=== PATIENT | male | born 1935 | race Caucasian/White ===

== ENCOUNTER 2016-12-21 10:31 | Inpatient (IN) | payer MEDICARE ==
--- NOTE | 2016-12-21 11:17 | RAD ---
FRONTAL RADIOGRAPH CHEST PORTABLE UPRIGHT: Date: 12/21/16 COMPARISON: 09/04/15 and 09/27/14. HISTORY: Premature ventricular contractions, premature atrial contractions, shortness of breath, dyspnea. FINDINGS: There is prominent elevation of the right hemidiaphragm limiting assessment of the right perihilar re gion and right lung base. Inspiration is shallow, also limiting detailed assessment. There is no pneu mothorax or focal consolidation. No large volume pleural effusion. There is prominent degenerative ch birgit involving the left shoulder. IMPRESSION: Elevation of right hemidiaphragm and shallow inspiration limits assessment of right perihilar region and right lung base. No lobar consolidation or alveolar edema. POS: [facility]
[2016-12-21 11:49] LABS: #Eosinphils 0.2 thou/uL (0.0-0.7); #Lymphocytes 2.1 thou/uL (1.20-3.40); #Monocytes 0.6 thou/uL (0.11-0.59); #Neutrophils 4.9 thou/uL (1.40-6.50); %Basophils 0.6 % (0.0-1.0); %Eosinophils 2.5 % (0.0-10.0); %Lymphocytes 26.8 % (21.0-51.0); Hematocrit 43.9 % (42.0-52.0); Mean Platelet Volume 9.9 fL (7.4-10.4); Red Blood Cell (RBC) Count 4.75 mill/uL (4.70-6.10); White Blood Cell (WBC) Count 7.8 thou/uL (4.8-10.8)
[2016-12-21 11:53] LABS: PTT 29.3 SEC (22.9-36.1); Prothrombin Time 15.6 SEC (12.0-14.7)
[2016-12-21 12:07] LABS: ALT (SGPT) 24 U/L (8-55); AST (SGOT) 21 U/L (5-34); Alkaline Phosphatase 46 U/L (40-150); Anion Gap 10 mmol/L (10-20); BUN (Urea Nitrogen) 19 mg/dL (8.4-25.7); CK (CPK) 79 U/L (30-200); Calc. Creatinine Clearance 0 mL/min (70-130); Carbon Dioxide 25 mmol/L (23-31); Estimated GFR-MDRD 77; Globulin 3.2 g/dL (2.4-3.5); Protein, Total 6.8 g/dL (5.8-8.1)
[2016-12-21 12:12] LABS: Troponin I 0.025 ng/mL (< 0.028)
[2016-12-21 12:28] LABS: Chloride 105 mmol/L (98-107)
[2016-12-21] MEDS ORDERED: Acetaminophen 325 MG TAB PO PRN (16:57)
[2016-12-21] MEDS ORDERED: Dextrose 50% Abboject 50 ML SYRINGE SLOW IVP PRN (16:57)
[2016-12-21] MEDS ORDERED: HumaLOG 300 UNITS/3 ML VIAL SC PRN (16:57)
[2016-12-21] MEDS ORDERED: Ondansetron HCl/PF 4 MG/2 ML Vial IVP PRN (16:57)
[2016-12-21] MEDS ORDERED: Bisacodyl 5 MG TAB PO PRN (16:57)
[2016-12-21] MEDS ORDERED: Dextrose 5% in Water 1,000 ML IV PRN (16:57)
[2016-12-21] MEDS ORDERED: Pepto Bismol Chew TAB PO PRN (16:57)
[2016-12-21] MEDS ORDERED: Ondansetron ODT 4 MG TAB PO PRN (16:57)
--- NOTE | 2016-12-21 17:25 | HP ---
PRIMARY CARE PHYSICIAN: NAREN Cantu PRIMARY MEDICAL LIAISON: Wellington Weber M.D. CHIEF COMPLAINT: Cough and congestion. HISTORY OF PRESENT ILLNESS: This is a 80-year-old white male with a known history of coronary artery disease and paroxysmal atrial fibrillation, status post electrical cardioversion, who has been in his normal state of health until the last 1-2 weeks he developed a cough, some upper respiratory congestion and some collection of dark sputum. This had cleared up a little bit over the last day. He went in to see his primary care physician, Lucie Beach today and during her workup, she did an EKG and noted multiple frequent PVCs along with underlying sinus bradycardia. At that point, these became so frequent and she decided to call an ambulance and had him brought over to [facility] either before he left the clinic or en route there was some concern for possible run of ventricular tachycardia. The patient had no symptoms at that time and he was given a couple of doses of lidocaine and put on a lidocaine drip for an undetermined amount of time and eventually it was actually turned off and was having got to the emergency room, he would not have any more PVCs, just irregular PACs. The patient's only complaint now is chronic shortness of breath which he states is no worse than normal and his cough and congestion. PAST MEDICAL HISTORY: 1. Coronary artery disease. 2. Paroxysmal atrial fibrillation. 3. Moderate aortic insufficiency. 4. Diabetes mellitus type 2. 5. Hypercholesterolemia. 6. Hypertension. 7. Obstructive sleep apnea requiring CPAP. 8. Osteoarthritis. 9. Multiple food allergies. PAST SURGICAL HISTORY: 1. Vasectomy. 2. Cardiac stents x3, last one was in 2006. 3. Tonsillectomy. 4. Cholecystectomy. 5. Left knee replacement. ALLERGIES: 1. PENICILLIN. 2. SULFA. 3. SERTRALINE. 4. MULTIPLE FOOD ALLERGIES. FAMILY HISTORY: 1. Congestive heart failure. 2. Hypertension. 3. Diabetes mellitus type 2. SOCIAL HISTORY: Patient denies any tobacco, alcohol, or illicit drug use. He was exposed to heavy secondhand smoke as a child. 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 CURRENT MEDICATIONS: 1. Multaq 400 mg twice a day. 2. Crestor 40 mg daily. 3. Zetia 10 mg daily. 4. Hydralazine 25 mg twice a day. 5. Amlodipine 2.5 mg daily. 6. Furosemide 20 mg daily. 7. Lisinopril 20 mg 1/2 tablet daily. 8. Metformin extended release 500 mg daily. 9. Pantoprazole 20 mg daily. 10. Ferrous sulfate 325 mg daily. 11. Vitamin D 3000 International Units daily. 12. Aspirin 325 mg daily. 13. Multivitamin daily. 14. Calcium vitamin daily. REVIEW OF SYSTEMS: CONSTITUTIONAL: No fevers, no chills. EYES: No double vision or blurred vision. NEUROLOGIC: He has had chronically poor eyesight and needs to get his glasses prescription updated. ENT: See HPI, nasal congestion and sinus congestion for the past week and a half. No sore throat. CARDIOVASCULAR: See HPI. No chest pain. HEENT: He does have regular runs of palpitations happen almost every day and nothing specifically today in the clinic or on his way into the hospital. PULMONARY: See HPI. GASTROINTESTINAL: No abdominal pain, no nausea, vomiting, no diarrhea or constipation. GENITOURINARY: No dysuria or hematuria. Currently, he has had some orange urine in the past that has been worked up by doctor. MUSCULOSKELETAL: He has chronic joint pains and muscle aches, but nothing new. SKIN: No rashes or other lesions he has noted. NEUROLOGIC: No numbness or focal weakness. He does have tingling in his bilateral thumbs from his arthritis that comes and goes. No headache. PHYSICAL EXAMINATION: VITAL SIGNS: Blood pressure 136/62, pulse 56, respirations 20, O2 sat 96% on room air, temperature 98.1. GENERAL: This is a well-developed, obese white male in no apparent distress, appears his stated age and development. HEENT: Pupils equal, round, and reactive to light. Extraocular movements intact. Oropharynx clear without lesions, erythema or exudate. NECK: Supple. No lymphadenopathy, no thyroid nodules or enlargement, no JVD. HEART: Regular rate and rhythm with occasional ectopic beats. No significant murmurs. LUNGS: Clear to auscultation bilaterally, no wheezes, crackles or rhonchi. ABDOMEN: Soft, nontender to palpation, normoactive bowel sounds, no hepatosplenomegaly or other masses. EXTREMITIES: No clubbing, cyanosis or edema. SKIN: No rashes or other lesions noted. NEUROLOGIC: Deep tendon reflexes 2+ in all extremities. Strength is equal in all extremities. PSYCHIATRIC: Alert and oriented x3, normal mood and affect. LABORATORY DATA: CBC normal. PT is 15.6, rest of his coags are normal. Complete metabolic panel was within normal limits. Cardiac markers set negative x1. Chest x-ray: I did review the chest x-ray along with the radiologist's report, the poor inspiration with elevation of the right hemidiaphragm, but no obvious abnormalities besides the right diaphragm elevation. EKG: I did review the EKG done in the emergency room as well as the rhythm strip of the patient while he was in the room, it does show sinus bradycardia with left axis deviation, no obvious ST elevation CO. He did have some premature narrow complex beats, but no PVCs while he was in the room or on the EKG. ASSESSMENT AND PLAN: 1. Frequent premature ventricular contractions and possible ventricular tachycardia run, though no rhythm strip was provided by EMS about these, the patient did report again he got lidocaine by EMS, though this had not to be continued as a drip. He has had no recurrence of the problem in the emergency room. For now, I will put the patient in the hospital on observation and watch him on the monitoring and evaluation advisor overnight. We will also have Cardiology evaluate the patient and see if further investigation needs to be done or his medications need to be adjusted. 2. Acute bronchitis. Likely viral, will treat symptomatically. 3. Diabetes mellitus type 2. We will resume patient's home metformin and check fingerstick blood sugars and give p.r.n. insulin if necessary. 4. Hypertension. We will resume patient's home medications. 5. Gastrointestinal prophylaxis. Put patient on Pepcid while in the hospital. 6. Deep venous thrombosis prophylaxis. Put the patient on sequential compression devices and TEDs while he is in bed. CODE STATUS: PATIENT IS FULL CODE. MTDD
[2016-12-21 18:08] VITALS: BMI 29.4
--- NOTE | 2016-12-21 18:51 | CON ---
DATE OF CONSULTATION: 12/21/2016 REASON FOR CONSULTATION: PVCs. PRIMARY SITE ENGINEER: Dr. Wellington Weber. HISTORY OF PRESENT ILLNESS: Mr. Carlos is a pleasant 80-year-old gentleman who is a patient of Dr. Wellington Weber. He was seen and evaluated in his primary care physician's office today. He said he went over for blood work and perforation per Dr. Weber's follow up visit on Wednesday. He sta [place] he had a cough and congestion and asked to see his primary provider. His primary provider felt decreased heart rate and obtained an EKG, and was found to have PVCs. He was concerned and summoned an ambulance. He then received IV lidocaine while in the ambulance. No chest pain, pressure, shor tness of breath or other associated symptoms present. PAST MEDICAL AND SURGICAL HISTORY: Paroxysmal atrial fibrillation, aortic insufficiency, diabetes m ellitus, hyperlipidemia, hypertension, obstructive sleep apnea, vasectomy, CAD status post stent meño cement, tonsillectomy and cholecystectomy. ALLERGIES: PENICILLIN and SERTRALINE. SOCIAL HISTORY: No current tobacco or alcohol use. MEDICATIONS: Include Lasix, amlodipine, hydralazine, Zetia, Crestor, Multaq, lisinopril, iron sulfa te, aspirin and calcium. REVIEW OF SYSTEMS: Ten-point review of systems is reviewed and is as above negative. PHYSICAL EXAMINATION: GENERAL: Patient is a pleasant male who is in no acute distress. The patient appears his stated ag e. VITAL SIGNS: Blood pressure 110/70, pulse 80 and respirations 20. NEUROLOGIC: The patient is alert and oriented x3 with no focal neurologic deficits. HEENT: Sclerae without icterus. Mouth has moist mucous membranes with normal pallor. NECK: No JVD. Carotid upstroke brisk. No bruits bilaterally. LUNGS: Clear to auscultation with unlabored respirations. BACK: No scoliosis or kyphosis. CARDIAC: Regular rate and rhythm with normal S1 and S2. No S3 or S4 noted. No significant rubs, murmurs, thrills, or gallops noted throughout the precordium. PMI is not displ aced. There is no parasternal heave. ABDOMEN: Soft, nontender, nondistended. No peritoneal signs present. No hepatosplenomegaly. No abnormal striae. EXTREMITIES: 2+ femoral and 2+ dorsalis pedis pulses. No cyanosis, clubbing, or edema. SKIN: No gross abnormalities. PERTINENT LABS: Hemoglobin 14.2. IMPRESSION: Premature ventricular contractions. RECOMMENDATIONS: I would recommend overnight observation. He may have had bigeminy or trigeminy. No current tracings are available. He certainly did not become unconscious. I would recommend over night observation then likely home in a.m. with outpatient workup.
[2016-12-21] MEDS: Dronedarone HCl 400 MG TAB PO SCH (19:29)
[2016-12-21] MEDS: hydrALAZINE 25 MG TAB PO SCH (19:29)
[2016-12-21] MEDS: Famotidine 20 MG TAB PO SCH (19:30)
[2016-12-21] MEDS: Ezetimibe 10 MG TAB PO SCH (19:30)
[2016-12-21] MEDS: Rosuvastatin 20 MG TAB PO SCH (19:31)
[2016-12-21] MEDS ORDERED: Guaifenesin DM 100-10/5 ML UDCUP PO SCH (20:00)
[2016-12-21] MEDS ORDERED: diphenhydrAMINE 25 MG CAP PO SCH (20:00)
[2016-12-22] MEDS ORDERED: Regadenoson 0.4 MG/5 ML SYRINGE ONE (01:36)
[2016-12-22 04:47] LABS: #Eosinphils 0.2 thou/uL (0.0-0.7); #Lymphocytes 2.2 thou/uL (1.20-3.40); #Monocytes 0.7 thou/uL (0.11-0.59); #Neutrophils 3.8 thou/uL (1.40-6.50); %Basophils 0.2 % (0.0-1.0); %Eosinophils 3.4 % (0.0-10.0); %Lymphocytes 31.6 % (21.0-51.0); %Monocytes 9.5 % (0.0-10.0); Hematocrit 42.9 % (42.0-52.0); Mean Platelet Volume 9.9 fL (7.4-10.4); Red Blood Cell (RBC) Count 4.61 mill/uL (4.70-6.10); White Blood Cell (WBC) Count 6.8 thou/uL (4.8-10.8)
[2016-12-22 05:04] LABS: Anion Gap 8 mmol/L (10-20); BUN (Urea Nitrogen) 20 mg/dL (8.4-25.7); Calc. Creatinine Clearance 85 mL/min (70-130); Calcium 8.8 mg/dL (7.8-10.44); Carbon Dioxide 29 mmol/L (23-31); Chloride 104 mmol/L (98-107); Estimated GFR-MDRD 83
--- NOTE | 2016-12-22 08:08 | PDOC.PN ---
- Subjective Encounter Start Date: 12/22/16 Encounter Start Time: 08:10 Subjective: No chest pain. Cough improved. Slept ok last night. No food this AM. - Objective Resuscitation Status: Resuscitation Status FULL:Full Resuscitation MAR Reviewed: Yes Vital Signs & Weight: Vital Signs (12 hours) Temp Pulse Resp BP BP Pulse Ox 12/22/16 07:32 98.5 F 63 18 160/78 H 95 12/22/16 03:45 97.6 F 57 L 18 126/57 L 97 12/21/16 23:10 98.2 F 65 16 108/55 L 95 Weight Weight 194 lb 11.2 oz I&O: 12/21/16 12/22/16 12/23/16 06:59 06:59 06:59 Intake Total 480 Output Total 200 Balance 280 Result Diagrams: 12/22/16 03:55 12/22/16 03:55 Additional Labs: Accuchecks 12/21/16 21:15 POC Glucose 207 H Phys Exam - Physical Examination Constitutional: NAD HEENT: moist MMs Respiratory: no wheezing, no rales, no rhonchi Cardiovascular: no significant murmur, no rub, gallop occ ectopic beat Gastrointestinal: soft, non-tender, positive bowel sounds Neurological: non-focal, moves all 4 limbs Psychiatric: normal affect, A&O x 3 Dx/Plan (1) Nonsustained ventricular tachycardia Code(s): I47.2 - VENTRICULAR TACHYCARDIA Status: Acute Comment: Recurrent overnight (2) Acute bronchitis Code(s): J20.9 - ACUTE BRONCHITIS, UNSPECIFIED Status: Acute (3) Coronary artery disease Code(s): I25.10 - ATHSCL HEART DISEASE OF [place] CORONARY ARTERY W/O ANG PCTRS Status: Chronic Plan: ECHO and Cardiolyte stress test (4) Diabetes mellitus type 2 in obese Code(s): E11.69 - TYPE 2 DIABETES MELLITUS WITH OTHER SPECIFIED COMPLICATION; E66.9 - OBESITY, UNSPECIFIED Status: Chronic (5) Hypertension Code(s): I10 - ESSENTIAL (PRIMARY) HYPERTENSION Status: Chronic - Plan cont current plan of care Appreciate Dr. Weber's assistance * . - Discharge Day Encounter end time: 08:40
[2016-12-22] MEDS ORDERED: Guaifenesin DM 100-10/5 ML UDCUP PO PRN (08:14)
[2016-12-22] MEDS ORDERED: Ezetimibe 10 MG TAB PO SCH (09:00)
[2016-12-22 09:38] LABS: Troponin I 0.034 ng/mL (< 0.028)
[2016-12-22] MEDS: metFORMIN XR 500 MG TAB PO SCH (13:26)
[2016-12-22] MEDS: Dronedarone HCl 400 MG TAB PO SCH ×2 (13:26→23:00)
[2016-12-22] MEDS: Aspirin 325 mg Enteric Coated Tablet PO SCH (13:26)
[2016-12-22] MEDS: Furosemide 20 MG TAB PO SCH (13:27)
[2016-12-22] MEDS: Ferrous Sulfate 325 MG TAB PO SCH ×2 (13:27→13:35)
[2016-12-22] MEDS: Amlodipine 5 MG TAB PO SCH (13:28)
[2016-12-22] MEDS: Lisinopril 10 MG TAB PO SCH (13:28)
[2016-12-22] MEDS: hydrALAZINE 25 MG TAB PO SCH ×2 (13:28→23:00)
[2016-12-22] MEDS: Famotidine 20 MG TAB PO SCH ×2 (13:28→23:01)
--- NOTE | 2016-12-22 13:41 | NM ---
NUCLEAR MEDICINE CARDIAC MYOCARDIAL PERFUSION SPECT EJECTION FRACTION STUDY WALL MOTION CINE: HISTORY: 80-year-old hypertensive diabetic (type II) male with dyslipidemia, coronary artery disease, and atri al fibrillation, presents with chest pain. TECHNIQUE: Number of days: 1 Rest study: Tc99m sestamibi (Cardiolite) dose: 9.4 mCi Pharmacologic stress: Lexiscan dose: 0.4 mg Stress study: Tc99m sestamibi (Cardiolite) dose: 32.1 mCi FINDINGS: CARDIAC (MYOCARDIAL PERFUSION) SPECT Left ventricular chamber is dilated. Radiopharmaceutical uptake throughout the left ventricular myoca rdium is mildly heterogenous. No definite reversible defect is identified. EJECTION FRACTION STUDY EF = 39% WALL MOTION CINE Global hypokinesis. No asymmetrical focal dyskinesis. IMPRESSION: 1. Left ventricular chamber dilation with decreased left ventricular ejection fraction of 39%, and gl obal hypokinesis. 2. No reversible ischemia identified. JOSELUIS Mendoza POS: [facility]
[2016-12-22] MEDS ORDERED: Communication Order-Pharmacy FS SCH (18:15)
[2016-12-22] MEDS: Sodium Chloride 0.9% 1,000 ML IV SCH (18:45)
[2016-12-22] MEDS: Rosuvastatin 20 MG TAB PO SCH (23:00)
[2016-12-22] MEDS: diphenhydrAMINE 25 MG CAP PO PRN (23:00)
[2016-12-22] MEDS: Ezetimibe 10 MG TAB PO SCH (23:01)
[2016-12-23] MEDS: Furosemide 20 MG TAB PO SCH (06:43)
[2016-12-23] MEDS: Aspirin 325 mg Enteric Coated Tablet PO SCH (06:43)
[2016-12-23] MEDS: Ferrous Sulfate 325 MG TAB PO SCH (06:44)
[2016-12-23] MEDS: Famotidine 20 MG TAB PO SCH ×2 (06:45→21:32)
[2016-12-23] MEDS: Lisinopril 10 MG TAB PO SCH (06:45)
[2016-12-23] MEDS: Dronedarone HCl 400 MG TAB PO SCH (06:46)
[2016-12-23] MEDS: Amlodipine 5 MG TAB PO SCH (06:46)
[2016-12-23] MEDS: Sodium Chloride 0.9% 1,000 ML IV SCH (06:47)
[2016-12-23] MEDS: hydrALAZINE 25 MG TAB PO SCH ×2 (08:08→21:32)
[2016-12-23] MEDS: metFORMIN XR 500 MG TAB PO SCH (08:09)
[2016-12-23] MEDS ORDERED: Heparin 10,000 UNITS/1 ML VIAL ONE (11:09)
[2016-12-23] MEDS ORDERED: Fentanyl 100 MCG/2 ML VIAL ONE (11:51)
[2016-12-23] MEDS ORDERED: Midazolam HCl 2 mg/2 ml Vial ONE (11:51)
[2016-12-23] MEDS ORDERED: Protamine Sulfate 50 MG/5 ML VIAL ONE (12:28)
[2016-12-23] MEDS ORDERED: traMADol HCl 50 MG TAB PO PRN (12:44)
[2016-12-23] MEDS ORDERED: Nitroglycerin 0.4 MG TAB (25 Tab Bottle) SL PRN (12:44)
[2016-12-23] MEDS ORDERED: Acetaminophen/Codeine 30-300mg Tablet PO PRN ×2 (12:44)
[2016-12-23] MEDS ORDERED: Sodium Chloride 0.9% 200 ML IV SCH (12:45)
[2016-12-23] MEDS ORDERED: Sodium Chloride 0.9% 1,000 ML IV SCH (12:47)
--- NOTE | 2016-12-23 13:52 | PRG ---
DATE OF SERVICE: 12/23/2016 SUBJECTIVE: The patient seen and examined at bedside. He just came back from the [employer] [facility] and we a re awaiting for the final official report on this test from Dr. Weber The patient is doing well. He does not have much complaints to offer. PHYSICAL EXAMINATION: VITAL SIGNS: Blood pressure is 118/77, pulse is 66, respiratory rate is 18. HEENT: Head is atraumatic and normocephalic. Eyes; PERRLA. Conjunctivae pinkish. Oral mucosa is moist. NECK: Supple. LUNGS: Clear. HEART: S1, S2, somewhat irregular, irregular. No S3, no S4. ABDOMEN: Soft, nontender, nondistended. EXTREMITIES: No clubbing, cyanosis. There is 1+ peripheral edema noted bilaterally. NEUROLOGIC: He is able to answer simple questions. He follows my commands. No motor or sensory de ficits. LABORATORY: Glycemia is ranging from 73-178. Activated clotting time is 132. IMPRESSION: 1. Nonsustained ventricular tachycardia, multiple runs of short nonsustained arrhythmia status post cardiac catheterization, awaiting for the results. 2. Acute bronchitis, improved. 3. Coronary artery disease of [place] coronaries, chronic, stable. 4. Diabetes mellitus type 2, controlled. 5. Hypertension, chronic, controlled. PLAN: The patient just came back from the [employer] [facility]. We are awaiting for final report from Dr. Jacey rankin whether he will set him up for an ICD or he will ask want ad clerk to come to do a consul t. For now we are going to continue current regimen.
[2016-12-23] MEDS ORDERED: Iopamidol 370 76% 100 ML VIAL ONE (16:47)
[2016-12-23] MEDS: diphenhydrAMINE 25 MG CAP PO PRN (21:31)
[2016-12-23] MEDS: Rosuvastatin 20 MG TAB PO SCH (21:31)
[2016-12-23] MEDS: Ezetimibe 10 MG TAB PO SCH (21:32)
[2016-12-23] MEDS: Guaifenesin DM 100-10/5 ML UDCUP PO PRN (21:33)
--- NOTE | 2016-12-23 21:54 | CON ---
DATE OF CONSULTATION: 12/23/2016 ELECTROPHYSIOLOGY CONSULTATION REPORT REFERRING PHYSICIAN: Dr. Weber. I am seeing Mr. Carlos at our [facility] telemetry floor as an electrophysiology senior research consultant. His problems are: 1. 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 A. Prior EF was normal in 07/2012, echo, but gradual worsening at LVEF was seen with left heart catheterization demonstrating severely decreased left ventricular systolic function at 30%, mild aortic stenosis and 2-vessel small dose to small vessel coronary artery disease in the 20% diagonal, 30% circumflex, 40% mid RCA, 30% ostial ramus. 2. Frequent ventricular ectopy with nonsustained ventricular tachyarrhythmia runs on monitor. 3. Tendency for bradycardia with heart rates down in the 40s on presentation. 4. History of paroxysmal atrial fibrillation, status post DOREEN guided cardioversion in 10/2013. 5. Coronary artery risk factors. A. Type 2 diabetes. B. Hypercholesterolemia. C. Hypertension. 6. History of obstructive sleep apnea requiring CPAP. 7. Valvular heart disease with moderate mitral regurgitation, mild aortic stenosis, moderate aortic regurgitation, mild tricuspid regurgitation. Echo with LVEF of 35% to 40% on 12/22/2016. SUBJECTIVE: Mr. Carlos was admitted hence frequent dense ventricular ectopy on his primary care physician's office. He was also noted to have bradycardia and was receiving an IV lidocaine for suppression of dysrhythmia. He was evaluated and treated for bronchitis and eventually underwent left heart catheterization by Dr. Weber today with the following findings. At this point denies loss of consciousness, but he did have significant dyspnea. He is unable to get around. He has been in a store without significant dyspnea. He denies chest pains on presentation, he did have some cough and congestion. No stroke-like symptoms. No bleeding issues are reported. Denies burning with urination, diarrhea, or other GI symptoms. REVIEW OF SYSTEMS: A 12-point review of systems was unremarkable. PAST MEDICAL HISTORY: As above. SOCIAL HISTORY: The patient denies smoking, ETOH, or drug use. The patient has history of kidney stones and Raynaud's disease. FAMILY HISTORY: Noncontributory. OBJECTIVE: VITAL SIGNS: Blood pressure is 118/77, heart rate 66, respirations 20, temperature 97.9 degrees Fahrenheit. GENERAL: Alert and oriented man in no apparent distress. NECK: Supple. Jugular veins not distended. CHEST: Coarse without crackles. CARDIOVASCULAR: Heart sounds are regular to rate and rhythm. No murmur or gallop. ABDOMEN: Benign. Bowel sounds positive. EXTREMITIES: Lower extremities without edema, clubbing or cyanosis. Pulses are adequate. NEUROLOGIC: Patient is nonfocal. MUSCULOSKELETAL: No joint swelling or deformities. SKIN: Without rash. DATABASE: EKG is reviewed reveals initially sinus bradycardia at rate of 45 with atypical left bundle pattern. There is also EKG with frequent multifocal ventricular ectopy noted. Telemetry strips also revealed episodic ventricular ectopy as well as non-sustained ventricular tachyarrhythmia runs. LABORATORY DATA: White blood cell count 6.8, hemoglobin 13.7, platelet count is 154. Sodium 137, potassium 4.3, BUN is 20, creatinine is 0.89. INR is 1.2, PTT 29.3. ASSESSMENT AND PLAN: Mr. Carlos is a 80-year-old man with prior history of chronic, likely nonischemic systolic congestive heart failure, paroxysmal atrial arrhythmias requiring cardioversion back in 2013 and remains on Multaq suppression since that time. Now he is admitted with frequent PVCs and marked sinus bradycardia. His LVEF is in severely the decreased range. I discussed the treatment options with him. I think since his LVEF is markedly reduced and has frequent ventricular ectopy, it would be reasonable to proceed with biventricular ICD implant prior to that, EP study will be performed to evaluate the atrial and ventricular arrhythmias. He likely has significant sinus node disease, possibly worsened by negative chronotropic agents, but would likely benefit from atrial pacing as well. Both EP study and biventricular ICD implant procedure was discussed with the family and the risks , benefits are detailed. They understand the chance of infection, bleeding, pneumothorax, tamponade, device malfunction, lead dislodgement and recalls they willing to proceed. We will schedule him in near date. Thank you again for letting me participate in the care of this patient. MAYURI
[2016-12-24] MEDS: metFORMIN XR 500 MG TAB PO SCH (08:36)
--- NOTE | 2016-12-24 08:36 | PRG ---
DATE OF SERVICE: 12/24/2016 SUBJECTIVE: The patient is seen and examined at bedside. He is doing well. He does not have much complaints to offer. He is getting ready for his AICD placement this morning. OBJECTIVE: VITAL SIGNS: Blood pressure is 133/63, pulse is 67, O2 saturation is 94% on room air, respiratory r ate is 18, temperature is 98.1. HEENT: Head is atraumatic, normocephalic. Eyes are PERRLA. Sclerae nonicteric. Conjunctivae pink johanna. Oral mucosa is moist. NECK: Supple, no lymphadenopathy. Thyroid is not palpable. LUNGS: Clear. HEART: S1, S2, somewhat irregular. No S3, no S4. ABDOMEN: Soft and nontender, nondistended. Bowel sounds are present. No organomegaly. EXTREMITIES: No clubbing, cyanosis or edema. NEUROLOGIC: He is alert and oriented x4. There is no motor or sensory deficits. Cranial nerves ar e intact. LABORATORY DATA: Showed none this morning. IMPRESSION: 1. Nonsustained ventricular tachycardia, multiple runs of short nonsustained arrhythmia, status pos t cardiac catheterization. LVEF was estimated at 25% per cardiac catheterization yesterday. The pa juan jose was seen by Dr. Laguerre for EP evaluation. He recommends biventricular AICD and pacer. 2. Acute bronchitis, improved. 3. Coronary artery disease of [place] coronaries, chronic, stable. 4. Diabetes mellitus type 2, controlled. 5. Hypertension, chronic, controlled. PLAN: To get an AICD today per Dr. Laguerre, diversity specialist. Also, there is a plan to put him on beta-b lockers and probably amiodarone per Dr. Weber. At this point, we are going to continue his curre nt regimen. He will continue on amlodipine, aspirin, Zetia, furosemide, lisinopril, metformin, pant oprazole, and Crestor.
[2016-12-24] MEDS: Lisinopril 10 MG TAB PO SCH (09:57)
[2016-12-24] MEDS: Famotidine 20 MG TAB PO SCH ×2 (09:58→20:04)
[2016-12-24] MEDS: Amlodipine 5 MG TAB PO SCH (09:58)
[2016-12-24] MEDS: Aspirin 325 mg Enteric Coated Tablet PO SCH (09:59)
[2016-12-24] MEDS: hydrALAZINE 25 MG TAB PO SCH (09:59)
[2016-12-24] MEDS: Furosemide 20 MG TAB PO SCH (10:03)
[2016-12-24] MEDS: Ferrous Sulfate 325 MG TAB PO SCH (10:06)
[2016-12-24 13:28] LABS: #Eosinphils 0.3 thou/uL (0.0-0.7); #Lymphocytes 2.1 thou/uL (1.20-3.40); #Monocytes 0.6 thou/uL (0.11-0.59); #Neutrophils 5.2 thou/uL (1.40-6.50); %Basophils 0.2 % (0.0-1.0); %Eosinophils 3.9 % (0.0-10.0); %Lymphocytes 25.1 % (21.0-51.0); %Monocytes 7.6 % (0.0-10.0); Hematocrit 43.7 % (42.0-52.0); Mean Platelet Volume 9.7 fL (7.4-10.4); Red Blood Cell (RBC) Count 4.67 mill/uL (4.70-6.10); White Blood Cell (WBC) Count 8.3 thou/uL (4.8-10.8)
[2016-12-24] MEDS ORDERED: Clindamycin/D5W 900 MG in Premix Bag 1 BAG IVPB SCH (13:30)
[2016-12-24 13:35] LABS: PTT 30.3 SEC (22.9-36.1); Prothrombin Time 16.3 SEC (12.0-14.7)
[2016-12-24] MEDS ORDERED: Propofol 500 MG/50 ML VIAL ONE (15:00)
[2016-12-24] MEDS ORDERED: Clindamycin/D5W 900 mg/50 ml Premix Bag ONE (15:02)
[2016-12-24] MEDS ORDERED: Levofloxacin 500 mg/D5W 100 ml Premix Bag ONE (15:02)
[2016-12-24] MEDS ORDERED: Ketamine 50 MG/ML VIAL ONE (15:24)
[2016-12-24] MEDS ORDERED: Glycopyrrolate 0.2 MG/ML 5 ML SYRINGE ONE (15:32)
[2016-12-24] MEDS ORDERED: Propofol 200 MG/20 ML VIAL ONE (15:32)
[2016-12-24] MEDS ORDERED: PHENYLEPHRINE-NS 100 MCG/ML 10 ML SYRINGE ONE (15:32)
[2016-12-24] MEDS ORDERED: Midazolam HCl 2 mg/2 ml Vial ONE (15:43)
[2016-12-24] MEDS ORDERED: Iopamidol 370 76% 50 ML VIAL FS ONE (16:28)
[2016-12-24] MEDS ORDERED: Promethazine HCl 25 MG/ML VIAL SLOW IVP PRN (16:31)
[2016-12-24] MEDS ORDERED: Morphine Sulfate 2 MG/ML SYRINGE SLOW IVP PRN (16:31)
[2016-12-24] MEDS ORDERED: Ondansetron HCl/PF 4 MG/2 ML Vial IVP PRN (16:31)
[2016-12-24] MEDS: Carvedilol 6.25 MG TAB PO SCH (17:00)
[2016-12-24] MEDS: Clindamycin 150 MG CAP PO SCH (20:01)
[2016-12-24] MEDS: Rosuvastatin 20 MG TAB PO SCH (20:03)
[2016-12-24] MEDS: Ezetimibe 10 MG TAB PO SCH (20:04)
[2016-12-24] MEDS: Amiodarone 200 MG TAB PO SCH (20:04)
[2016-12-25] MEDS: Guaifenesin DM 100-10/5 ML UDCUP PO PRN ×2 (00:35→20:37)
[2016-12-25] MEDS: diphenhydrAMINE 25 MG CAP PO PRN ×2 (00:35→20:38)
[2016-12-25 05:05] LABS: #Eosinphils 0.2 thou/uL (0.0-0.7); #Lymphocytes 1.6 thou/uL (1.20-3.40); #Neutrophils 7.4 thou/uL (1.40-6.50); %Basophils 0.3 % (0.0-1.0); %Eosinophils 2.3 % (0.0-10.0); %Lymphocytes 15.7 % (21.0-51.0); %Monocytes 9.6 % (0.0-10.0); Hematocrit 45.6 % (42.0-52.0); Mean Platelet Volume 10.1 fL (7.4-10.4); Red Blood Cell (RBC) Count 4.93 mill/uL (4.70-6.10); White Blood Cell (WBC) Count 10.3 thou/uL (4.8-10.8)
[2016-12-25 05:28] LABS: Anion Gap 12 mmol/L (10-20); BUN (Urea Nitrogen) 13 mg/dL (8.4-25.7); Calc. Creatinine Clearance 92 mL/min (70-130); Calcium 9.1 mg/dL (7.8-10.44); Carbon Dioxide 24 mmol/L (23-31); Chloride 105 mmol/L (98-107); Estimated GFR-MDRD 90
--- NOTE | 2016-12-25 06:50 | CCLSPC ---
DATE OF SERVICE: 12/24/2016 ELECTROPHYSIOLOGY STUDY REPORT REFERRING PHYSICIAN: Wellington Weber M.D. REASON FOR PROCEDURE: Mr. Carlos is a 80-year-old male with history of paroxysmal atrial fibrillation, coronary artery disease with multiple stents in the past, progressive worsening LV function and heart failure exacerbation as well as very frequent ventricular ectopy prompting his current admission. He is here for evaluation of conduction disease and arrhythmia. He also has atypical left bundle pattern EKG. DESCRIPTION OF PROCEDURE: The patient received deep sedation by Anesthesia specialist. After adequate level of sedation achieved, the right femoral vein was prepped, draped, and anesthetized with subcutaneous lidocaine and ultrasound guidance was used to access the right femoral vein through which an 8 -Jordanian short sheath was introduced. A Decapolar 7-Jordanian catheter was advanced to the right ventricle, His bundle, AV node, and right atrial position. Also, the left subclavian vein was cannulated to prove patency. Following that, pacing, mapping, and recording were performed in each cardiac location. The following results were recorded. The baseline rhythm is sinus rhythm with very frequent PVCs which are mostly monomorphic in nature, left bundle inferior axis in morphology. The baseline cycle length is 667, MS 164, QRS 140, QT 380, AH 121, HV 50 milliseconds. No definite VA conduction is documented. Sinus node recovery time is 765, corrected to 98 milliseconds noted. The antegrade Wenckebach cycle length is 480. AV jude ERP was 600/240 milliseconds. No definite dual AV jude physiology was seen. With burst atrial pacing -----, atrial flutter was induced. Following that, the catheter was used to perform the ventricular extrastimuli testing with up to 3 ventricular extrastimuli and [address] Up to 3 ventricular extrastimuli were used, which were decremented to the refractory. With this method long 7 to 8 seconds of somewhat polymorphic-appearing ventricular tachycardia was noted, but all self terminated. Due to borderline clinical status, as a testing was not performed. CONCLUSION: 1. Adequate atrioventricular jude and sinus jude function. 2. Widened QRS, atypical left bundle present. 3. Inducible atypical atrial flutter noted, which was self terminated. 4. Inducible ventricular tachycardia also self terminated noted, not sustained by definition. PLAN: Hence, the ischemic cardiomyopathy, now with severely reduced LVEF and severe ectopy easily inducible nonsustained VT, I think he he continue to have eleveted malignant ventricular and atrial arrhythmia risk. At this point, I think it would be reasonable to proceed with biventricular pacemaker which will allow for using further AV jude blocking agents as the patient sustained bradycardia in the past. His heart failure will likely improve with LV synchrony as well provided by the biventricular pacing. Discussed with Dr. Weber. POS: [facility] MESSINA
--- NOTE | 2016-12-25 07:55 | RAD ---
CHEST 1 VIEW: Date: 12/25/16 HISTORY: 80-year-old male with post cardiac device placement. FINDINGS: There is a left ICD. Monitor leads overlie the chest. Minimal cardiomegaly. Right hemidiaphragm elev ation with some linear parenchymal changes in the right base which appear stable. No pneumothorax or pleural effusion. IMPRESSION: Stable chronic changes. Left ICD placement without pneumothorax or other complication. Stable left s houlder degenerative changes. POS: [facility]
[2016-12-25] MEDS: Amiodarone 200 MG TAB PO SCH ×2 (10:39→20:38)
[2016-12-25] MEDS: Clindamycin 150 MG CAP PO SCH ×3 (10:40→20:37)
[2016-12-25] MEDS: Carvedilol 6.25 MG TAB PO SCH ×2 (10:40→16:11)
[2016-12-25] MEDS: Ferrous Sulfate 325 MG TAB PO SCH (10:40)
[2016-12-25] MEDS: Famotidine 20 MG TAB PO SCH ×2 (10:41→20:38)
[2016-12-25] MEDS: Lisinopril 10 MG TAB PO SCH (10:41)
[2016-12-25] MEDS: Furosemide 20 MG TAB PO SCH (10:41)
[2016-12-25] MEDS: metFORMIN XR 500 MG TAB PO SCH (10:41)
[2016-12-25] MEDS: Aspirin 325 mg Enteric Coated Tablet PO SCH (10:42)
[2016-12-25] MEDS ORDERED: Fentanyl 100 MCG/2 ML VIAL ONE (12:50)
--- NOTE | 2016-12-25 15:47 | RAD ---
PORTABLE CHEST 1 VIEW: Date: 12/25/16 Time: 1354 hours HISTORY: Post cardiac device placement. FINDINGS/IMPRESSION: Comparison made with the earlier exam at 0612 hours from the same date. No significant interval rodriguez ges are seen. No definite pneumothorax is noted. POS: OFF
--- NOTE | 2016-12-25 17:42 | PRG ---
DATE OF SERVICE: 12/25/2016 SUBJECTIVE: The patient was seen and examined at bedside. He just came back from the OR where he had atrial lead replaced and his pacemaker. He is not having any pain at the time of my visit; he d oes not have much complaints to offer. OBJECTIVE: VITAL SIGNS: Blood pressure is 107/67, pulse is 68, temperature is 98.8, respiratory rate is 18 and O2 saturation is 94%. HEENT: His head is atraumatic and normocephalic. Eyes are PERRLA. Conjunctivae pinkish. Oral muc lorraine is moist. NECK: Supple. LUNGS: The left upper chest shows an incision in the area where the pacemaker is placed. There is no bleeding. Looks good and dry. Lungs are clear. HEART: S1 and S2, somewhat distant. No S3, no S4. ABDOMEN: Soft, nontender, nondistended. EXTREMITIES: 1+ peripheral edema similar bilaterally. NEUROLOGIC: Intact. LABORATORY DATA: Showed normal CBC and normal BMP. Glycemia is ranging from 85-135 IMPRESSION: 1. Nonsustained ventricular tachycardia, multiple runs of short nonsustained arrhythmia and status post cardiac catheterization, which showed that the left ventricular ejection fraction is down to 25 % and the patient had biventricular pacer implantable cardioverter-defibrillator placed, but today, Dr. Laguerre had to go back and replace his atrial lead. 2. Acute bronchitis, resolved. 3. Coronary artery disease of [place] coronaries, chronic, stable. 4. Diabetes mellitus type 2, controlled. 5. Hypertension, chronic, controlled. PLAN: Observe him overnight and he will be discharged tomorrow morning if there is not any unexpect ed events. So far, he is doing well and continue the current regimen.
[2016-12-25] MEDS: Ezetimibe 10 MG TAB PO SCH (20:37)
[2016-12-25] MEDS: Rosuvastatin 20 MG TAB PO SCH (20:37)
[2016-12-26] MEDS: Clindamycin 150 MG CAP PO SCH (08:39)
[2016-12-26] MEDS: metFORMIN XR 500 MG TAB PO SCH (08:39)
[2016-12-26] MEDS: Ferrous Sulfate 325 MG TAB PO SCH (08:40)
[2016-12-26] MEDS: Famotidine 20 MG TAB PO SCH (08:40)
[2016-12-26] MEDS: Aspirin 325 mg Enteric Coated Tablet PO SCH (08:40)
[2016-12-26] MEDS: Carvedilol 6.25 MG TAB PO SCH (08:41)
[2016-12-26] MEDS: Amiodarone 200 MG TAB PO SCH (08:41)
[2016-12-26] MEDS: Lisinopril 10 MG TAB PO SCH (08:42)
[2016-12-26] MEDS: Furosemide 20 MG TAB PO SCH (08:42)
[2016-12-26 08:43] VITALS: BP 111/60
[2016-12-26 08:44] VITALS: TEMP 97.2
--- NOTE | 2016-12-26 12:09 | OP ---
DATE OF SERVICE: 12/26/2016 Mr. Carlos has underwent a biventricular ICD placement on 12/24/2016 with atrial leads dislodgement required atrial lead revision in the subsequent day. His device has adequate functioning this morn ing, interrogation revealed a [employer]onic Viva Quad XT TRUCK JUMPER-D device with battery longevity 7.9 years, impedance is 456 in atrium, 418 in RV, 65 in the LV. Capture threshold 0.25 volts at 0.4 in atrium, 0.65 volts at 0.4 in RV, 0.65 volts at 0.46 in the LV. Sensing 2.4 and 6.6 millivolts in the atriu m and RV respectively. CONCLUSION: Adequate functioning biventricular ICD 1 day post-lead revision. PLAN: Routine discharge with antibiotics and amiodarone taper. Wound check in 2 weeks.
--- NOTE | 2016-12-26 14:27 | DIS ---
DATE OF ADMISSION: 12/21/2016 DATE OF DISCHARGE: 12/26/2016 CONSULTANTS: Dr. Tan Sandoval and Dr. Weber for cardiology service, Dr. Andrea Laguerre, electr ophysiologist. FINAL DIAGNOSES: 1. Severe LV dysfunction. LVEF of 50-55% in 2014, during this hospitalization is down to 25-30%. 2. ICD biventricular. 3. Inducible V-tach at EPS. 4. CAD, status post cardiac catheterization in good stent results from before. 5. Mild aortic stenosis. 6. Sick sinus syndrome and history of cardioversion of atrial fibrillation in 2013. 7. Hypertension. 8. Hyperlipidemia. 9. Mitral regurgitation and aortic insufficiency. 10. Obstructive sleep apnea. PROCEDURE: Cardiac catheterization and biventricular AICD placement. HOSPITAL COURSE: The patient is a 80-year-old male with known history of coronary artery disease and paroxysmal atrial fibrillation, status post electrical cardioversion in the past, who lewis d been in his normal state of health until approximately 2 weeks prior to this hospitalization when he started developing cough and some upper respiratory congestion with some dark sputum which improv ed. He went to see his primary care physician and he had an electrocardiogram done in her office wh ich showed multiple frequent PVCs along with underlying sinus bradycardia, so the ambulance was call ed and he was taken to the emergency room at [facility] in [place]. He was given a couple of doses of lidocaine on his way to the hospital then he was placed on lidocaine drip which was eventu ally turned off in the emergency room since his multiple PVCs improved. In the emergency room, eval uation showed his CBC was normal, PT 15.6, the rest of his coags was normal. Complete metabolic son el was within normal limits. Cardiac marker set was negative x1. Chest x-ray revealed poor inspira tion with elevation of the right hemidiaphragm, but no obvious abnormalities besides the right diaph ragm elevation. EKG showed sinus bradycardia with left axis deviation, no obvious ST elevation WI. He had some premature narrow complex beats, but no PVCs on the EKG. So a decision was made about a dmission to the hospital. He was admitted to telemetry floor for possible nonsustained V-tach. Car diology was consulted, Dr. Sandoval. He saw the patient. He recommended overnight observation and he underwent a stress test nuclear which showed global hypokinesis, no asymmetrical focal dyskinesi s, left ventricular chamber was dilated with decreased left ventricular ejection fraction at 39%, wh ich was a significant change from the previous echo which was done in 2013 and it showed 50-55%. Of LVEF. The patient underwent cardiac catheterization after he had echocardiogram which showed moder ately depressed left ventricular function with ejection fraction of 35-40%, there was akinetic motio n of the inferior wall noted in the left ventricle. There was moderate mitral regurgitation, mild a ortic stenosis, moderate aortic regurgitation and mild tricuspid regurgitation. So, echo was done a nd based on this, he underwent cardiac catheterization which showed 2-vessel coronary artery disease , LAD and circumflex and severely impaired ventricular function with mild aortic stenosis. The EP c onsult was requested and The patient was seen by Dr. Andrea Laguerre who recommended biventricular AICD which was done, but because of some issue it required to reposition atrial lead, so the patient was taken again to the lab engineer for this procedure which was done properly and finally he is paced prope rly, no problems overnight, there were no any cardiac abnormalities. He is feeling good. He does n ot have much complains to offer. There were several changes during this hospitalization in his medi cations. We stopped his Multaq, amlodipine and hydralazine and he was placed on Coreg and amiodaron e. Also post-procedure, he was placed on clindamycin since he is allergic to PENICILLIN. His blood pressure today is 123/58, pulse is 75, respiratory rate is 18, and O2 saturation 95 on room air, hi s temperature is 97.4. He was seen and examined and evaluated before he is discharged home. He is s upposed to stay on heart healthy, low salt diet. We are going to have him on post-AICD placement pr otocol in terms of lifting and using his left arm and he will take his home medications as follows. Amiodarone 400 mg twice a day for 2 weeks, then 200 mg twice a day for 2 weeks, then he will stay o n 200 mg tablets 1 a day; carvedilol 6.25 mg twice a day, and clindamycin 300 mg 3 times a day for 7 days. His other medications at the time of discharge, aspirin 325 mg once a day, cholecalciferol v itamin D3 1000 units once a day, Zetia 10 mg q.p.m., furosemide 20 mg once a day, lisinopril 10 mg o nce a day, metformin 500 mg once day, Rosuvastatin, which is Crestor 40 mg at bedtime. He is going to call Dr. Weber's office and Dr. Laguerre's office for the followup appointments. The patient was seen and examined before he was discharged. Discharge time is more than 30 minutes.
--- NOTE | 2016-12-30 13:27 | STRESS ---
Acquisition Time: 2016-12-22 09:59:27 Total Exercise Time: 00:01:00 Test Indications: CHEST PAIN Medications: Protocol: LEXISCAN Max HR: 085 BPM 59% of Pred: 142 BPM Max BP: 142/060 mmHG Max Work Load: 1.0 METS RESTING ECG: NORMAL SINUS RHYTHM AT 55 BPM WITH POOR R-WAVE PROGRESSION AND FREQUENT PVC'S SYMPTOMS: SHORTNESS OF BREATH NORMAL BP RESPONSE ECTOPY: FREQUENT PVC'S ECG STRESS: NO SIGNIFICANT CHANGES INTERPRETATION: AWAIT NUCLEAR IMAGES FOR DEFINITIVE DIAGNOSIS Confirmed by WINSTON SHEPARD ([id number]), newspaper photo editor RADHA SHAH ([id number]) on 12/30/2016 1:26:52 PM Referred By: MD Nick SHEPARD Confirmed By:WINSTON SHEPARD
--- NOTE | 2017-01-03 14:47 | EKG ---
Test Reason : Blood Pressure : / mmHG Vent. Rate : 095 BPM Atrial Rate : 095 BPM P-R Int : 000 ms QRS Dur : 176 ms QT Int : 472 ms P-R-T Axes : 000 098 -78 degrees QTc Int : 593 ms Normal sinus rhythm with frequent premature ventricular complexes Left axis deviation Abnormal ECG Confirmed by WINSTON SHEPARD (2) on 01/03/2017 2:47:02 PM Referred By: SUSIE Confirmed By:WINSTON SHEPARD
--- NOTE | 2017-02-13 09:40 | EKG ---
Test Reason : Blood Pressure : / mmHG Vent. Rate : 048 BPM Atrial Rate : 048 BPM P-R Int : 158 ms QRS Dur : 136 ms QT Int : 492 ms P-R-T Axes : 048 -51 098 degrees QTc Int : 439 ms Sinus bradycardia Left axis deviation Non-specific intra-ventricular conduction block T wave abnormality, consider lateral ischemia No STEMI Abnormal ECG Confirmed by JAC CARL M.D. ([id number]), scientific editor KHUSHBU HENRY ([id number]) on 02/13/2017 9:40:26 AM Referred By: Confirmed By:JAC CARL M.D.
== END 2016-12-26 11:52 | disposition home or self-care (01) | DRG 225 ==
LOC: ERS 10:31 → 2SW 16:00 → OBSVTOIN 12-22 18:14 → 2NO 12-22 23:12
PROVIDERS: ADMIT Emergency Medicine; ATTEND Emergency Medicine
PROC: 4A023N8 Measurement of Cardiac Sampling and Pressure, Bilateral, Percutaneous Approach (ICD-10-PCS; 2016-12-23)
PROC: B2111ZZ Fluoroscopy of Multiple Coronary Arteries using Low Osmolar Contrast (ICD-10-PCS; 2016-12-23)
PROC: B2151ZZ Fluoroscopy of Left Heart using Low Osmolar Contrast (ICD-10-PCS; 2016-12-23)
PROC: 0JH609Z Insertion of Cardiac Resynchronization Defibrillator Pulse Generator into Chest Subcutaneous Tissue and Fascia, Open Approach (ICD-10-PCS; 2016-12-24)
PROC: 02HK3KZ Insertion of Defibrillator Lead into Right Ventricle, Percutaneous Approach (ICD-10-PCS; 2016-12-24)
PROC: 02H63KZ Insertion of Defibrillator Lead into Right Atrium, Percutaneous Approach (ICD-10-PCS; 2016-12-24)
PROC: 02HL3KZ Insertion of Defibrillator Lead into Left Ventricle, Percutaneous Approach (ICD-10-PCS; 2016-12-24)
PROC: 3E0102A Introduction of Anti-Infective Envelope into Subcutaneous Tissue, Open Approach (ICD-10-PCS; 2016-12-24)
PROC: 02WA3MZ Revision of Cardiac Lead in Heart, Percutaneous Approach (ICD-10-PCS; 2016-12-25)
PROC: 4B02XTZ Measurement of Cardiac Defibrillator, External Approach (ICD-10-PCS; principal; 2016-12-26)
DX: I47.2 Ventricular tachycardia (principal); I42.9 Cardiomyopathy, unspecified; I11.0 Hypertensive heart disease with heart failure; I50.22 Chronic systolic (congestive) heart failure; T82.120A Displacement of cardiac electrode, initial encounter; I49.5 Sick sinus syndrome; I48.0 Paroxysmal atrial fibrillation; R00.1 Bradycardia, unspecified; I08.3 Combined rheumatic disorders of mitral, aortic and tricuspid valves; E11.9 Type 2 diabetes mellitus without complications; J20.8 Acute bronchitis due to other specified organisms; I25.10 Atherosclerotic heart disease of native coronary artery without angina pectoris; E78.00 Pure hypercholesterolemia, unspecified; G47.33 Obstructive sleep apnea (adult) (pediatric); M19.90 Unspecified osteoarthritis, unspecified site; Z95.5 Presence of coronary angioplasty implant and graft; Z96.652 Presence of left artificial knee joint; Z88.0 Allergy status to penicillin; Z88.2 Allergy status to sulfonamides; Z88.8 Allergy status to other drugs, medicaments and biological substances; Z91.018 Allergy to other foods; Z79.84 Long term (current) use of oral hypoglycemic drugs; I73.00 Raynaud's syndrome without gangrene; E66.9 Obesity, unspecified; Z68.29 Body mass index [BMI] 29.0-29.9, adult
CPT/HCPCS: 33215; 33225; 33230; 36005; 36415; 36416; 71010; 75820; 76942; 78452; 80048; 80053; 80061; 82553; 84484; 85025; 85347; 85610; 85730; 93005; 93010; 93017; 93306; 93460; 93567; 93620; 93641; 93798; 99152; 99153; A4216; A9500; C1769; C1777; C1882; C1898; C1900; J1644; J1956; J2250; J2704; J2720; J2785; J3010; J3490

== ENCOUNTER 2017-01-20 10:32 | Outpatient (CLI) | payer MEDICARE ==
--- NOTE | 2017-01-20 11:23 | RAD ---
PA AND LATERAL CHEST: History: Cough. FINDINGS: Comparison is made with exam of 12-25-16. Left sided pacemaker device remains in place. There is continued elevation of the right hemidiaphragm . The heart size is normal. No confluent areas of consolidation, pneumothorax, or pleural effusions a re seen. There are degenerative changes in the left shoulder joint. IMPRESSION: No acute process. POS: H
== END 2017-01-20 10:33 | disposition home or self-care (01) ==
LOC: RAD-FRANK 10:32
PROVIDERS: ATTEND Nurse Practitioner Family
DX: J06.9 Acute upper respiratory infection, unspecified (principal)
CPT/HCPCS: 71020

== ENCOUNTER 2017-01-26 10:16 | Outpatient (CLI) | payer MEDICARE ==
[2017-01-26] MEDS ORDERED: Iopamidol 370 76% 100 ML VIAL ONE (13:12)
--- NOTE | 2017-01-26 14:36 | CT ---
CT OF THE CHEST, ABDOMEN, AND PELVIS WITH IV CONTRAST: INDICATION: Elevation of the right hemidiaphragm with history of aortic stenosis, left ventricular dysfunction, m itral regurgitation, and aortic stenosis. The patient has had a chronic cough with shortness of samantha th. COMPARISON: Prior CT of the chest dated 10/06/[address] of the abdomen and pelvis dated 04/14/07. FINDINGS: There is a dual-lead pacemaker in the left chest wall. There is a 1 cm pretracheal lymph node which is stable. There are calcified lymph nodes within the s ubcarinal region and right hilar region. There are vascular calcifications involving the thoracic aorta and coronary arteries. No confluent airspace opacity is evident. There are areas of subsegmental volume loss seen within th e right lung base stable to the prior exam likely related to elevation of the right hemidiaphragm. T here are calcified granuloma within the right lower lobe. No suspicious mass or pulmonary nodule is evident. There is a calcified granuloma within the left lower lobe. The gallbladder is surgically absent. The adrenal glands and left kidney are normal-appearing. There is a slightly hyperdense oval lesion involving the superior pole of the right kidney that cannot be fully characterized. This may reflect a proteinaceous cyst. There are surgical clips seen along the inferior aspect of the right kidney. No hydronephrosis is evident. The bladder is decompressed. The colon demonstrates a mild amount of retained stool. There is a nor mal appendix in the right lower quadrant. The small bowel is of normal caliber. There is thoracolumbar scoliosis. There is advanced left glenohumeral osteoarthrosis. No definite a cute osseous abnormality is evident. IMPRESSION: 1. No definite acute abnormality. 2. Elevation of the right hemidiaphragm and right basilar atelectasis is stable to 2014 exam. 3. Findings of prior granulomatous disease. 4. Slightly hyperdense oval lesion involving the superior pole of the right kidney is not fully cameron acterized on the current exam. Would recommend a followup renal ultrasound for further characterizat ion. This may reflect proteinaceous cyst or solid renal lesion. 5. Other chronic findings as above. POS: [facility]
== END 2017-01-26 10:17 | disposition home or self-care (01) ==
LOC: CT 10:16
PROVIDERS: ATTEND Nurse Practitioner Family
DX: J98.6 Disorders of diaphragm (principal); R07.81 Pleurodynia; I35.0 Nonrheumatic aortic (valve) stenosis; R60.0 Localized edema; R06.02 Shortness of breath; R05 Cough; N28.9 Disorder of kidney and ureter, unspecified; J98.11 Atelectasis; Z95.810 Presence of automatic (implantable) cardiac defibrillator
CPT/HCPCS: 71260; 74177

== ENCOUNTER 2017-04-01 15:31 | Outpatient (CLI) | payer MEDICARE ==
--- NOTE | 2017-04-01 15:47 | RAD ---
CHEST ONE VIEW: History: Chest pain. Comparison: 01-20-17 FINDINGS: Cardiac silhouette is magnified by projection. Pulmonary vasculature is slightly engorged. Mediastinu m is midline with aortic calcification and a multi-lead left subclavian cardiac electronic device. Th ere is no lobar consolidation or evidence of osseous structures are demineralized. IMPRESSION: 1. Borderline pulmonary vascular congestion. Stable. POS: [facility]
== END 2017-04-01 15:32 | disposition home or self-care (01) ==
LOC: RAD-FRANK 15:31
PROVIDERS: ATTEND Internal Medicine Cardiovascular Disease
DX: I25.5 Ischemic cardiomyopathy (principal); R09.89 Other specified symptoms and signs involving the circulatory and respiratory systems
CPT/HCPCS: 71046

== ENCOUNTER 2017-07-05 13:10 | Outpatient (CLI) | payer MEDICARE ==
--- NOTE | 2017-07-05 15:06 | RAD ---
CHEST PA AND LATERAL: History: 81-year-old male with history of cardiomyopathy. Comparison: 04-01-17 FINDINGS: Left ICD. Atherosclerosis of the aorta with ectasia. Stable increased markings bilaterally with some mild vascular congestion without confluent pneumonia or overt edema. IMPRESSION: Stable borderline sized heart and vascular congestion and increased markings. No significant new proc ess. Atherosclerosis of the aorta with ectasia. Left ICD. Marked arthrosis left shoulder. POS: OFF
== END 2017-07-05 13:11 | disposition home or self-care (01) ==
LOC: RAD-FRANK 13:10
PROVIDERS: ATTEND Internal Medicine Cardiovascular Disease
DX: I25.5 Ischemic cardiomyopathy (principal); I70.0 Atherosclerosis of aorta; I77.819 Aortic ectasia, unspecified site; Z95.810 Presence of automatic (implantable) cardiac defibrillator
CPT/HCPCS: 71046

== ENCOUNTER 2017-09-29 09:48 | Outpatient (CLI) | payer MEDICARE ==
--- NOTE | 2017-09-29 10:50 | RAD ---
TWO VIEWS CHEST: HISTORY: Atrial fibrillation. COMPARISON: 07/05/2017 FINDINGS: Stable left-sided defibrillator. Stable cardiac silhouette. Pulmonary vessels and hilum are normal. Costophrenic angles are clear. Chronic changes in the right lung base. No pneumothorax or osseous abnormalities. Stable thickening of the left and right apical pleura. Stable degenerative changes in the left shoulder. IMPRESSION: No acute cardiopulmonary process. POS: [facility]
== END 2017-09-29 09:49 | disposition home or self-care (01) ==
LOC: RAD-FRANK 09:48
PROVIDERS: ATTEND Internal Medicine Cardiovascular Disease
DX: I48.91 Unspecified atrial fibrillation (principal)
CPT/HCPCS: 71046

== ENCOUNTER 2017-11-18 12:50 | Outpatient (CLI) | payer MEDICARE ==
[~2017-11-18 12:50] MED LIST: ISOVUE-370 76%-LOCM 1 ML ONE
--- NOTE | 2017-11-18 17:22 | CT ---
CT CHEST WITH IV CONTRAST: Date: 11-18-17 Provided Clinical History: Elevated hemidiaphragm, aortic stenosis, hypertension and COPD. FINDINGS: Comparison is made with a chest, abdomen, and pelvis CT dated 01-26-17. Evaluation is limited by donnie ent respiratory motion. The heart, pericardium and great vessels demonstrate a stable CT appearance. Elevation of the right hemidiaphragm is unchanged with respect to the prior examination. There is no evidence for thoracic lymph node enlargement. The airway appears patent and of normal caliber. The lovely ngs appear grossly free of significant opacity. There is no pleural fluid or pneumothorax apparent. The visualized portions of the upper abdomen demonstrate no acute abnormality. Small non-obstructing mid portion left renal calculus. Benign appearing right renal cysts. Prior cholecystectomy change. IMPRESSION: No evidence for an acute process. Stable CT of the chest with respect to 01-26-17. POS: [facility]
== END 2017-11-18 12:51 | disposition home or self-care (01) ==
LOC: BICCT 12:50
PROVIDERS: ATTEND Nurse Practitioner Family
DX: I11.9 Hypertensive heart disease without heart failure (principal); I25.10 Atherosclerotic heart disease of native coronary artery without angina pectoris; J98.6 Disorders of diaphragm; J44.9 Chronic obstructive pulmonary disease, unspecified; I49.9 Cardiac arrhythmia, unspecified; E11.65 Type 2 diabetes mellitus with hyperglycemia; E66.9 Obesity, unspecified; E78.5 Hyperlipidemia, unspecified; I08.0 Rheumatic disorders of both mitral and aortic valves; I49.5 Sick sinus syndrome; G47.33 Obstructive sleep apnea (adult) (pediatric); M06.4 Inflammatory polyarthropathy; I47.2 Ventricular tachycardia; K21.9 Gastro-esophageal reflux disease without esophagitis; H91.93 Unspecified hearing loss, bilateral; G56.03 Carpal tunnel syndrome, bilateral upper limbs; N13.2 Hydronephrosis with renal and ureteral calculous obstruction; Z95.810 Presence of automatic (implantable) cardiac defibrillator; Z68.34 Body mass index [BMI] 34.0-34.9, adult
CPT/HCPCS: 71260

== ENCOUNTER 2018-03-31 15:29 | Inpatient (IN) | payer MEDICARE ==
[2018-03-31 16:59] LABS: #Eosinphils 0.2 thou/uL (0.0-0.7); #Lymphocytes 1.6 thou/uL (1.20-3.40); #Monocytes 0.6 thou/uL (0.11-0.59); #Neutrophils 4.3 thou/uL (1.40-6.50); %Basophils 0.3 % (0.0-1.0); %Eosinophils 3.4 % (0.0-10.0); %Lymphocytes 23.9 % (21.0-51.0); %Monocytes 8.4 % (0.0-10.0); Hemoglobin 13.8 g/dL (14.0-18.0); Mean Corpuscular HGB CONC 31.5 g/dL (32.0-36.0); Mean Corpuscular Hemoglobin 29.9 pg (27.0-31.0); Mean Platelet Volume 9.4 fL (7.4-10.4); Platelet Count 151 thou/uL (130-400); RBC Distribution Width 12.2 % (11.5-14.5); Red Blood Cell (RBC) Count 4.63 mill/uL (4.70-6.10); White Blood Cell (WBC) Count 6.7 thou/uL (4.8-10.8)
[2018-03-31 17:23] LABS: ALT (SGPT) 21 U/L (8-55); AST (SGOT) 26 U/L (5-34); Albumin 3.8 g/dL (3.4-4.8); Alkaline Phosphatase 48 U/L (40-150); Anion Gap 15 mmol/L (10-20); BUN (Urea Nitrogen) 17 mg/dL (8.4-25.7); Bilirubin, Total 1.3 mg/dL (0.2-1.2); Calc. Creatinine Clearance 0 mL/min (70-130); Calcium 9.4 mg/dL (7.8-10.44); Carbon Dioxide 24 mmol/L (23-31); Chloride 104 mmol/L (98-107); Estimated GFR-MDRD 78; Glucose 97 mg/dL (83-110); Potassium 4.1 mmol/L (3.5-5.1); Protein, Total 6.8 g/dL (5.8-8.1); Sodium 139 mmol/L (136-145)
[2018-03-31] MEDS ORDERED: Furosemide 40 MG/4 ML VIAL ONE (17:26)
--- NOTE | 2018-03-31 17:43 | RAD ---
2 VIEW CHEST SERIES: Date: 03/31/18 COMPARISON: 09/29/17. INDICATION: Emergency exam for shortness of breath. FINDINGS: There is patchy density at the perihilar regions bilaterally, most notable at the medial right lung b ase. There is elevation of the right hemidiaphragm. Left-sided AICD remains in place. There is enlarg ement of the cardiac silhouette and pulmonary vasculature. Slight blunting of the right costophrenic sulcus may be related to small volume pleural fluid. IMPRESSION: Findings favor decompensated CHF. Correlate clinically. POS: [facility]
[2018-03-31 20:33] LABS: CKMB 5.3 ng/mL (0-6.6)
[2018-03-31 21:22] VITALS: BMI 35.2
[2018-03-31] MEDS ORDERED: Acetaminophen 650 MG Suppository PR PRN (21:34)
[2018-03-31] MEDS ORDERED: Senokot S 8.6-50 MG TAB PO PRN (21:34)
[2018-03-31] MEDS ORDERED: Ondansetron PF 4 MG/2 ML Vial IVP PRN (21:34)
[2018-03-31] MEDS ORDERED: Guaifenesin DM 100-10/5 ML UDCUP PO PRN (21:34)
[2018-03-31] MEDS ORDERED: Ondansetron ODT 4 MG TAB PO PRN (21:34)
--- NOTE | 2018-03-31 21:55 | HP ---
PRIMARY CARE PHYSICIAN: NAREN Rosenberg. CHIEF COMPLAINT: Shortness of breath. HISTORY OF PRESENT ILLNESS: This is an 82-year-old white male with known congestive heart failure, last ejection fraction in the hospital was 30% to 40% in 2017 with some significant left ventricular akinetic motion. The patient reports that he had severe exacerbation of this sometime in 2018 and was admitted to the hospital in [place], required BiPAP and significant diuresis at that time. He had been doing okay since then, but then over the last month, he states he starting to feel fluid to gather in his abdomen and his lower extremities become a little more swollen and then he has been having increasingly frequent episodes of shortness of breath. He has shortness of breath usually at night and will often wake him up from sleeping and then last night he had a severe episode where he woke up very short of breath and did not know where he was or who he was or what was going on. The patient reports that he was recently seen by Dr. Weber and told to increase Lasix from 20 mg to 40 mg. He denies eating more of solid, drinking much fluids. PAST MEDICAL HISTORY: 1. Systolic congestive heart failure. 2. Coronary artery disease. 3. Paroxysmal atrial fibrillation. 4. Diabetes mellitus, type 2. 5. Hypercholesterolemia. 6. Hypertension. 7. Obstructive sleep apnea. 8. Osteoarthritis. 9. Moderate aortic insufficiency. 10. Raynaud syndrome. PAST SURGICAL HISTORY: 1. Discectomy. 2. Cardiac stents x3. 3. Tonsillectomy. 4. Cholecystectomy. 5. Left knee replacement. 6. Hernia repair. 7. AICD placement. SOCIAL HISTORY: The patient denies tobacco, alcohol, or illicit drug use though he has heavy secondhand smoke exposure as a child. He is a retired long-semi truck driver. FAMILY HISTORY: Congestive heart failure, hypertension, and diabetes mellitus type 2. ALLERGIES: 1. PENICILLIN. 2. SERTRALINE. 3. SULFA ANTIBIOTICS. 4. TETRACYCLINE. 5. TOMATO. 6. TREE NUTS. 7. PEPPERS. 8. BANANAS. CURRENT MEDICATIONS: The patient does not have his medication list with him at this time. He does know he is on Lasix 40 mg daily. Other medicines from his most recent hospital discharge include 1. Amiodarone 200 mg twice a day. 2. Aspirin 325 mg daily. 3. Carvedilol 6.25 mg twice a day. 4. Vitamin D3 1000 units daily. 5. Zetia 10 mg at night. 6. Ferrous sulfate 325 mg daily. 7. Lisinopril 10 mg daily. 8. Metformin 500 mg daily. 9. Multivitamin daily. 10. Protonix 20 mg daily. 11. Crestor 40 mg at night. REVIEW OF SYSTEMS: CONSTITUTIONAL: No fevers, no chills. EYES: No double vision or blurred vision. ENT: He has some intermittent congestion. No sore throat. CARDIOVASCULAR: No chest pain. No palpitations or racing heart. PULMONARY: He has shortness of breath as per the HPI. Minimal cough, nonproductive. GASTROINTESTINAL: No abdominal pain. No nausea or vomiting. No diarrhea or constipation. GENITOURINARY: No dysuria or hematuria. MUSCULOSKELETAL: No muscle aches or joint pains recently. SKIN: No rashes or other lesions noted. NEUROLOGIC: No numbness, tingling, or focal weakness. PHYSICAL EXAMINATION: VITAL SIGNS: Blood pressure 137/63, pulse 62, respirations 24, O2 saturation 96 % on room air, temperature 98.6. GENERAL: This is a well-developed, obese, white male, in no acute distress. He is lying propped up and at rest. HEENT: Pupils are equal, round, and reactive to light. Oropharynx is clear without lesions, erythema, or exudate. NECK: Supple. No lymphadenopathy. No thyroid nodules or enlargement. He does have some appreciable JVD. HEART: Regular rate and rhythm. No murmurs, rubs, or gallops. LUNGS: Mild bibasilar crackles. Good air movement throughout. ABDOMEN: Soft, obese, nontender to palpation. Normoactive bowel sounds. No hepatosplenomegaly or other masses. EXTREMITIES: No clubbing or cyanosis. He does have 1+ pitting edema in bilateral lower extremities to about the knee. SKIN: No rashes or other lesions noted. NEUROLOGIC: Intact strength and sensation in all extremities. No facial droop. LABORATORY DATA: CBC grossly within normal limits. Complete metabolic panel within normal except for a total bilirubin of 1.3. Brain natriuretic peptide elevated to 514, which is the highest level we have on record. Troponin initially 0.015, increased to 0.043 on recheck. IMAGING: EKG; the patient's EKG showed AV dual pace with occasional ventricular paced complexes at 66 beats per minute. No significant ST-segment changes. Chest x-ray, I did review the chest x-ray along with the radiologist's report. It shows patchy density of the perihilar regions bilaterally and along with enlargement of the cardiac silhouette and pulmonary vasculature consistent with decompensated CHF. ASSESSMENT: 1. Acute exacerbation of chronic systolic congestive heart failure. We will give the patient IV Lasix 40 mg twice a day for diuresis. We will put him on strict in's and out's and will get an echocardiogram. Also consult Cardiology. I believe Dr. Story is on-call for Dr. Weber tomorrow. Start a fluid and salt restricted diet. 2. Diabetes mellitus, type 2. We will check fingerstick blood sugars before meals and at bedtime. We will put him on a sliding scale. 3. History of hypertension. We will find out patient's home medications and restart. 4. Hyperlipidemia. We will resume patient's statin. 5. History of coronary artery disease. We will continue the patient on aspirin. 6. History of paroxysmal atrial fibrillation, now with pacemaker and AICD. We will continue patient's home amiodarone. We will need to get an updated medication list for him. 7. Gastrointestinal prophylaxis. We will put the patient on Pepcid twice a day. 8. Deep venous thrombosis prophylaxis. We will put the patient on Lovenox subcu. 9. Code status. I did discuss this with the patient, he is a full code. Should he be incapacitated, he stated that his would be his medical decision maker, her name is Valentina Carlos. Job ID: [id number] [facility]
[2018-03-31] MEDS: Famotidine 20 MG TAB PO SCH (21:57)
[2018-03-31] MEDS: Carvedilol 6.25 MG TAB PO SCH (21:57)
[2018-03-31] MEDS: Amiodarone 200 MG TAB PO SCH (22:07)
[2018-03-31] MEDS ORDERED: Amiodarone 200 MG TAB PO SCH (22:15)
[2018-04-01 05:41] LABS: #Eosinphils 0.2 thou/uL (0.0-0.7); #Lymphocytes 1.4 thou/uL (1.20-3.40); #Monocytes 0.7 thou/uL (0.11-0.59); #Neutrophils 3.3 thou/uL (1.40-6.50); %Basophils 0.4 % (0.0-1.0); %Eosinophils 3.6 % (0.0-10.0); %Lymphocytes 24.9 % (21.0-51.0); %Monocytes 12.3 % (0.0-10.0); %Neutrophils 58.8 % (42.0-75.0); Hemoglobin 13.5 g/dL (14.0-18.0); Mean Corpuscular HGB CONC 31.7 g/dL (32.0-36.0); Mean Corpuscular Hemoglobin 29.8 pg (27.0-31.0); Mean Corpuscular Volume 93.9 fL (78.0-98.0); Mean Platelet Volume 9.7 fL (7.4-10.4); Platelet Count 138 thou/uL (130-400); RBC Distribution Width 12.3 % (11.5-14.5); Red Blood Cell (RBC) Count 4.53 mill/uL (4.70-6.10); White Blood Cell (WBC) Count 5.6 thou/uL (4.8-10.8)
[2018-04-01 05:58] LABS: Anion Gap 13 mmol/L (10-20); BUN (Urea Nitrogen) 20 mg/dL (8.4-25.7); Calc. Creatinine Clearance 0 mL/min (70-130); Calcium 9.2 mg/dL (7.8-10.44); Carbon Dioxide 29 mmol/L (23-31); Chloride 103 mmol/L (98-107); Estimated GFR-MDRD 74; Glucose 85 mg/dL (83-110); Sodium 141 mmol/L (136-145)
[2018-04-01] MEDS: Furosemide 40 MG/4 ML VIAL SLOW IVP SCH ×2 (06:55→14:45)
[2018-04-01] MEDS: Aspirin 325 MG TAB PO SCH (09:46)
[2018-04-01] MEDS: Amiodarone 200 MG TAB PO SCH ×2 (09:46→21:48)
[2018-04-01] MEDS: Famotidine 20 MG TAB PO SCH ×2 (09:47→21:48)
[2018-04-01] MEDS: Acetaminophen 325 MG TAB PO PRN (09:47)
[2018-04-01] MEDS: Enoxaparin Sodium 40 MG/0.4 ML SYRINGE SC SCH (09:47)
[2018-04-01] MEDS: Carvedilol 6.25 MG TAB PO SCH ×2 (09:47→21:48)
--- NOTE | 2018-04-01 14:45 | PDOC.PN ---
- Subjective Encounter Start Date: 04/01/18 Encounter Start Time: 12:45 Mr. Carlos was seen today in follow-up of CHF exacerbation. He says he is breathing a little better today. He denies any chest pain. - Objective Resuscitation Status - Order Detail: 03/31/18 20:26 Resuscitation Status Routine Resuscitation Status: FULL: Full Resuscitation Discussed with: Patient BENJAMÍN Reviewed: Yes Vital Signs & Weight: Vital Signs (12 hours) Temp Pulse Resp BP BP Pulse Ox 04/01/18 12:00 97.5 F L 60 20 93/46 L 92 L 04/01/18 09:47 154/81 H 04/01/18 07:40 97.5 F L 63 20 154/81 H 94 L 04/01/18 04:00 98.1 F 61 19 149/69 H 97 Weight Weight 7.4 oz I&O: 03/31/18 04/01/18 04/02/18 06:59 06:59 06:59 Intake Total 300 Output Total 850 Balance -550 Result Diagrams: 04/01/18 04:31 04/01/18 04:31 Additional Labs: Accuchecks 03/31/18 03/31/18 22:02 19:02 POC Glucose 158 H 88 Phys Exam - Physical Examination HEENT: PERRLA Respiratory: no rhonchi, wheezing present + occasional wheeze and rales at the bases Cardiovascular: RRR, no significant murmur, no rub Gastrointestinal: soft, non-tender, no distention, positive bowel sounds Musculoskeletal: pulses present, edema present 1+ edema in both lower extremities, and varicose veins bilaterally Neurological: non-focal Dx/Plan (1) Acute on chronic systolic heart failure Code(s): I50.23 - ACUTE ON CHRONIC SYSTOLIC (CONGESTIVE) HEART FAILURE Status : Acute (2) COPD (chronic obstructive pulmonary disease) Status: Acute (3) Chronic respiratory failure Code(s): J96.10 - CHRONIC RESPIRATORY FAILURE, UNSP W HYPOXIA OR HYPERCAPNIA Status: Acute (4) Coronary artery disease Code(s): I25.10 - ATHSCL HEART DISEASE OF [place] CORONARY ARTERY W/O ANG PCTRS Status: Chronic (5) Diabetes mellitus type 2 in obese Code(s): E11.69 - TYPE 2 DIABETES MELLITUS WITH OTHER SPECIFIED COMPLICATION; E66.9 - OBESITY, UNSPECIFIED Status: Chronic (6) Hypertension Code(s): I10 - ESSENTIAL (PRIMARY) HYPERTENSION Status: Chronic - Plan * Acute on chronic systolic heart failure- improved with IV Lasix. Symptomatically he is improved, and BNP is down from yesterday * Await Cardiology input * COPD- stable * HTN - blood pressure has bee a bit labile- will monitor * DM- blood glucose is stable
--- NOTE | 2018-04-01 17:56 | CON ---
DATE OF CONSULTATION: HISTORY: Lauro Carlos is an 82-year-old white male known to me from previous admissions. He has a biventricular ICD and on last echocardiogram, his ejection fraction improved from 45% to 50%. He also has coronary artery disease and he was re-cathed in December of 2016. The LAD and circumflex stents continue to show good results. There was a 70% jailed first diagonal. He had ventricular tachycardia induced at electrophysiology study and has a biventricular ICD. He also has had atrial fibrillation and flutter with cardioversion. Xarelto was stopped in February of 2014. Multaq was stopped when he was found to have bad ventricular function. He was started on amiodarone. He is a low burden on his ICD. He was seen in the office on February 16 complaining of some shortness of breath. He was started on furosemide 40 mg daily. He states he has continued to have increasing fluid and weight gain and increasing shortness of breath. He denies any chest discomfort. PAST MEDICAL HISTORY: Systolic heart failure, paroxysmal atrial fibrillation, status post cardioversion, coronary artery disease, diabetes, hypercholesterolemia, hypertension, obstructive sleep apnea, Raynaud phenomenon, and osteoarthritis. PAST SURGICAL HISTORY: Biventricular ICD placement, hernia repair, left knee replacement, cholecystectomy, tonsillectomy, diskectomy, coronary artery stent placement. MEDICATIONS: 1. Amiodarone 200 mg. 2. Aspirin 325 daily. 3. Carvedilol 6.25 b.i.d. 4. Zetia 10 mg daily. 5. Ferrous sulfate 325 daily. 6. Entresto 24/26 b.i.d. 7. Crestor 40 daily. 8. Protonix 20 daily. ALLERGIES: PENICILLIN, SERTRALINE, SULFA, AND TETRACYCLINE. SOCIAL HISTORY: He does not smoke. REVIEW OF SYSTEMS: Unremarkable. PHYSICAL EXAMINATION: VITAL SIGNS: 144/67, pulse of 60. HEENT: PERRL. NECK: Supple. CHEST: Reveals faint crackles at the right base. CARDIOVASCULAR: S1 and S2 are normal without any S3, S4, or murmurs. ABDOMEN: Normal bowel sounds without tenderness or organomegaly. EXTREMITIES: Revealed 1+ pretibial edema. NEUROLOGIC: Grossly intact. SKIN: Warm and dry. LABORATORY DATA: ICD was interrogated and continues to show good left ventricular thresholds. OptiVol shows that he is starting to accumulate increased volume. EKG revealed A-V pacing with rare PVC. Hemoglobin 13.5, hematocrit 46.2, white count 5600, and platelets 138,000. Sodium 141, potassium 4.0, chloride 103, carbon dioxide 29, BUN 20, creatinine 0.98. Troponin I 0.043. BNP 321.3. IMPRESSION: 1. Acute on chronic systolic heart failure. Last ejection fraction was 45% to 50% in the office. 2. Status post biventricular ICD. 3. History of left anterior descending and circumflex stents with continued good results on last catheterization in December 2016. 4. Nonsustained ventricular tachycardia. 5. History of atrial fibrillation, status post cardioversion. 6. Hypercholesterolemia. 7. Hypertension. PLAN: Fasting lipid profile will be performed. The patient will be diuresed. We will follow the patient with you. Job ID: [id number]
[2018-04-01] MEDS: Rosuvastatin 20 MG TAB PO SCH (21:47)
[2018-04-02 05:31] LABS: #Eosinphils 0.2 thou/uL (0.0-0.7); #Lymphocytes 1.4 thou/uL (1.20-3.40); #Monocytes 0.6 thou/uL (0.11-0.59); #Neutrophils 3.3 thou/uL (1.40-6.50); %Basophils 0.4 % (0.0-1.0); %Eosinophils 3.5 % (0.0-10.0); %Lymphocytes 25.5 % (21.0-51.0); %Neutrophils 60.6 % (42.0-75.0); Hemoglobin 13.3 g/dL (14.0-18.0); Mean Corpuscular HGB CONC 31.6 g/dL (32.0-36.0); Mean Corpuscular Hemoglobin 29.7 pg (27.0-31.0); Mean Platelet Volume 9.9 fL (7.4-10.4); Platelet Count 140 thou/uL (130-400); RBC Distribution Width 12.2 % (11.5-14.5); Red Blood Cell (RBC) Count 4.47 mill/uL (4.70-6.10); White Blood Cell (WBC) Count 5.5 thou/uL (4.8-10.8)
[2018-04-02] MEDS: Furosemide 40 MG/4 ML VIAL SLOW IVP SCH ×2 (05:34→14:16)
[2018-04-02 05:53] LABS: Anion Gap 14 mmol/L (10-20); BUN (Urea Nitrogen) 26 mg/dL (8.4-25.7); Calc. Creatinine Clearance 64 mL/min (70-130); Calcium 9.1 mg/dL (7.8-10.44); Carbon Dioxide 28 mmol/L (23-31); Chloride 101 mmol/L (98-107); Estimated GFR-MDRD 57; Glucose 100 mg/dL (83-110); Potassium 3.6 mmol/L (3.5-5.1); Sodium 139 mmol/L (136-145)
[2018-04-02] MEDS: Famotidine 20 MG TAB PO SCH ×2 (09:44→21:13)
[2018-04-02] MEDS: Carvedilol 6.25 MG TAB PO SCH ×2 (09:44→16:52)
[2018-04-02] MEDS: Amiodarone 200 MG TAB PO SCH (09:44)
[2018-04-02] MEDS: Enoxaparin Sodium 40 MG/0.4 ML SYRINGE SC SCH (09:44)
[2018-04-02] MEDS: Aspirin 325 MG TAB PO SCH (09:44)
--- NOTE | 2018-04-02 11:44 | PDOC.CTH ---
Cardiology Progress Note - Subjective The pt seen and examined. NO overnight events. No cardiac complaints. Stable with RA. - Objective Vital Signs Temp Pulse Resp BP BP Pulse Ox 04/02/18 09:44 156/69 H 04/02/18 08:00 97.8 F 64 18 156/69 H 93 L 04/02/18 04:00 60 18 143/73 H 95 04/02/18 00:00 60 18 142/68 H 94 L Weight 206 lb 11.2 oz 04/01/18 04/02/18 04/03/18 06:59 06:59 06:59 Intake Total 840 Output Total 1700 Balance -860 - Physical Examination General/Neuro: alert & oriented x3 Neck: no JVD present Lungs: other: (diminished at bases) Heart: other: (irregular) Abdomen: soft Extremities: other: (No edema) - Telemetry Telemetry Rhythm: AV paced - Labs Result Diagrams: 04/02/18 04:39 04/03/18 04:46 Troponin/CKMB CK-MB (CK-2) 5.3 ng/mL (0-6.6) 03/31/18 19:43 Troponin I 0.020 ng/mL (< 0.028) 03/31/18 23:24 - Assessment/Plan 1. Acute on chronic systolic HF with AICD - stable with RA now; on Lasix 40mg IV BID, coreg; will resume Entresto from tonight 2. CAD with hx of patent stent in LAD and Lx Cx with LHC in 2017 - stable; on ASA, statin and Coreg 3. Prox. Afib - stable; on Amiodarone 200mg which changed to qd (he was on Amio 200mg qd accroding to Dr Weber's office in 02/2018) 4. HTN - increase coreg from 6.25mg to 12.5mg BID 5. Ischemic CMY with AICD - 6. Hyperlipidemia - on Crestor 40mg qd and Zetia; Fasting Lipid will be checked tomorrow as Dr Sarmiento mentioned in his Consult report. 7. COPD - stable with RA 8. DM type 2 - managed by PCP 9. PRAFUL - cpap at [facility] reviewed Pt.seen and eval.by me.I agree with the A/P by the JAVA USER INTERFACE DEVELOPER. RRR,chest clear. Review of Systems - Review of Systems Constitutional: reports: no symptoms reported EENTM: reports: no symptoms reported Respiratory: reports: no symptoms reported Cardiac (ROS): reports: no symptoms reported ABD/GI: reports: no symptoms reported : reports: no symptoms reported Musculoskeletal: reports: no symptoms reported
[2018-04-02] MEDS ORDERED: Carvedilol 6.25 MG TAB PO SCH ×2 (12:00)
--- NOTE | 2018-04-02 16:20 | PDOC.PN ---
- Subjective Encounter Start Date: 04/02/18 Encounter Start Time: 12:00 Mr. Carlos was seen today in follow-up of CHF exacerbation. He notes some improvement. He is a bit less short of breath, and he has less swelling in his abdomen and lower extremities - Objective Resuscitation Status - Order Detail: 03/31/18 20:26 Resuscitation Status Routine Resuscitation Status: FULL: Full Resuscitation Discussed with: Patient MAR Reviewed: Yes Vital Signs & Weight: Vital Signs (12 hours) Temp Pulse Resp BP BP Pulse Ox 04/02/18 12:40 165/68 H 04/02/18 12:00 97.9 F 68 18 165/68 H 95 04/02/18 09:44 156/69 H 04/02/18 08:15 93 L 04/02/18 08:00 97.8 F 64 18 156/69 H 93 L Weight Weight 206 lb 11.2 oz I&O: 04/01/18 04/02/18 04/03/18 06:59 06:59 06:59 Intake Total 840 Output Total 1700 Balance -860 Result Diagrams: 04/02/18 04:39 04/02/18 04:39 Phys Exam - Physical Examination HEENT: PERRLA Respiratory: no wheezing, no rales, no rhonchi, clear to auscultation bilateral Cardiovascular: RRR, no significant murmur, no rub Gastrointestinal: soft, non-tender, no distention, positive bowel sounds Musculoskeletal: pulses present, edema present 1+ edema in both lower exrtemities Dx/Plan (1) Acute on chronic systolic heart failure Code(s): I50.23 - ACUTE ON CHRONIC SYSTOLIC (CONGESTIVE) HEART FAILURE Status : Acute (2) COPD (chronic obstructive pulmonary disease) Status: Acute (3) Chronic respiratory failure Code(s): J96.10 - CHRONIC RESPIRATORY FAILURE, UNSP W HYPOXIA OR HYPERCAPNIA Status: Acute (4) Coronary artery disease Code(s): I25.10 - ATHSCL HEART DISEASE OF [place] CORONARY ARTERY W/O ANG PCTRS Status: Chronic (5) Diabetes mellitus type 2 in obese Code(s): E11.69 - TYPE 2 DIABETES MELLITUS WITH OTHER SPECIFIED COMPLICATION; E66.9 - OBESITY, UNSPECIFIED Status: Chronic (6) Hypertension Code(s): I10 - ESSENTIAL (PRIMARY) HYPERTENSION Status: Chronic - Plan * CHF exacerbation- improving- continue Lasix IV * COPD- stable * HTN- blood pressure is a bit elevated- but with monitor and see if this will improve with diureses * DM- blood glucose is stable.
[2018-04-02] MEDS: Sacubitril 24.5 MG/Valsartan 25.5 MG TABLET PO SCH (21:12)
[2018-04-02] MEDS: Rosuvastatin 20 MG TAB PO SCH (21:13)
[2018-04-03] MEDS: Furosemide 40 MG/4 ML VIAL SLOW IVP SCH ×2 (05:40→15:09)
[2018-04-03 06:38] LABS: Anion Gap 16 mmol/L (10-20); BUN (Urea Nitrogen) 28 mg/dL (8.4-25.7); Calc. Creatinine Clearance 64 mL/min (70-130); Calcium 9.3 mg/dL (7.8-10.44); Carbon Dioxide 29 mmol/L (23-31); Cardiac Risk 2.8 (Less than 4.5); Chloride 99 mmol/L (98-107); Cholesterol 127 mg/dl (< 200 Desired); Estimated GFR-MDRD 59; Glucose 97 mg/dL (83-110); HDL Cholesterol 46 mg/dL (>60 Neg Risk); LDL Cholesterol, Calculated 62 mg/dL; Potassium 3.5 mmol/L (3.5-5.1); Sodium 140 mmol/L (136-145); Triglycerides 97 mg/dL (Less than 150)
[2018-04-03] MEDS: Aspirin 325 MG TAB PO SCH (08:39)
[2018-04-03] MEDS: Famotidine 20 MG TAB PO SCH ×2 (08:39→20:33)
[2018-04-03] MEDS: Carvedilol 6.25 MG TAB PO SCH ×2 (08:39→17:57)
[2018-04-03] MEDS: Amiodarone 200 MG TAB PO SCH (08:39)
[2018-04-03] MEDS: Enoxaparin Sodium 40 MG/0.4 ML SYRINGE SC SCH (08:40)
[2018-04-03] MEDS: Sacubitril 24.5 MG/Valsartan 25.5 MG TABLET PO SCH ×2 (09:02→20:33)
--- NOTE | 2018-04-03 11:20 | PDOC.CTH ---
Cardiology Progress Note - Subjective The pt seen and examined. No overnight events. No cardiac complaints. - Objective Vital Signs Temp Pulse Resp BP BP Pulse Ox 04/03/18 08:39 145/65 H 04/03/18 07:59 98.6 F 61 18 145/65 H 92 L 04/03/18 04:00 97.4 F L 63 16 152/67 H 95 04/02/18 23:34 97.8 F 65 18 142/89 H 93 L Weight 203 lb 04/02/18 04/03/18 04/04/18 06:59 06:59 06:59 Intake Total 840 720 Output Total 1700 850 Balance -860 -130 - Physical Examination General/Neuro: alert & oriented x3 Neck: no JVD present Lungs: other: (diminished at bases) Heart: RRR Abdomen: soft Extremities: other: (No edema) - Telemetry Telemetry Rhythm: AV paced - Labs Result Diagrams: 04/02/18 04:39 04/03/18 04:46 Troponin/CKMB CK-MB (CK-2) 5.3 ng/mL (0-6.6) 03/31/18 19:43 Troponin I 0.020 ng/mL (< 0.028) 03/31/18 23:24 - Assessment/Plan 1. Acute on chronic systolic HF with AICD - stable with RA; on Lasix 40mg IV BID , coreg, and Entresto. 2. CAD with hx of patent stent in LAD and Lx Cx with LHC in 2017 - stable; on ASA, statin and Coreg 3. Prox. Afib - stable; on Amiodarone 200mg qd; 4. HTN - increase coreg from 6.25mg to 12.5mg BID 5. Ischemic CMY with AICD - 6. Hyperlipidemia - LDL 62 with Crestor 40mg qd and Zetia; 7. COPD - stable with RA 8. DM type 2 - managed by PCP 9. PRAFUL - cpap at [facility] reviewed pt. seen and eval. by me. i agree with the A/P by the BUSINESS UNIT LEADER.Chest clear. Regular rhythm. Occ. AV pacing. Review of Systems - Review of Systems Constitutional: reports: no symptoms reported EENTM: reports: no symptoms reported Respiratory: reports: no symptoms reported Cardiac (ROS): reports: no symptoms reported ABD/GI: reports: no symptoms reported : reports: no symptoms reported Musculoskeletal: reports: no symptoms reported
--- NOTE | 2018-04-03 13:19 | PDOC.PN ---
- Subjective Encounter Start Date: 04/03/18 Encounter Start Time: 12:00 Terrance Felder was seen today in follow-up of CHF exacerbation. He is feeling a little better. He does not have any new complaints. - Objective Resuscitation Status - Order Detail: 03/31/18 20:26 Resuscitation Status Routine Resuscitation Status: FULL: Full Resuscitation Discussed with: Patient BENJAMÍN Reviewed: Yes Vital Signs & Weight: Vital Signs (12 hours) Temp Pulse Resp BP BP Pulse Ox 04/03/18 11:30 97.8 F 60 20 112/59 L 92 L 04/03/18 08:39 145/65 H 04/03/18 08:00 92 L 04/03/18 07:59 98.6 F 61 18 145/65 H 92 L 04/03/18 04:00 97.4 F L 63 16 152/67 H 95 Weight Weight 203 lb I&O: 04/02/18 04/03/18 04/04/18 06:59 06:59 06:59 Intake Total 840 720 Output Total 1700 850 Balance -860 -130 Result Diagrams: 04/02/18 04:39 04/03/18 04:46 Phys Exam - Physical Examination HEENT: PERRLA Respiratory: no wheezing, no rales, no rhonchi, clear to auscultation bilateral Cardiovascular: RRR, no significant murmur, no rub Gastrointestinal: soft, non-tender, no distention, positive bowel sounds Musculoskeletal: pulses present, edema present trace pedal edema Dx/Plan (1) Acute on chronic systolic heart failure Code(s): I50.23 - ACUTE ON CHRONIC SYSTOLIC (CONGESTIVE) HEART FAILURE Status : Acute (2) COPD (chronic obstructive pulmonary disease) Status: Acute (3) Chronic respiratory failure Code(s): J96.10 - CHRONIC RESPIRATORY FAILURE, UNSP W HYPOXIA OR HYPERCAPNIA Status: Acute (4) Coronary artery disease Code(s): I25.10 - ATHSCL HEART DISEASE OF [place] CORONARY ARTERY W/O ANG PCTRS Status: Chronic (5) Diabetes mellitus type 2 in obese Code(s): E11.69 - TYPE 2 DIABETES MELLITUS WITH OTHER SPECIFIED COMPLICATION; E66.9 - OBESITY, UNSPECIFIED Status: Chronic (6) Hypertension Code(s): I10 - ESSENTIAL (PRIMARY) HYPERTENSION Status: Chronic - Plan * Acute on chronic systolic heart failure exacerbation- improving- continue IV Lasix * COPD- stable * HTN- blood pressure is stable * CAD- stable * AFIB- heart rate is stable- continue Amiodarone.
[2018-04-03] MEDS: Rosuvastatin 20 MG TAB PO SCH (20:33)
[2018-04-04] MEDS: Furosemide 40 MG/4 ML VIAL SLOW IVP SCH ×2 (05:23→13:19)
[2018-04-04] MEDS: Carvedilol 6.25 MG TAB PO SCH ×2 (09:09→16:48)
[2018-04-04] MEDS: Enoxaparin Sodium 40 MG/0.4 ML SYRINGE SC SCH (09:10)
[2018-04-04] MEDS: Famotidine 20 MG TAB PO SCH ×2 (09:10→20:26)
[2018-04-04] MEDS: Amiodarone 200 MG TAB PO SCH (09:10)
[2018-04-04] MEDS: Aspirin 325 MG TAB PO SCH (09:10)
[2018-04-04] MEDS: Sacubitril 24.5 MG/Valsartan 25.5 MG TABLET PO SCH ×2 (09:10→20:26)
[2018-04-04] MEDS: Acetaminophen 325 MG TAB PO PRN (09:10)
--- NOTE | 2018-04-04 16:06 | PDOC.PN ---
- Subjective Encounter Start Date: 04/04/18 Encounter Start Time: 11:15 Mr. Carlos was seen today in follow-up of CHF. He is feeling better. He says his breathing has improved. He denies any chest pain. - Objective Resuscitation Status - Order Detail: 03/31/18 20:26 Resuscitation Status Routine Resuscitation Status: FULL: Full Resuscitation Discussed with: Patient MAR Reviewed: Yes Vital Signs & Weight: Vital Signs (12 hours) Temp Pulse Pulse Pulse Resp BP BP 04/04/18 11:52 98.2 F 61 16 04/04/18 10:35 69 70 124/63 04/04/18 09:09 145/65 H 04/04/18 07:49 98.2 F 69 17 04/04/18 07:20 04/04/18 05:35 60 18 BP BP Pulse Ox Pulse Ox Pulse Ox 04/04/18 11:52 108/56 L 93 L 04/04/18 10:35 104/58 L 93 L 91 L 04/04/18 09:09 04/04/18 07:49 145/66 H 94 L 04/04/18 07:20 93 L 04/04/18 05:35 109/62 Weight Weight 201 lb 11.2 oz I&O: 04/03/18 04/04/18 04/05/18 06:59 06:59 06:59 Intake Total 720 300 Output Total 850 Balance -130 300 Result Diagrams: 04/02/18 04:39 04/03/18 04:46 Phys Exam - Physical Examination HEENT: PERRLA Respiratory: no wheezing, no rales, no rhonchi, clear to auscultation bilateral Cardiovascular: RRR, no significant murmur, no rub Gastrointestinal: soft, non-tender, no distention, positive bowel sounds Musculoskeletal: no edema, pulses present Dx/Plan (1) Acute on chronic systolic heart failure Code(s): I50.23 - ACUTE ON CHRONIC SYSTOLIC (CONGESTIVE) HEART FAILURE Status : Acute (2) COPD (chronic obstructive pulmonary disease) Status: Acute (3) Chronic respiratory failure Code(s): J96.10 - CHRONIC RESPIRATORY FAILURE, UNSP W HYPOXIA OR HYPERCAPNIA Status: Acute (4) Coronary artery disease Code(s): I25.10 - ATHSCL HEART DISEASE OF [place] CORONARY ARTERY W/O ANG PCTRS Status: Chronic (5) Diabetes mellitus type 2 in obese Code(s): E11.69 - TYPE 2 DIABETES MELLITUS WITH OTHER SPECIFIED COMPLICATION; E66.9 - OBESITY, UNSPECIFIED Status: Chronic (6) Hypertension Code(s): I10 - ESSENTIAL (PRIMARY) HYPERTENSION Status: Chronic (7) Atrial fibrillation Code(s): I48.91 - UNSPECIFIED ATRIAL FIBRILLATION Status: Chronic - Plan * Acute on chronic systolic heart failure- improving * COPD- stable * HTN- blood pressure is within the acceptable range * CAD- stable * Chronic AFIB- currently in sinus- stable * I susp[ect he is close to euvolemia- hopefully home soon.
[2018-04-04] MEDS: Rosuvastatin 20 MG TAB PO SCH (20:26)
[2018-04-05 06:15] LABS: Anion Gap 15 mmol/L (10-20); BUN (Urea Nitrogen) 41 mg/dL (8.4-25.7); Calc. Creatinine Clearance 47 mL/min (70-130); Calcium 9.2 mg/dL (7.8-10.44); Carbon Dioxide 31 mmol/L (23-31); Chloride 99 mmol/L (98-107); Estimated GFR-MDRD 41; Glucose 101 mg/dL (83-110); Potassium 3.5 mmol/L (3.5-5.1); Sodium 141 mmol/L (136-145)
[2018-04-05] MEDS: Famotidine 20 MG TAB PO SCH ×2 (09:31→20:32)
[2018-04-05] MEDS: Furosemide 40 MG TAB PO SCH ×2 (09:31→14:04)
[2018-04-05] MEDS: Aspirin 325 MG TAB PO SCH (09:31)
[2018-04-05] MEDS: Amiodarone 200 MG TAB PO SCH (09:31)
[2018-04-05] MEDS: Enoxaparin Sodium 40 MG/0.4 ML SYRINGE SC SCH (09:31)
[2018-04-05] MEDS: Carvedilol 6.25 MG TAB PO SCH ×2 (09:31→17:03)
[2018-04-05] MEDS: Sacubitril 24.5 MG/Valsartan 25.5 MG TABLET PO SCH ×2 (09:32→20:31)
--- NOTE | 2018-04-05 17:10 | PDOC.PN ---
- Subjective Encounter Start Date: 04/05/18 Encounter Start Time: 08:30 Patient seen and examined for CHF. SOB improving. No CP. No new complaints. No overnight events - Objective Resuscitation Status - Order Detail: 03/31/18 20:26 Resuscitation Status Routine Resuscitation Status: FULL: Full Resuscitation Discussed with: Patient MAR Reviewed: Yes Vital Signs & Weight: Vital Signs (12 hours) Temp Pulse Pulse Pulse Resp BP BP 04/05/18 14:55 98.4 F 60 21 H 04/05/18 11:50 98.4 F 61 16 04/05/18 09:43 72 63 131/101 H 121/58 L 04/05/18 08:20 98.6 F 62 20 BP Pulse Ox Pulse Ox Pulse Ox 04/05/18 14:55 110/74 93 L 04/05/18 11:50 130/58 L 94 L 04/05/18 09:43 94 L 92 L 04/05/18 08:20 136/63 91 L Weight Weight 204 lb I&O: 04/04/18 04/05/18 04/06/18 06:59 06:59 06:59 Intake Total 1620 Output Total 1100 250 Balance 520 -250 Result Diagrams: 04/02/18 04:39 04/05/18 05:08 EKG Reviewed by me: Yes (Tele paced) Phys Exam - Physical Examination Constitutional: NAD Respiratory: no wheezing, no rhonchi Cardiovascular: RRR, no rub Gastrointestinal: soft, non-tender, positive bowel sounds Musculoskeletal: edema present Neurological: moves all 4 limbs Dx/Plan - Plan DVT proph w/lovenox, DVT proph w/SCDs 1. Acute on chronic systolic/diastolic HF - ACC stage C 2. 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 DM2 4. Obesity BMI 33.9 5. HTN 6. PRAFUL on CPAP PLAN: Cont PO Lasix with Entresto Cardiology following AM labs Cont current meds as below Cont CPAP HS Review of Systems - Review of Systems Respiratory: negative: Cough, Dry, Shortness of Breath, Hemoptysis, SOB with Excertion, Pleuritic Pain, Sputum, Wheezing Cardiovascular: negative: chest pain, palpitations, orthopnea, paroxysmal nocturnal dyspnea, edema, light headedness, other - Medications/Allergies Allergies/Adverse Reactions: Allergies Allergy/AdvReac Type Severity Reaction Status Date / Time banana Allergy Severe BREATH Verified 03/31/18 21:33 PROBLEMS Penicillins Allergy Anaphylaxis Verified 03/31/18 21:33 sertraline Allergy Verified 03/31/18 21:33 Sulfa (Sulfonamide Allergy Anaphylaxis Verified 03/31/18 21:33 Antibiotics) Tetracyclines Allergy Verified 03/31/18 21:33 tomato AdvReac Severe BREATHING Verified 03/31/18 21:33 ISSUES tree nut AdvReac Severe BREATHING Verified 03/31/18 21:33 PROBLEMS PEPPER AdvReac Severe BREATHING Uncoded 03/31/18 21:33 REACTION Medications: Current Medications Acetaminophen (Tylenol) 650 mg PO Q4H PRN PRN Reason: Headache/Fever/Mild Pain (1-3) Last Admin: 04/04/18 09:10 Dose: 650 mg Acetaminophen (Tylenol) 650 mg [place] Q4H PRN PRN Reason: Headache/Fever/Mild Pain (1-3) Amiodarone HCl (Cordarone) 200 mg PO DAILY [facility] Last Admin: 04/05/18 09:31 Dose: 200 mg Aspirin (Aspirin) 325 mg PO DAILY [facility] Last Admin: 04/05/18 09:31 Dose: 325 mg Carvedilol (Coreg) 12.5 mg PO BID-[facility] Last Admin: 04/05/18 17:03 Dose: 12.5 mg Enoxaparin Sodium (Lovenox) 40 mg SC 0900 [facility] Last Admin: 04/05/18 09:31 Dose: 40 mg Famotidine (Pepcid) 20 mg PO BID [facility] Last Admin: 04/05/18 09:31 Dose: 20 mg Furosemide (Lasix) 40 mg PO 0900,1400 [facility] Last Admin: 04/05/18 14:04 Dose: 40 mg Guaifenesin/Dextromethorphan (Robitussin Dm) 15 ml PO Q4H PRN PRN Reason: Cough Ondansetron HCl (Zofran Odt) 4 mg PO Q6H PRN PRN Reason: Nausea/Vomiting Ondansetron HCl (Zofran) 4 mg IVP Q6H PRN PRN Reason: Nausea/Vomiting Rosuvastatin Calcium (Crestor) 40 mg PO HS [facility] Last Admin: 04/04/18 20:26 Dose: 40 mg Sacubitril/Valsartan (Entresto 24.5 Mg-25.5 Mg Tablet) 1 tab PO BID [facility] Last Admin: 04/05/18 09:32 Dose: 1 tab Senna/Docusate Sodium (Senokot S) 2 tab PO BID PRN PRN Reason: Constipation
[2018-04-05] MEDS: Rosuvastatin 20 MG TAB PO SCH (20:32)
[2018-04-06] MEDS ORDERED: Bacteriostatic Water 30 ML VIAL FS PRN (04:21)
[2018-04-06] MEDS ORDERED: Albuterol Sulfate 2.5 mg/3 ml Neb NEB PRN (04:22)
[2018-04-06] MEDS ORDERED: diphenhydrAMINE 50 MG/ML VIAL IVP PRN (04:26)
[2018-04-06] MEDS ORDERED: diphenhydrAMINE 50 MG/ML VIAL IVP SCH (04:30)
[2018-04-06] MEDS ORDERED: methylPREDNISolone Sod Succ 40 MG VIAL IVP SCH (04:30)
[2018-04-06] MEDS ORDERED: Famotidine 20 MG TAB PO SCH (04:30)
[2018-04-06 06:45] LABS: Anion Gap 12 mmol/L (10-20); BUN (Urea Nitrogen) 37 mg/dL (8.4-25.7); Calc. Creatinine Clearance 58 mL/min (70-130); Calcium 9.3 mg/dL (7.8-10.44); Carbon Dioxide 31 mmol/L (23-31); Chloride 100 mmol/L (98-107); Estimated GFR-MDRD 53; Glucose 93 mg/dL (83-110); Potassium 3.6 mmol/L (3.5-5.1); Sodium 139 mmol/L (136-145)
[2018-04-06] MEDS: Enoxaparin Sodium 40 MG/0.4 ML SYRINGE SC SCH (08:37)
[2018-04-06] MEDS: Aspirin 325 MG TAB PO SCH (08:37)
[2018-04-06] MEDS: Carvedilol 6.25 MG TAB PO SCH ×2 (08:37→17:34)
[2018-04-06] MEDS: Amiodarone 200 MG TAB PO SCH (08:37)
[2018-04-06] MEDS: Sacubitril 24.5 MG/Valsartan 25.5 MG TABLET PO SCH ×2 (08:38→21:46)
[2018-04-06] MEDS: methylPREDNISolone Sod Succ 40 MG VIAL IVP SCH ×2 (12:26→17:37)
--- NOTE | 2018-04-06 18:53 | PDOC.PN ---
- Subjective Encounter Start Date: 04/06/18 Encounter Start Time: 16:00 Patient seen and examined for CHF/BRANDON. Feels gen weak/fatigue. SOB improving. No CP. No new complaints. No overnight events - Objective Resuscitation Status - Order Detail: 03/31/18 20:26 Resuscitation Status Routine Resuscitation Status: FULL: Full Resuscitation Discussed with: Patient MAR Reviewed: Yes Vital Signs & Weight: Vital Signs (12 hours) Temp Pulse Resp BP BP Pulse Ox 04/06/18 17:36 97.3 F L 65 18 137/68 93 L 04/06/18 17:34 137/68 04/06/18 15:32 97.9 F 60 20 103/54 L 91 L 04/06/18 11:10 98.9 F 60 16 127/58 L 92 L 04/06/18 08:40 92 L 04/06/18 08:37 143/84 H 04/06/18 08:16 99.1 F 04/06/18 08:00 61 16 143/84 H 92 L Weight Weight 200 lb 12.8 oz I&O: 04/05/18 04/06/18 04/07/18 06:59 06:59 06:59 Intake Total 1620 300 750 Output Total 1100 850 250 Balance 520 -550 500 Result Diagrams: 04/02/18 04:39 04/06/18 05:53 EKG Reviewed by me: Yes (Tele paced) Phys Exam - Physical Examination Constitutional: NAD Respiratory: no wheezing, no rhonchi few rales at bases Cardiovascular: RRR, no rub Gastrointestinal: soft, non-tender, positive bowel sounds Musculoskeletal: edema present Neurological: moves all 4 limbs Dx/Plan - Plan DVT proph w/lovenox, DVT proph w/SCDs 1. 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 Lasix on hold due to BRANDON 2. 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 DM2 - on sliding scale 4. Obesity BMI 33.9 5. HTN 6. PRAFUL on CPAP PLAN: Cont Entresto BMP in AM Cont current meds as below Cont CPAP HS DC IV Steroids [facility] setup Counselled on CHF DC in AM if renal function improves Review of Systems - Review of Systems Respiratory: SOB with Excertion. negative: Cough, Dry, Shortness of Breath, Hemoptysis, Pleuritic Pain, Sputum, Wheezing Cardiovascular: negative: chest pain, palpitations, orthopnea, paroxysmal nocturnal dyspnea, edema, light headedness, other - Medications/Allergies Allergies/Adverse Reactions: Allergies Allergy/AdvReac Type Severity Reaction Status Date / Time banana Allergy Severe BREATH Verified 03/31/18 21:33 PROBLEMS Penicillins Allergy Anaphylaxis Verified 03/31/18 21:33 sertraline Allergy Verified 03/31/18 21:33 Sulfa (Sulfonamide Allergy Anaphylaxis Verified 03/31/18 21:33 Antibiotics) Tetracyclines Allergy Verified 03/31/18 21:33 tomato AdvReac Severe BREATHING Verified 03/31/18 21:33 ISSUES tree nut AdvReac Severe BREATHING Verified 03/31/18 21:33 PROBLEMS PEPPER AdvReac Severe BREATHING Uncoded 03/31/18 21:33 REACTION Medications: Current Medications Acetaminophen (Tylenol) 650 mg PO Q4H PRN PRN Reason: Headache/Fever/Mild Pain (1-3) Last Admin: 04/04/18 09:10 Dose: 650 mg Acetaminophen (Tylenol) 650 mg [place] Q4H PRN PRN Reason: Headache/Fever/Mild Pain (1-3) Albuterol Sulfate (Ventolin) 2.5 mg NEB Q6H PRN PRN Reason: .SHORTNESS OF BREATH Amiodarone HCl (Cordarone) 200 mg PO DAILY [facility] Last Admin: 04/06/18 08:37 Dose: 200 mg Aspirin (Aspirin) 325 mg PO DAILY [facility] Last Admin: 04/06/18 08:37 Dose: 325 mg Carvedilol (Coreg) 12.5 mg PO BID-[facility] Last Admin: 04/06/18 17:34 Dose: 12.5 mg Diphenhydramine HCl (Benadryl) 50 mg IVP Q6H PRN PRN Reason: Itching & Insomnia Enoxaparin Sodium (Lovenox) 40 mg SC 0900 [facility] Last Admin: 04/06/18 08:37 Dose: 40 mg Famotidine (Pepcid) 20 mg PO DAILY [facility] Guaifenesin/Dextromethorphan (Robitussin Dm) 15 ml PO Q4H PRN PRN Reason: Cough Ondansetron HCl (Zofran Odt) 4 mg PO Q6H PRN PRN Reason: Nausea/Vomiting Ondansetron HCl (Zofran) 4 mg IVP Q6H PRN PRN Reason: Nausea/Vomiting Rosuvastatin Calcium (Crestor) 40 mg PO HS [facility] Last Admin: 04/05/18 20:32 Dose: 40 mg Sacubitril/Valsartan (Entresto 24.5 Mg-25.5 Mg Tablet) 1 tab PO BID [facility] Last Admin: 04/06/18 08:38 Dose: 1 tab Senna/Docusate Sodium (Senokot S) 2 tab PO BID PRN PRN Reason: Constipation Sterile Water (Bacteriostatic Water) 1 ml FS PRN PRN PRN Reason: RECONSTITUTION
[2018-04-06] MEDS: Rosuvastatin 20 MG TAB PO SCH (21:47)
[2018-04-07 05:37] LABS: Anion Gap 13 mmol/L (10-20); BUN (Urea Nitrogen) 38 mg/dL (8.4-25.7); Calc. Creatinine Clearance 58 mL/min (70-130); Calcium 9.3 mg/dL (7.8-10.44); Carbon Dioxide 28 mmol/L (23-31); Chloride 100 mmol/L (98-107); Estimated GFR-MDRD 53; Glucose 161 mg/dL (83-110); Potassium 3.9 mmol/L (3.5-5.1); Sodium 137 mmol/L (136-145)
[2018-04-07] MEDS: Aspirin 325 MG TAB PO SCH (08:50)
[2018-04-07] MEDS: Carvedilol 6.25 MG TAB PO SCH ×2 (08:51→17:18)
[2018-04-07] MEDS: Famotidine 20 MG TAB PO SCH (08:51)
[2018-04-07] MEDS: Enoxaparin Sodium 40 MG/0.4 ML SYRINGE SC SCH (08:51)
[2018-04-07] MEDS: Amiodarone 200 MG TAB PO SCH (08:51)
[2018-04-07] MEDS: Rosuvastatin 20 MG TAB PO SCH (20:59)
--- NOTE | 2018-04-07 20:59 | PDOC.PN ---
- Subjective Encounter Start Date: 04/07/18 Encounter Start Time: 11:00 Patient seen and examined for CHF with BRANDON. No new CP. Feels somewhat better. No new complaints. No overnight events - Objective Resuscitation Status - Order Detail: 03/31/18 20:26 Resuscitation Status Routine Resuscitation Status: FULL: Full Resuscitation Discussed with: Patient MAR Reviewed: Yes Vital Signs & Weight: Vital Signs (12 hours) Temp Pulse Pulse Pulse Resp BP BP 04/07/18 15:56 97.5 F L 65 17 04/07/18 12:00 97.2 F L 65 17 04/07/18 10:54 68 61 135/72 108/67 BP Pulse Ox Pulse Ox Pulse Ox 04/07/18 15:56 116/64 94 L 04/07/18 12:00 108/67 95 04/07/18 10:54 94 L 93 L Weight Weight 201 lb 1.6 oz I&O: 04/06/18 04/07/18 04/08/18 06:59 06:59 06:59 Intake Total 300 1000 480 Output Total 850 725 300 Balance -550 275 180 Result Diagrams: 04/02/18 04:39 04/07/18 04:52 EKG Reviewed by me: Yes (Tele paced) Phys Exam - Physical Examination Constitutional: NAD Respiratory: no wheezing, no rhonchi Bibasilar rales Cardiovascular: RRR, no rub Gastrointestinal: soft, non-tender, positive bowel sounds Dx/Plan - Plan DVT proph w/lovenox, DVT proph w/SCDs 1. 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 Lasix on hold due to BRANDON 2. 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 DM2 - on sliding scale 4. Obesity BMI 33.9 5. HTN 6. PRAFUL on CPAP PLAN: Hold Entresto today AM labs Cont current meds as below Cont CPAP HS DC in AM if ok with Cardiology Review of Systems - Review of Systems Respiratory: SOB with Excertion. negative: Cough, Dry, Shortness of Breath, Hemoptysis, Pleuritic Pain, Sputum, Wheezing Cardiovascular: negative: chest pain, palpitations, orthopnea, paroxysmal nocturnal dyspnea, edema, light headedness, other - Medications/Allergies Allergies/Adverse Reactions: Allergies Allergy/AdvReac Type Severity Reaction Status Date / Time banana Allergy Severe BREATH Verified 03/31/18 21:33 PROBLEMS Penicillins Allergy Anaphylaxis Verified 03/31/18 21:33 sertraline Allergy Verified 03/31/18 21:33 Sulfa (Sulfonamide Allergy Anaphylaxis Verified 03/31/18 21:33 Antibiotics) Tetracyclines Allergy Verified 03/31/18 21:33 tomato AdvReac Severe BREATHING Verified 03/31/18 21:33 ISSUES tree nut AdvReac Severe BREATHING Verified 03/31/18 21:33 PROBLEMS PEPPER AdvReac Severe BREATHING Uncoded 03/31/18 21:33 REACTION Medications: Current Medications Acetaminophen (Tylenol) 650 mg PO Q4H PRN PRN Reason: Headache/Fever/Mild Pain (1-3) Last Admin: 04/04/18 09:10 Dose: 650 mg Acetaminophen (Tylenol) 650 mg [place] Q4H PRN PRN Reason: Headache/Fever/Mild Pain (1-3) Albuterol Sulfate (Ventolin) 2.5 mg NEB Q6H PRN PRN Reason: .SHORTNESS OF BREATH Amiodarone HCl (Cordarone) 200 mg PO DAILY [facility] Last Admin: 04/07/18 08:51 Dose: 200 mg Aspirin (Aspirin) 325 mg PO DAILY [facility] Last Admin: 04/07/18 08:50 Dose: 325 mg Carvedilol (Coreg) 12.5 mg PO BID[facility] Last Admin: 04/07/18 17:18 Dose: 12.5 mg Diphenhydramine HCl (Benadryl) 50 mg IVP Q6H PRN PRN Reason: Itching & Insomnia Enoxaparin Sodium (Lovenox) 40 mg SC 0900 [facility] Last Admin: 04/07/18 08:51 Dose: 40 mg Famotidine (Pepcid) 20 mg PO DAILY [facility] Last Admin: 04/07/18 08:51 Dose: 20 mg Guaifenesin/Dextromethorphan (Robitussin Dm) 15 ml PO Q4H PRN PRN Reason: Cough Ondansetron HCl (Zofran Odt) 4 mg PO Q6H PRN PRN Reason: Nausea/Vomiting Ondansetron HCl (Zofran) 4 mg IVP Q6H PRN PRN Reason: Nausea/Vomiting Rosuvastatin Calcium (Crestor) 40 mg PO [facility] Last Admin: 04/06/18 21:47 Dose: 40 mg Sacubitril/Valsartan (Entresto 24.5 Mg-25.5 Mg Tablet) 1 tab PO BID [facility] Last Admin: 04/06/18 21:46 Dose: 1 tab Senna/Docusate Sodium (Senokot S) 2 tab PO BID PRN PRN Reason: Constipation Sterile Water (Bacteriostatic Water) 1 ml FS PRN PRN PRN Reason: RECONSTITUTION
[2018-04-08 05:07] LABS: Hemoglobin 13.3 g/dL (14.0-18.0); Platelet Count 145 thou/uL (130-400)
[2018-04-08 05:35] LABS: Anion Gap 12 mmol/L (10-20); BUN (Urea Nitrogen) 36 mg/dL (8.4-25.7); Calc. Creatinine Clearance 61 mL/min (70-130); Calcium 9.2 mg/dL (7.8-10.44); Carbon Dioxide 31 mmol/L (23-31); Chloride 100 mmol/L (98-107); Estimated GFR-MDRD 56; Glucose 107 mg/dL (83-110); Potassium 3.6 mmol/L (3.5-5.1); Sodium 139 mmol/L (136-145)
[2018-04-08] MEDS ORDERED: Senokot S 8.6-50 MG TAB PO PRN (07:47)
[2018-04-08] MEDS: Sacubitril 24.5 MG/Valsartan 25.5 MG TABLET PO SCH (08:35)
[2018-04-08] MEDS: Famotidine 20 MG TAB PO SCH (08:36)
[2018-04-08] MEDS: Aspirin 325 MG TAB PO SCH (08:36)
[2018-04-08] MEDS: Carvedilol 6.25 MG TAB PO SCH ×2 (08:36→16:55)
[2018-04-08] MEDS: Enoxaparin Sodium 40 MG/0.4 ML SYRINGE SC SCH (08:36)
[2018-04-08] MEDS: Amiodarone 200 MG TAB PO SCH (08:36)
--- NOTE | 2018-04-08 16:34 | PDOC.EVN ---
Event Note - Event Note Event Note: DC SUMMARY #[id number]
--- NOTE | 2018-04-08 16:46 | PDOC.EVN ---
Event Note - Event Note Event Note: Patient not given anticoagulation as he was on Xarelto earlier, however, his senior branch manager had stopped it having given the patient a reason, however, the patient is currently unaable to recall. Will give the patient aspirin, request that he return to his senior branch manager ASHLEY to restart anticoagulation as needed.
[2018-04-08 17:29] VITALS: BP 140/68; TEMP 97.3
--- NOTE | 2018-04-09 01:56 | DIS ---
DATE OF ADMISSION: 03/31/2018 DATE OF DISCHARGE: 04/08/2018 ADMITTING DIAGNOSES: Acute kidney injury, diabetes mellitus type 2, obesity, hypertension, obstructive sleep apnea, and congestive heart failure. DISCHARGE DIAGNOSES: Acute kidney injury, diabetes mellitus type 2, obesity, hypertension, obstructive sleep apnea, and congestive heart failure. HISTORY OF PRESENT ILLNESS: This is an 82-year-old male admitted to the hospital because of shortness of breath. The patient was admitted to Internal Medicine Team, followed very closely by Cardiology as well as Cardiac Rehab. The patient was started on amiodarone, as well as IV medications for diuresis purposes. The patient was noted to have BRANDON. Diuretics were stopped. At the point in time of discharge, diuretics was to be resumed. The patient was advised to follow up with an outpatient PCP. The patient had an echocardiogram performed as well during his stay and was found to have an ejection fraction of 45% to 50%. [id number] tricuspid regurgitation was noted. The patient at the time of discharge was stable. Denied any nausea, vomiting, diarrhea, constipation, chest pain, fevers, or shortness of breath. The patient had lab functions, which are acceptable and within normal range. Case and plan were discussed with the patient at length. Cardiology as well was included in the management. Clearance obtained from Cardiology, as well as Internal Medicine prior to discharge. The patient is to follow up with PCP and Cardiology within 1 to 2 weeks post discharge. ACTIVITY: As tolerated. CONDITION: Stable. PROGNOSIS: Good. FOLLOWUP: Follow up with PCP and Cardiology within 1 to 2 weeks for further laboratory workup and medical care. DIET: Low-fat, low-calorie, and high-fiber diet. Case and plan discussed with the patient at length. He understood and agreed with this plan. Job ID: [id number]
--- NOTE | 2018-04-09 13:13 | EKG ---
Test Reason : SOB Blood Pressure : / mmHG Vent. Rate : 066 BPM Atrial Rate : 053 BPM P-R Int : 000 ms QRS Dur : 160 ms QT Int : 516 ms P-R-T Axes : 000 184 -28 degrees QTc Int : 540 ms AV dual-paced rhythm with occasional ventricular-paced complexes and with occasional Premature ventri cular complexes Abnormal ECG Confirmed by JOY MATTHEWS DO ([id number]), fashion editor KUHSHBU HENRY ([id number]) on 04/09/2018 1:12:46 PM Referred By: Confirmed By:JOY MATTHEWS DO
== END 2018-04-08 17:30 | disposition home health service (06) | DRG 291 ==
LOC: ERS 15:29 → 2SW 18:17 → OBSVTOIN 20:30 → 2NO 04-06 17:37
PROVIDERS: ADMIT Emergency Medicine; ATTEND Emergency Medicine
DX: I13.0 Hypertensive heart and chronic kidney disease with heart failure and stage 1 through stage 4 chronic kidney disease, or unspecified chronic kidney disease (principal); I50.23 Acute on chronic systolic (congestive) heart failure; N17.9 Acute kidney failure, unspecified; J96.10 Chronic respiratory failure, unspecified whether with hypoxia or hypercapnia; I25.10 Atherosclerotic heart disease of native coronary artery without angina pectoris; I48.0 Paroxysmal atrial fibrillation; E78.00 Pure hypercholesterolemia, unspecified; G47.33 Obstructive sleep apnea (adult) (pediatric); E78.5 Hyperlipidemia, unspecified; E66.9 Obesity, unspecified; Z68.33 Body mass index [BMI] 33.0-33.9, adult; I07.1 Rheumatic tricuspid insufficiency; J44.9 Chronic obstructive pulmonary disease, unspecified; E11.22 Type 2 diabetes mellitus with diabetic chronic kidney disease; N18.2 Chronic kidney disease, stage 2 (mild); Z79.82 Long term (current) use of aspirin; Z79.84 Long term (current) use of oral hypoglycemic drugs; Z88.0 Allergy status to penicillin; Z88.2 Allergy status to sulfonamides; Z88.8 Allergy status to other drugs, medicaments and biological substances; Z91.018 Allergy to other foods; Z95.5 Presence of coronary angioplasty implant and graft; Z90.49 Acquired absence of other specified parts of digestive tract; Z96.652 Presence of left artificial knee joint; Z95.810 Presence of automatic (implantable) cardiac defibrillator; Z82.49 Family history of ischemic heart disease and other diseases of the circulatory system; Z83.3 Family history of diabetes mellitus
CPT/HCPCS: 36415; 36416; 71046; 80048; 80053; 80061; 81001; 82553; 83036; 83735; 83880; 84484; 85014; 85018; 85025; 85049; 87086; 93005; 93306; 93798; 94660; 96374; J1200; J1650; J1940; J2920

== ENCOUNTER 2018-05-04 12:53 | Emergency (ER) | payer MEDICARE ==
[2018-05-04 16:19] LABS: #Eosinphils 0.4 thou/uL (0.0-0.7); #Lymphocytes 1.9 thou/uL (1.20-3.40); #Monocytes 0.5 thou/uL (0.11-0.59); #Neutrophils 3.6 thou/uL (1.40-6.50); %Basophils 0.3 % (0.0-1.0); %Lymphocytes 29.5 % (21.0-51.0); %Neutrophils 56.2 % (42.0-75.0); Hemoglobin 13.7 g/dL (14.0-18.0); Mean Corpuscular Volume 93.9 fL (78.0-98.0); Mean Platelet Volume 9.4 fL (7.4-10.4); Platelet Count 129 thou/uL (130-400); RBC Distribution Width 12.5 % (11.5-14.5); Red Blood Cell (RBC) Count 4.57 mill/uL (4.70-6.10); White Blood Cell (WBC) Count 6.3 thou/uL (4.8-10.8)
[2018-05-04 16:42] LABS: ALT (SGPT) 21 U/L (8-55); AST (SGOT) 23 U/L (5-34); Albumin 3.6 g/dL (3.4-4.8); Alkaline Phosphatase 52 U/L (40-150); Anion Gap 11 mmol/L (10-20); BUN (Urea Nitrogen) 17 mg/dL (8.4-25.7); Bilirubin, Total 0.8 mg/dL (0.2-1.2); Calc. Creatinine Clearance 0 mL/min (70-130); Carbon Dioxide 28 mmol/L (23-31); Chloride 106 mmol/L (98-107); Estimated GFR-MDRD 74; Globulin 2.8 g/dL (2.4-3.5); Glucose 133 mg/dL (83-110); Protein, Total 6.4 g/dL (5.8-8.1); Sodium 141 mmol/L (136-145)
--- NOTE | 2018-05-07 15:54 | EKG ---
Test Reason : NUMB HANDS Blood Pressure : / mmHG Vent. Rate : 076 BPM Atrial Rate : 037 BPM P-R Int : 000 ms QRS Dur : 128 ms QT Int : 454 ms P-R-T Axes : 021 -39 151 degrees QTc Int : 510 ms Ventricular-paced rhythm with frequent AV dual-paced complexes and with occasional Premature ventricu lar complexes Abnormal ECG Confirmed by JENNA VERAS, JONN ([id number]), material expeditor KHUSHBU HENRY ([id number]) on 05/07/2018 3:53:58 PM Referred By: Confirmed By:JONN WEST MD
== END 2018-05-04 17:31 | disposition home or self-care (01) ==
LOC: ERS 12:53
DX: R20.2 Paresthesia of skin (principal); G47.30 Sleep apnea, unspecified; I10 Essential (primary) hypertension; I48.91 Unspecified atrial fibrillation; J44.9 Chronic obstructive pulmonary disease, unspecified; E78.5 Hyperlipidemia, unspecified; Z79.899 Other long term (current) drug therapy; Z79.82 Long term (current) use of aspirin
CPT/HCPCS: 80053; 83880; 85025; 93005

== ENCOUNTER 2018-05-08 08:55 | Emergency (ER) | payer MEDICARE ==
[2018-05-08 09:28] LABS: #Eosinphils 0.4 thou/uL (0.0-0.7); #Lymphocytes 1.9 thou/uL (1.20-3.40); #Monocytes 0.6 thou/uL (0.11-0.59); #Neutrophils 4.2 thou/uL (1.40-6.50); %Basophils 0.6 % (0.0-1.0); %Eosinophils 5.8 % (0.0-10.0); %Lymphocytes 26.5 % (21.0-51.0); %Monocytes 8.4 % (0.0-10.0); %Neutrophils 58.6 % (42.0-75.0); Hemoglobin 15.4 g/dL (14.0-18.0); Mean Corpuscular HGB CONC 31.6 g/dL (32.0-36.0); Mean Corpuscular Hemoglobin 29.9 pg (27.0-31.0); Mean Corpuscular Volume 94.4 fL (78.0-98.0); Mean Platelet Volume 9.3 fL (7.4-10.4); Platelet Count 151 thou/uL (130-400); RBC Distribution Width 12.6 % (11.5-14.5); Red Blood Cell (RBC) Count 5.15 mill/uL (4.70-6.10); White Blood Cell (WBC) Count 7.1 thou/uL (4.8-10.8)
[2018-05-08 09:31] LABS: ALT (SGPT) 24 U/L (8-55); AST (SGOT) 26 U/L (5-34); Albumin 4.1 g/dL (3.4-4.8); Alkaline Phosphatase 60 U/L (40-150); Anion Gap 9 mmol/L (10-20); BUN (Urea Nitrogen) 15 mg/dL (8.4-25.7); Calc. Creatinine Clearance 0 mL/min (70-130); Calcium 9.6 mg/dL (7.8-10.44); Carbon Dioxide 32 mmol/L (23-31); Chloride 103 mmol/L (98-107); Estimated GFR-MDRD 68; Globulin 3.1 g/dL (2.4-3.5); Glucose 102 mg/dL (83-110); Potassium 4.1 mmol/L (3.5-5.1); Protein, Total 7.2 g/dL (5.8-8.1); Sodium 140 mmol/L (136-145)
[2018-05-08] MEDS ORDERED: Furosemide 40 MG/4 ML VIAL ONE (09:37)
[2018-05-08] MEDS ORDERED: Nitroglycerin 2% Ointment 1 INCH/1 GM Packet ONE (09:37)
--- NOTE | 2018-05-08 13:01 | RAD ---
PORTABLE CHEST: DATE: 05/08/2018. PROVIDED CLINICAL HISTORY: Shortness of breath. FINDINGS: Comparison 03/31/2018. Cardiac and mediastinal silhouette is unchanged in appearance. Let subclavian cardiac pacing device is redemonstrated in similar position. Prominence of the pulmonary vasculatur e and pulmonary interstitium is redemonstrated. No focal consolidation, pleural fluid, or pneumothor ax apparent. IMPRESSION: Findings suggesting congestive failure. POS: MARTA
== END 2018-05-08 12:01 | disposition home or self-care (01) ==
LOC: ERS 08:55
DX: I11.0 Hypertensive heart disease with heart failure (principal); I50.9 Heart failure, unspecified; E11.9 Type 2 diabetes mellitus without complications; I48.91 Unspecified atrial fibrillation; E78.5 Hyperlipidemia, unspecified; J44.9 Chronic obstructive pulmonary disease, unspecified; Z79.82 Long term (current) use of aspirin; Z79.899 Other long term (current) drug therapy
CPT/HCPCS: 71045; 80053; 83880; 84484; 85025; 93005; 96374; J1940

== ENCOUNTER 2018-07-25 19:53 | Emergency (ER) | payer MEDICARE ==
--- NOTE | 2018-07-25 20:46 | RAD ---
EXAM: Chest 2 views: HISTORY: Shortness of breath COMPARISON: 03/31/2018 FINDINGS: There is an enlarged but stable cardiomediastinal silhouette. The pacemaker is unchanged in position . There is no evidence of consolidation, mass, or pleural effusion. Degenerative changes are seen in the spine. IMPRESSION: No evidence of acute cardiopulmonary disease
[2018-07-25 21:13] LABS: #Eosinphils 0.3 thou/uL (0.0-0.7); #Lymphocytes 1.8 thou/uL (1.20-3.40); #Monocytes 0.5 thou/uL (0.11-0.59); #Neutrophils 4.2 thou/uL (1.40-6.50); %Basophils 0.4 % (0.0-1.0); %Eosinophils 4.2 % (0.0-10.0); %Lymphocytes 26.3 % (21.0-51.0); %Monocytes 7.3 % (0.0-10.0); %Neutrophils 61.7 % (42.0-75.0); Hemoglobin 13.5 g/dL (14.0-18.0); Mean Corpuscular HGB CONC 33.5 g/dL (32.0-36.0); Mean Corpuscular Volume 92.4 fL (78.0-98.0); Mean Platelet Volume 9.7 fL (7.4-10.4); Platelet Count 150 thou/uL (130-400); RBC Distribution Width 11.7 % (11.5-14.5); Red Blood Cell (RBC) Count 4.38 mill/uL (4.70-6.10); White Blood Cell (WBC) Count 6.9 thou/uL (4.8-10.8)
[2018-07-25 21:34] LABS: ALT (SGPT) 27 U/L (8-55); AST (SGOT) 34 U/L (5-34); Albumin 3.9 g/dL (3.4-4.8); Alkaline Phosphatase 50 U/L (40-150); Anion Gap 14 mmol/L (10-20); BUN (Urea Nitrogen) 20 mg/dL (8.4-25.7); Bilirubin, Total 0.6 mg/dL (0.2-1.2); Calc. Creatinine Clearance 0 mL/min (70-130); Calcium 9.1 mg/dL (7.8-10.44); Carbon Dioxide 26 mmol/L (23-31); Chloride 103 mmol/L (98-107); Estimated GFR-MDRD 60; Globulin 3.2 g/dL (2.4-3.5); Glucose 97 mg/dL (83-110); Potassium 4.3 mmol/L (3.5-5.1); Protein, Total 7.1 g/dL (5.8-8.1); Sodium 139 mmol/L (136-145)
[2018-07-25] MEDS ORDERED: Furosemide 40 MG/4 ML VIAL ONE (22:00)
[2018-07-25] MEDS ORDERED: Aspirin 81 mg Enteric Coated Tablet ONE (22:55)
--- NOTE | 2018-07-30 15:28 | EKG ---
Test Reason : Blood Pressure : / mmHG Vent. Rate : 062 BPM Atrial Rate : 093 BPM P-R Int : 000 ms QRS Dur : 158 ms QT Int : 498 ms P-R-T Axes : 000 -39 069 degrees QTc Int : 505 ms AV sequential or dual chamber electronic pacemaker Confirmed by RON MANCILLA MD ([id number]), subeditor DANA ELLIOTT ([id number]) on 07/30/2018 3:28:46 PM Referred By: Confirmed By:RON MANCILLA MD
== END 2018-07-25 23:30 | disposition home or self-care (01) ==
LOC: ERS 19:53
DX: I11.0 Hypertensive heart disease with heart failure (principal); I50.9 Heart failure, unspecified; E11.9 Type 2 diabetes mellitus without complications; I48.91 Unspecified atrial fibrillation; J44.9 Chronic obstructive pulmonary disease, unspecified; E78.5 Hyperlipidemia, unspecified; G47.30 Sleep apnea, unspecified; Z87.442 Personal history of urinary calculi; Z79.899 Other long term (current) drug therapy; Z79.82 Long term (current) use of aspirin
CPT/HCPCS: 71046; 80053; 83880; 84484; 85025; 93005; 94760; 96374; J1940

== ENCOUNTER 2018-08-16 21:50 | Inpatient (IN) | payer MEDICARE ==
[2018-08-16 22:20] LABS: #Eosinphils 0.3 thou/uL (0.0-0.7); #Lymphocytes 1.2 thou/uL (1.20-3.40); #Monocytes 0.6 thou/uL (0.11-0.59); #Neutrophils 5.3 thou/uL (1.40-6.50); %Basophils 0.4 % (0.0-1.0); %Eosinophils 4.6 % (0.0-10.0); %Lymphocytes 16.3 % (21.0-51.0); %Monocytes 7.9 % (0.0-10.0); %Neutrophils 70.8 % (42.0-75.0); Hemoglobin 13.4 g/dL (14.0-18.0); Mean Corpuscular HGB CONC 32.7 g/dL (32.0-36.0); Mean Corpuscular Hemoglobin 30.3 pg (27.0-31.0); Mean Corpuscular Volume 92.8 fL (78.0-98.0); Mean Platelet Volume 10.1 fL (7.4-10.4); Platelet Count 136 thou/uL (130-400); RBC Distribution Width 12.1 % (11.5-14.5); Red Blood Cell (RBC) Count 4.41 mill/uL (4.70-6.10); White Blood Cell (WBC) Count 7.4 thou/uL (4.8-10.8)
--- NOTE | 2018-08-16 22:22 | RAD ---
EXAM: Single view of the chest HISTORY: Shortness of breath COMPARISON: 05/08/2018 FINDINGS: Single view of the chest shows a normal sized cardiomediastinal silhouette. The pacemaker is unchanged in position. Scarring is seen in the right lung base. There is no evidence of consolidation, mass, or pleural effusion. Degenerative changes are seen in the spine and shoulders. IMPRESSION: No evidence of acute cardiopulmonary disease
[2018-08-16 22:42] LABS: ALT (SGPT) 21 U/L (8-55); AST (SGOT) 23 U/L (5-34); Albumin 3.9 g/dL (3.4-4.8); Alkaline Phosphatase 56 U/L (40-150); Anion Gap 12 mmol/L (10-20); BUN (Urea Nitrogen) 15 mg/dL (8.4-25.7); Bilirubin, Total 0.9 mg/dL (0.2-1.2); Calc. Creatinine Clearance 0 mL/min (70-130); Calcium 9.1 mg/dL (7.8-10.44); Carbon Dioxide 27 mmol/L (23-31); Chloride 105 mmol/L (98-107); Estimated GFR-MDRD 64; Globulin 2.9 g/dL (2.4-3.5); Glucose 122 mg/dL (83-110); Potassium 4.2 mmol/L (3.5-5.1); Protein, Total 6.8 g/dL (5.8-8.1); Sodium 140 mmol/L (136-145)
[2018-08-16] MEDS ORDERED: Furosemide 40 MG/4 ML VIAL ONE (22:47)
[2018-08-17 01:32] LABS: Troponin I 0.031 ng/mL (< 0.028)
[2018-08-17 04:57] VITALS: BMI 31.6
[2018-08-17 05:11] LABS: Anion Gap 11 mmol/L (10-20); BUN (Urea Nitrogen) 14 mg/dL (8.4-25.7); Calc. Creatinine Clearance 69 mL/min (70-130); Calcium 9.2 mg/dL (7.8-10.44); Carbon Dioxide 32 mmol/L (23-31); Chloride 100 mmol/L (98-107); Estimated GFR-MDRD 64; Glucose 107 mg/dL (83-110); Potassium 3.6 mmol/L (3.5-5.1); Sodium 139 mmol/L (136-145)
[2018-08-17 05:17] LABS: Troponin I 0.034 ng/mL (< 0.028)
--- NOTE | 2018-08-17 05:53 | HP ---
CHIEF COMPLAINT: Shortness of breath and edema. HISTORY: This patient is an 82-year-old male with a history of congestive heart failure with his most recent echocardiogram from March revealing an EF of 45% to 50% with moderate mitral regurgitation, mild aortic stenosis, moderate aortic regurgitation, and [id number] tricuspid regurgitation. The patient was previously wearing some self daily at home but says it was not changing much, he essentially stopped it. He also admits that he enjoys eating chicken and rice soup but has realized it has a fair amount of sodium in it. He reports that he and his neither are in good enough shape to cook so they eat a lot of junk. He reports that over the last several days he has had increasing shortness of breath and lower extremity edema, especially if he is up on his feet much at all. He subsequently presented to the Emergency Department with these complaints. He received a dose of Lasix in the Emergency Department, says he is feeling some better and that the edema in his legs is already better as well. REVIEW OF SYSTEMS: This patient again reports he is not eating generally well. He denies any specific chest pain, fevers, or chills. The patient also has some pain in his right shoulder, which is fairly chronic. Other than that all systems were reviewed, all pertinent positives and negatives noted in history of present illness. PAST MEDICAL HISTORY: Systolic congestive heart failure with severe tricuspid regurgitation. He has coronary artery disease, paroxysmal atrial fibrillation, diabetes mellitus, hyperlipidemia, hypertension, and obstructive sleep apnea. The patient has a CPAP ordered for him. He says he has not been using it for the past several months but says tonight that he cannot sleep without one. He has osteoarthritis and Raynaud syndrome. PAST SURGICAL HISTORY: Diskectomy, cardiac stents x3, tonsillectomy, cholecystectomy, left knee replacement, hernia repair, and AICD placement. FAMILY HISTORY: The patient has a history of congestive heart failure, hypertension, and diabetes in the family. SOCIAL HISTORY: Nonsmoker, nondrinker, nondrug user. He is a retired security coordinator. He is . ALLERGIES: PENICILLIN, SERTRALINE, SULFA, TETRACYCLINE, TOMATOES, TREE NUTS, PEPPERS, AND BANANAS. CURRENT MEDICATIONS: 1. Lasix 20 mg p.o. daily. 2. Amlodipine 2.5 daily. 3. Lisinopril 10 mg daily. 4. Crestor 40 mg daily. 5. Zetia 10 mg daily. 6. Hydralazine 25 mg b.i.d. 7. Multaq 400 mg b.i.d. 8. Aspirin 325 daily. 9. Pantoprazole 40 mg daily. 10. Albuterol 90 mcg inhaled q.4 hours p.r.n. PHYSICAL EXAMINATION: VITAL SIGNS: Blood pressure 160/82, pulse 68, respirations 21, temperature 98.3, and O2 sats 95% on room air. GENERAL APPEARANCE: Age-appropriate male. He is in no distress. Awake, alert, oriented, pleasant, and cooperative. HEENT: AMIE, no OP lesions. NECK: Supple and symmetric. No significant JVD is present. HEART: Regular rate and rhythm with no murmurs noted. LUNGS: Clear to auscultation bilaterally with no wheezes or rales. ABDOMEN: Soft, nontender, and nondistended. Positive bowel sounds. He is slightly hypertympanic and very slightly distended. EXTREMITIES: 1 to 2+ pitting pretibial edema bilaterally. NEUROLOGICAL: The patient is cognitively intact. Moves all extremities spontaneously with no evidence of deficits. PSYCH: Normal affect and behavior. LABORATORY DATA: White count 7.4, hemoglobin 13.4, and platelets 136. Chemistries normal. Glucose was 122. Troponin 0.024, subsequent is 0.031. BNP 451.6, albumin 3.9. DIAGNOSTIC STUDIES: Chest x-ray shows no evidence of acute cardiopulmonary disease. IMPRESSION AND PLAN: 1. Decompensated systolic congestive heart failure exacerbated by [id number] tricuspid regurgitation. The patient has received a dose of Lasix, appears to already have responded to that to some degree. We will continue with the IV Lasix for now until he is a bit more whole-body euvolemic and then can switch back to the p.o. In the meantime, we will continue with his usual home medication regimen including beta blockers and Entresto. 2. Hyperlipidemia, continue with statin. 3. Hypertension. The patient is on amlodipine, which certainly reasonable, we will continue that, and hydralazine concerning that the amlodipine could potentially be contributing to his lower extremity edema. 4. History of atrial fibrillation. Continue with the Multaq. 5. History of coronary artery disease. Continue beta kiki, statin, and aspirin. Job ID: [id number]
[2018-08-17] MEDS: Furosemide 40 MG/4 ML VIAL SLOW IVP SCH ×2 (06:03→14:57)
[2018-08-17] MEDS ORDERED: Calcium Carbonate 500 MG ChewTAB PO PRN (09:06)
[2018-08-17] MEDS ORDERED: Acetaminophen 325 MG TAB PO PRN (09:06)
[2018-08-17] MEDS ORDERED: PROVENTIL INHALER 6.7 G (200 INHALATIONS) INH PRN (09:09)
[2018-08-17] MEDS ORDERED: Aspirin Chewable 81 MG TAB PO SCH (09:15)
[2018-08-17] MEDS ORDERED: Aspirin 325 MG TAB PO SCH (10:00)
[2018-08-17] MEDS ORDERED: Amiodarone 200 MG TAB PO SCH (10:30)
[2018-08-17] MEDS ORDERED: Sacubitril 24.5 MG/Valsartan 25.5 MG TABLET PO SCH (10:45)
[2018-08-17] MEDS ORDERED: Carvedilol 6.25 MG TAB PO SCH (10:45)
[2018-08-17] MEDS: Ferrous Sulfate 325 MG TAB PO SCH (11:10)
--- NOTE | 2018-08-17 13:49 | ULT ---
RIGHT LOWER EXTREMITY VENOUS DUPLEX EXAM: 08/17/18 Deep veins of the right lower extremity evaluated with color Doppler, spectral analysis and compressi on. INDICATIONS: Right lower extremity pain and edema. FINDINGS: The veins of the right lower extremity show normal blood flow and compression. No evidence of DVT. There is a Costa's cyst in the right popliteal fossa measuring 3 x 2 x 5 cm. IMPRESSION: 1. No evidence of right lower extremity DVT. 2. Costa's cyst in the right popliteal fossa. POS: OFF
--- NOTE | 2018-08-17 13:54 | PDOC.EVN ---
Event Note - Event Note Event Note: Patient seen and examinedfor CHF exacerbation. SOB same. No new complaints. No overnight events. o/e Bibasilar rales, RLE swelling >> LLE IMPRESSION: Acute on chronic systolic HF exacerbation - ACC stage C DM2 CAD HTN HLD PRAFUL Obesity BMI 31.6 Mod-sev TR PLAN: Resume home meds - RN obtained list from pharmacy RLE doppler to r/o DVT AICD check
[2018-08-17] MEDS: Carvedilol 6.25 MG TAB PO SCH (16:52)
[2018-08-17] MEDS: Enoxaparin Sodium 40 MG/0.4 ML SYRINGE SC SCH (22:31)
[2018-08-17] MEDS: Ezetimibe 10 MG TAB PO SCH (22:32)
[2018-08-17] MEDS: Rosuvastatin 20 MG TAB PO SCH (22:32)
[2018-08-17] MEDS: Senokot S 8.6-50 MG TAB PO SCH (22:33)
[2018-08-17] MEDS: Sacubitril 24.5 MG/Valsartan 25.5 MG TABLET PO SCH (22:33)
[2018-08-18] MEDS: Furosemide 40 MG/4 ML VIAL SLOW IVP SCH ×2 (06:05→13:27)
[2018-08-18 07:39] LABS: ALT (SGPT) 19 U/L (8-55); AST (SGOT) 20 U/L (5-34); Albumin 3.7 g/dL (3.4-4.8); Alkaline Phosphatase 55 U/L (40-150); Anion Gap 16 mmol/L (10-20); BUN (Urea Nitrogen) 18 mg/dL (8.4-25.7); Bilirubin, Total 1.4 mg/dL (0.2-1.2); Calc. Creatinine Clearance 70 mL/min (70-130); Calcium 9.4 mg/dL (7.8-10.44); Carbon Dioxide 27 mmol/L (23-31); Chloride 98 mmol/L (98-107); Estimated GFR-MDRD 65; Globulin 3.2 g/dL (2.4-3.5); Glucose 96 mg/dL (83-110); Magnesium 1.9 mg/dL (1.6-2.6); Potassium 3.8 mmol/L (3.5-5.1); Protein, Total 6.9 g/dL (5.8-8.1); Sodium 137 mmol/L (136-145)
[2018-08-18] MEDS ORDERED: Aspirin 81 mg Enteric Coated Tablet PO SCH (09:00)
[2018-08-18] MEDS: Carvedilol 6.25 MG TAB PO SCH ×2 (10:02→18:23)
[2018-08-18] MEDS: Multivit, Therapeutic 1 TAB PO SCH (10:02)
[2018-08-18] MEDS: Amiodarone 200 MG TAB PO SCH (10:03)
[2018-08-18] MEDS: Aspirin 325 MG TAB PO SCH (10:04)
[2018-08-18] MEDS: Sacubitril 24.5 MG/Valsartan 25.5 MG TABLET PO SCH ×2 (10:04→21:59)
[2018-08-18] MEDS: Senokot S 8.6-50 MG TAB PO SCH ×2 (10:05→21:59)
--- NOTE | 2018-08-18 11:06 | PRG ---
DATE OF SERVICE: 08/18/2018 SUBJECTIVE: An 82-year-old male with congestive heart failure, presented yesterday with shortness of breath with bilateral lower extremity swelling, right more than left. His workup was consistent with congestive heart failure exacerbation. Shortness of breath is improving at this time. He denies any chest pain, palpitations, or syncope. No fever or chills reported. REVIEW OF SYSTEMS: All other review of systems was reviewed and was found negative. CURRENT MEDICATIONS: Reviewed. The patient is on, 1. Amiodarone. 2. Aspirin. 3. Carvedilol. 4. Lasix 40 mg twice a day. 5. Multivitamin. 6. Protonix. 7. Crestor. 8. Entresto. PHYSICAL EXAMINATION: VITAL SIGNS: Temperature 98.1, pulse rate of 60, respirations of 18, blood pressure of 136/81, O2 saturation 94% on room air. GENERAL: An 82-year-old male, in no apparent distress, sitting on the side of the bed. HEENT: Head, atraumatic and normocephalic. Sclerae anicteric. Moist mucous membranes. No oral lesion. NECK: Supple. No JVD appreciated. No carotid bruit. LUNGS: Showed bibasilar rales with scattered rhonchi. No wheezing. No significant accessory muscle use. HEART: S1 and S2 present. Regular rate and rhythm. 2/6 systolic murmur over the mitral area. No heaves or pulsation. ABDOMEN: Soft, nontender. Bowel sounds present. No rebound or guarding. EXTREMITIES: There is bilateral lower extremity edema, right more than left. No calf tenderness. SKIN: Warm and dry. LYMPH NODES: No palpable lymph nodes in the neck. PERIPHERAL VASCULAR: Radial pulses palpable bilaterally. PSYCHIATRY: Normal affect. Alert, awake, and oriented x3. LABORATORY FINDINGS: Creatinine 1.09 with BUN 18, total bilirubin 1.4. BNP was 451 with troponin of 0.034. DIAGNOSTIC FINDINGS: Telemetry monitoring by my review showed paced rhythm. Chest x-ray on admission by my review showed pulmonary vascular congestion. Right lower extremity Doppler was negative for DVT. It showed Costa cyst in the right popliteal fossa. IMPRESSION: 1. Acute on chronic systolic/diastolic heart failure exacerbation, ACC stage C, improving. 2. Chronic kidney disease, stage 2. 3. Diabetes mellitus, type 2. 4. Obesity with a BMI of 30.4. 5. Hypertension. 6. Obstructive sleep apnea, on CPAP. 7. Costa cyst in the right popliteal fossa. 8. Fnxsnxec-cn-[id number] tricuspid regurgitation. 9. Coronary artery disease. 10. Elevated troponin secondary to congestive heart failure/type 2 myocardial infarction. 11. Chronic anemia. PLAN: The patient will continue telemetry monitoring. We will continue IV Lasix 40 mg b.i.d. The patient had acute kidney injury earlier this year secondary to Lasix. We will continue Entresto. Continue beta-blockers with aspirin and amiodarone. Recheck labs in a.m. Continue CPAP q.h.s. We will continue fluid restriction. The patient was extensively counseled on congestive heart failure. Disposition probably in a.m. if stable. Job ID: [id number]
[2018-08-18] MEDS ORDERED: Dextrose 50% Abboject 50 ML SYRINGE SLOW IVP PRN (12:41)
[2018-08-18] MEDS ORDERED: Dextrose 5% in Water 1,000 ML IV PRN (12:41)
[2018-08-18] MEDS ORDERED: Insulin Regular 300 UNITS/3 ML VIAL SC PRN ×2 (12:41)
[2018-08-18] MEDS: Ferrous Sulfate 325 MG TAB PO SCH (13:28)
[2018-08-18] MEDS: Enoxaparin Sodium 40 MG/0.4 ML SYRINGE SC SCH (21:56)
[2018-08-18] MEDS: Rosuvastatin 20 MG TAB PO SCH (21:57)
[2018-08-18] MEDS: Ezetimibe 10 MG TAB PO SCH (21:57)
[2018-08-19 05:43] LABS: ALT (SGPT) 23 U/L (8-55); AST (SGOT) 24 U/L (5-34); Albumin 3.7 g/dL (3.4-4.8); Alkaline Phosphatase 53 U/L (40-150); Anion Gap 15 mmol/L (10-20); BUN (Urea Nitrogen) 30 mg/dL (8.4-25.7); Bilirubin, Total 1.2 mg/dL (0.2-1.2); Calc. Creatinine Clearance 54 mL/min (70-130); Calcium 9.1 mg/dL (7.8-10.44); Carbon Dioxide 29 mmol/L (23-31); Chloride 98 mmol/L (98-107); Estimated GFR-MDRD 51; Globulin 3.1 g/dL (2.4-3.5); Glucose 92 mg/dL (83-110); Magnesium 1.9 mg/dL (1.6-2.6); Potassium 3.6 mmol/L (3.5-5.1); Protein, Total 6.8 g/dL (5.8-8.1); Sodium 138 mmol/L (136-145)
[2018-08-19] MEDS: Furosemide 40 MG/4 ML VIAL SLOW IVP SCH (06:44)
--- NOTE | 2018-08-19 08:41 | CON ---
DATE OF CONSULTATION: 08/17/2018 This is Daiana Melgar PA-C dictating a report for Wellington Weber MD. ADMITTING PHYSICIAN: Hospitalist service. CONSULTING PHYSICIAN: Dr. Sandoval of Cardiology. REASON FOR CONSULTATION: Acute CHF. HISTORY OF PRESENT ILLNESS: Mr. Carlos is a pleasant 82-year-old male, who has been a long-standing patient of Dr. Weber's with a past medical history of chronic systolic CHF secondary to ischemic cardiomyopathy. He was last seen in the office on 08/02. At that time, he was volume overloaded, and his Lasix was increased. I do not think that the patient did this and also admits to being noncompliant with his diet at home. He is struggling to follow a CHF dietary plan due to limitations on support with and grocery shopping. He admits to eating a high sodium diet in the last couple weeks and then he started swelling and becoming more volume overloaded four to five days ago. Of note, he mentions he was in the emergency room 2 to 3 weeks ago for a similar complaint. He was given IV Lasix and he was sent home that day. At this time, he is stable. He said his breathing is improved, but he does have a lot of swelling to his feet and ankles. PAST MEDICAL HISTORY: 1. Ischemic cardiomyopathy. 2. Paroxysmal atrial fibrillation, status post previous cardioversion. 3. Coronary artery disease. 4. Diabetes mellitus, type 2. 5. Hyperlipidemia. 6. Hypertension. 7. Sleep apnea. 8. History of Raynaud's. 9. Osteoarthritis. PAST SURGICAL HISTORY: 1. Status post BiV-ICD placement. 2. Hernia repair. 3. Left knee replacement. 4. Cholecystectomy. 5. Tonsillectomy. 6. Cystectomy. 7. History of left heart catheterization with previous PCI to LAD and circumflex. Of note, he had a 70% jailed first diagonal on last catheterization in 2016. ADMIT MEDICATIONS: 1. Protonix 40 mg once daily. 2. Calcium with vitamin D daily. 3. Lasix 20 mg daily. 4. Vitamin D3 supplementation daily. 5. Aspirin 325 mg daily. 6. Viagra 20 mg as needed. 7. Amiodarone 200 mg once daily. 8. Entresto 24/26 mg one tablet twice daily. 9. Crestor 40 mg daily. 10. Zetia 10 mg daily. 11. Coreg 6.25 mg twice daily. SOCIAL HISTORY: The patient is a nonsmoker, rarely drinks alcohol. ALLERGIES: PENICILLIN, TETRACYCLINE, AND ERYTHROMYCIN. REVIEW OF SYSTEMS: In general, a 10-point review of systems was discussed with the patient, it is negative except per HPI and past medical history mentioned above. PHYSICAL EXAMINATION: GENERAL: This is a pleasant elderly male, who is in no acute distress. He is sitting up in bed, resting comfortably and conversing easily. VITAL SIGNS: Reviewed and stable. I's and O's are -450 in the last 24 hours. HEENT: Head is atraumatic and normocephalic. Mucous membranes are moist. NECK: Supple. No JVD or bruits noted. CHEST: Revealed bilateral rales with no wheezing or rhonchi. CARDIOVASCULAR: rate and rhythm with normal S1 and S2. ABDOMEN: Soft, nontender to palpation, nondistended. EXTREMITIES: Show no clubbing or cyanosis. He does have 2 to 3+ bilateral lower extremity edema. SKIN: Warm and dry. PSYCHIATRIC: Mood and affect are appropriate. MUSCULOSKELETAL: Not assessed. LABORATORY DATA: Telemetry shows the patient to be in sinus rhythm. CBC was reviewed and stable. BMP is within normal limits. BNP upon admission was 451. IMPRESSION: 1. Acute on chronic systolic congestive heart failure secondary to dietary noncompliance. 2. History of ischemic cardiomyopathy. 3. Status post ICD placement. 4. Coronary artery disease, status post percutaneous coronary intervention. 5. Hypertension. 6. Hyperlipidemia. At this time, the patient has been placed on IV Lasix for diuresis. I agree with this. We will try to see if we can work with [facility] to get him some assistance in dietary education. Otherwise, I have made no changes to his medications and hopefully, he can be discharged when more euvolemic. The patient understands and agrees to plan of care. Job ID: [id number]
[2018-08-19] MEDS: Multivit, Therapeutic 1 TAB PO SCH (09:33)
[2018-08-19] MEDS: Amiodarone 200 MG TAB PO SCH (09:33)
[2018-08-19] MEDS: Carvedilol 6.25 MG TAB PO SCH ×2 (09:33→18:22)
[2018-08-19] MEDS: Aspirin 325 MG TAB PO SCH (09:33)
[2018-08-19] MEDS: Sacubitril 24.5 MG/Valsartan 25.5 MG TABLET PO SCH ×2 (09:33→09:50)
--- NOTE | 2018-08-19 09:43 | PRG ---
DATE OF SERVICE: 08/19/2018 SUBJECTIVE: The patient is an 82-year-old male with congestive heart failure exacerbation. He initially showed good improvement with diuretics. His shortness of breath has significantly improved. He denies any orthopnea or paroxysmal nocturnal dyspnea. No chest pain reported. REVIEW OF SYSTEMS: No nausea, vomiting, fever, or chills reported. CURRENT MEDICATIONS: Reviewed. The patient is on IV Lasix, amiodarone, carvedilol, and Entresto. PHYSICAL EXAMINATION: VITAL SIGNS: Temperature 97.5, pulse rate of 60, respirations of 20, blood pressure 117/70, and O2 saturation of 94% on room air. GENERAL: An 82-year-old male in no apparent distress, sitting on the side of the bed. HEENT: Head atraumatic, normocephalic. Sclerae anicteric. LUNGS: Showed few rales at bases with scattered rhonchi. No wheezing. No accessory muscle use. Lungs were symmetrical. HEART: S1, S2 present. Regular rate and rhythm. No rubs or gallops. ABDOMEN: Soft, obese. Bowel sounds present. No rebound or guarding. No costovertebral angle tenderness. PSYCHIATRY: Alert, awake, and oriented x3. Normal affect. NEUROLOGIC: Grossly nonfocal. SKIN: Warm and dry. LYMPH NODES: No palpable lymph nodes in the neck. LABORATORY DATA: Lab findings; creatinine 1.35 with BUN of 30, total bilirubin 1.2, sodium 138, and potassium 3.6. Telemetry monitoring by my review showed paced rhythm. IMPRESSION: 1. Acute on chronic systolic/diastolic heart failure exacerbation, ACC stage C. 2. Acute kidney injury on chronic kidney disease stage 2 secondary to diuretics. 3. Diabetes mellitus type 2. 4. Obesity with a body mass index of 30.4. 5. Obstructive sleep apnea, on continuous positive airway pressure. 6. Hypertension. 7. Costa's cyst in the right popliteal fossa, probably causing right lower extremity swelling. 8. Coronary artery disease. 9. Type 2 myocardial infarction. 10. Chronic anemia. 11. Rfytavff-za-dnrqle tricuspid regurgitation. PLAN: Lasix and Entresto will be held due to acute kidney injury. We will recheck basic metabolic profile this afternoon. We will continue carvedilol, aspirin, amiodarone, Zetia, and Crestor. The patient was extensively counseled to be compliant with all of his medications. Disposition, later today or in a.m. based on his labs this afternoon. Plan was discussed with the patient in detail. He stated understanding. Job ID: [id number]
[2018-08-19] MEDS: Senokot S 8.6-50 MG TAB PO SCH (09:50)
[2018-08-19] MEDS: Ferrous Sulfate 325 MG TAB PO SCH (14:09)
[2018-08-19 14:49] LABS: Anion Gap 14 mmol/L (10-20); BUN (Urea Nitrogen) 31 mg/dL (8.4-25.7); Calc. Creatinine Clearance 46 mL/min (70-130); Calcium 9.4 mg/dL (7.8-10.44); Carbon Dioxide 29 mmol/L (23-31); Chloride 99 mmol/L (98-107); Estimated GFR-MDRD 42; Glucose 148 mg/dL (83-110); Sodium 138 mmol/L (136-145)
[2018-08-19] MEDS: Ezetimibe 10 MG TAB PO SCH (20:37)
[2018-08-19] MEDS: Rosuvastatin 20 MG TAB PO SCH (20:39)
[2018-08-19] MEDS ORDERED: Enoxaparin Sodium 30 MG/0.3 ML SYRINGE SC SCH (21:00)
[2018-08-19] MEDS ORDERED: Enoxaparin Sodium 40 MG/0.4 ML SYRINGE SC SCH (21:00)
[2018-08-20 05:24] LABS: #Eosinphils 0.4 thou/uL (0.0-0.7); #Lymphocytes 1.5 thou/uL (1.20-3.40); #Monocytes 0.6 thou/uL (0.11-0.59); %Basophils 0.2 % (0.0-1.0); %Eosinophils 6.7 % (0.0-10.0); %Lymphocytes 27.9 % (21.0-51.0); %Monocytes 10.3 % (0.0-10.0); Hemoglobin 13.2 g/dL (14.0-18.0); Mean Corpuscular HGB CONC 32.8 g/dL (32.0-36.0); Mean Corpuscular Hemoglobin 30.8 pg (27.0-31.0); Mean Corpuscular Volume 93.8 fL (78.0-98.0); Mean Platelet Volume 9.6 fL (7.4-10.4); Platelet Count 144 thou/uL (130-400); RBC Distribution Width 11.9 % (11.5-14.5); Red Blood Cell (RBC) Count 4.29 mill/uL (4.70-6.10); White Blood Cell (WBC) Count 5.4 thou/uL (4.8-10.8)
[2018-08-20 05:46] LABS: Anion Gap 13 mmol/L (10-20); BUN (Urea Nitrogen) 30 mg/dL (8.4-25.7); Calc. Creatinine Clearance 62 mL/min (70-130); Calcium 8.8 mg/dL (7.8-10.44); Carbon Dioxide 28 mmol/L (23-31); Chloride 99 mmol/L (98-107); Estimated GFR-MDRD 59; Glucose 86 mg/dL (83-110); Potassium 3.5 mmol/L (3.5-5.1); Sodium 136 mmol/L (136-145)
[2018-08-20] MEDS: Senokot S 8.6-50 MG TAB PO SCH ×2 (08:14→09:58)
[2018-08-20] MEDS: Aspirin 325 MG TAB PO SCH (09:57)
[2018-08-20] MEDS: Carvedilol 6.25 MG TAB PO SCH (09:57)
[2018-08-20] MEDS: Multivit, Therapeutic 1 TAB PO SCH (09:58)
[2018-08-20] MEDS: Amiodarone 200 MG TAB PO SCH (09:58)
[2018-08-20 11:33] VITALS: BP 138/72; TEMP 98.2
[2018-08-20] MEDS: Ferrous Sulfate 325 MG TAB PO SCH (13:53)
[2018-08-20] MEDS ORDERED: Sacubitril 24.5 MG/Valsartan 25.5 MG TABLET PO SCH (21:00)
--- NOTE | 2018-08-20 21:42 | DIS ---
DATE OF ADMISSION: 08/19/2018 DATE OF DISCHARGE: 08/20/2018 DISCHARGE DIAGNOSES: 1. Acute on chronic systolic heart failure. 2. Chronic systolic heart failure class C. 3. Hypertension. 4. History of atrial fibrillation. 5. History of coronary artery disease. 6. History of hyperlipidemia. 7. History of reflux. 8. Acute renal insufficiency, likely secondary to diuretics. 9. Costa cyst, right popliteal fossa with secondary right lower extremity edema. 10. Type 2 non-ST segment elevation myocardial infarction. 11. History of obstructive sleep apnea requiring CPAP. 12. Moderate to severe tricuspid regurgitation. 13. Chronic anemia. HISTORY OF PRESENT ILLNESS: The patient is an 82-year-old male who presented via the emergency department complaining of shortness of breath and lower extremity edema. He was previously known to have an echocardiogram in March with an EF of 45% to 50% with several minor valvular abnormalities including moderate to severe tricuspid regurgitation. The patient reported some potential dietary indiscretions with increased sodium intake. His troponin initially was 0.02 with subsequent 0.031. BNP was 451. HOSPITAL COURSE: The patient was diagnosed with decompensated systolic congestive heart failure. He was admitted to the hospital and started on IV diuresis. He has felt better very promptly. He had lower extremity Doppler to rule out DVT as a source of his edema and was noted to have a Costa cyst in the right popliteal fossa with slightly asymmetric edema on the right leg, likely resultant from such. The patient continued on diuresis until he had an elevation in his creatinine that increased from 1.1 up to 1.59. His Lasix and Entresto were held and his numbers normalized with a BUN of 30 and creatinine of 1.19. He was at that point, felt to be stable to discharge back on his usual home regimen. PHYSICAL EXAMINATION: VITAL SIGNS: On the day of discharge, temperature is 97.7, pulse 62, respirations 20, O2 saturation 93% on room air, BP 148/86. Prior reading was 114/69. GENERAL APPEARANCE: Age-appropriate male, in no distress. He is awake, alert, pleasant, and cooperative. HEART: Regular without significant murmurs. LUNGS: Clear. ABDOMEN: Soft, nontender. EXTREMITIES: Reveal some significant varicosities of the lower extremities with mild persistent right lower extremity edema. DISPOSITION: The patient will be discharged to home. He will be on a low- sodium, heart healthy diet. ACTIVITY: His activity level is as tolerated. DISCHARGE MEDICATIONS: He will continue with his usual home medications includin. Tylenol 650 q.4 p.r.n. 2. Proventil HFA 2 puffs q.4 hours p.r.n. 3. Amiodarone 200 mg daily. 4. Aspirin 325 daily. 5. Tums 1000 mg q.4 p.r.n. 6. Coreg 12.5 mg b.i.d. 7. Vitamin D3 1000 units daily. 8. Aspirin 325 daily. 9. Lasix 20 mg b.i.d. 10. Ferrous sulfate 325 daily. 11. Zetia 10 mg daily. 12. Coreg 12.5 mg b.i.d. 13. Entresto one p.o. b.i.d. 14. Crestor 40 mg at bedtime. 15. Protonix 40 mg q.p.m. FOLLOWUP: He is to follow up with Lucie Beach in [place] and he is to follow up with Dr. Weber, both next week. He can return to the hospital should he have any problems prior to that time. The patient reports that he was on home health previously and that should resume. Time spent in discharge activities, including face to face time with the patient , was 35 min. Job ID: [id number] [facility]
--- NOTE | 2018-08-21 01:28 | EKG ---
Test Reason : Blood Pressure : / mmHG Vent. Rate : 068 BPM Atrial Rate : 068 BPM P-R Int : 090 ms QRS Dur : 158 ms QT Int : 486 ms P-R-T Axes : 111 -78 072 degrees QTc Int : 516 ms Electronic ventricular pacemaker Confirmed by ROMANA LUZ DO ([id number]), editorial director KHUSHBU HENRY ([id number] on 08/21/2018 1:27:46 AM Referred By: Confirmed By:ROMANA LUZ DO
== END 2018-08-20 16:17 | disposition home health service (06) | DRG 280 ==
LOC: ERS 21:50 → 2SE 08-17 01:06 → INTOOBSV 08-17 01:06 → OBSVTOIN 08-19 15:18
PROVIDERS: ADMIT Internal Medicine; ATTEND Internal Medicine
DX: I13.0 Hypertensive heart and chronic kidney disease with heart failure and stage 1 through stage 4 chronic kidney disease, or unspecified chronic kidney disease (principal); I50.23 Acute on chronic systolic (congestive) heart failure; I21.A1 Myocardial infarction type 2; N17.9 Acute kidney failure, unspecified; I08.3 Combined rheumatic disorders of mitral, aortic and tricuspid valves; I25.10 Atherosclerotic heart disease of native coronary artery without angina pectoris; I48.0 Paroxysmal atrial fibrillation; E11.22 Type 2 diabetes mellitus with diabetic chronic kidney disease; E78.5 Hyperlipidemia, unspecified; G47.33 Obstructive sleep apnea (adult) (pediatric); M19.90 Unspecified osteoarthritis, unspecified site; E66.9 Obesity, unspecified; I25.5 Ischemic cardiomyopathy; N18.2 Chronic kidney disease, stage 2 (mild); M71.21 Synovial cyst of popliteal space [Baker], right knee; T50.1X5A Adverse effect of loop [high-ceiling] diuretics, initial encounter; Z96.652 Presence of left artificial knee joint; D63.1 Anemia in chronic kidney disease; Z95.818 Presence of other cardiac implants and grafts; Z99.89 Dependence on other enabling machines and devices; Z68.31 Body mass index [BMI] 31.0-31.9, adult; Z95.810 Presence of automatic (implantable) cardiac defibrillator; Z90.49 Acquired absence of other specified parts of digestive tract; Z88.0 Allergy status to penicillin; Z88.2 Allergy status to sulfonamides; Z88.8 Allergy status to other drugs, medicaments and biological substances; Z91.018 Allergy to other foods; Z79.82 Long term (current) use of aspirin; Z79.899 Other long term (current) drug therapy
CPT/HCPCS: 36415; 36416; 71045; 80048; 80053; 83735; 83880; 84484; 85025; 93005; 96374; J1650; J1815; J1940

== ENCOUNTER 2018-11-05 16:22 | Observation (INO) | payer MEDICARE ==
[2018-11-05 16:45] LABS: #Eosinphils 0.2 thou/uL (0.0-0.7); #Lymphocytes 1.9 thou/uL (1.20-3.40); #Monocytes 0.6 thou/uL (0.11-0.59); #Neutrophils 5.5 thou/uL (1.40-6.50); %Basophils 0.3 % (0.0-1.0); %Eosinophils 2.2 % (0.0-10.0); %Lymphocytes 22.9 % (21.0-51.0); %Monocytes 7.4 % (0.0-10.0); %Neutrophils 67.2 % (42.0-75.0); Hemoglobin 15.1 g/dL (14.0-18.0); Mean Corpuscular Hemoglobin 30.9 pg (27.0-31.0); Mean Corpuscular Volume 93.8 fL (78.0-98.0); Mean Platelet Volume 9.2 fL (7.4-10.4); Platelet Count 154 thou/uL (130-400); RBC Distribution Width 12.9 % (11.5-14.5); Red Blood Cell (RBC) Count 4.89 mill/uL (4.70-6.10); White Blood Cell (WBC) Count 8.2 thou/uL (4.8-10.8)
--- NOTE | 2018-11-05 16:52 | RAD ---
Portable chest: 11/05/2018 COMPARISON: 08/16/2018 HISTORY: Short of breath FINDINGS: Stable multilead AICD. Stable prominence of the cardiac silhouette. Stable prominent degene rative change of the left shoulder. No pneumothorax is noted. Left lung is clear. There is elevation of the right hemidiaphragm and there is a lobulated contour along the right hemidi aphragm, as seen on prior imaging. This likely represents stable volume loss. IMPRESSION: Stable portable chest radiograph as detailed above.
[2018-11-05 17:10] LABS: ALT (SGPT) 41 U/L (8-55); AST (SGOT) 33 U/L (5-34); Albumin 4.1 g/dL (3.4-4.8); Alkaline Phosphatase 64 U/L (40-150); Anion Gap 12 mmol/L (10-20); BUN (Urea Nitrogen) 31 mg/dL (8.4-25.7); Bilirubin, Total 0.7 mg/dL (0.2-1.2); Calc. Creatinine Clearance 0 mL/min (70-130); Calcium 9.3 mg/dL (7.8-10.44); Carbon Dioxide 27 mmol/L (23-31); Chloride 102 mmol/L (98-107); Estimated GFR-MDRD 41; Globulin 3.1 g/dL (2.4-3.5); Glucose 100 mg/dL (83-110); Potassium 4.6 mmol/L (3.5-5.1); Protein, Total 7.2 g/dL (5.8-8.1); Sodium 136 mmol/L (136-145)
[2018-11-05] MEDS ORDERED: Furosemide 20 MG/2 ML VIAL ONE (17:28)
[2018-11-05 17:36] LABS: CKMB 6.8 ng/mL (0-6.6)
[2018-11-05 19:53] VITALS: BMI 31.4
[2018-11-05 20:28] LABS: Troponin I 0.037 ng/mL (< 0.028)
[2018-11-05] MEDS ORDERED: PROVENTIL INHALER 6.7 G (200 INHALATIONS) INH PRN (22:20)
[2018-11-05] MEDS ORDERED: Dextrose 50% Abboject 50 ML SYRINGE IVP PRN (22:27)
[2018-11-05] MEDS ORDERED: Dextrose 5% in Water 1,000 ML IV PRN (22:27)
[2018-11-05] MEDS ORDERED: Insulin Regular 300 UNITS/3 ML VIAL SC PRN ×2 (22:27)
[2018-11-05] MEDS ORDERED: Carvedilol 6.25 MG TAB PO SCH (22:30)
[2018-11-05] MEDS ORDERED: Calcium Carbonate + Vit D 1 TAB PO SCH ×2 (22:30→23:00)
[2018-11-05] MEDS ORDERED: Amiodarone 200 MG TAB PO SCH (22:30)
[2018-11-05] MEDS ORDERED: Apixaban 5 MG TAB PO SCH (22:30)
[2018-11-05] MEDS ORDERED: Rosuvastatin 20 MG TAB PO SCH (22:30)
[2018-11-05] MEDS ORDERED: Ezetimibe 10 MG TAB PO SCH (22:30)
[2018-11-05] MEDS ORDERED: Ferrous Sulfate 325 MG TAB PO SCH (22:30)
[2018-11-05 23:27] LABS: Troponin I 0.027 ng/mL (< 0.028)
[2018-11-06] MEDS ORDERED: Ondansetron PF 4 MG/2 ML Vial IVP PRN (03:19)
[2018-11-06] MEDS ORDERED: Ondansetron ODT 4 MG TAB PO PRN (03:19)
[2018-11-06] MEDS ORDERED: Acetaminophen 325 MG TAB PO PRN (03:19)
--- NOTE | 2018-11-06 04:16 | HP ---
PRIMARY CARE PHYSICIAN: Out of town physician. CODE STATUS: Full code. TIME OF EVALUATION: 11:10 p.m. CHIEF COMPLAINT: Shortness of breath. HISTORY OF PRESENT ILLNESS: This is an 82-year-old male patient with past medical history of congestive heart failure, diabetes type 2, Raynaud syndrome, aortic valve insufficiency, atrial fibrillation, coronary artery disease, status post stents, cardioversion in 2014, hyperlipidemia, COPD, came to the hospital after having moderate gradually worsening shortness of breath. The symptoms have been present for the past few days, started insidiously and has been getting gradually worse. The symptoms had no clear triggers, no alleviating factors, associated with bilateral leg edema that is 4+. REVIEW OF SYSTEMS: All other systems were reviewed and negative except for the findings mentioned above. Positive for GI, the patient reported occasional abdominal pain. Skin rash. PAST MEDICAL HISTORY: As mentioned in the HPI. PAST SURGICAL HISTORY: The patient has a history of hernia repair, tonsillectomy, ICD, and cardiac stents x3. PSYCHIATRIC HISTORY: No previous psych history. SOCIAL HISTORY: No alcohol. No drugs. No smoking history. KNOWN ALLERGIES: Banana flavor, peanut oil, penicillin, sertraline, sulfa, tetracycline, and tomato. REPORTED MEDICATIONS: Furosemide, Crestor, carvedilol, pantoprazole, amiodarone, sildenafil, aspirin, ferrous sulfate, Zetia and Entresto. PHYSICAL EXAMINATION: VITAL SIGNS: On presentation, blood pressure 161/90 with heart rate 102, oxygen saturation 91% on room air, temperature 98.6, occasional blood pressure went up to 160s/90s. GENERAL APPEARANCE: The patient is alert, oriented, in no acute distress. HEENT: Eyes, normal conjunctivae. Moist oral mucosa. Anicteric. No JVD. RESPIRATORY: Bilateral air entry. No rales. No wheezes. Symmetric expansion. CARDIOVASCULAR: Normal rate and regular rhythm. No murmurs. No gallops. The patient has leg edema 4+. ABDOMEN: Soft. Normal bowel sounds. MUSCULOSKELETAL: Baseline range of motion and strength. SKIN: Warm and intact. No pallor. No rash. No redness. Capillary refill seems to be intact. NEURO: No evidence of any new focal weakness. Cranial nerves seems to be intact. PSYCH: The patient is in good mood. No anxiety. Optimal judgment. IMAGING STUDIES: Chest x-ray was reviewed, the patient has a stable portable chest radiograph as detailed above. LABORATORY DATA: Reviewed. The patient has a white count of 8.2, hemoglobin 15, MCV 93, platelet count 154. Chemistry; sodium 136, potassium 4.6, chloride 102, carbon dioxide 27, anion gap 12, BUN 31 with creatinine 1.61. When compared with previous records, the last creatinine was . CK-MB 6.8, troponin 0.037, the second one 0.027. Beta-natriuretic peptide 718. Last echo was done in March this year showed an ejection fraction of 45-50%. ASSESSMENT AND PLAN: The patient will be placed in the hospital with following medical problems: 1. Systolic dysfunction with acute congestive heart failure exacerbation. The patient is receiving Lasix. He is already reporting some improvement. We will continue for now. We will reconcile home medications. The patient does not have any oxygen requirement by the time of my examination, although he said that he used oxygen at home. 2. Acute kidney injury. The patient has a creatinine of 1.61. In previous admissions, the last creatinine was . This may be cardiorenal. We will diurese. We will monitor kidney function. If not improving, might need change in medications or Nephrology assistance with outpatient. 3. History of atrial fibrillation. The patient is on rate control. Reconcile home medications, currently on amiodarone. Continue anticoagulation too. 4. Hyperlipidemia. Continue with Zetia. Low-cholesterol diet is advised. 5. History of gastroesophageal reflux disease. Continue pantoprazole. 6. Uncontrolled hypertension with blood pressure 165/96. Reconcile home medications and adjust treatment as needed. 7. Uncontrolled diabetes with blood sugar 175. We will place the patient on sliding scale for optimal control. 8. Deep venous thrombosis prophylaxis. Job ID: [id number]
[2018-11-06 05:04] LABS: #Eosinphils 0.3 thou/uL (0.0-0.7); #Lymphocytes 1.4 thou/uL (1.20-3.40); #Monocytes 0.7 thou/uL (0.11-0.59); #Neutrophils 4.9 thou/uL (1.40-6.50); %Basophils 0.1 % (0.0-1.0); %Eosinophils 3.7 % (0.0-10.0); %Lymphocytes 19.4 % (21.0-51.0); %Monocytes 9.3 % (0.0-10.0); %Neutrophils 67.6 % (42.0-75.0); Mean Corpuscular Volume 93.9 fL (78.0-98.0); Mean Platelet Volume 9.6 fL (7.4-10.4); Platelet Count 136 thou/uL (130-400); RBC Distribution Width 12.9 % (11.5-14.5); Red Blood Cell (RBC) Count 4.52 mill/uL (4.70-6.10); White Blood Cell (WBC) Count 7.2 thou/uL (4.8-10.8)
[2018-11-06 05:30] LABS: Anion Gap 11 mmol/L (10-20); BUN (Urea Nitrogen) 28 mg/dL (8.4-25.7); Calc. Creatinine Clearance 71 mL/min (70-130); Calcium 8.8 mg/dL (7.8-10.44); Carbon Dioxide 28 mmol/L (23-31); Chloride 104 mmol/L (98-107); Estimated GFR-MDRD 64; Glucose 102 mg/dL (83-110); Potassium 4.2 mmol/L (3.5-5.1); Sodium 139 mmol/L (136-145)
[2018-11-06] MEDS: Carvedilol 6.25 MG TAB PO SCH ×2 (07:48→16:41)
[2018-11-06] MEDS: Multivit, Therapeutic 1 TAB PO SCH (07:48)
[2018-11-06] MEDS: Amiodarone 200 MG TAB PO SCH ×2 (07:49→20:23)
[2018-11-06] MEDS: Aspirin 325 MG TAB PO SCH (07:49)
[2018-11-06] MEDS: Apixaban 5 MG TAB PO SCH ×2 (07:49→20:22)
[2018-11-06] MEDS ORDERED: Furosemide 40 MG/4 ML VIAL SLOW IVP SCH (09:00)
--- NOTE | 2018-11-06 11:21 | PRG ---
DATE OF SERVICE: 11/06/2018 SUBJECTIVE: The patient is feeling some better, but reports he continues to feel somewhat short of breath. He says he is a little better at rest, but any activity causes him significant dyspnea on exertion. He has been responding fairly well to the diuretics thus far. Reviewing his records, the patient does have a history of an echo in March, which showed an EF of 45% to 50%, and he has mild , moderate AR, and lnhwffxk-an-gdrssk TR likely contributing to his heart failure. OBJECTIVE: VITAL SIGNS: All vital signs are good. O2 saturations 92% on room air. Appears to be diuresing fairly well. HEART: Regular with some ectopy. LUNGS: Diminished, but clear without significant rales. ABDOMEN: Has a very large ventral hernia, which is likely problematic when the patient is very dyspneic. EXTREMITIES: He has some persistent edema from the midcalf down on the right lower extremity, none on the left. He states this is his typical pattern. IMPRESSION AND PLAN: Congestive heart failure exacerbation in a patient with reduced ejection fraction and [id number] tricuspid regurgitation resulting in systolic heart failure, epeev-zy-tfpfkdr with some acute hypoxic respiratory failure with saturations at 92% on room air while at rest. We will make sure he has some p.r.n. oxygen and continue to diurese. In the interim, we will continue to manage his hyperlipidemia and diabetes. Continue on the Eliquis and the amiodarone for his history of atrial fibrillation. Job ID: [id number]
[2018-11-06] MEDS: Furosemide 40 MG/4 ML VIAL SLOW IVP SCH (13:04)
[2018-11-06] MEDS ORDERED: Ezetimibe 10 MG TAB PO SCH (21:00)
[2018-11-06] MEDS ORDERED: Rosuvastatin 20 MG TAB PO SCH (21:00)
[2018-11-06] MEDS ORDERED: Calcium Carbonate + Vit D 1 TAB PO SCH ×2 (21:00)
[2018-11-06] MEDS ORDERED: Ferrous Sulfate 325 MG TAB PO SCH (21:00)
[2018-11-07] MEDS: Furosemide 40 MG/4 ML VIAL SLOW IVP SCH (07:05)
[2018-11-07] MEDS: Multivit, Therapeutic 1 TAB PO SCH (08:53)
[2018-11-07] MEDS: Aspirin 325 MG TAB PO SCH (08:53)
[2018-11-07] MEDS: Apixaban 5 MG TAB PO SCH (08:53)
[2018-11-07] MEDS: Carvedilol 6.25 MG TAB PO SCH (08:53)
[2018-11-07] MEDS: Amiodarone 200 MG TAB PO SCH (08:53)
[2018-11-07 09:27] LABS: Anion Gap 12 mmol/L (10-20); BUN (Urea Nitrogen) 26 mg/dL (8.4-25.7); Calc. Creatinine Clearance 59 mL/min (70-130); Calcium 9.3 mg/dL (7.8-10.44); Carbon Dioxide 30 mmol/L (23-31); Chloride 99 mmol/L (98-107); Estimated GFR-MDRD 53; Glucose 212 mg/dL (83-110); Potassium 4.1 mmol/L (3.5-5.1); Sodium 137 mmol/L (136-145)
[2018-11-07 12:09] VITALS: BP 105/71; TEMP 97.2
--- NOTE | 2018-11-08 01:19 | DIS ---
DATE OF ADMISSION: 11/05/2018 DATE OF DISCHARGE: 11/07/2018 DISCHARGE DIAGNOSES: 1. Decompensated systolic congestive heart failure. 2. Ischemic cardiomyopathy with EF of 40% to 45%. 3. Moderate to severe tricuspid regurgitation. 4. History of chronic atrial fibrillation. 5. History of chronic obstructive pulmonary disease. 6. Diabetes mellitus. 7. Coronary artery disease. HISTORY: The patient is an 82-year-old male with history of chronic ischemic cardiomyopathy and tricuspid regurgitation, who presented to the hospital via the emergency department reporting some shortness of breath and lower extremity edema. The patient's BNP was elevated at 718. Troponin was 0.03, subsequent 0.027, felt to be chronic. His creatinine was 1.61. HOSPITAL COURSE: The patient was placed on observation. He was started on IV diuresis. He diuresed quite well. His edema improved. His breathing improved somewhat as well. He was able to get up a bit and move around, felt like he was stable enough to go back on p.o. medications. His creatinine had improved to 1.30. Blood sugars remained well controlled. Blood pressure was very well controlled as well. PHYSICAL EXAMINATION: VITAL SIGNS: On the day of discharge, temperature 97.2, pulse 64, respirations 20, O2 saturation 94%, BP 105/71. GENERAL APPEARANCE: Age-appropriate male, in no distress. He is awake and alert. HEART: Regular rate and rhythm. LUNGS: Clear to auscultation bilaterally. Good chest wall expansion and air exchange. ABDOMEN: Soft, nontender, and nondistended. Positive bowel sounds. No masses. No organomegaly. EXTREMITIES: He had trace edema above the ankles bilaterally, slightly more on the right than left. DISPOSITION: The patient is discharged to home. ACTIVITY: As tolerated. DIET: He will be on a heart healthy diet. DISCHARGE MEDICATIONS: He is to take Lasix 20 mg two p.o. q.a.m. one p.o. q.p.m. He will continue with his: 1. Multivitamins. 2. Pantoprazole. 3. Iron. 4. Cholecalciferol. 5. Aspirin. 6. Zetia. 7. Crestor. 8. Albuterol. 9. Sildenafil. 10. Calcium. 11. Entresto. 12. Eliquis. 13. Amiodarone. 14. Carvedilol. FOLLOWUP: He will follow up with [facility] and he will follow up with Dr. Wellington Weber. He can follow up with the hospital should he have any need to do so. Job ID: [id number]
== END 2018-11-07 15:37 | disposition home or self-care (01) ==
LOC: ERS 16:22 → 2SW 18:52
PROVIDERS: ADMIT Internal Medicine; ATTEND Internal Medicine
DX: I11.0 Hypertensive heart disease with heart failure (principal); I50.23 Acute on chronic systolic (congestive) heart failure; I07.1 Rheumatic tricuspid insufficiency; I48.2 Chronic atrial fibrillation; J44.9 Chronic obstructive pulmonary disease, unspecified; E11.9 Type 2 diabetes mellitus without complications; I25.10 Atherosclerotic heart disease of native coronary artery without angina pectoris; E78.5 Hyperlipidemia, unspecified; I73.00 Raynaud's syndrome without gangrene; I35.1 Nonrheumatic aortic (valve) insufficiency; N17.9 Acute kidney failure, unspecified; G47.30 Sleep apnea, unspecified; E78.00 Pure hypercholesterolemia, unspecified; J96.01 Acute respiratory failure with hypoxia; I25.5 Ischemic cardiomyopathy; Z79.01 Long term (current) use of anticoagulants; Z79.82 Long term (current) use of aspirin; Z79.899 Other long term (current) drug therapy; Z88.0 Allergy status to penicillin; Z88.1 Allergy status to other antibiotic agents; Z88.2 Allergy status to sulfonamides; Z88.8 Allergy status to other drugs, medicaments and biological substances; Z91.018 Allergy to other foods; Z95.5 Presence of coronary angioplasty implant and graft; Z95.810 Presence of automatic (implantable) cardiac defibrillator
CPT/HCPCS: 71045; 80048 ×2; 80053; 82553; 82962 ×3; 83735; 83880; 84484 ×2; 85025 ×2; 93005; 94660 ×2; 94760; 96374; 96376 ×2; 99285; G0378 ×4; 36415; 36416; J1940

== ENCOUNTER 2018-11-28 14:29 | Outpatient (CLI) | payer MEDICARE ==
[2018-11-28 16:56] LABS: Hemoglobin 14.8 g/dL (14.0-18.0); Mean Corpuscular HGB CONC 33.1 g/dL (32.0-36.0); Mean Corpuscular Hemoglobin 30.9 pg (27.0-31.0); Mean Corpuscular Volume 93.4 fL (78.0-98.0); Mean Platelet Volume 9.4 fL (7.4-10.4); Platelet Count 159 thou/uL (130-400); Red Blood Cell (RBC) Count 4.78 mill/uL (4.70-6.10); White Blood Cell (WBC) Count 7.4 thou/uL (4.8-10.8)
[2018-11-28 17:02] LABS: INR-International Normal Ratio 1.5; PTT 35.5 SEC (22.9-36.1); Prothrombin Time 18.4 SEC (12.0-14.7)
[2018-11-28 17:15] LABS: Anion Gap 12 mmol/L (10-20); BUN (Urea Nitrogen) 31 mg/dL (8.4-25.7); Calc. Creatinine Clearance 0 mL/min (70-130); Calcium 8.9 mg/dL (7.8-10.44); Carbon Dioxide 27 mmol/L (23-31); Chloride 104 mmol/L (98-107); Estimated GFR-MDRD 46; Glucose 115 mg/dL (83-110); Potassium 4.2 mmol/L (3.5-5.1); Sodium 139 mmol/L (136-145)
== END 2018-11-28 14:30 | disposition home or self-care (01) ==
LOC: LABBT 14:29
PROVIDERS: ATTEND Internal Medicine Cardiovascular Disease
DX: Z01.818 Encounter for other preprocedural examination (principal); I48.91 Unspecified atrial fibrillation
CPT/HCPCS: 80048; 85027; 85610; 85730; 93005; 93010

== ENCOUNTER 2018-12-02 09:17 | Day surgery (SDC) | payer MEDICARE ==
[2018-12-02] MEDS ORDERED: Lidocaine 1% PF 5 ML VIAL ONE (13:47)
[2018-12-02] MEDS ORDERED: PROPOFOL 200 MG/20 ML VIAL ONE (13:47)
--- NOTE | 2018-12-02 15:47 | OP ---
DATE OF PROCEDURE: 12/02/2018 PROCEDURE PERFORMED: Internal cardioversion. REASON FOR PROCEDURE: Mr. Carlos is an 82-year-old gentleman with history of CHF and cardiomyopathy, frequent PVC and paroxysmal atrial fibrillation, prior cardioversions in October 2013. He has been loaded with higher dose of amiodarone and still maintains atrial fibrillation and has been well anticoagulated with Eliquis over a month. Here for a cardioversion. DESCRIPTION OF PROCEDURE: The ICD was interrogated, found to be in adequate order with [employer] V[employer] device, battery longevity about 6 years. Lead parameters are seen. After adequate level of sedation achieved with propofol by Anesthesia specialist, a synchronized 35 joule internal shock was delivered, which converted the patient back to sinus rhythm returned rate of 60 beats per minute, paced. CONCLUSION: Successful cardioversion. PLAN: Return to 200 mg a day amiodarone and continue anticoagulation. Monitor for recurrent arrhythmias. Job ID: [id number]
== END 2018-12-02 13:40 | disposition home or self-care (01) ==
LOC: CCL 09:17
PROVIDERS: ATTEND Internal Medicine Cardiovascular Disease
PROC: 5A2204Z Restoration of Cardiac Rhythm, Single (ICD-10-PCS; principal; 2018-12-02)
DX: I48.0 Paroxysmal atrial fibrillation (principal); I48.4 Atypical atrial flutter; I42.9 Cardiomyopathy, unspecified; I11.0 Hypertensive heart disease with heart failure; I50.22 Chronic systolic (congestive) heart failure; G47.33 Obstructive sleep apnea (adult) (pediatric); E78.00 Pure hypercholesterolemia, unspecified; E11.9 Type 2 diabetes mellitus without complications; I08.3 Combined rheumatic disorders of mitral, aortic and tricuspid valves; M19.90 Unspecified osteoarthritis, unspecified site; K21.9 Gastro-esophageal reflux disease without esophagitis; E78.5 Hyperlipidemia, unspecified; I25.10 Atherosclerotic heart disease of native coronary artery without angina pectoris; Z79.01 Long term (current) use of anticoagulants; Z79.82 Long term (current) use of aspirin; Z79.899 Other long term (current) drug therapy; Z88.0 Allergy status to penicillin; Z88.1 Allergy status to other antibiotic agents; Z88.2 Allergy status to sulfonamides; Z88.8 Allergy status to other drugs, medicaments and biological substances; Z91.018 Allergy to other foods; Z95.810 Presence of automatic (implantable) cardiac defibrillator; Z95.5 Presence of coronary angioplasty implant and graft; Z99.89 Dependence on other enabling machines and devices
CPT/HCPCS: 92960; J2001; J2704

== ENCOUNTER 2018-12-02 20:32 | Inpatient (IN) | payer MEDICARE ==
[2018-12-02 21:01] LABS: #Basophils 0.1 thou/uL (0.0-0.2); #Eosinphils 0.2 thou/uL (0.0-0.7); #Lymphocytes 1.3 thou/uL (1.20-3.40); #Monocytes 0.6 thou/uL (0.11-0.59); #Neutrophils 5.9 thou/uL (1.40-6.50); %Basophils 1.4 % (0.0-1.0); %Eosinophils 2.1 % (0.0-10.0); %Lymphocytes 15.8 % (21.0-51.0); %Monocytes 7.9 % (0.0-10.0); %Neutrophils 72.8 % (42.0-75.0); Hemoglobin 14.2 g/dL (14.0-18.0); Mean Corpuscular HGB CONC 32.3 g/dL (32.0-36.0); Mean Corpuscular Hemoglobin 30.4 pg (27.0-31.0); Mean Platelet Volume 8.9 fL (7.4-10.4); Platelet Count 143 thou/uL (130-400); RBC Distribution Width 12.9 % (11.5-14.5); Red Blood Cell (RBC) Count 4.69 mill/uL (4.70-6.10)
[2018-12-02 21:23] LABS: ALT (SGPT) 43 U/L (8-55); AST (SGOT) 37 U/L (5-34); Albumin 3.8 g/dL (3.4-4.8); Alkaline Phosphatase 64 U/L (40-110); Anion Gap 12 mmol/L (10-20); BUN (Urea Nitrogen) 26 mg/dL (8.4-25.7); Calc. Creatinine Clearance 0 mL/min (70-130); Carbon Dioxide 26 mmol/L (23-31); Chloride 102 mmol/L (98-107); Estimated GFR-MDRD 49; Globulin 2.9 g/dL (2.4-3.5); Glucose 95 mg/dL (83-110); Potassium 4.7 mmol/L (3.5-5.1); Protein, Total 6.7 g/dL (5.8-8.1); Sodium 135 mmol/L (136-145)
--- NOTE | 2018-12-02 21:33 | RAD ---
EXAM: Single view of the chest HISTORY: Shortness of breath COMPARISON: 11/05/2018 FINDINGS: Single view of the chest shows a normal sized cardiomediastinal silhouette. The pacemaker is unchanged in position. There is no evidence of consolidation, mass, or pleural effusion. The bones are unremarkable. IMPRESSION: No evidence of acute cardiopulmonary disease
[2018-12-02 21:51] LABS: CKMB 4.8 ng/mL (0-6.6)
[2018-12-02] MEDS ORDERED: Furosemide 40 MG/4 ML VIAL ONE (23:02)
[2018-12-02 23:22] LABS: Bacteria/HPF None Seen HPF (None Seen); Bilirubin Negative (Negative); Blood, Urine Negative (Negative); Clarity Clear (Clear); Glucose, Urine (Dipstick) Normal (Negative); Leukocyte Negative Leu/uL (Negative); Nitrite Negative (Negative); Protein, Urine (Dipstick) 50 mg/dL (Neg-Trace); RBC/HPF 0-3 HPF (0-3); Squamous Epithelial 0-3 HPF (0-3); Urobilinogen Normal mg/dL (Less than 2); WBC/HPF 0-3 HPF (0-3)
[2018-12-03] MEDS ORDERED: Aspirin Chewable 81 MG TAB ONE (00:05)
[2018-12-03] MEDS ORDERED: Ondansetron PF 4 MG/2 ML Vial IVP PRN (01:11)
[2018-12-03] MEDS ORDERED: Acetaminophen 325 MG TAB PO PRN (01:11)
[2018-12-03] MEDS ORDERED: Ondansetron ODT 4 MG TAB SL PRN (01:11)
[2018-12-03 01:41] VITALS: BMI 33.5
[2018-12-03 03:39] LABS: Troponin I 0.034 ng/mL (< 0.028)
[2018-12-03] MEDS ORDERED: SILDENAFIL CITRATE 20 MG PO PRN (07:57)
[2018-12-03] MEDS ORDERED: Sildenafil Citrate 20 MG TAB PO PRN (08:10)
--- NOTE | 2018-12-03 08:50 | HP ---
PRIMARY CARE PHYSICIAN: SEVERINO Murphy from [place]. CHIEF COMPLAINT: Shortness of breath and peripheral edema. HISTORY OF PRESENT ILLNESS: The patient is an 82-year-old male, who had cardioversion done yesterday by Dr. Laguerre. This was an elective procedure. He was sent home and he began having shortness of breath and he was brought back to the emergency room for further evaluation. His cardiac enzymes were slightly elevated and BNP was slightly elevated. The patient was admitted for further management of his shortness of breath. He denied any chest pain, although the main diagnosis by emergency room doctor on the documents is chest pain. He denies any fever or chills. He has some cough on and off, but that is nothing new and he has some peripheral edema in lower extremities most of the time. He denied any other problems. He goes to Dr. Baker for Pulmonary issues with his COPD and Dr. Weber for heart. PAST MEDICAL HISTORY: Positive for, 1. Hypertension. 2. Sleep apnea. 3. Diabetes mellitus. 4. Raynaud's syndrome. 5. Nonrheumatic aortic valve insufficiency. 6. Atrial fibrillation. 7. Coronary artery disease, status post stenting. 8. History of cardioversion, most recent one yesterday. 9. Kidney stones. 10. Hyperlipidemia. 11. COPD. PAST SURGICAL HISTORY: 1. Cholecystectomy. 2. Hernia repair. 3. Tonsillectomy. 4. AICD. 5. Cardiac stenting x3. SOCIAL HISTORY: He denies any alcohol intake, cigarette smoking, or illicit drug use. FAMILY HISTORY: Father was 79 when he passed from CHF and mother was 83 when she had cancer of unknown etiology. ALLERGIES: MULTIPLE; IODINE, PENICILLIN, SERTRALINE, SULFA, TETRACYCLINE, TOMATOES, PEANUTS, AND BANANA. CURRENT MEDICATIONS: Please refer to the medications list. Surrogate decision maker is the patient's , Valentina Carlos. PHYSICAL EXAMINATION: VITAL SIGNS: Blood pressure is 148/70, pulse is 61, temperature is 98.6, respiratory rate is 20, and O2 saturation 95% on 2 L by nasal cannula. HEENT: His head is atraumatic and normocephalic. Eyes are PERRLA. Sclerae are nonicteric. Oral mucosa is moist. NECK: Supple. No JVDs. LUNGS: Few crackles at both bases. No wheezing. HEART: S1 and S2 normal. No S3. There is S4 present. ABDOMEN: Soft, nontender, and nondistended. EXTREMITIES: 1 to 2+ peripheral edema on both lower extremities. NEUROLOGICAL: He is alert and oriented x4. There is no any motor or sensory deficits. LABORATORY DATA: Labs showed white count of 8.0, hemoglobin 14.2, hematocrit 44.0, and platelet count is 143,000. Sodium 135, potassium 4.7, chloride 102, CO2 of 26, BUN 26, and creatinine 1.39. Troponin I 0.048, 0.034. BNP 348.6. AST 37 and the rest of chemistry within normal limits. Urinalysis, 50 of proteins and trace of ketones. The rest is within normal limits. EKG personally reviewed by me showed electronic pacemaker. Chest x-ray personally reviewed by me showed no acute cardiopulmonary disease. IMPRESSION: 1. Shortness of breath, most likely related to his chronic obstructive pulmonary disease and status post cardioversion. He received Lasix in the emergency room. He urinated quite a bit and he is doing much better now. He was on CPAP all night that is his usual routine every night. PLAN: Admission for observation. Condition is fair. Activity is bedrest and bathroom privileges. IV Hep-Lock. 2000 calories ADA diet. Sliding scale and Accu-Cheks a.c. and at bedtime. Continue his home medications, p.r.n. DuoNeb. CPAP at night and observation. DVT prophylaxis with 30 mg of Lovenox subcutaneously and no SCDs since he has peripheral edema. Job ID: [id number]
[2018-12-03] MEDS: Apixaban 5 MG TAB PO SCH ×2 (09:05→20:01)
[2018-12-03] MEDS: Aspirin 325 MG TAB PO SCH (09:05)
[2018-12-03] MEDS: Carvedilol 6.25 MG TAB PO SCH ×2 (09:05→16:38)
[2018-12-03] MEDS: Furosemide 20 MG TAB PO SCH (09:06)
[2018-12-03] MEDS: Multivit, Therapeutic 1 TAB PO SCH (09:06)
[2018-12-03 10:33] LABS: CKMB 3.1 ng/mL (0-6.6)
[2018-12-03] MEDS ORDERED: Furosemide 20 MG TAB PO SCH (15:00)
[2018-12-03] MEDS: Calcium Carbonate + Vit D 250 MG TAB PO SCH (20:01)
[2018-12-03] MEDS: Rosuvastatin 20 MG TAB PO SCH (20:01)
[2018-12-03] MEDS: Ezetimibe 10 MG TAB PO SCH (20:01)
[2018-12-03] MEDS: Ferrous Sulfate 325 MG TAB PO SCH (20:01)
[2018-12-03] MEDS ORDERED: Non-Formulary Item 1 EACH (Rosuvastatin Calcium [Crestor] 40 MG) PO SCH (21:00)
[2018-12-04 03:58] LABS: Anion Gap 11 mmol/L (10-20); BUN (Urea Nitrogen) 24 mg/dL (8.4-25.7); Calc. Creatinine Clearance 60 mL/min (70-130); Calcium 9.1 mg/dL (7.8-10.44); Carbon Dioxide 31 mmol/L (23-31); Chloride 101 mmol/L (98-107); Estimated GFR-MDRD 53; Glucose 109 mg/dL (83-110); Potassium 4.3 mmol/L (3.5-5.1); Sodium 139 mmol/L (136-145)
[2018-12-04] MEDS: Amiodarone 200 MG TAB PO SCH (08:03)
[2018-12-04] MEDS: Aspirin 325 MG TAB PO SCH (08:03)
[2018-12-04] MEDS: Carvedilol 6.25 MG TAB PO SCH ×2 (08:03→16:04)
[2018-12-04] MEDS: Furosemide 20 MG TAB PO SCH (08:04)
[2018-12-04] MEDS: Multivit, Therapeutic 1 TAB PO SCH (08:04)
[2018-12-04] MEDS: Apixaban 5 MG TAB PO SCH ×2 (08:04→21:33)
--- NOTE | 2018-12-04 12:26 | PDOC.HOSPP ---
- Subjective Encounter Date: 12/04/18 Encounter Time: 10:15 Subjective: c/o sob, no chest pain or palp says he gets exertional sob for even minimal distances per staff he walked to rest room and back wants the cpap machine on for him to use on a prn basis even if he is awake. - Objective Vital Signs & Weight: Vital Signs (12 hours) Temp Pulse Resp BP BP Pulse Ox 12/04/18 12:05 97.5 F L 62 18 139/69 98 12/04/18 07:19 97.4 F L 60 20 174/81 H 94 L 12/04/18 03:49 97.5 F L 60 20 164/74 H 95 Weight Weight 208 lb 1.6 oz I&O: 12/03/18 12/04/18 12/05/18 06:59 06:59 06:59 Intake Total 120 1040 Output Total 1000 1625 Balance -880 -503 Result Diagrams: 12/02/18 20:55 12/04/18 03:26 Hospitalist ROS - Medication Medications: Active Medications Generic Name Dose Route Start Last Admin Trade Name Freq PRN Reason Stop Dose Admin Amiodarone HCl 200 mg 12/04/18 09:00 12/04/18 08:03 Cordarone PO 200 mg DAILY GINA Administration Apixaban 5 mg 12/03/18 09:00 12/04/18 08:04 Eliquis PO 5 mg BID GINA Administration Aspirin 325 mg 12/03/18 09:00 12/04/18 08:03 Aspirin PO 325 mg DAILY GINA Administration Calcium/Vitamin D 250 mg 12/03/18 21:00 12/03/18 20:01 Oscal + Vit D PO 250 mg HS GINA Administration Carvedilol 6.25 mg 12/03/18 08:00 12/04/18 08:03 Coreg PO 6.25 mg BID-WM GINA Administration Cholecalciferol 1,000 units 12/03/18 09:00 12/04/18 08:04 Vitamin D3 PO 1,000 units DAILY GINA Administration Ezetimibe 10 mg 12/03/18 21:00 12/03/18 20:01 Zetia PO 10 mg QPM GINA Administration Ferrous Sulfate 325 mg 12/03/18 21:00 12/03/18 20:01 Feosol PO 325 mg HS GINA Administration Furosemide 20 mg 12/03/18 09:00 12/04/18 08:04 Lasix PO 20 mg DAILY GINA Administration Multivitamins 1 tab 12/03/18 09:00 12/04/18 08:04 Theragran PO 1 tab DAILY GINA Administration Pantoprazole Sodium 40 mg 12/03/18 21:00 12/03/18 20:01 Protonix PO 40 mg QPM GINA Administration Rosuvastatin Calcium 40 mg 12/03/18 21:00 12/03/18 20:01 Crestor PO 40 mg HS GINA Administration Sacubitril/Valsartan 1 tab 12/03/18 09:00 12/04/18 08:05 Entresto 24 Mg-26 Mg Tablet PO 1 tab BID GINA Administration Sodium Chloride 10 ml 12/03/18 09:00 12/04/18 08:04 Flush - Normal Saline IVF 10 ml Q12HR GINA Administration - Exam General Appearance: NAD, awake alert Eye: PERRL, anicteric sclera ENT: no oropharyngeal lesions, moist mucosa Neck: supple, no JVD Heart: no murmur, no gallops Respiratory: no wheezes, no rales, rhonchi Gastrointestinal: soft, non-tender, non-distended, normal bowel sounds Extremities: no cyanosis, 1+ LE edema Neurological: cranial nerve grossly intact, no focal deficits Psychiatric: A&O x 3 Hosp A/P (1) Acute on chronic systolic heart failure Code(s): I50.23 - ACUTE ON CHRONIC SYSTOLIC (CONGESTIVE) HEART FAILURE Status : Acute (2) COPD (chronic obstructive pulmonary disease) Status: Chronic (3) Atrial fibrillation Code(s): I48.91 - UNSPECIFIED ATRIAL FIBRILLATION Status: Chronic Qualifiers: Atrial fibrillation type: paroxysmal Qualified Code(s): I48.0 - Paroxysmal atrial fibrillation (4) Coronary artery disease Code(s): I25.10 - ATHSCL HEART DISEASE OF [place] CORONARY ARTERY W/O ANG PCTRS Status: Chronic Qualifiers: Coronary Disease-Associated Artery/Lesion type: [place] artery [place] vs. transplanted heart: [place] heart Associated angina: without angina Qualified Code(s): I25.10 - Atherosclerotic heart disease of [place] coronary artery without angina pectoris (5) Diabetes mellitus type 2 in obese Code(s): E11.69 - TYPE 2 DIABETES MELLITUS WITH OTHER SPECIFIED COMPLICATION; E66.9 - OBESITY, UNSPECIFIED Status: Chronic (6) Hypertension Code(s): I10 - ESSENTIAL (PRIMARY) HYPERTENSION Status: Chronic Qualifiers: Hypertension type: essential hypertension Qualified Code(s): I10 - Essential (primary) hypertension - Plan had ablation done for afib on 12/02/2018 continue lasix at higher dose at 6am and 2 pm switch to inpatient status, still sob despite diuresis nebs prn, will add short course steroids in view of copd/chr resp failure lives alone in [facility], says comes to check on him weekly, no family around per patient CM for swing bed cardio consultation recent echo in 04/05 showed ef of 45% continue amiodarone, eliquis, asp, coreg, entresto lower dose, zetia and crestor hemostable, watch for renal function
[2018-12-04] MEDS: Furosemide 40 MG/4 ML VIAL SLOW IVP SCH (13:27)
[2018-12-04] MEDS: Ezetimibe 10 MG TAB PO SCH (21:32)
[2018-12-04] MEDS: Ferrous Sulfate 325 MG TAB PO SCH (21:33)
[2018-12-04] MEDS: Rosuvastatin 20 MG TAB PO SCH (21:33)
[2018-12-04] MEDS: Calcium Carbonate + Vit D 250 MG TAB PO SCH (21:38)
[2018-12-05 05:26] LABS: #Eosinphils 0.2 thou/uL (0.0-0.7); #Lymphocytes 1.3 thou/uL (1.20-3.40); #Monocytes 0.7 thou/uL (0.11-0.59); #Neutrophils 5.2 thou/uL (1.40-6.50); %Basophils 0.1 % (0.0-1.0); %Eosinophils 2.3 % (0.0-10.0); %Lymphocytes 17.7 % (21.0-51.0); %Monocytes 9.8 % (0.0-10.0); %Neutrophils 70.1 % (42.0-75.0); Hemoglobin 13.4 g/dL (14.0-18.0); Mean Corpuscular HGB CONC 32.8 g/dL (32.0-36.0); Mean Corpuscular Hemoglobin 30.9 pg (27.0-31.0); Mean Corpuscular Volume 94.3 fL (78.0-98.0); Mean Platelet Volume 9.6 fL (7.4-10.4); Platelet Count 132 thou/uL (130-400); RBC Distribution Width 12.7 % (11.5-14.5); Red Blood Cell (RBC) Count 4.33 mill/uL (4.70-6.10); White Blood Cell (WBC) Count 7.4 thou/uL (4.8-10.8)
[2018-12-05 05:32] LABS: INR-International Normal Ratio 1.5; PTT 37.2 SEC (22.9-36.1); Prothrombin Time 18.5 SEC (12.0-14.7)
[2018-12-05 05:47] LABS: Anion Gap 13 mmol/L (10-20); BUN (Urea Nitrogen) 25 mg/dL (8.4-25.7); Calc. Creatinine Clearance 55 mL/min (70-130); Carbon Dioxide 31 mmol/L (23-31); Chloride 97 mmol/L (98-107); Estimated GFR-MDRD 48; Glucose 101 mg/dL (83-110); Potassium 3.9 mmol/L (3.5-5.1); Sodium 137 mmol/L (136-145)
[2018-12-05] MEDS: Furosemide 40 MG/4 ML VIAL SLOW IVP SCH ×2 (06:19→14:31)
[2018-12-05] MEDS: Aspirin 325 MG TAB PO SCH (09:23)
[2018-12-05] MEDS: Apixaban 5 MG TAB PO SCH ×2 (09:23→20:17)
[2018-12-05] MEDS: Multivit, Therapeutic 1 TAB PO SCH (09:23)
[2018-12-05] MEDS: Carvedilol 6.25 MG TAB PO SCH ×2 (09:24→17:16)
[2018-12-05] MEDS: Amiodarone 200 MG TAB PO SCH (09:24)
--- NOTE | 2018-12-05 16:02 | CON ---
DATE OF CONSULTATION: HISTORY OF PRESENT ILLNESS: Lauro Carlos is an 82-year-old white male, followed for many years. He has a biventricular ICD and coronary artery disease. He was re-catheterized in December 2016. The LAD and circumflex stents continue to show good results. There was a 70% jailed first diagonal. The circumflex continued to have good proximal to mid stent . There was a mid circumflex stent that extended into the second obtuse marginal that was patent. Right coronary artery had a 40% mid stenosis. He has had problems with atrial fibrillation for many years, first undergoing an electrical cardioversion in 2013. Echocardiogram during that admission revealed ejection fraction of 45-50%. He was diuresed and discharged. He was readmitted in August 2018 with increased shortness of breath and improved with intravenous diuretics. Again admitted in October 2018 for increased shortness of breath. He was noted to be in atrial fibrillation again. He was seen by electrophysiology on November 03, 2018. Amiodarone was increased to 200 b.i.d. He then underwent electrical cardioversion through the device with 35 joules delivered. He then returned to sinus rhythm. He then came back to the hospital the day after cardioversion, which was yesterday, complained of increased shortness of breath. He was given intravenous diuretics and has improvement in his symptoms. He denies any chest discomfort. PAST MEDICAL HISTORY: 1. Systolic heart failure. 2. Paroxysmal atrial fibrillation status post cardioversions in the past. 3. Coronary artery disease status post stents. 4. Diabetes. 5. Hypercholesterolemia. 6. Hypertension. 7. Obstructive sleep apnea. 8. Osteoarthritis. 9. Raynaud phenomenon. PAST SURGICAL HISTORY: Biventricular ICD placement, hernia repair, left knee replacement, cholecystectomy, tonsillectomy, diskectomy, and coronary artery stents. MEDICATIONS: Amiodarone 200 mg daily, Eliquis 5 mg b.i.d., aspirin 325 daily, carvedilol 6.25 b.i.d., Zetia 10 mg q.p.m., furosemide 20 mg in the afternoon and 40 mg in the morning, multivitamin daily, Protonix 40 q.p.m., rosuvastatin 40 at bedtime, Entresto 24/ b.i.d. ALLERGIES: PENICILLIN, SERTRALINE, SULFA AND TETRACYCLINE. SOCIAL HISTORY: He does not smoke. REVIEW OF SYSTEMS: Otherwise unremarkable. PHYSICAL EXAMINATION: VITAL SIGNS: Blood pressure 160/75 and pulse of 63. HEENT: PERRL. NECK: Supple. CHEST: Clear. CARDIAC: S1 and S2 normal without any S3, S4, or murmurs. ABDOMEN: Normal bowel sounds without tenderness or organomegaly. EXTREMITIES: Reveal 1+ pedal edema. NEUROLOGICAL: Grossly intact. SKIN: Warm and dry. LABORATORY DATA: EKG revealed atrial sensing, ventricular pacing. Hemoglobin 13.4, hematocrit 40.8, white count 7400, platelets 132,000. Sodium 137, potassium 3.9, chloride 97, carbon dioxide 31, BUN 25, and creatinine 1.43. IMPRESSION: 1. Acute on chronic systolic failure. 2. Status post biventricular implantable cardioverter defibrillator. 3. Paroxysmal atrial fibrillation, recently undergone electrical cardioversion the day prior to this admission. 4. Nonsustained ventricular tachycardia. 5. History of left anterior descending and circumflex stents with continued good results on catheterization in December 2016. 6. Hypercholesterolemia. 7. Hypertension. 8. Chronic kidney disease. PLAN: The patient will continue to be diuresed. His renal function needs to be watched closely. OptiVol result was apparently not sent and will to be re-requested. With his chronic kidney disease, his renal function will need to be watched closely. Job ID: [id number]
[2018-12-05] MEDS: Ferrous Sulfate 325 MG TAB PO SCH (20:17)
[2018-12-05] MEDS: Rosuvastatin 20 MG TAB PO SCH (20:17)
[2018-12-05] MEDS: Calcium Carbonate + Vit D 250 MG TAB PO SCH (20:17)
[2018-12-05] MEDS: Ezetimibe 10 MG TAB PO SCH (20:17)
[2018-12-06] MEDS: Furosemide 40 MG/4 ML VIAL SLOW IVP SCH ×2 (05:38→14:34)
[2018-12-06 06:09] LABS: Anion Gap 13 mmol/L (10-20); BUN (Urea Nitrogen) 28 mg/dL (8.4-25.7); Calc. Creatinine Clearance 52 mL/min (70-130); Calcium 9.1 mg/dL (7.8-10.44); Carbon Dioxide 31 mmol/L (23-31); Chloride 99 mmol/L (98-107); Estimated GFR-MDRD 45; Glucose 98 mg/dL (83-110); Potassium 3.6 mmol/L (3.5-5.1); Sodium 139 mmol/L (136-145)
--- NOTE | 2018-12-06 07:55 | PDOC.HOSPP ---
- Subjective Encounter Date: 12/05/18 Encounter Time: 16:00 Subjective: Patient seen and examined for CHF. SOB improving. No CP. No other complaints. No overnight events - Objective Vital Signs & Weight: Vital Signs (12 hours) Temp Pulse Resp BP BP Pulse Ox 12/06/18 07:00 24 H 12/06/18 04:36 97.2 F L 60 19 124/64 96 12/05/18 21:00 21 H 12/05/18 20:00 97.9 F 62 20 129/67 92 L Weight Weight 208 lb 1.6 oz I&O: 12/05/18 12/06/18 12/07/18 06:59 06:59 06:59 Intake Total 750 954 Output Total 3236 8574 Balance -3833 -116 Result Diagrams: 12/05/18 05:11 12/06/18 05:21 EKG Reviewed by me: Yes (Tele Paced) Hospitalist ROS - Review of Systems Constitutional: denies: fever, chills, sweats, weakness, malaise, other Gastrointestinal: denies: nausea, vomiting, abdominal pain, diarrhea, constipation, melena, hematochezia, other - Medication Medications: Active Medications Generic Name Dose Route Start Last Admin Trade Name Freq PRN Reason Stop Dose Admin Amiodarone HCl 200 mg 12/04/18 09:00 12/05/18 09:24 Cordarone PO 200 mg DAILY GINA Administration Apixaban 5 mg 12/03/18 09:00 12/05/18 20:17 Eliquis PO 5 mg BID GINA Administration Calcium/Vitamin D 250 mg 12/03/18 21:00 12/05/18 20:17 Oscal + Vit D PO 250 mg HS GINA Administration Carvedilol 6.25 mg 12/03/18 08:00 12/05/18 17:16 Coreg PO 6.25 mg BID-WM GINA Administration Cholecalciferol 1,000 units 12/03/18 09:00 12/05/18 09:24 Vitamin D3 PO 1,000 units DAILY GINA Administration Ezetimibe 10 mg 12/03/18 21:00 12/05/18 20:17 Zetia PO 10 mg QPM GINA Administration Ferrous Sulfate 325 mg 12/03/18 21:00 12/05/18 20:17 Feosol PO 325 mg HS GINA Administration Furosemide 40 mg 12/04/18 14:00 12/06/18 05:38 Lasix SLOW IVP 40 mg 0600,1400 GINA Administration Multivitamins 1 tab 12/03/18 09:00 12/05/18 09:23 Theragran PO 1 tab DAILY GINA Administration Pantoprazole Sodium 40 mg 12/03/18 21:00 12/05/18 20:17 Protonix PO 40 mg QPM GINA Administration Rosuvastatin Calcium 40 mg 12/03/18 21:00 12/05/18 20:17 Crestor PO 40 mg HS GINA Administration Sacubitril/Valsartan 1 tab 12/03/18 09:00 12/05/18 20:17 Entresto 24 Mg-26 Mg Tablet PO 1 tab BID GINA Administration Sodium Chloride 10 ml 12/03/18 09:00 12/05/18 20:26 Flush - Normal Saline IVF 10 ml Q12HR GINA Administration Sodium Chloride 10 ml 12/03/18 08:08 12/05/18 14:32 Flush - Normal Saline IVF 10 ml PRN PRN Administration Saline Flush - Exam General Appearance: NAD Heart: RRR, no gallops Respiratory: CTAB, no rales Gastrointestinal: soft, non-tender, normal bowel sounds Extremities: no cyanosis, 1+ LE edema Hosp A/P - Plan Acute on chronic systolic/diastolic HF Elevated troponin due to demand ischemia/Type 2 [place] Hyponatremia CKD 3 DM2 Par Afib - on anticoag HTN PRAFUL on CPAP PLAN: Cont IV Lasix Daily labs Cont Eliquis Cont Amiodarone/Coreg/Entresto Cont other meds
[2018-12-06] MEDS: Carvedilol 6.25 MG TAB PO SCH ×2 (09:21→17:25)
[2018-12-06] MEDS: Aspirin 81 mg Enteric Coated Tablet PO SCH (09:22)
[2018-12-06] MEDS: Apixaban 5 MG TAB PO SCH ×2 (09:22→20:20)
[2018-12-06] MEDS: Multivit, Therapeutic 1 TAB PO SCH (09:22)
[2018-12-06] MEDS: Amiodarone 200 MG TAB PO SCH (09:22)
--- NOTE | 2018-12-06 12:59 | PDOC.HOSPP ---
- Subjective Encounter Date: 12/06/18 Encounter Time: 12:58 Subjective: Patient seen and examined for CHF. Feels gen weak. No CP. No other complaints. No overnight events - Objective Vital Signs & Weight: Vital Signs (12 hours) Temp Pulse Resp BP BP Pulse Ox 12/06/18 09:21 164/74 H 12/06/18 08:06 97.7 F 61 20 133/66 92 L 12/06/18 07:00 24 H 12/06/18 04:36 97.2 F L 60 19 124/64 96 Weight Weight 208 lb 1.6 oz I&O: 12/05/18 12/06/18 12/07/18 06:59 06:59 06:59 Intake Total 750 954 Output Total 4275 3172 Balance -4799 -287 Result Diagrams: 12/05/18 05:11 12/06/18 05:21 EKG Reviewed by me: Yes (Tele paced) Hospitalist ROS - Review of Systems Constitutional: denies: fever, chills, sweats, weakness, malaise, other Cardiovascular: reports: orthopnea, edema. denies: chest pain, palpitations, paroxysmal noc. dyspnea, light headedness, other Gastrointestinal: denies: nausea, vomiting, abdominal pain, diarrhea, constipation, melena, hematochezia, other - Medication Medications: Active Medications Generic Name Dose Route Start Last Admin Trade Name Freq PRN Reason Stop Dose Admin Amiodarone HCl 200 mg 12/04/18 09:00 12/06/18 09:22 Cordarone PO 200 mg DAILY GINA Administration Apixaban 5 mg 12/03/18 09:00 12/06/18 09:22 Eliquis PO 5 mg BID GINA Administration Aspirin 81 mg 12/06/18 09:00 12/06/18 09:22 Ecotrin PO 81 mg DAILY GINA Administration Calcium/Vitamin D 250 mg 12/03/18 21:00 12/05/18 20:17 Oscal + Vit D PO 250 mg HS GINA Administration Carvedilol 6.25 mg 12/03/18 08:00 12/06/18 09:21 Coreg PO 6.25 mg BID-WM GINA Administration Cholecalciferol 1,000 units 12/03/18 09:00 12/06/18 09:22 Vitamin D3 PO 1,000 units DAILY GINA Administration Ezetimibe 10 mg 12/03/18 21:00 12/05/18 20:17 Zetia PO 10 mg QPM GINA Administration Ferrous Sulfate 325 mg 12/03/18 21:00 12/05/18 20:17 Feosol PO 325 mg HS GINA Administration Furosemide 40 mg 12/04/18 14:00 12/06/18 05:38 Lasix SLOW IVP 40 mg 0600,1400 GINA Administration Multivitamins 1 tab 12/03/18 09:00 12/06/18 09:22 Theragran PO 1 tab DAILY GINA Administration Pantoprazole Sodium 40 mg 12/03/18 21:00 12/05/18 20:17 Protonix PO 40 mg QPM GINA Administration Rosuvastatin Calcium 40 mg 12/03/18 21:00 12/05/18 20:17 Crestor PO 40 mg HS GINA Administration Sacubitril/Valsartan 1 tab 12/03/18 09:00 12/06/18 09:22 Entresto 24 Mg-26 Mg Tablet PO 1 tab BID GINA Administration Sodium Chloride 10 ml 12/03/18 09:00 12/06/18 09:22 Flush - Normal Saline IVF 10 ml Q12HR GINA Administration Sodium Chloride 10 ml 12/03/18 08:08 12/05/18 14:32 Flush - Normal Saline IVF 10 ml PRN PRN Administration Saline Flush - Exam General Appearance: NAD Neck: supple, no JVD Heart: RRR, no gallops Respiratory: CTAB, no rales, rales, rhonchi Gastrointestinal: soft, non-tender, normal bowel sounds Extremities: 1+ LE edema Hosp A/P - Plan Acute on chronic systolic/diastolic HF Elevated troponin due to demand ischemia/Type 2 IN CKD 3 DM2 Hyponatremia Par Afib - on anticoag HTN PRAFUL on CPAP PLAN: Cont IV Lasix 40 mg BID Cont Amiodarone/Eliquis/Coreg/Entresto BMP in AM Cont other meds Daily weights
[2018-12-06] MEDS: Rosuvastatin 20 MG TAB PO SCH (20:20)
[2018-12-06] MEDS: Ferrous Sulfate 325 MG TAB PO SCH (20:20)
[2018-12-06] MEDS: Ezetimibe 10 MG TAB PO SCH (20:20)
[2018-12-06] MEDS: Calcium Carbonate + Vit D 250 MG TAB PO SCH (20:20)
[2018-12-07] MEDS: Furosemide 40 MG/4 ML VIAL SLOW IVP SCH (06:15)
[2018-12-07 07:05] LABS: Anion Gap 15 mmol/L (10-20); BUN (Urea Nitrogen) 30 mg/dL (8.4-25.7); Calc. Creatinine Clearance 48 mL/min (70-130); Calcium 8.9 mg/dL (7.8-10.44); Carbon Dioxide 26 mmol/L (23-31); Chloride 99 mmol/L (98-107); Estimated GFR-MDRD 41; Glucose 84 mg/dL (83-110); Potassium 4.1 mmol/L (3.5-5.1); Sodium 136 mmol/L (136-145)
[2018-12-07] MEDS: Aspirin 81 mg Enteric Coated Tablet PO SCH (09:05)
[2018-12-07] MEDS: Apixaban 5 MG TAB PO SCH (09:05)
[2018-12-07] MEDS: Amiodarone 200 MG TAB PO SCH (09:05)
[2018-12-07] MEDS: Carvedilol 6.25 MG TAB PO SCH (09:05)
[2018-12-07] MEDS: Multivit, Therapeutic 1 TAB PO SCH (09:06)
[2018-12-07 13:18] VITALS: TEMP 98.4
[2018-12-07] MEDS ORDERED: Furosemide 40 MG TAB PO SCH (14:00)
[2018-12-07 14:04] VITALS: BP 130/62
--- NOTE | 2018-12-07 23:19 | DIS ---
DATE OF ADMISSION: 12/04/2018 DATE OF DISCHARGE: 12/07/2018 PRIMARY CARE PROVIDER: Ms. Lucie Beach. DISCHARGE DIAGNOSES: 1. Acute on chronic combined congestive heart failure, NYHA stage III. 2. Acute on chronic stage 3 renal failure. 3. Tan-[id number] type 2 myocardial infarction. 4. Hyponatremia. 5. Physical deconditioning. CONSULTATIONS DURING THIS HOSPITALIZATION: Cardiology, Dr. Weber. CONDITION OF PATIENT ON THE DAY OF DISCHARGE: Stable. I assessed Mr. Carlos on the day of discharge. He denies any chest pain or shortness of breath. Vital signs are stable. S1 and S2 are heard, regular. Lungs are clear to auscultation bilaterally. POSTDISCHARGE FOLLOWUP: With primary care provider in 7 days time, with Cardiology Dr. Weber in 2 to 3 weeks time. DISCHARGE MEDICATIONS: 1. Amiodarone 200 mg daily. 2. Apixaban 5 mg 2 times a day. 3. Calcium 600+ vitamin D half a tablet at bedtime. 4. Coreg 6.25 mg 2 times a day. 5. Vitamin D3 of 1000 units daily. 6. Ferrous sulfate 325 mg at bedtime. 7. Multivitamins one tablet daily. 8. Protonix 40 mg daily. 9. Sacubitril/valsartan 24/26 mg tablet 2 times a day. 10. Sildenafil 20 mg at bedtime as needed. 11. Aspirin 81 mg daily. 12. Zetia 10 mg every evening. 13. Lasix 40 mg 2 times a day. 14. Crestor 40 mg at bedtime. HOSPITAL COURSE: Mr. Carlos is a pleasant 82-year-old gentleman, who was admitted to [facility] on December 04, 2018 for congestive heart failure exacerbation. He was seen by Cardiology Service. He received intravenous diuretics with improvement in his symptoms. He had elevation of creatinine from 1.39 at the time of admission to 1.63 on the day of discharge. He has been stepped down to oral diuretics. He is advised to have his chem-7 checked in 3 to 5 days time. He was also physically deconditioned. He was evaluated by Therapy Services. He is being discharged to [facility] for further management. Many thanks for allowing me to participate in your patient's care. Please feel free to contact me with any questions or concerns. DISCHARGE DESTINATION: Home. TIME SPENT: Total amount of time spent coordinating this discharge: 32 minutes. Job ID: [id number]
== END 2018-12-07 14:20 | DRG 280 ==
LOC: ERS 20:32 → 2SW 12-03 00:44 → OBSVTOIN 12-04 12:15 → 2NO 12-05 18:23
PROVIDERS: ADMIT Internal Medicine; ATTEND Internal Medicine
DX: I13.0 Hypertensive heart and chronic kidney disease with heart failure and stage 1 through stage 4 chronic kidney disease, or unspecified chronic kidney disease (principal); I50.23 Acute on chronic systolic (congestive) heart failure; I21.A1 Myocardial infarction type 2; I47.2 Ventricular tachycardia; E87.1 Hypo-osmolality and hyponatremia; N17.9 Acute kidney failure, unspecified; E11.22 Type 2 diabetes mellitus with diabetic chronic kidney disease; I25.10 Atherosclerotic heart disease of native coronary artery without angina pectoris; E78.5 Hyperlipidemia, unspecified; J44.9 Chronic obstructive pulmonary disease, unspecified; G47.33 Obstructive sleep apnea (adult) (pediatric); I48.0 Paroxysmal atrial fibrillation; Z90.49 Acquired absence of other specified parts of digestive tract; Z95.810 Presence of automatic (implantable) cardiac defibrillator; Z95.5 Presence of coronary angioplasty implant and graft; Z91.041 Radiographic dye allergy status; Z88.0 Allergy status to penicillin; Z88.2 Allergy status to sulfonamides; Z88.8 Allergy status to other drugs, medicaments and biological substances; Z91.010 Allergy to peanuts; Z91.018 Allergy to other foods
CPT/HCPCS: 36415; 71045; 80048; 80053; 81003; 81015; 82553; 83735; 83880; 84484; 85025; 85610; 85730; 93005; 93798; 94660; 96374; J1940

== ENCOUNTER 2019-02-10 13:57 | Emergency (ER) | payer MEDICARE ==
[2019-02-10 15:20] LABS: #Basophils 0.1 thou/uL (0.0-0.2); #Eosinphils 0.2 thou/uL (0.0-0.7); #Lymphocytes 1.4 thou/uL (1.20-3.40); #Monocytes 0.5 thou/uL (0.11-0.59); #Neutrophils 3.7 thou/uL (1.40-6.50); %Basophils 1.7 % (0.0-1.0); %Eosinophils 4.1 % (0.0-10.0); %Lymphocytes 22.7 % (21.0-51.0); %Monocytes 9.1 % (0.0-10.0); %Neutrophils 62.3 % (42.0-75.0); Hemoglobin 14.1 g/dL (14.0-18.0); Mean Corpuscular HGB CONC 32.9 g/dL (32.0-36.0); Mean Corpuscular Hemoglobin 30.4 pg (27.0-31.0); Mean Corpuscular Volume 92.4 fL (78.0-98.0); Mean Platelet Volume 9.3 fL (7.4-10.4); Platelet Count 160 thou/uL (130-400); RBC Distribution Width 12.1 % (11.5-14.5); Red Blood Cell (RBC) Count 4.63 mill/uL (4.70-6.10)
--- NOTE | 2019-02-10 15:39 | RAD ---
EXAM: Chest 2 views: HISTORY: Productive cough for one month COMPARISON: 07/25/2018 FINDINGS: There is an enlarged but stable cardiomediastinal silhouette. The pacemaker is unchanged in position . There is no evidence of consolidation, mass, or pleural effusion. The bones are unremarkable. IMPRESSION: No evidence of acute cardiopulmonary disease
[2019-02-10 15:43] LABS: ALT (SGPT) 56 U/L (8-55); AST (SGOT) 47 U/L (5-34); Albumin 3.7 g/dL (3.4-4.8); Alkaline Phosphatase 66 U/L (40-110); Anion Gap 13 mmol/L (10-20); BUN (Urea Nitrogen) 24 mg/dL (8.4-25.7); Bilirubin, Total 0.7 mg/dL (0.2-1.2); Calc. Creatinine Clearance 0 mL/min (70-130); Calcium 8.5 mg/dL (7.8-10.44); Carbon Dioxide 26 mmol/L (23-31); Chloride 104 mmol/L (98-107); Estimated GFR-MDRD 67; Glucose 77 mg/dL (83-110); Potassium 3.7 mmol/L (3.5-5.1); Protein, Total 6.7 g/dL (5.8-8.1); Sodium 139 mmol/L (136-145)
== END 2019-02-10 18:10 | disposition home or self-care (01) ==
LOC: ERS 13:57
DX: J20.9 Acute bronchitis, unspecified (principal); E11.9 Type 2 diabetes mellitus without complications; I10 Essential (primary) hypertension; G47.30 Sleep apnea, unspecified; I48.91 Unspecified atrial fibrillation; E78.5 Hyperlipidemia, unspecified; E78.00 Pure hypercholesterolemia, unspecified; J44.9 Chronic obstructive pulmonary disease, unspecified
CPT/HCPCS: 36415; 71046; 80053; 83880; 85025; 94640; J7620

== ENCOUNTER 2019-02-16 16:50 | Emergency (ER) | payer MEDICARE, OTHER ==
--- NOTE | 2019-02-16 17:38 | RAD ---
EXAM: Portable chest PROVIDED CLINICAL HISTORY: Chest pain COMPARISON: 12/02/2018 FINDINGS: Cardiac and mediastinal silhouette is unchanged in appearance. Left subclavian cardiac pacing device is redemonstrated in similar position. The lungs are hypoinflated with accentuation of pulmonary bronchovascular markings and probable bibasilar subsegmental atelectatic change. No focal consolidati on, pleural fluid or pneumothorax evident. IMPRESSION: Stable radiographic appearance of the chest.
[2019-02-16 17:51] LABS: #Lymphocytes 1.7 thou/uL (1.20-3.40); #Monocytes 0.9 thou/uL (0.11-0.59); #Neutrophils 6.5 thou/uL (1.40-6.50); %Basophils 0.4 % (0.0-1.0); %Eosinophils 0.4 % (0.0-10.0); %Lymphocytes 18.6 % (21.0-51.0); %Monocytes 9.5 % (0.0-10.0); Hemoglobin 15.2 g/dL (14.0-18.0); Mean Corpuscular HGB CONC 32.2 g/dL (32.0-36.0); Mean Corpuscular Hemoglobin 29.6 pg (27.0-31.0); Mean Platelet Volume 9.4 fL (7.4-10.4); Platelet Count 177 thou/uL (130-400); RBC Distribution Width 12.4 % (11.5-14.5); Red Blood Cell (RBC) Count 5.11 mill/uL (4.70-6.10); White Blood Cell (WBC) Count 9.2 thou/uL (4.8-10.8)
[2019-02-16 18:16] LABS: ALT (SGPT) 62 U/L (8-55); AST (SGOT) 44 U/L (5-34); Albumin 3.5 g/dL (3.4-4.8); Alkaline Phosphatase 59 U/L (40-110); Anion Gap 11 mmol/L (10-20); BUN (Urea Nitrogen) 22 mg/dL (8.4-25.7); Bilirubin, Total 0.6 mg/dL (0.2-1.2); Calc. Creatinine Clearance 0 mL/min (70-130); Calcium 8.7 mg/dL (7.8-10.44); Carbon Dioxide 24 mmol/L (23-31); Chloride 107 mmol/L (98-107); Estimated GFR-MDRD 77; Globulin 2.9 g/dL (2.4-3.5); Glucose 93 mg/dL (83-110); Potassium 4.3 mmol/L (3.5-5.1); Protein, Total 6.4 g/dL (5.8-8.1); Sodium 138 mmol/L (136-145)
[2019-02-16] MEDS ORDERED: Furosemide 40 MG/4 ML VIAL ONE (19:02)
== END 2019-02-16 19:55 | disposition home or self-care (01) ==
LOC: ERS 16:50
DX: I11.0 Hypertensive heart disease with heart failure (principal); I50.9 Heart failure, unspecified; E11.9 Type 2 diabetes mellitus without complications; I48.91 Unspecified atrial fibrillation; E78.5 Hyperlipidemia, unspecified; E78.00 Pure hypercholesterolemia, unspecified; J44.9 Chronic obstructive pulmonary disease, unspecified; Z79.899 Other long term (current) drug therapy; Z79.82 Long term (current) use of aspirin; Z79.01 Long term (current) use of anticoagulants
CPT/HCPCS: 36415; 71045; 80053; 83880; 84443; 84484; 85025; 96374; J1940

== ENCOUNTER 2019-03-13 14:11 | Emergency (ER) | payer MEDICARE ==
--- NOTE | 2019-03-13 15:11 | RAD ---
EXAM: Single view of the chest HISTORY: Right chest and rib pain COMPARISON: 02/16/2019 FINDINGS: Single view of the chest shows a normal sized cardiomediastinal silhouette. The pacemaker is unchanged in position. Atelectasis is seen in the right lung base. There is no evidence of consolidation, mass, or pleural effusion. The bones are unremarkable. IMPRESSION: No evidence of acute cardiopulmonary disease
[2019-03-13 18:17] LABS: #Basophils 0.1 thou/uL (0.0-0.2); #Eosinphils 0.5 thou/uL (0.0-0.7); #Lymphocytes 1.8 thou/uL (1.20-3.40); #Monocytes 0.6 thou/uL (0.11-0.59); #Neutrophils 3.7 thou/uL (1.40-6.50); %Basophils 0.9 % (0.0-1.0); %Eosinophils 7.2 % (0.0-10.0); %Lymphocytes 27.1 % (21.0-51.0); %Monocytes 9.1 % (0.0-10.0); %Neutrophils 55.8 % (42.0-75.0); Hemoglobin 15.2 g/dL (14.0-18.0); Mean Corpuscular HGB CONC 32.5 g/dL (32.0-36.0); Mean Corpuscular Hemoglobin 30.2 pg (27.0-31.0); Mean Corpuscular Volume 93.2 fL (78.0-98.0); Mean Platelet Volume 9.6 fL (7.4-10.4); Platelet Count 155 thou/uL (130-400); RBC Distribution Width 12.6 % (11.5-14.5); Red Blood Cell (RBC) Count 5.03 mill/uL (4.70-6.10); White Blood Cell (WBC) Count 6.6 thou/uL (4.8-10.8)
[2019-03-13 18:42] LABS: ALT (SGPT) 44 U/L (8-55); AST (SGOT) 37 U/L (5-34); Albumin 4.4 g/dL (3.4-4.8); Alkaline Phosphatase 69 U/L (40-110); Anion Gap 7 mmol/L (10-20); BUN (Urea Nitrogen) 28 mg/dL (8.4-25.7); Calc. Creatinine Clearance 0 mL/min (70-130); Calcium 9.7 mg/dL (7.8-10.44); Carbon Dioxide 35 mmol/L (23-31); Chloride 99 mmol/L (98-107); Estimated GFR-MDRD 55; Globulin 3.1 g/dL (2.4-3.5); Glucose 116 mg/dL (83-110); Lipase 18 U/L (8-78); Potassium 3.9 mmol/L (3.5-5.1); Protein, Total 7.5 g/dL (5.8-8.1); Sodium 137 mmol/L (136-145)
[2019-03-13] MEDS ORDERED: Acetaminophen 500 MG TAB ONE (21:01)
== END 2019-03-13 22:41 | disposition home or self-care (01) ==
LOC: ERS 14:11
DX: R07.82 Intercostal pain (principal); I10 Essential (primary) hypertension; E11.9 Type 2 diabetes mellitus without complications; I48.91 Unspecified atrial fibrillation; G47.30 Sleep apnea, unspecified; J44.9 Chronic obstructive pulmonary disease, unspecified; E78.5 Hyperlipidemia, unspecified; E78.00 Pure hypercholesterolemia, unspecified; Z95.818 Presence of other cardiac implants and grafts; Z79.82 Long term (current) use of aspirin; Z79.899 Other long term (current) drug therapy; Z79.01 Long term (current) use of anticoagulants
CPT/HCPCS: 36415; 71045; 80053; 83690; 83880; 84484; 85025; 93005

== ENCOUNTER 2019-04-28 19:45 | Emergency (ER) | payer MEDICARE ==
[2019-04-28 20:57] LABS: #Eosinphils 0.1 thou/uL (0.0-0.7); #Lymphocytes 1.7 thou/uL (1.20-3.40); #Neutrophils 7.1 thou/uL (1.40-6.50); %Basophils 0.1 % (0.0-1.0); %Eosinophils 1.2 % (0.0-10.0); %Lymphocytes 16.8 % (21.0-51.0); %Neutrophils 71.9 % (42.0-75.0); Hemoglobin 13.9 g/dL (14.0-18.0); Mean Corpuscular Hemoglobin 31.3 pg (27.0-31.0); Mean Corpuscular Volume 94.9 fL (78.0-98.0); Mean Platelet Volume 9.1 fL (7.4-10.4); Platelet Count 153 thou/uL (130-400); RBC Distribution Width 12.1 % (11.5-14.5); Red Blood Cell (RBC) Count 4.44 mill/uL (4.70-6.10); White Blood Cell (WBC) Count 9.9 thou/uL (4.8-10.8)
[2019-04-28] MEDS ORDERED: Cefepime 2 GM VIAL ONE (20:57)
[2019-04-28] MEDS ORDERED: Sodium Chloride 0.9% 100 ML ONE (20:58)
[2019-04-28 21:18] LABS: ALT (SGPT) 35 U/L (8-55); AST (SGOT) 33 U/L (5-34); Albumin 3.7 g/dL (3.4-4.8); Alkaline Phosphatase 54 U/L (40-110); Anion Gap 13 mmol/L (10-20); BUN (Urea Nitrogen) 30 mg/dL (8.4-25.7); Bilirubin, Total 0.8 mg/dL (0.2-1.2); Calc. Creatinine Clearance 0 mL/min (70-130); Calcium 8.8 mg/dL (7.8-10.44); Carbon Dioxide 25 mmol/L (23-31); Chloride 104 mmol/L (98-107); Estimated GFR-MDRD 56; Globulin 2.8 g/dL (2.4-3.5); Glucose 171 mg/dL (83-110); Potassium 4.1 mmol/L (3.5-5.1); Protein, Total 6.5 g/dL (5.8-8.1); Sodium 138 mmol/L (136-145)
[2019-04-28] MEDS ORDERED: Clindamycin/D5W 600 mg/50 ml Premix Bag ONE (21:35)
--- NOTE | 2019-04-28 21:44 | RAD ---
3 views left foot: 04/28/2019 COMPARISON: None HISTORY: Swelling and pain FINDINGS: There is nonspecific diffuse soft tissue swelling involving the midfoot and forefoot, parti cularly along the dorsal aspect of the foot. No discrete radiopaque foreign body. No fracture or dislocation. IMPRESSION: Nonspecific soft tissue swelling. Findings may be related to cellulitis. If there is clin ical concern for osteomyelitis, follow-up MRI advised.
[2019-04-28] MEDS ORDERED: Vancomycin 1 GM/200 ML BAG ONE (22:10)
== END 2019-04-28 23:44 | disposition home or self-care (01) ==
LOC: ERS 19:45
DX: L03.116 Cellulitis of left lower limb (principal); E11.9 Type 2 diabetes mellitus without complications; I10 Essential (primary) hypertension; G47.30 Sleep apnea, unspecified; I48.91 Unspecified atrial fibrillation; E78.5 Hyperlipidemia, unspecified; E78.00 Pure hypercholesterolemia, unspecified; J44.9 Chronic obstructive pulmonary disease, unspecified
CPT/HCPCS: 36415; 80053; 83880; 85025; 85652; 86140; 87040; 96365; 96367; J0692; J3370; J3490

== ENCOUNTER 2019-07-19 15:29 | Inpatient (IN) | payer MEDICARE ==
[2019-07-19] MEDS ORDERED: Furosemide 40 MG/4 ML VIAL ONE (15:46)
[2019-07-19 16:07] LABS: #Eosinphils 0.2 thou/uL (0.0-0.7); #Lymphocytes 1.6 thou/uL (1.20-3.40); #Monocytes 0.7 thou/uL (0.11-0.59); #Neutrophils 4.3 thou/uL (1.40-6.50); %Basophils 0.5 % (0.0-1.0); %Eosinophils 2.3 % (0.0-10.0); %Lymphocytes 24.3 % (21.0-51.0); %Neutrophils 62.9 % (42.0-75.0); Hemoglobin 12.7 g/dL (14.0-18.0); Mean Corpuscular HGB CONC 31.6 g/dL (32.0-36.0); Mean Corpuscular Hemoglobin 29.8 pg (27.0-31.0); Mean Corpuscular Volume 94.4 fL (78.0-98.0); Mean Platelet Volume 9.3 fL (7.4-10.4); Platelet Count 157 thou/uL (130-400); RBC Distribution Width 11.1 % (11.5-14.5); Red Blood Cell (RBC) Count 4.28 mill/uL (4.70-6.10); White Blood Cell (WBC) Count 6.8 thou/uL (4.8-10.8)
[2019-07-19 16:13] LABS: INR-International Normal Ratio 1.7; PTT 36.4 sec (22.9-36.1); Prothrombin Time 19.5 sec (12.0-14.7)
--- NOTE | 2019-07-19 16:22 | RAD ---
CHEST ONE VIEW: 07/19/19 INDICATION: History of shortness of breath. COMPARISON: Prior exam dated 03/13/19. FINDINGS: There is cardiomegaly with pulmonary vascular congestion. There is persistent subsegmental volume los s within the right middle lobe. There is stable elevation of the right hemidiaphragm. There are small bilateral pleural effusions. There is a multilead AICD in the left chest wall. Chronic osseous cui es are similar appearing. IMPRESSION: 1. Cardiomegaly with pulmonary vascular congestion, small bilateral pleural effusions suggests C HF. 2. Persistent right middle lobe subsegmental volume loss. 3. Stable elevation of the right hemidiaphragm. POS: BH
[2019-07-19 16:30] LABS: ALT (SGPT) 20 U/L (8-55); AST (SGOT) 26 U/L (5-34); Albumin 3.6 g/dL (3.4-4.8); Alkaline Phosphatase 60 U/L (40-110); Anion Gap 14 mmol/L (10-20); BUN (Urea Nitrogen) 19 mg/dL (8.4-25.7); Bilirubin, Total 1.2 mg/dL (0.2-1.2); Calc. Creatinine Clearance 0 mL/min (70-130); Calcium 8.8 mg/dL (7.8-10.44); Carbon Dioxide 26 mmol/L (23-31); Chloride 104 mmol/L (98-107); Estimated GFR-MDRD 68; Glucose 89 mg/dL (83-110); Potassium 3.9 mmol/L (3.5-5.1); Protein, Total 6.6 g/dL (5.8-8.1); Sodium 140 mmol/L (136-145)
[2019-07-19 16:52] LABS: CKMB 4.3 ng/mL (0-6.6)
[2019-07-19] MEDS ORDERED: Ondansetron ODT 4 MG TAB SL PRN (18:33)
[2019-07-19] MEDS ORDERED: Ondansetron PF 4 MG/2 ML Vial IVP PRN (18:33)
[2019-07-19] MEDS ORDERED: Acetaminophen 325 MG TAB PO PRN (18:33)
[2019-07-19 19:13] VITALS: BMI 36.6
[2019-07-19 20:03] LABS: Troponin I 0.041 ng/mL (< 0.028)
[2019-07-19] MEDS ORDERED: Bisacodyl 5 MG TAB PO PRN (20:04)
--- NOTE | 2019-07-19 20:39 | HP ---
PRIMARY CARE PROVIDER: NAREN Cantu CHIEF COMPLAINT: Shortness of breath. HISTORY OF PRESENT ILLNESS: Mr. Carols is a pleasant 83-year-old gentleman, who was seen at [facility] on July 19, 2019. He was hospitalized at this facility from December 04 to December 07, 2018, for congestive heart failure exacerbation, acute on chronic stage 3 renal failure and [id number] type 2 myocardial infarction. He reports that he was doing well until two or three days ago. At that time, he developed shortness of breath while gardening and shopping for groceries. This is new compared to how he was doing over the last several months. He also reports worsening bilateral lower extremity edema. He denies any fever, cough, or chest pain. He denies any nausea, vomiting, or abdominal pain. He reports being compliant with his medications. He presented to the emergency room because of the above symptoms. REVIEW OF SYSTEMS: All systems were reviewed and found to be negative except for the pertinent positives mentioned above. PAST MEDICAL HISTORY: Hypertension, obstructive sleep apnea syndrome, Raynaud syndrome, nonrheumatic aortic valve insufficiency, atrial fibrillation, coronary stent cardioversion, nephrolithiasis, dyslipidemia, COPD, kidney stone, and chronic combined congestive heart failure. PAST SURGICAL HISTORY: Cholecystectomy, hernia repair, tonsillectomy, AICD, and PCI with coronary stents. SOCIAL HISTORY: The patient denies tobacco use, alcohol use, or recreational drug use. He ambulates with a cane. CODE STATUS: I discussed his code status. He is full code. FAMILY HISTORY: He denies family history of premature coronary artery disease. ALLERGIES: IODINE, PENICILLIN, SERTRALINE, SULFA, AND TETRACYCLINE. CURRENT MEDICATIONS: 1. Sildenafil p.r.n. 2. Lasix 40 mg two times a day. 3. Coreg 6.25 mg two times a day. 4. Aspirin 81 mg daily. 5. Ferrous sulfate 325 mg daily. 6. Entresto 24/26 mg two times a day. 7. Eliquis 5 mg two times a day. 8. Amiodarone 200 mg daily. 9. Protonix 40 mg daily. 10. Ezetimibe 10 mg daily. 11. Rosuvastatin 40 mg daily. PHYSICAL EXAMINATION: GENERAL: On examination, Mr. Carlos is awake and alert, not in acute distress. VITAL SIGNS: Blood pressure is 174/87, pulse 70, respiratory rate 19, and oxygen saturation 99% on 3 L of oxygen. EYES: No scleral icterus. No conjunctival pallor. ENT: Moist mucosal membranes. No oropharyngeal erythema or exudates. NECK: Supple and nontender. He has jugular venous distention. RESPIRATORY: Accessory muscles of breathing are mildly active. Chest wall movements are symmetric bilaterally. Lung examination reveals bibasilar crackles. CARDIOVASCULAR: S1 and S2 are heard, regular. Peripheral pulses palpable. ABDOMEN: Soft, nontender, bowel sounds are heard. NEUROLOGIC: Cranial nerves 2 through 12 are intact. MUSCULOSKELETAL: Power is 5/5 in all 4 extremities. SKIN: He has bilateral lower extremity edema. LYMPHATIC: No cervical lymphadenopathy. PSYCHIATRIC: Normal mood, normal affect, the patient is oriented to person, place, and time. LABORATORY DATA: Mr. Carlos's labs and investigations were reviewed. I reviewed his electrocardiogram, which shows electronic AV paced rhythm. I also reviewed his chest x-ray, which shows interstitial edema. He has normal white count, normocytic anemia with hemoglobin 12.7, normal platelet count, INR 1.7, normal comprehensive metabolic profile, indeterminate troponin I of 0.039 and elevated BNP of 590.8. ASSESSMENT AND PLAN: Mr. Carlos is a pleasant 83-year-old gentleman, who was seen at [facility] on July 19, 2019. His problem list includes: 1. Acute on chronic combined systolic and diastolic congestive heart failure, NYHA class 3: Mr. Carlos is presenting with congestive heart failure exacerbation. He has received 40 mg of Lasix in the emergency room. I will continue him on 40 mg of Lasix b.i.d. Cardiology Service will be consulted for opinion and help with management. I will also interrogate his AICD. He will be on low-sodium diet. 2. Hypertension: We will resume home medications once clarified, monitor vital signs and titrate antihypertensives as needed. 3. History of atrial fibrillation: We will resume Eliquis. 4. Dyslipidemia: Continue statin and ezetimibe. Many thanks for allowing me to participate in your patient's care. Please feel free to contact me with any questions or concerns. LEVEL OF RISK: High. LEVEL OF COMPLEXITY: High. Job ID: [id number]
[2019-07-19] MEDS: Apixaban 5 MG TAB PO SCH (22:40)
[2019-07-19] MEDS: Rosuvastatin 20 MG TAB PO SCH (22:40)
[2019-07-19] MEDS: Ezetimibe 10 MG TAB PO SCH (22:41)
[2019-07-19] MEDS: Ferrous Sulfate 325 MG TAB PO SCH (22:41)
[2019-07-20 04:17] LABS: #Eosinphils 0.2 thou/uL (0.0-0.7); #Lymphocytes 1.3 thou/uL (1.20-3.40); #Monocytes 0.9 thou/uL (0.11-0.59); #Neutrophils 5.6 thou/uL (1.40-6.50); %Basophils 0.3 % (0.0-1.0); %Eosinophils 2.9 % (0.0-10.0); %Monocytes 11.4 % (0.0-10.0); %Neutrophils 69.5 % (42.0-75.0); Hemoglobin 12.8 g/dL (14.0-18.0); Mean Corpuscular Volume 94.1 fL (78.0-98.0); Mean Platelet Volume 9.4 fL (7.4-10.4); Platelet Count 150 thou/uL (130-400); RBC Distribution Width 11.2 % (11.5-14.5); Red Blood Cell (RBC) Count 4.11 mill/uL (4.70-6.10); White Blood Cell (WBC) Count 8.1 thou/uL (4.8-10.8)
[2019-07-20 04:39] LABS: Anion Gap 10 mmol/L (10-20); BUN (Urea Nitrogen) 16 mg/dL (8.4-25.7); Calc. Creatinine Clearance 85 mL/min (70-130); Calcium 8.7 mg/dL (7.8-10.44); Carbon Dioxide 29 mmol/L (23-31); Chloride 104 mmol/L (98-107); Estimated GFR-MDRD 77; Glucose 97 mg/dL (83-110); Potassium 3.2 mmol/L (3.5-5.1); Sodium 140 mmol/L (136-145)
[2019-07-20] MEDS: Furosemide 40 MG/4 ML VIAL SLOW IVP SCH ×2 (05:46→15:01)
[2019-07-20] MEDS: Amiodarone 200 MG TAB PO SCH (08:47)
[2019-07-20] MEDS: Carvedilol 6.25 MG TAB PO SCH ×2 (08:47→18:12)
[2019-07-20] MEDS: Apixaban 5 MG TAB PO SCH ×2 (08:48→20:20)
[2019-07-20] MEDS: Aspirin 81 mg Enteric Coated Tablet PO SCH (08:48)
[2019-07-20] MEDS: Multivit, Therapeutic 1 TAB PO SCH (08:49)
[2019-07-20] MEDS ORDERED: Potassium Chloride 20 MEQ TAB PO SCH (09:15)
[2019-07-20] MEDS ORDERED: HumaLOG 300 UNITS/3 ML VIAL SC PRN (11:56)
[2019-07-20] MEDS ORDERED: Dextrose 5% in Water 1,000 ML IV PRN (11:56)
[2019-07-20] MEDS ORDERED: Dextrose 50% Abboject 50 ML SYRINGE SLOW IVP PRN (11:56)
--- NOTE | 2019-07-20 14:44 | PDOC.HOSPP ---
- Subjective Encounter Date: 07/20/19 Encounter Time: 08:00 Subjective: Pt seen for followup re: CHF exacerbation. Feels better today. Orthopnea+ - Objective Vital Signs & Weight: Vital Signs (12 hours) Temp Pulse Resp BP BP Pulse Ox 07/20/19 12:00 98.8 F 62 18 142/66 H 94 L 07/20/19 07:10 98.6 F 60 18 161/71 H 96 07/20/19 06:58 94 L 07/20/19 03:18 98.6 F 60 18 159/69 H 94 L Weight Weight 213 lb 11.2 oz I&O: 07/19/19 07/20/19 07/21/19 06:59 06:59 06:59 Intake Total 400 Output Total 1100 Balance -700 Result Diagrams: 07/20/19 04:08 07/20/19 04:08 Additional Labs: Accuchecks 07/20/19 07/20/19 07/20/19 11:04 05:51 03:28 POC Glucose 213 H 92 95 07/20/19 07/19/19 02:25 20:23 POC Glucose 100 100 Labs and MARs reviewed by me EKG Reviewed by me: Yes (Tele: V-paced) Hospitalist ROS - Review of Systems Constitutional: denies: fever, chills, sweats, weakness, malaise Respiratory: reports: SOB with excertion. denies: cough, shortness of breath, pleuritic pain, wheezing Cardiovascular: reports: orthopnea, edema. denies: chest pain, palpitations, paroxysmal noc. dyspnea, light headedness Gastrointestinal: denies: nausea, vomiting, abdominal pain, diarrhea, constipation, melena, hematochezia Genitourinary: denies: dysuria, frequency, incontinence, hematuria, retention Skin: denies: rash, lesions, deidra, bruising - Medication Medications: Active Medications Generic Name Dose Route Start Last Admin Trade Name Freq PRN Reason Stop Dose Admin Amiodarone HCl 200 mg 07/20/19 09:00 07/20/19 08:47 Cordarone PO 200 mg DAILY GINA Administration Apixaban 5 mg 07/19/19 21:00 07/20/19 08:48 Eliquis PO 5 mg BID GINA Administration Aspirin 81 mg 07/20/19 09:00 06/04/20 08:48 Ecotrin PO 81 mg DAILY GINA Administration Carvedilol 6.25 mg 07/20/19 08:00 07/20/19 08:47 Coreg PO 6.25 mg BID-WM GINA Administration Ezetimibe 10 mg 07/19/19 21:00 07/19/19 22:41 Zetia PO 10 mg QPM GINA Administration Ferrous Sulfate 325 mg 07/19/19 21:00 07/19/19 22:41 Feosol PO 325 mg HS GINA Administration Furosemide 40 mg 07/20/19 06:00 07/20/19 05:46 Lasix SLOW IVP 40 mg 0600,1400 GINA Administration Multivitamins 1 tab 07/20/19 09:00 07/20/19 08:49 Theragran PO 1 tab DAILY GINA Administration Pantoprazole Sodium 40 mg 07/19/19 21:00 07/19/19 22:41 Protonix PO 40 mg QPM GINA Administration Rosuvastatin Calcium 40 mg 07/19/19 21:00 07/19/19 22:40 Crestor PO 40 mg HS GINA Administration Sacubitril/Valsartan 1 tab 07/19/19 21:00 07/20/19 08:49 Entresto 24 Mg-26 Mg Tablet PO 1 tab BID GINA Administration - Exam General Appearance: awake alert Eye: anicteric sclera ENT: normocephalic atraumatic, moist mucosa Neck: supple, symmetric, no thyromegaly, no lymphadenopathy, JVD Heart: RRR, no gallops, no rubs, normal peripheral pulses Respiratory: no wheezes, no ronchi, normal chest expansion, rales Gastrointestinal: soft, non-tender, non-distended, normal bowel sounds Extremities: 1+ LE edema Psychiatric: normal affect, normal behavior, A&O x 3 Hosp A/P (1) Acute on chronic combined systolic and diastolic CHF, NYHA class 3 Code(s): I50.43 - ACUTE ON CHRONIC COMBINED SYSTOLIC AND DIASTOLIC HRT FAIL Status: Acute (2) Hypertension Code(s): I10 - ESSENTIAL (PRIMARY) HYPERTENSION Status: Chronic Qualifiers: Hypertension type: essential hypertension Qualified Code(s): I10 - Essential (primary) hypertension (3) Atrial fibrillation Code(s): I48.91 - UNSPECIFIED ATRIAL FIBRILLATION Status: Chronic Qualifiers: Atrial fibrillation type: paroxysmal Qualified Code(s): I48.0 - Paroxysmal atrial fibrillation (4) Dyslipidemia Code(s): E78.5 - HYPERLIPIDEMIA, UNSPECIFIED Status: Chronic (5) COPD (chronic obstructive pulmonary disease) Status: Chronic (6) Diabetes mellitus type 2 in obese Code(s): E11.69 - TYPE 2 DIABETES MELLITUS WITH OTHER SPECIFIED COMPLICATION; E66.9 - OBESITY, UNSPECIFIED Status: Chronic - Plan Pt clinically improving, continue furosemide IV. Replace potassium. Await 2D echo. Blood sugars controlled. Monitor vital signs and titrate antihyperensives as needed.
[2019-07-20] MEDS: Rosuvastatin 20 MG TAB PO SCH (20:20)
[2019-07-20] MEDS: Ferrous Sulfate 325 MG TAB PO SCH (20:20)
[2019-07-20] MEDS: Ezetimibe 10 MG TAB PO SCH (20:20)
[2019-07-20] MEDS ORDERED: Prevnar 13-Val Conj/PF 0.5 ML SYRINGE IM ONE (23:15)
--- NOTE | 2019-07-21 01:20 | CON ---
DATE OF CONSULTATION: HISTORY OF PRESENT ILLNESS: Lauro Carlos is an 83-year-old white male, who has been followed for many years. He has coronary artery disease and had placement of a Duet 3.0 x 13 mm stent in the proximal to mid LAD in December 1998. In December 2006, he had placement of a Cypher 3.0 x 12 in the mid circumflex extending into the second obtuse marginal, and a Cypher 3.5 x 13 stent placed in the proximal to mid circumflex. Both of these were placed in December 2006. He was last catheterized in December 2016. He had severe global left ventricular hypokinesis with ejection fraction of 25% to 30%. The mean aortic gradient was 13 mm with aortic valve area of 1.82 cm2. The LAD stent was patent with a jailed 70% first diagonal lesion. There was 30% ramus lesion and 30% proximal circumflex lesion. The two circumflex stents continue to have a good result. He had a 40% mid RCA lesion. He has undergone placement of a biventricular ICD and his ejection fraction has improved up to 55-60%. He had several months of atrial fibrillation, underwent cardioversion in November 2018, on amiodarone. He continues to remain in sinus rhythm. He now presents complaining of increased peripheral edema as well as increased shortness of breath. He denies any chest discomfort. He has had some mild orthopnea. He is now admitted for diuresis. PAST MEDICAL HISTORY: Systolic heart failure, paroxysmal atrial fibrillation, status post cardioversion in November 2018, coronary artery disease, diabetes, hypercholesterolemia, hypertension, obstructive sleep apnea, Raynaud phenomenon, nephrolithiasis. PAST SURGICAL HISTORY: ICD placement, stent placement, cholecystectomy, hernia repair, left total knee replacement, tonsillectomy, diskectomy. MEDICATIONS: 1. Amiodarone 200 mg daily. 2. Eliquis 5 mg b.i.d. 3. Aspirin 81 mg daily. 4. Carvedilol 6.25 b.i.d. 5. Zetia 10 mg daily. 6. Ferrous sulfate 325 at bedtime. 7. Furosemide 40 mg b.i.d. 8. Multivitamin daily. 9. Protonix 40 q.p.m. 10. Crestor 40 at bedtime. 11. Entresto 24/26 b.i.d. 12. Sildenafil 20 at bedtime p.r.n. ALLERGIES: BANANAS, TOMATOES, NUTS, PENICILLIN, SERTRALINE, SULFA, TETRACYCLINE , AND PEPPER. SOCIAL HISTORY: He does not smoke or drink. REVIEW OF SYSTEMS: A 10-point review of systems is otherwise unremarkable. PHYSICAL EXAMINATION: VITAL SIGNS: Blood pressure 160/68, pulse of 62. HEENT: PERRL. NECK: Supple. CHEST: Clear. CARDIAC: S1 and S2 normal without any S3 or S4. There is a 1-2/6 systolic murmur. ABDOMEN: Normal bowel sounds without tenderness, or organomegaly. EXTREMITIES: Revealed 2+ lower extremity edema. NEUROLOGICAL: Grossly intact. SKIN: Warm and dry. LABORATORY DATA: EKG reveals A-V pacing. Hemoglobin 12.8, hematocrit 38.7, white count 8100, platelets 150,000. Sodium 140, potassium 3.2, chloride 104, carbon dioxide 29, BUN 16, and creatinine 0.94. Troponin I 0.060. Echocardiogram revealed the study to be technically difficult. There was ejection fraction of 55% to 60% with moderate left atrial enlargement, moderate mitral regurgitation, moderate aortic stenosis, moderate aortic regurgitation and mild tricuspid regurgitation. ICD was interrogated and he has not had any significant atrial fibrillation. Also, OptiVol is essentially at baseline. IMPRESSION: 1. Acute on chronic diastolic heart failure. 2. Status post biventricular ICD. 3. Paroxysmal atrial fibrillation, status post electrocardioversion in November 2018. 4. History of nonsustained ventricular tachycardia. 5. History of left anterior descending and circumflex stents with continued good results in December 2016. 6. Hypercholesterolemia. 7. Hypertension. 8. Chronic kidney disease, although at the present time his creatinine is normal. PLAN: Mr. Carlos has been treated with intravenous Lasix 40 mg b.i.d. and his breathing has improved. He does have somewhat elevated systolic pressures and I will increase his Entresto to t.i.d. We will follow the patient with you. Job ID: [id number] MTDD
[2019-07-21 04:43] LABS: #Eosinphils 0.2 thou/uL (0.0-0.7); #Lymphocytes 1.5 thou/uL (1.20-3.40); #Monocytes 0.7 thou/uL (0.11-0.59); #Neutrophils 3.8 thou/uL (1.40-6.50); %Eosinophils 3.2 % (0.0-10.0); %Lymphocytes 24.4 % (21.0-51.0); %Monocytes 11.5 % (0.0-10.0); %Neutrophils 60.8 % (42.0-75.0); Hemoglobin 12.5 g/dL (14.0-18.0); Mean Corpuscular HGB CONC 33.4 g/dL (32.0-36.0); Mean Corpuscular Hemoglobin 31.4 pg (27.0-31.0); Mean Corpuscular Volume 93.8 fL (78.0-98.0); Mean Platelet Volume 9.3 fL (7.4-10.4); Platelet Count 155 thou/uL (130-400); RBC Distribution Width 11.2 % (11.5-14.5); White Blood Cell (WBC) Count 6.3 thou/uL (4.8-10.8)
[2019-07-21 05:03] LABS: Anion Gap 11 mmol/L (10-20); BUN (Urea Nitrogen) 19 mg/dL (8.4-25.7); Calc. Creatinine Clearance 74 mL/min (70-130); Calcium 8.9 mg/dL (7.8-10.44); Carbon Dioxide 31 mmol/L (23-31); Chloride 102 mmol/L (98-107); Estimated GFR-MDRD 66; Glucose 100 mg/dL (83-110); Potassium 3.8 mmol/L (3.5-5.1); Sodium 140 mmol/L (136-145)
[2019-07-21] MEDS: Furosemide 40 MG/4 ML VIAL SLOW IVP SCH ×2 (06:05→14:16)
[2019-07-21] MEDS: Multivit, Therapeutic 1 TAB PO SCH (09:37)
[2019-07-21] MEDS: Apixaban 5 MG TAB PO SCH ×2 (09:37→20:37)
[2019-07-21] MEDS: Aspirin 81 mg Enteric Coated Tablet PO SCH (09:37)
[2019-07-21] MEDS: Amiodarone 200 MG TAB PO SCH (09:38)
[2019-07-21] MEDS: Carvedilol 6.25 MG TAB PO SCH ×2 (09:38→17:42)
--- NOTE | 2019-07-21 13:44 | PDOC.HOSPP ---
- Subjective Encounter Date: 07/21/19 Encounter Time: 07:20 Subjective: Pt seen for followup re: CHF exacerbation. Sleepy but arousable, feels well. - Objective Vital Signs & Weight: Vital Signs (12 hours) Temp Pulse Resp BP BP BP Pulse Ox 07/21/19 12:00 97.6 F 60 18 133/63 07/21/19 09:38 153/62 H 07/21/19 07:55 97.9 F 63 18 153/62 H 92 L 07/21/19 04:00 98.4 F 59 L 18 138/65 98 Weight Weight 204 lb 9.6 oz I&O: 07/20/19 07/21/19 07/22/19 06:59 06:59 06:59 Intake Total 400 1280 Output Total 1100 2330 Balance -700 -1050 Result Diagrams: 07/21/19 04:19 07/21/19 04:19 Additional Labs: Accuchecks 07/21/19 07/21/19 07/20/19 10:37 06:01 20:21 POC Glucose 156 H 106 165 H 07/20/19 17:24 POC Glucose 115 H Labs and MARs reviewed by me EKG Reviewed by me: Yes (Tele: V-paced) Hospitalist ROS - Review of Systems Cardiovascular: reports: paroxysmal noc. dyspnea. denies: chest pain, palpitations, orthopnea, edema, light headedness Gastrointestinal: denies: nausea, vomiting, abdominal pain, diarrhea, constipation, melena, hematochezia - Medication Medications: Active Medications Generic Name Dose Route Start Last Admin Trade Name Freq PRN Reason Stop Dose Admin Amiodarone HCl 200 mg 07/20/19 09:00 07/21/19 09:38 Cordarone PO 200 mg DAILY GINA Administration Apixaban 5 mg 07/19/19 21:00 07/21/19 09:37 Eliquis PO 5 mg BID GINA Administration Aspirin 81 mg 07/20/19 09:00 07/21/19 09:37 Ecotrin PO 81 mg DAILY GINA Administration Carvedilol 6.25 mg 07/20/19 08:00 07/21/19 09:38 Coreg PO 6.25 mg BID-WM GIAN Administration Ezetimibe 10 mg 07/19/19 21:00 07/20/19 20:20 Zetia PO 10 mg QPM GINA Administration Ferrous Sulfate 325 mg 07/19/19 21:00 07/20/19 20:20 Feosol PO 325 mg HS GINA Administration Furosemide 40 mg 07/20/19 06:00 07/21/19 06:05 Lasix SLOW IVP 40 mg 0600,1400 GINA Administration Multivitamins 1 tab 07/20/19 09:00 07/21/19 09:37 Theragran PO 1 tab DAILY GINA Administration Pantoprazole Sodium 40 mg 07/19/19 21:00 07/20/19 20:20 Protonix PO 40 mg QPM GINA Administration Rosuvastatin Calcium 40 mg 07/19/19 21:00 07/20/19 20:20 Crestor PO 40 mg HS GINA Administration Sacubitril/Valsartan 1 tab 07/20/19 21:00 07/21/19 09:37 Entresto 24 Mg-26 Mg Tablet PO 1 tab TID GINA Administration - Exam General - other findings: Obese ENT: normocephalic atraumatic Neck: symmetric, no thyromegaly Heart: RRR, no rubs Respiratory: CTAB, normal chest expansion Gastrointestinal: soft, non-tender Extremities: 1+ LE edema Skin: no rashes Psychiatric: normal affect, normal behavior Hosp A/P (1) Acute on chronic diastolic CHF (congestive heart failure), NYHA class 3 Code(s): I50.33 - ACUTE ON CHRONIC DIASTOLIC (CONGESTIVE) HEART FAILURE Status : Acute (2) Hypertension Code(s): I10 - ESSENTIAL (PRIMARY) HYPERTENSION Status: Chronic Qualifiers: Hypertension type: essential hypertension Qualified Code(s): I10 - Essential (primary) hypertension (3) Atrial fibrillation Code(s): I48.91 - UNSPECIFIED ATRIAL FIBRILLATION Status: Chronic Qualifiers: Atrial fibrillation type: paroxysmal Qualified Code(s): I48.0 - Paroxysmal atrial fibrillation (4) Dyslipidemia Code(s): E78.5 - HYPERLIPIDEMIA, UNSPECIFIED Status: Chronic (5) COPD (chronic obstructive pulmonary disease) Status: Chronic (6) Diabetes mellitus type 2 in obese Code(s): E11.69 - TYPE 2 DIABETES MELLITUS WITH OTHER SPECIFIED COMPLICATION; E66.9 - OBESITY, UNSPECIFIED Status: Chronic - Plan Pt admitted on 07/19/2019 for CHF exacerbation. Pt clinically improving. Continue furosemide IV. Hypokalemia replaced. Await 2D echo. Blood sugars controlled. Monitor vital signs and titrate antihyperensives as needed.
[2019-07-21] MEDS ORDERED: Sodium Chloride 0.9% 10 ML ONE (13:55)
[2019-07-21] MEDS: Ezetimibe 10 MG TAB PO SCH (20:36)
[2019-07-21] MEDS: Ferrous Sulfate 325 MG TAB PO SCH (20:36)
[2019-07-21] MEDS: Rosuvastatin 20 MG TAB PO SCH (20:36)
--- NOTE | 2019-07-21 22:33 | PQF ---
JEFFREY POSADA DAVID MD [id number] CLINICAL DOCUMENTATION IMPROVEMENT CLARIFICATION FORM: ICD-10 Updated PLEASE DO AN ADDENDUM TO THE PROGRESS NOTE WITH ANY DOCUMENTATION UPDATES OR ADDITIONS AND CARRY THROUGH TO DC SUMMARY. THANK YOU. DATE: 07/21/2019 07/24/2019 ATTN:DR. Francisco Javier VIDAL , DR. QUINONEZ Please exercise your independent, professional judgment in responding to the clarification form. Clinical indicators are provided on the bottom of this form for your review. Please check appropriate box(s): [X ] Acute Respiratory Failure: [ X ] with Hypoxia[ ] with Hypercapnia [ ] Acute On Chronic Respiratory Failure: [ ] with Hypoxia [ ] with Hypercapnia [ ] Acute Respiratory Failure due to: (etiology) [ ] Chronic Respiratory Failure only [ ] with Hypoxia [ ] with Hypercapnia [ ] Hypoxia [ ] Other diagnosis [ ] Unable to determine In addition, please specify: Present on Admission (POA): [ ] Yes [ ] No [ ] Unable to determine For continuity of documentation, please document condition throughout progress notes and discharge summary. Thank You. CLINICAL INDICATORS - SIGNS / SYMPTOMS / LABS / RESULTS AND LOCATION IN MR 07/18 CHEST XRAY- CARDIOMEGALY WITH PULMONARY VASCULAR CONGESTION, SMALL BILATERAL EFFUSIONS SUGGEST CHF. 07/18 ED REPORT: PRESENTS FOR SOB ON EXERTION, HOME OXYGEN AT 3L/NC/ ED PHYSICIAN FINAL DX: CONGESTIVE HEART FAILURE, SOB 07/19 RESP 24 07/20 RESP 22 RISK: ADVANCED AGE ( 83) , HOME O2 USE, CHF EXACERBATION (FRANSISCO/ MARCY, ED REPORT) 07/20 TREATMENTS: SUPPLEMENTAL OXYGEN (07/18 - PRESENT) CONTINUOUS TELE MONITORING Acute Respiratory Failure: ABG pH < 7.35 or > 7.45; Decreased oxygen saturation (<90% room air or < 95% on oxygen); PCO2 > 50 mm Hg; PO2 < 60 mm Hg; Labored or rapid respirations ARDS: Dx Criteria [Hyndman ARDS]: Respiratory symptoms within one week of a known clinical insult (e.g. shock, infection, surgery, trauma) Bilateral opacities in CXR/Chest CT not due to CHF or fluid THANK YOU! LU (This form is maintained as a part of the permanent medical record) 2014 [employer] All Rights Reserved [email or web address]
[2019-07-22] MEDS: Furosemide 40 MG/4 ML VIAL SLOW IVP SCH ×2 (06:02→14:28)
[2019-07-22] MEDS: Apixaban 5 MG TAB PO SCH ×2 (08:28→20:39)
[2019-07-22] MEDS: Multivit, Therapeutic 1 TAB PO SCH (08:29)
[2019-07-22] MEDS: Aspirin 81 mg Enteric Coated Tablet PO SCH (08:29)
[2019-07-22] MEDS: Amiodarone 200 MG TAB PO SCH (08:29)
[2019-07-22] MEDS: Carvedilol 6.25 MG TAB PO SCH ×2 (08:29→17:21)
[2019-07-22 12:22] LABS: Hemoglobin 12.9 g/dL (14.0-18.0); Mean Corpuscular HGB CONC 33.1 g/dL (32.0-36.0); Mean Corpuscular Hemoglobin 30.9 pg (27.0-31.0); Mean Corpuscular Volume 93.3 fL (78.0-98.0); Mean Platelet Volume 9.1 fL (7.4-10.4); Platelet Count 161 thou/uL (130-400); RBC Distribution Width 11.1 % (11.5-14.5); Red Blood Cell (RBC) Count 4.16 mill/uL (4.70-6.10)
[2019-07-22 12:40] LABS: Anion Gap 10 mmol/L (10-20); BUN (Urea Nitrogen) 22 mg/dL (8.4-25.7); Calc. Creatinine Clearance 67 mL/min (70-130); Calcium 8.9 mg/dL (7.8-10.44); Carbon Dioxide 36 mmol/L (23-31); Chloride 97 mmol/L (98-107); Estimated GFR-MDRD 62; Glucose 90 mg/dL (83-110); Sodium 139 mmol/L (136-145)
--- NOTE | 2019-07-22 12:56 | EKG ---
Test Reason : Blood Pressure : / mmHG Vent. Rate : 064 BPM Atrial Rate : 064 BPM P-R Int : 000 ms QRS Dur : 164 ms QT Int : 522 ms P-R-T Axes : 000 -58 052 degrees QTc Int : 538 ms AV dual-paced rhythm with occasional ventricular-paced complexes Abnormal ECG Confirmed by JOSEFINA DAVE ([id number]), index editor DANA ELLIOTT ([id number]) on 07/22/2019 12:55:46 PM Referred By: Confirmed By:JOSEFINA Pugh
--- NOTE | 2019-07-22 17:33 | RAD ---
PORTABLE CHEST: 07/22/19 HISTORY: Follow-up pleural effusion. COMPARISON: 07/19/19 exam. Heart size is enlarged. Pacemaker is present. Some elevation of the right hemidiaphragm. Pulmonary va scular engorgement appears less pronounced on the prior exam. No definite effusions. The subsegmental parenchymal changes in the right middle appear improved. IMPRESSION: Cardiomegaly with mild vascular engorgement. Overall improvement as compared to the prior study. POS: TED
--- NOTE | 2019-07-22 17:46 | PDOC.HOSPP ---
- Subjective Encounter Date: 07/22/19 Encounter Time: 11:00 Subjective: CC: hypoxia Th epatient reports he feels less SOB compared to yesterday. He does not ambulate much at baseline. He reports having a sleep study done as an outpatient and was told he stopped breathing three times a minute. He wears 2L oxygen at home. Uses CPAP at night 11 cm. - Objective Vital Signs & Weight: Vital Signs (12 hours) Temp Pulse Resp BP BP Pulse Ox 07/22/19 15:32 97.4 F L 61 22 H 121/58 L 97 07/22/19 11:43 97.5 F L 60 22 H 123/56 L 97 07/22/19 08:30 92 L 07/22/19 08:26 98.6 F 71 18 130/59 L 92 L Weight Weight 202 lb 3.2 oz I&O: 07/21/19 07/22/19 07/23/19 06:59 06:59 06:59 Intake Total 1280 720 Output Total 2330 3780 Balance -1050 -3060 Result Diagrams: 07/22/19 12:12 07/22/19 12:12 Additional Labs: Accuchecks 07/22/19 07/22/19 07/21/19 10:49 05:56 20:12 POC Glucose 132 H 96 141 H Hospitalist ROS - Medication Medications: Active Medications Generic Name Dose Route Start Last Admin Trade Name Freq PRN Reason Stop Dose Admin Amiodarone HCl 200 mg 07/20/19 09:00 07/22/19 08:29 Cordarone PO 200 mg DAILY GINA Administration Apixaban 5 mg 07/19/19 21:00 07/22/19 08:28 Eliquis PO 5 mg BID GINA Administration Aspirin 81 mg 07/20/19 09:00 07/22/19 08:29 Ecotrin PO 81 mg DAILY GINA Administration Carvedilol 6.25 mg 07/20/19 08:00 07/22/19 17:21 Coreg PO 6.25 mg BID-WM GINA Administration Ezetimibe 10 mg 07/19/19 21:00 07/21/19 20:36 Zetia PO 10 mg QPM GINA Administration Ferrous Sulfate 325 mg 07/19/19 21:00 07/21/19 20:36 Feosol PO 325 mg HS GINA Administration Multivitamins 1 tab 07/20/19 09:00 07/22/19 08:29 Theragran PO 1 tab DAILY GINA Administration Pantoprazole Sodium 40 mg 07/19/19 21:00 07/21/19 20:37 Protonix PO 40 mg QPM GINA Administration Rosuvastatin Calcium 40 mg 07/19/19 21:00 07/21/19 20:36 Crestor PO 40 mg HS GINA Administration Sacubitril/Valsartan 1 tab 07/20/19 21:00 07/22/19 14:28 Entresto 24 Mg-26 Mg Tablet PO 1 tab TID GINA Administration - Exam General Appearance: NAD, awake alert General - other findings: on CPAP, obese Eye: PERRL, anicteric sclera ENT: normocephalic atraumatic, no oropharyngeal lesions Neck: no JVD Heart: RRR, no murmur, no gallops, no rubs Respiratory - other findings: diminished breath sounds Gastrointestinal: soft Gastrointestinal - other findings: abdomen distended with mild hernia Extremities: no cyanosis, no clubbing, 1+ LE edema Skin: normal turgor, no lesions, no rashes Hosp A/P - Plan Chest Xray: mild pulmonary edema This is 83 year old male who presented with CHf exacerbation #Acute hypoxic respiratory failure secondary to systolic CHF exacerbation S/p Biventricular ICD placement #CAD #Moderate aortic stenosis #Moderate Aortic regurgitation - EF 55-60% on this admission - has been getting IV lasix 40 mg daily. Chest Xray today showing mild pulmonary edema. Bicarb up to 36, will switch to IV diamox - continue aspirin - he was on 3L NC this am, at baseline on 2L. D/c when weaned back to baseline PRAFUL - continue CPAP at 11 cm Paroxysmal atrial fibrillation - continue eliquis and amiodarone Iron deficiency anemia - continue iron supplementation. Hb stable GERD - continue protonix
[2019-07-22] MEDS: Rosuvastatin 20 MG TAB PO SCH (20:38)
[2019-07-22] MEDS: Ezetimibe 10 MG TAB PO SCH (20:38)
[2019-07-22] MEDS: Ferrous Sulfate 325 MG TAB PO SCH (20:39)
[2019-07-23] MEDS ORDERED: diphenhydrAMINE 25 MG CAP PO PRN (00:34)
[2019-07-23] MEDS ORDERED: Sodium Chloride 0.9% 10 ML ONE (08:08)
[2019-07-23 08:13] LABS: Anion Gap 10 mmol/L (10-20); BUN (Urea Nitrogen) 24 mg/dL (8.4-25.7); Calc. Creatinine Clearance 68 mL/min (70-130); Calcium 9.1 mg/dL (7.8-10.44); Carbon Dioxide 34 mmol/L (23-31); Chloride 97 mmol/L (98-107); Estimated GFR-MDRD 64; Glucose 98 mg/dL (83-110); Potassium 3.7 mmol/L (3.5-5.1); Sodium 137 mmol/L (136-145)
[2019-07-23] MEDS: Apixaban 5 MG TAB PO SCH ×2 (08:33→20:56)
[2019-07-23] MEDS: Aspirin 81 mg Enteric Coated Tablet PO SCH (08:33)
[2019-07-23] MEDS: Multivit, Therapeutic 1 TAB PO SCH (08:34)
[2019-07-23] MEDS: Amiodarone 200 MG TAB PO SCH (08:34)
[2019-07-23] MEDS: Carvedilol 6.25 MG TAB PO SCH ×2 (08:34→18:14)
[2019-07-23] MEDS: acetaZOLAMIDE Sodium 500 mg Vial IVP SCH (08:34)
[2019-07-23] MEDS ORDERED: Potassium Chloride 20 MEQ TAB PO SCH (11:45)
[2019-07-23] MEDS ORDERED: Metolazone 2.5 MG TAB PO SCH ×2 (12:00→13:30)
--- NOTE | 2019-07-23 16:27 | PDOC.HOSPP ---
- Subjective Encounter Date: 07/23/19 Encounter Time: 10:00 Subjective: The patient reports improvement in his breathing. This am he was on room air per nursing staff. Patient denies chest pain. He still has some mild fluid in his legs - Objective Vital Signs & Weight: Vital Signs (12 hours) Temp Pulse Resp BP BP Pulse Ox 07/23/19 15:54 97.5 F L 61 18 113/53 L 98 07/23/19 11:18 97.8 F 65 18 121/57 L 96 07/23/19 08:30 98.3 F 63 18 129/60 95 Weight Weight 203 lb I&O: 07/22/19 07/23/19 07/24/19 06:59 06:59 06:59 Intake Total 720 1750 Output Total 3780 1950 Balance -3060 -200 Result Diagrams: 07/22/19 12:12 07/23/19 07:42 Additional Labs: Accuchecks 07/23/19 07/23/19 07/22/19 10:42 06:02 20:40 POC Glucose 115 H 96 151 H 07/22/19 17:25 POC Glucose 106 Hospitalist ROS - Review of Systems Constitutional: denies: fever, chills - Medication Medications: Active Medications Generic Name Dose Route Start Last Admin Trade Name Freq PRN Reason Stop Dose Admin Acetazolamide Sodium 500 mg 07/23/19 09:00 07/23/19 08:34 Diamox IVP 500 mg DAILY GINA Administration Amiodarone HCl 200 mg 07/20/19 09:00 07/23/19 08:34 Cordarone PO 200 mg DAILY GINA Administration Apixaban 5 mg 07/19/19 21:00 07/23/19 08:33 Eliquis PO 5 mg BID GINA Administration Aspirin 81 mg 07/20/19 09:00 07/23/19 08:33 Ecotrin PO 81 mg DAILY GINA Administration Carvedilol 6.25 mg 07/20/19 08:00 07/23/19 08:34 Coreg PO 6.25 mg BID-WM GINA Administration Ezetimibe 10 mg 07/19/19 21:00 07/22/19 20:38 Zetia PO 10 mg QPM GINA Administration Ferrous Sulfate 325 mg 07/19/19 21:00 07/22/19 20:39 Feosol PO 325 mg HS GINA Administration Multivitamins 1 tab 07/20/19 09:00 07/23/19 08:34 Theragran PO 1 tab DAILY GINA Administration Pantoprazole Sodium 40 mg 07/19/19 21:00 07/22/19 20:39 Protonix PO 40 mg QPM GINA Administration Rosuvastatin Calcium 40 mg 07/19/19 21:00 07/22/19 20:38 Crestor PO 40 mg HS GINA Administration Sacubitril/Valsartan 1 tab 07/20/19 21:00 07/23/19 15:57 Entresto 24 Mg-26 Mg Tablet PO 1 tab TID GINA Administration - Exam General Appearance: NAD, awake alert Eye: PERRL, anicteric sclera ENT: normocephalic atraumatic, no oropharyngeal lesions Neck: no JVD Heart: RRR, no murmur, no gallops, no rubs Respiratory: CTAB, no wheezes, no rales, no ronchi Gastrointestinal: soft, non-tender, non-distended, normal bowel sounds Extremities: 1+ LE edema Skin: normal turgor, no lesions, no rashes Neurological: cranial nerve grossly intact, normal sensation to touch, no focal deficits, no new deficit Hosp A/P - Plan Chest Xray: mild pulmonary edema This is 83 year old male who presented with CHf exacerbation #Acute hypoxic respiratory failure secondary to systolic CHF exacerbation S/p Biventricular ICD placement #CAD #Moderate aortic stenosis #Moderate Aortic regurgitation - EF 55-60% on this admission - has been getting IV lasix 40 mg daily, switched to IV diamox. He received dose of metolazone today by cardiology. - continue aspirin - patient back to baseline o2 requirement. Monitor for one more day Metabolic alkalosis - on diamox. Bicarb has improved to 34 PRAFUL - continue CPAP at 11 cm Paroxysmal atrial fibrillation - continue eliquis and amiodarone Iron deficiency anemia - continue iron supplementation. Hb stable GERD - continue protonix Disposition: possibly d/c in am
[2019-07-23] MEDS: Rosuvastatin 20 MG TAB PO SCH (20:55)
[2019-07-23] MEDS: Ferrous Sulfate 325 MG TAB PO SCH (20:55)
[2019-07-23] MEDS: Ezetimibe 10 MG TAB PO SCH (20:55)
[2019-07-24 04:26] LABS: Mean Corpuscular HGB CONC 31.8 g/dL (32.0-36.0); Mean Corpuscular Hemoglobin 30.4 pg (27.0-31.0); Mean Corpuscular Volume 95.5 fL (78.0-98.0); Mean Platelet Volume 10.1 fL (7.4-10.4); Platelet Count 145 thou/uL (130-400); RBC Distribution Width 11.2 % (11.5-14.5); White Blood Cell (WBC) Count 5.9 thou/uL (4.8-10.8)
[2019-07-24 06:16] LABS: Chloride 102 mmol/L (98-107); Sodium 139 mmol/L (136-145)
[2019-07-24 06:17] LABS: Glucose 104 mg/dL (83-110)
[2019-07-24 06:19] LABS: Anion Gap 10 mmol/L (10-20); Carbon Dioxide 31 mmol/L (23-31)
[2019-07-24 06:21] LABS: BUN (Urea Nitrogen) 29 mg/dL (8.4-25.7); Calc. Creatinine Clearance 56 mL/min (70-130); Estimated GFR-MDRD 52
[2019-07-24] MEDS ORDERED: Heparin 10,000 UNITS/1 ML VIAL ONE (06:41)
[2019-07-24] MEDS: Aspirin 81 mg Enteric Coated Tablet PO SCH (09:03)
[2019-07-24] MEDS: Carvedilol 6.25 MG TAB PO SCH (09:04)
[2019-07-24] MEDS: Apixaban 5 MG TAB PO SCH (09:04)
[2019-07-24] MEDS: Multivit, Therapeutic 1 TAB PO SCH (09:04)
[2019-07-24] MEDS: Amiodarone 200 MG TAB PO SCH (09:04)
[2019-07-24] MEDS: acetaZOLAMIDE Sodium 500 mg Vial IVP SCH (09:04)
[2019-07-24] MEDS ORDERED: Sterile Water 10 ML VIAL FS PRN (09:12)
[2019-07-24 12:31] VITALS: BP 117/59; TEMP 97.3
[2019-07-24] MEDS ORDERED: Furosemide 40 MG TAB PO SCH (14:00)
--- NOTE | 2019-07-24 19:19 | DIS ---
DATE OF ADMISSION: 07/19/2019 DATE OF DISCHARGE: 07/24/2019 DISCHARGE DIAGNOSES: 1. Acute diastolic heart failure. 2. Moderate aortic stenosis. 3. Moderate aortic regurgitation. 4. Metabolic alkalosis. CONSULTATIONS: Cardiology with Dr. Wellington Weber. PROCEDURES: None. BRIEF HISTORY OF PRESENT ILLNESS: This is an 83-year-old male with a past medical history of heart failure, who had presented to the emergency room with shortness of breath on exertion, increasing lower extremity edema. The patient had a chest x -ray on admission, which showed cardiomegaly with pulmonary vascular congestions and small bilateral pleural effusions. He was admitted for further workup. HOSPITAL COURSE: Acute diastolic heart failure exacerbation: The patient was initially treated with IV Lasix 40 mg. He then developed a contraction alkalosis and was switched to IV Diamox. His bicarb improved and came down to 31. He was also given metolazone on 07/22 with resolution of his pulmonary edema. His O2 requirement decreased back from 2 L down to room air. He was discharged with metolazone 2.5 mg weekly p.r.n. He will resume his Lasix on discharge and was advised continuous 2 L fluid restriction. PRAFUL: The patient will continue with CPAP at 11 cm. He was advised to follow up with the sleep doctor and get his machine checked every 3 months and inspected for mold, cleanliness and filter changes. DISCHARGE PHYSICAL EXAMINATION: VITAL SIGNS: Temperature 97.3, heart rate 64, respiratory rate 17, O2 saturation 96% on room air, blood pressure 117/59. GENERAL: The patient is overweight. He is alert, awake, oriented x3. CVS: Systolic murmur at the right second intercostal space. There are no rubs or gallops. LUNGS: Clear to auscultation bilaterally. ABDOMEN: Positive bowel sounds, soft, nontender, nondistended. EXTREMITIES: There is no edema. PERTINENT LABORATORY DATA: CBC on 07/23: Hemoglobin 13.0, hematocrit 41.0. BMP on 07/23: creatinine of 1.33, which is slightly increased from 07/22 with a creatinine of 1.11 at that time. LFTs on 07/18: AST 26, ALT 20, alkaline phosphatase 60. Troponin I: 0.039, 0.041, 0.060. BNP: 590.8. IMAGING DATA: Chest x-ray on 07/18: Shows cardiomegaly, pulmonary vascular congestions, and small bilateral pleural effusions. Chest x-ray on 07/21: Cardiomegaly with mild vascular engorgement. Echo on 07/19: EF 55% to 60%, moderate MR, moderate aortic stenosis, moderate aortic regurgitation. DISCHARGE CONDITION: Stable. ACTIVITY: As tolerated. DIET: 2 L fluid restriction with heart-healthy diet. DISCHARGE MEDICATIONS: New prescriptions: 1. Metolazone 2.5 mg p.o. weekly p.r.n. 2. Entresto 1 tablet p.o. t.i.d. This is an increase from his home med of Entresto 1 tablet b.i.d. All other home medications were resumed. Please refer to discharge worksheet. DISCHARGE INSTRUCTIONS: The patient to follow up with his PCP in a week and Dr. Weber in 2 weeks. He is to get his potassium and his creatinine level repeated in a week. Job ID: [id number] [facility]
== END 2019-07-24 14:55 | disposition home or self-care (01) | DRG 291 ==
LOC: ERS 15:29 → 2NO 18:31
PROVIDERS: ADMIT Internal Medicine; ATTEND Internal Medicine
PROC: 5A09357 Assistance with Respiratory Ventilation, Less than 24 Consecutive Hours, Continuous Positive Airway Pressure (ICD-10-PCS; principal; 2019-07-20)
DX: I13.0 Hypertensive heart and chronic kidney disease with heart failure and stage 1 through stage 4 chronic kidney disease, or unspecified chronic kidney disease (principal); J96.01 Acute respiratory failure with hypoxia; I50.43 Acute on chronic combined systolic (congestive) and diastolic (congestive) heart failure; E87.3 Alkalosis; I35.2 Nonrheumatic aortic (valve) stenosis with insufficiency; G47.33 Obstructive sleep apnea (adult) (pediatric); N18.3 Chronic kidney disease, stage 3 (moderate); J44.9 Chronic obstructive pulmonary disease, unspecified; E11.22 Type 2 diabetes mellitus with diabetic chronic kidney disease; I73.00 Raynaud's syndrome without gangrene; E78.5 Hyperlipidemia, unspecified; E78.00 Pure hypercholesterolemia, unspecified; I48.0 Paroxysmal atrial fibrillation; E66.9 Obesity, unspecified; Z96.652 Presence of left artificial knee joint; D50.9 Iron deficiency anemia, unspecified; K21.9 Gastro-esophageal reflux disease without esophagitis; Z99.81 Dependence on supplemental oxygen; Z95.5 Presence of coronary angioplasty implant and graft; Z90.49 Acquired absence of other specified parts of digestive tract; Z95.810 Presence of automatic (implantable) cardiac defibrillator; Z87.442 Personal history of urinary calculi; I25.2 Old myocardial infarction; Z79.899 Other long term (current) drug therapy; Z79.82 Long term (current) use of aspirin; Z79.01 Long term (current) use of anticoagulants; Z88.0 Allergy status to penicillin; Z88.8 Allergy status to other drugs, medicaments and biological substances; Z91.041 Radiographic dye allergy status; Z68.34 Body mass index [BMI] 34.0-34.9, adult; Z91.018 Allergy to other foods; E87.6 Hypokalemia
CPT/HCPCS: 36415; 36416; 71045; 80048; 80053; 82553; 83735; 83880; 84484; 85025; 85027; 85610; 85730; 93005; 93306; 94150; 94660; 96374; J1120; J1644; J1940; Q0163

== ENCOUNTER 2020-10-30 15:24 | Emergency (ER) | payer MEDICARE, OTHER ==
[2020-10-30 16:06] LABS: #Eosinphils 0.3 thou/uL (0.0-0.7); #Lymphocytes 1.5 thou/uL (1.20-3.40); #Monocytes 0.4 thou/uL (0.11-0.59); #Neutrophils 3.6 thou/uL (1.40-6.50); %Basophils 0.3 % (0.0-1.0); %Eosinophils 5.4 % (0.0-10.0); %Lymphocytes 25.5 % (21.0-51.0); %Monocytes 7.4 % (0.0-10.0); %Neutrophils 61.3 % (42.0-75.0); Hemoglobin 12.3 g/dL (14.0-18.0); Mean Corpuscular HGB CONC 32.6 g/dL (32.0-36.0); Mean Corpuscular Hemoglobin 30.1 pg (27.0-31.0); Mean Corpuscular Volume 92.3 fL (78.0-98.0); Mean Platelet Volume 9.8 fL (7.4-10.4); Platelet Count 134 thou/uL (130-400); RBC Distribution Width 11.9 % (11.5-14.5); Red Blood Cell (RBC) Count 4.08 mill/uL (4.70-6.10); White Blood Cell (WBC) Count 5.9 thou/uL (4.8-10.8)
[2020-10-30 16:15] LABS: INR-International Normal Ratio 1.8; Prothrombin Time 20.9 sec (12.0-14.7)
[2020-10-30 16:16] LABS: PTT 36.8 sec (22.9-36.1)
[2020-10-30 16:26] LABS: ALT (SGPT) 57 U/L (8-55); AST (SGOT) 58 U/L (5-34); Albumin 3.6 g/dL (3.4-4.8); Alkaline Phosphatase 60 U/L (40-110); Anion Gap 12 mmol/L (10-20); BUN (Urea Nitrogen) 31 mg/dL (8.4-25.7); Bilirubin, Total 0.8 mg/dL (0.2-1.2); Calc. Creatinine Clearance 0 mL/min (70-130); Calcium 8.8 mg/dL (7.8-10.44); Carbon Dioxide 30 mmol/L (23-31); Chloride 104 mmol/L (98-107); Globulin 2.8 g/dL (2.4-3.5); Glucose 93 mg/dL (83-110); Potassium 3.2 mmol/L (3.5-5.1); Protein, Total 6.4 g/dL (5.8-8.1); Sodium 143 mmol/L (136-145)
[2020-10-30 17:37] LABS: Bilirubin Negative (Negative); Blood, Urine Negative (Negative); Clarity Clear (Clear); Glucose, Urine (Dipstick) Normal (Negative); Ketone, Urine Negative (Negative); Leukocyte Negative Leu/uL (Negative); Nitrite Negative (Negative); Protein, Urine (Dipstick) Negative (Neg-Trace); Specific Gravity, Urine 1.009 (1.002-1.036); Urobilinogen Normal mg/dL (Less than 2); pH, Urine 5.5 (5.0-9.0)
== END 2020-10-30 18:02 | disposition home or self-care (01) ==
LOC: ERS 15:24
DX: R19.5 Other fecal abnormalities (principal); D64.9 Anemia, unspecified; E11.9 Type 2 diabetes mellitus without complications; I10 Essential (primary) hypertension; E78.5 Hyperlipidemia, unspecified
CPT/HCPCS: 36415; 80053; 81003; 83690; 85025; 85610; 85730; 86850; 86900; 86901; 99284

== ENCOUNTER 2020-11-07 11:33 | Outpatient (CLI) | payer MEDICARE, OTHER ==
[2020-11-07 13:03] LABS: Hemoglobin 11.7 g/dL (13.5-17.5); Mean Corpuscular HGB CONC 32.7 g/dL (32.0-36.0); Mean Corpuscular Hemoglobin 29.9 pg (27.0-33.0); Mean Corpuscular Volume 91.6 fl (81.2-95.1); Mean Platelet Volume 12.3 fl (7.4-10.4); Platelet Count 152 10x3/uL (150-450); Red Blood Cell (RBC) Count 3.91 10x6/uL (4.32-5.72); White Blood Cell (WBC) Count 5.4 10x3/uL (3.5-10.5)
[2020-11-07 13:24] LABS: INR-International Normal Ratio 1.3; PTT 31.6 sec (22.0-33.0); Prothrombin Time 14.6 sec (9.5-12.1)
[2020-11-07 13:29] LABS: Anion Gap 14 mmol/L (10-20); BUN (Urea Nitrogen) 31 mg/dL (8.4-25.7); Calc. Creatinine Clearance 0 mL/min (70-130); Calcium 9.3 mg/dL (7.8-10.44); Carbon Dioxide 30 mmol/L (23-31); Chloride 103 mmol/L (98-107); Glucose 108 mg/dL (83-110); Sodium 144 mmol/L (136-145)
[2020-11-07 13:38] LABS: Potassium 2.8 mmol/L (3.5-5.1)
[2020-11-07 13:58] LABS: SARS-CoV-2 NAA Rapid Test Not Detected (NotDetected)
== END 2020-11-07 11:34 | disposition home or self-care (01) ==
LOC: LABBT 11:33
PROVIDERS: ATTEND Internal Medicine Cardiovascular Disease
DX: Z01.812 Encounter for preprocedural laboratory examination (principal); Z20.822 Contact with and (suspected) exposure to COVID-19
CPT/HCPCS: 80048; 85027; 85610; 85730; U0002

== ENCOUNTER 2020-11-08 09:37 | Day surgery (SDC) | payer MEDICARE, OTHER ==
[2020-11-07 12:41] VITALS: BMI 31.9
[2020-11-08] MEDS ORDERED: PROPOFOL 200 MG/20 ML VIAL ONE (12:39)
[2020-11-08] MEDS ORDERED: Potassium Chloride 20 MEQ TAB PO SCH (14:15)
== END 2020-11-08 14:40 | disposition home or self-care (01) ==
LOC: CCL 09:37
PROVIDERS: ATTEND Internal Medicine Cardiovascular Disease
PROC: B24BZZ4 Ultrasonography of Heart with Aorta, Transesophageal (ICD-10-PCS; principal; 2020-11-08)
PROC: 5A2204Z Restoration of Cardiac Rhythm, Single (ICD-10-PCS; 2020-11-08)
DX: I48.19 Other persistent atrial fibrillation (principal); I49.3 Ventricular premature depolarization; I11.0 Hypertensive heart disease with heart failure; I50.22 Chronic systolic (congestive) heart failure; I42.8 Other cardiomyopathies; I47.2 Ventricular tachycardia; I08.3 Combined rheumatic disorders of mitral, aortic and tricuspid valves; E78.5 Hyperlipidemia, unspecified; G47.33 Obstructive sleep apnea (adult) (pediatric); Z95.810 Presence of automatic (implantable) cardiac defibrillator; Z88.1 Allergy status to other antibiotic agents; Z88.0 Allergy status to penicillin; Z88.2 Allergy status to sulfonamides; Z91.018 Allergy to other foods
CPT/HCPCS: 92960; 93312; J2704

== ENCOUNTER 2020-11-18 16:07 | Emergency (ER) | payer MEDICARE, OTHER ==
[2020-11-18 16:45] LABS: #Basophils 0.1 thou/uL (0.0-0.2); #Eosinphils 0.1 thou/uL (0.0-0.7); #Lymphocytes 1.4 thou/uL (1.20-3.40); #Monocytes 0.6 thou/uL (0.11-0.59); %Basophils 2.2 % (0.0-1.0); %Eosinophils 2.4 % (0.0-10.0); %Lymphocytes 22.1 % (21.0-51.0); %Monocytes 9.1 % (0.0-10.0); %Neutrophils 64.3 % (42.0-75.0); Hemoglobin 12.2 g/dL (14.0-18.0); Mean Corpuscular HGB CONC 33.2 g/dL (32.0-36.0); Mean Corpuscular Hemoglobin 31.2 pg (27.0-31.0); Mean Corpuscular Volume 93.8 fL (78.0-98.0); Mean Platelet Volume 9.4 fL (7.4-10.4); Platelet Count 161 thou/uL (130-400); White Blood Cell (WBC) Count 6.2 thou/uL (4.8-10.8)
[2020-11-18 17:08] LABS: ALT (SGPT) 41 U/L (8-55); AST (SGOT) 41 U/L (5-34); Albumin 3.5 g/dL (3.4-4.8); Alkaline Phosphatase 61 U/L (40-110); Anion Gap 13 mmol/L (10-20); BUN (Urea Nitrogen) 26 mg/dL (8.4-25.7); Bilirubin, Total 0.7 mg/dL (0.2-1.2); Calc. Creatinine Clearance 0 mL/min (70-130); Calcium 8.4 mg/dL (7.8-10.44); Carbon Dioxide 30 mmol/L (23-31); Chloride 106 mmol/L (98-107); Globulin 2.8 g/dL (2.4-3.5); Glucose 139 mg/dL (83-110); Potassium 3.1 mmol/L (3.5-5.1); Protein, Total 6.3 g/dL (5.8-8.1); Sodium 146 mmol/L (136-145)
[2020-11-18] MEDS ORDERED: Potassium Chloride 20 MEQ TAB ONE (21:47)
== END 2020-11-18 22:08 | disposition home or self-care (01) ==
LOC: ERS 16:07
DX: R60.0 Localized edema (principal); E11.9 Type 2 diabetes mellitus without complications; I10 Essential (primary) hypertension; G47.30 Sleep apnea, unspecified; I48.91 Unspecified atrial fibrillation; E78.5 Hyperlipidemia, unspecified; E78.00 Pure hypercholesterolemia, unspecified; J44.9 Chronic obstructive pulmonary disease, unspecified; Z79.01 Long term (current) use of anticoagulants; Z79.899 Other long term (current) drug therapy
CPT/HCPCS: 36415; 71045; 80053; 83880; 84484; 85025; 93005

== ENCOUNTER 2020-12-13 12:29 | Outpatient (CLI) | payer MEDICARE, OTHER ==
[2020-12-14 00:36] LABS: SARS-CoV-2 PCR by NAA Not Detected (NotDetected)
== END 2020-12-13 12:30 | disposition home or self-care (01) ==
LOC: LABBT 12:29
PROVIDERS: ATTEND Internal Medicine Gastroenterology
DX: Z01.812 Encounter for preprocedural laboratory examination (principal); Z20.822 Contact with and (suspected) exposure to COVID-19
CPT/HCPCS: U0003; U0005

== ENCOUNTER 2020-12-18 05:55 | Day surgery (SDC) | payer MEDICARE, OTHER ==
[2020-12-18] MEDS ORDERED: Ketamine 50 MG/ML (10ML VIAL) ONE (08:17)
[2020-12-18] MEDS ORDERED: Lidocaine-Prilocaine 2.5% Cream 5 GM TUBE ONE (08:29)
[2020-12-18] MEDS ORDERED: PROPOFOL 200 MG/20 ML VIAL ONE (08:33)
== END 2020-12-18 10:10 | disposition home or self-care (01) ==
LOC: SDC 05:55
PROVIDERS: ATTEND Internal Medicine Gastroenterology
PROC: 0DJ08ZZ Inspection of Upper Intestinal Tract, Via Natural or Artificial Opening Endoscopic (ICD-10-PCS; principal; 2020-12-18)
PROC: 0DBL8ZX Excision of Transverse Colon, Via Natural or Artificial Opening Endoscopic, Diagnostic (ICD-10-PCS; 2020-12-18)
DX: K63.5 Polyp of colon (principal); K64.0 First degree hemorrhoids; K92.2 Gastrointestinal hemorrhage, unspecified; K21.9 Gastro-esophageal reflux disease without esophagitis; E78.5 Hyperlipidemia, unspecified; I25.10 Atherosclerotic heart disease of native coronary artery without angina pectoris; I48.91 Unspecified atrial fibrillation; I11.0 Hypertensive heart disease with heart failure; I50.9 Heart failure, unspecified; Z79.899 Other long term (current) drug therapy; Z88.0 Allergy status to penicillin; Z88.1 Allergy status to other antibiotic agents; Z88.2 Allergy status to sulfonamides; Z88.8 Allergy status to other drugs, medicaments and biological substances; Z91.018 Allergy to other foods; Z95.5 Presence of coronary angioplasty implant and graft
CPT/HCPCS: 88305; J2704

== ENCOUNTER 2021-01-14 08:56 | Outpatient (CLI) | payer MEDICARE, OTHER ==
[2021-01-14] MEDS ORDERED: Iopamidol-370 76% 500 ML 1 ML ONE (10:11)
== END 2021-01-14 08:57 | disposition home or self-care (01) ==
LOC: BICCT 08:56
PROVIDERS: ATTEND Nurse Practitioner Family
DX: Z45.9 Encounter for adjustment and management of unspecified implanted device (principal); Z23 Encounter for immunization; I11.0 Hypertensive heart disease with heart failure; I50.43 Acute on chronic combined systolic (congestive) and diastolic (congestive) heart failure; I25.10 Atherosclerotic heart disease of native coronary artery without angina pectoris; E78.5 Hyperlipidemia, unspecified; R10.30 Lower abdominal pain, unspecified; I25.5 Ischemic cardiomyopathy; E11.65 Type 2 diabetes mellitus with hyperglycemia; J44.9 Chronic obstructive pulmonary disease, unspecified; K21.9 Gastro-esophageal reflux disease without esophagitis; H91.93 Unspecified hearing loss, bilateral; K02.9 Dental caries, unspecified; I48.0 Paroxysmal atrial fibrillation; I49.9 Cardiac arrhythmia, unspecified
CPT/HCPCS: 74177; Q9967

== ENCOUNTER 2021-03-02 08:27 | Emergency (ER) | payer MEDICARE, OTHER ==
[2021-03-02 09:00] LABS: #Eosinphils 0.2 thou/uL (0.0-0.7); #Lymphocytes 1.2 thou/uL (1.20-3.40); #Monocytes 0.4 thou/uL (0.11-0.59); #Neutrophils 3.1 thou/uL (1.40-6.50); %Eosinophils 4.2 % (0.0-10.0); %Lymphocytes 24.2 % (21.0-51.0); %Monocytes 7.3 % (0.0-10.0); %Neutrophils 63.5 % (42.0-75.0); Hemoglobin 13.9 g/dL (14.0-18.0); Mean Corpuscular HGB CONC 33.1 g/dL (32.0-36.0); Mean Corpuscular Hemoglobin 30.6 pg (27.0-31.0); Mean Corpuscular Volume 92.3 fL (78.0-98.0); Mean Platelet Volume 9.4 fL (7.4-10.4); Platelet Count 125 thou/uL (130-400); RBC Distribution Width 12.1 % (11.5-14.5); Red Blood Cell (RBC) Count 4.53 mill/uL (4.70-6.10); White Blood Cell (WBC) Count 4.9 thou/uL (4.8-10.8)
[2021-03-02 09:21] LABS: ALT (SGPT) 29 U/L (8-55); AST (SGOT) 33 U/L (5-34); Albumin 3.8 g/dL (3.4-4.8); Alkaline Phosphatase 51 U/L (40-110); Anion Gap 11 mmol/L (10-20); BUN (Urea Nitrogen) 37 mg/dL (8.4-25.7); Bilirubin, Total 0.8 mg/dL (0.2-1.2); Calc. Creatinine Clearance 0 mL/min (70-130); Carbon Dioxide 33 mmol/L (23-31); Chloride 97 mmol/L (98-107); Globulin 3.5 g/dL (2.4-3.5); Glucose 121 mg/dL (83-110); Lipase 21 U/L (8-78); Potassium 3.8 mmol/L (3.5-5.1); Protein, Total 7.3 g/dL (5.8-8.1); Sodium 137 mmol/L (136-145)
[2021-03-02 11:16] LABS: Bilirubin Negative (Negative); Blood, Urine Negative (Negative); Clarity Clear (Clear); Glucose, Urine (Dipstick) Normal (Negative); Ketone, Urine Negative (Negative); Leukocyte Negative Leu/uL (Negative); Nitrite Negative (Negative); Protein, Urine (Dipstick) Negative (Neg-Trace); Specific Gravity, Urine 1.009 (1.002-1.036); Urobilinogen Normal mg/dL (Less than 2)
== END 2021-03-02 13:41 | disposition home or self-care (01) ==
LOC: ERS 08:27
DX: R10.9 Unspecified abdominal pain (principal); E11.9 Type 2 diabetes mellitus without complications; I10 Essential (primary) hypertension; I48.91 Unspecified atrial fibrillation; E78.5 Hyperlipidemia, unspecified; E78.00 Pure hypercholesterolemia, unspecified; J44.9 Chronic obstructive pulmonary disease, unspecified; Z79.01 Long term (current) use of anticoagulants; Z79.899 Other long term (current) drug therapy
CPT/HCPCS: 36415; 74177; 80053; 81003; 83690; 84484; 85025; 93005

== ENCOUNTER 2021-04-18 13:07 | Outpatient (CLI) | payer MEDICARE, OTHER ==
[2021-04-18 15:02] LABS: Hemoglobin 11.6 g/dL (13.5-17.5); Mean Corpuscular HGB CONC 31.9 g/dL (32.0-36.0); Mean Corpuscular Hemoglobin 30.1 pg (27.0-33.0); Mean Corpuscular Volume 94.3 fl (81.2-95.1); Mean Platelet Volume 12.4 fl (7.4-10.4); Platelet Count 142 10x3/uL (150-450); RBC Distribution Width 13.1 % (11.5-14.5); Red Blood Cell (RBC) Count 3.86 10x6/uL (4.32-5.72); White Blood Cell (WBC) Count 4.7 10x3/uL (3.5-10.5)
[2021-04-18 15:22] LABS: INR-International Normal Ratio 1.3; PTT 32.2 sec (22.0-33.0)
[2021-04-18 15:27] LABS: Anion Gap 14 mmol/L (10-20); BUN (Urea Nitrogen) 27 mg/dL (8.4-25.7); Calc. Creatinine Clearance 0 mL/min (70-130); Calcium 8.8 mg/dL (7.8-10.44); Carbon Dioxide 29 mmol/L (23-31); Chloride 103 mmol/L (98-107); Glucose 104 mg/dL (83-110); Potassium 3.8 mmol/L (3.5-5.1); Sodium 142 mmol/L (136-145)
[2021-04-19 18:15] LABS: SARS-CoV-2 PCR by NAA DETECTED (NotDetected)
== END 2021-04-18 13:08 | disposition home or self-care (01) ==
LOC: LABBT 13:07
PROVIDERS: ATTEND Internal Medicine Cardiovascular Disease
DX: U07.1 COVID-19 (principal); Z01.812 Encounter for preprocedural laboratory examination; I48.0 Paroxysmal atrial fibrillation
CPT/HCPCS: 80048; 85027; 85610; 85730; U0003; U0005

== ENCOUNTER 2021-06-08 14:45 | Emergency (ER) | payer MEDICARE, OTHER ==
[2021-06-08 15:33] LABS: #Eosinphils 0.2 thou/uL (0.0-0.7); #Lymphocytes 1.5 thou/uL (1.20-3.40); #Monocytes 0.4 thou/uL (0.11-0.59); %Basophils 0.5 % (0.0-1.0); %Lymphocytes 29.2 % (21.0-51.0); %Monocytes 7.9 % (0.0-10.0); %Neutrophils 58.5 % (42.0-75.0); Hemoglobin 12.3 g/dL (14.0-18.0); Mean Corpuscular HGB CONC 33.5 g/dL (32.0-36.0); Mean Corpuscular Hemoglobin 31.7 pg (27.0-31.0); Mean Corpuscular Volume 94.6 fL (78.0-98.0); Mean Platelet Volume 8.6 fL (7.4-10.4); Platelet Count 135 thou/uL (130-400); RBC Distribution Width 11.7 % (11.5-14.5); Red Blood Cell (RBC) Count 3.89 mill/uL (4.70-6.10); White Blood Cell (WBC) Count 5.1 thou/uL (4.8-10.8)
[2021-06-08 15:57] LABS: ALT (SGPT) 22 U/L (8-55); AST (SGOT) 24 U/L (5-34); Albumin 3.5 g/dL (3.4-4.8); Alkaline Phosphatase 44 U/L (40-110); Anion Gap 11 mmol/L (10-20); BUN (Urea Nitrogen) 26 mg/dL (8.4-25.7); Bilirubin, Total 0.6 mg/dL (0.2-1.2); Calc. Creatinine Clearance 0 mL/min (70-130); Carbon Dioxide 29 mmol/L (23-31); Chloride 103 mmol/L (98-107); Globulin 2.9 g/dL (2.4-3.5); Glucose 116 mg/dL (83-110); Potassium 3.9 mmol/L (3.5-5.1); Protein, Total 6.4 g/dL (5.8-8.1); Sodium 139 mmol/L (136-145)
[2021-06-08] MEDS ORDERED: Furosemide 40 MG/4 ML VIAL ONE (16:26)
== END 2021-06-08 17:00 | disposition home or self-care (01) ==
LOC: ERS 14:45
DX: I50.9 Heart failure, unspecified (principal); I11.0 Hypertensive heart disease with heart failure; E11.9 Type 2 diabetes mellitus without complications; G47.30 Sleep apnea, unspecified; I48.91 Unspecified atrial fibrillation; E78.2 Mixed hyperlipidemia; J44.9 Chronic obstructive pulmonary disease, unspecified; Z79.899 Other long term (current) drug therapy; Z79.01 Long term (current) use of anticoagulants
CPT/HCPCS: 36415; 71045; 80053; 83880; 84484; 85025; 96372; J1940

== ENCOUNTER 2021-09-10 12:19 | Outpatient (CLI) | payer MEDICARE ==
[2021-09-10 15:03] LABS: Hemoglobin 12.6 g/dL (13.5-17.5); Mean Corpuscular HGB CONC 33.4 g/dL (32.0-36.0); Mean Corpuscular Hemoglobin 30.6 pg (27.0-33.0); Mean Corpuscular Volume 91.5 fl (81.2-95.1); Mean Platelet Volume 11.7 fl (7.4-10.4); Platelet Count 167 10x3/uL (150-450); RBC Distribution Width 12.3 % (11.5-14.5); Red Blood Cell (RBC) Count 4.12 10x6/uL (4.32-5.72); White Blood Cell (WBC) Count 5.7 10x3/uL (3.5-10.5)
[2021-09-10 15:28] LABS: Anion Gap 12 mmol/L (10-20); BUN (Urea Nitrogen) 46 mg/dL (8.4-25.7); Calc. Creatinine Clearance 0 mL/min (70-130); Calcium 9.2 mg/dL (7.8-10.44); Carbon Dioxide 29 mmol/L (23-31); Chloride 100 mmol/L (98-107); Estimated GFR 48; Glucose 109 mg/dL (83-110); Potassium 3.8 mmol/L (3.5-5.1); Sodium 137 mmol/L (136-145)
[2021-09-10 15:44] LABS: INR-International Normal Ratio 1.2; Prothrombin Time 13.4 sec (9.5-12.1)
== END 2021-09-10 12:20 | disposition home or self-care (01) ==
LOC: LABBT 12:19
PROVIDERS: ATTEND Internal Medicine Cardiovascular Disease
DX: Z01.818 Encounter for other preprocedural examination (principal); I47.2 Ventricular tachycardia; Z20.822 Contact with and (suspected) exposure to COVID-19
CPT/HCPCS: 80048; 85027; 85610; 85730; 87811; 93005; 93010

== ENCOUNTER 2021-09-15 07:30 | Day surgery (SDC) | payer MEDICARE ==
[2021-09-11 11:47] VITALS: BMI 26.6
[2021-09-15] MEDS ORDERED: Lidocaine 1% (PF) 30 ML VIAL ONE (10:06)
[2021-09-15] MEDS ORDERED: DOPamine 400 MG/D5W 250 ML 250 ML ONE (10:13)
[2021-09-15] MEDS ORDERED: Propofol 500 MG/50 ML VIAL ONE ×2 (10:53→12:50)
[2021-09-15] MEDS ORDERED: Fentanyl 100 MCG/2 ML VIAL ONE (10:53)
[2021-09-15] MEDS ORDERED: Lidocaine 1% PF 5 ML VIAL ONE (11:39)
[2021-09-15] MEDS ORDERED: Phenylephrine 10 MG/ML VIAL ONE (11:39)
[2021-09-15] MEDS ORDERED: PROPOFOL 200 MG/20 ML VIAL ONE (11:39)
== END 2021-09-15 16:34 | disposition home or self-care (01) ==
LOC: SDC 07:30
PROVIDERS: ATTEND Internal Medicine Cardiovascular Disease
PROC: 02583ZZ Destruction of Conduction Mechanism, Percutaneous Approach (ICD-10-PCS; principal; 2021-09-15)
PROC: 02K83ZZ Map Conduction Mechanism, Percutaneous Approach (ICD-10-PCS; 2021-09-15)
DX: I47.2 Ventricular tachycardia (principal); I48.19 Other persistent atrial fibrillation; I25.10 Atherosclerotic heart disease of native coronary artery without angina pectoris; E11.9 Type 2 diabetes mellitus without complications; I11.0 Hypertensive heart disease with heart failure; I50.22 Chronic systolic (congestive) heart failure; I25.5 Ischemic cardiomyopathy; I49.5 Sick sinus syndrome; E78.00 Pure hypercholesterolemia, unspecified; G47.33 Obstructive sleep apnea (adult) (pediatric); I08.3 Combined rheumatic disorders of mitral, aortic and tricuspid valves; Z79.01 Long term (current) use of anticoagulants; Z79.899 Other long term (current) drug therapy; Z88.0 Allergy status to penicillin; Z88.1 Allergy status to other antibiotic agents; Z88.2 Allergy status to sulfonamides; Z88.8 Allergy status to other drugs, medicaments and biological substances; Z91.018 Allergy to other foods; Z95.5 Presence of coronary angioplasty implant and graft; Z95.810 Presence of automatic (implantable) cardiac defibrillator
CPT/HCPCS: 93005; 93623; 93650; C1769; J1265; J2001; J2370; J2704; J3010

== ENCOUNTER 2022-07-18 20:23 | Inpatient (IN) | payer MEDICARE ==
[2022-07-18 21:37] LABS: #Eosinphils 0.1 thou/uL (0.0-0.7); #Monocytes 0.5 thou/uL (0.11-0.59); #Neutrophils 3.7 thou/uL (1.40-6.50); %Basophils 0.4 % (0.0-1.0); %Eosinophils 1.6 % (0.0-10.0); %Lymphocytes 21.8 % (21.0-51.0); %Neutrophils 66.8 % (42.0-75.0); Hemoglobin 12.8 g/dL (14.0-18.0); Mean Corpuscular HGB CONC 32.5 g/dL (32.0-36.0); Mean Corpuscular Hemoglobin 29.6 pg (27.0-31.0); Mean Corpuscular Volume 91.2 fl (78.0-98.0); Platelet Count 194 10x3/uL (130-400); RBC Distribution Width 12.3 % (11.5-14.5); Red Blood Cell (RBC) Count 4.32 mill/uL (4.70-6.10); White Blood Cell (WBC) Count 5.6 10x3/uL (4.8-10.8)
[2022-07-18 22:00] LABS: ALT (SGPT) 60 U/L (8-55); AST (SGOT) 65 U/L (5-34); Albumin 3.3 g/dL (3.4-4.8); Alkaline Phosphatase 59 U/L (40-110); Anion Gap 14 mmol/L (10-20); BUN (Urea Nitrogen) 41 mg/dL (8.4-25.7); Bilirubin, Total 0.6 mg/dL (0.2-1.2); Calc. Creatinine Clearance 0 mL/min (70-130); Calcium 9.2 mg/dL (7.8-10.44); Carbon Dioxide 27 mmol/L (23-31); Chloride 100 mmol/L (98-107); Estimated GFR 52; Globulin 3.3 g/dL (2.4-3.5); Glucose 96 mg/dL (83-110); Potassium 3.7 mmol/L (3.5-5.1); Protein, Total 6.6 g/dL (5.8-8.1); Sodium 137 mmol/L (136-145)
[2022-07-19] MEDS ORDERED: Acetaminophen 650 MG Suppository PR PRN (00:06)
[2022-07-19] MEDS ORDERED: Acetaminophen 325 MG TAB PO PRN (00:06)
[2022-07-19] MEDS ORDERED: Ondansetron ODT 4 MG TAB PO PRN (00:06)
[2022-07-19] MEDS ORDERED: Ondansetron PF 4 MG/2 ML Vial IVP PRN (00:06)
[2022-07-19 00:27] LABS: Troponin I 0.027 ng/mL (< 0.028)
[2022-07-19] MEDS ORDERED: Mag-Al 1200 mg/1200 mg/30 ML UDCUP PO PRN (02:25)
[2022-07-19] MEDS ORDERED: Electrolyte Replacement Protocol 1 EACH FS SCH (02:30)
[2022-07-19] MEDS: traMADol HCl 50 MG TAB PO PRN (02:52)
[2022-07-19] MEDS ORDERED: Ipratropium/Albuterol 3 ML NEB NEB PRN (04:01)
[2022-07-19 04:10] LABS: #Eosinphils 0.1 thou/uL (0.0-0.7); #Monocytes 0.5 thou/uL (0.11-0.59); #Neutrophils 4.6 thou/uL (1.40-6.50); %Basophils 0.1 % (0.0-1.0); %Eosinophils 1.8 % (0.0-10.0); %Lymphocytes 23.8 % (21.0-51.0); %Monocytes 7.4 % (0.0-10.0); %Neutrophils 66.6 % (42.0-75.0); Hemoglobin 12.7 g/dL (14.0-18.0); Mean Corpuscular HGB CONC 32.2 g/dL (32.0-36.0); Mean Corpuscular Hemoglobin 29.5 pg (27.0-31.0); Mean Corpuscular Volume 91.4 fl (78.0-98.0); Mean Platelet Volume 11.1 fL (7.4-10.4); Platelet Count 206 10x3/uL (130-400); RBC Distribution Width 12.3 % (11.5-14.5); Red Blood Cell (RBC) Count 4.31 mill/uL (4.70-6.10); White Blood Cell (WBC) Count 6.9 10x3/uL (4.8-10.8)
[2022-07-19 04:23] LABS: Phosphorus 3.2 mg/dL (2.3-4.7)
[2022-07-19 04:27] LABS: Anion Gap 12 mmol/L (10-20); BUN (Urea Nitrogen) 39 mg/dL (8.4-25.7); Calc. Creatinine Clearance 39 mL/min (70-130); Carbon Dioxide 28 mmol/L (23-31); Chloride 99 mmol/L (98-107); Estimated GFR 56; Glucose 212 mg/dL (83-110); Potassium 3.1 mmol/L (3.5-5.1); Sodium 136 mmol/L (136-145)
[2022-07-19] MEDS ORDERED: Sodium Chloride 0.9% 250 ML 250 ML IVPB SCH (05:30)
[2022-07-19] MEDS ORDERED: Midodrine HCl 5 MG TAB PO SCH ×2 (05:30→09:45)
[2022-07-19] MEDS ORDERED: NOREPINEPHRINE 8 MG/250 ML-D5W 250 ML IVPB SCH (06:15)
[2022-07-19] MEDS ORDERED: Potassium Chloride 20 MEQ TAB PO SCH (08:00)
[2022-07-19] MEDS ORDERED: Magnesium 2 GM/50 ML(in water) 2 GM in Premix Bag 1 BAG IVPB SCH (08:00)
[2022-07-19] MEDS: Apixaban 5 MG TAB PO SCH ×2 (08:19→20:25)
[2022-07-19] MEDS: Famotidine/PF 20 mg/2ml Vial SLOW IVP SCH (08:53)
[2022-07-19] MEDS ORDERED: Non-Formulary Item 1 EACH (Docusate Sodium [Stool Softener] 100 MG Tablet) PO SCH (09:00)
[2022-07-19] MEDS ORDERED: Iopamidol-370 76% 500 ML MDV (1 ML CHARGE) ONE (09:44)
[2022-07-19] MEDS: Docusate 100 MG CAP PO SCH (11:03)
[2022-07-19] MEDS: Donepezil HCl 5 MG TAB PO SCH (11:04)
[2022-07-19] MEDS: Ezetimibe 10 MG TAB PO SCH (11:04)
[2022-07-19 11:42] LABS: ALT (SGPT) 59 U/L (8-55); AST (SGOT) 61 U/L (5-34); Albumin 3.2 g/dL (3.4-4.8); Alkaline Phosphatase 59 U/L (40-110); Bilirubin, Direct 0.3 mg/dL (0.1-0.3); Bilirubin, Total 0.7 mg/dL (0.2-1.2); Protein, Total 6.7 g/dL (5.8-8.1)
[2022-07-19] MEDS: Midodrine HCl 5 MG TAB PO SCH ×2 (16:20→20:25)
[2022-07-19] MEDS: Rosuvastatin 20 MG TAB PO SCH (20:25)
[2022-07-19] MEDS: Calcitriol 0.25 MCG CAP PO SCH (20:25)
[2022-07-19] MEDS ORDERED: Non-Formulary Item 1 EACH (Rosuvastatin Calcium [Crestor] 40 MG Tablet) PO SCH (21:00)
[2022-07-20 06:24] LABS: #Eosinphils 0.2 thou/uL (0.0-0.7); #Monocytes 0.6 thou/uL (0.11-0.59); #Neutrophils 4.8 thou/uL (1.40-6.50); %Basophils 0.3 % (0.0-1.0); %Eosinophils 2.4 % (0.0-10.0); %Lymphocytes 23.6 % (21.0-51.0); %Monocytes 8.7 % (0.0-10.0); %Neutrophils 64.6 % (42.0-75.0); Hemoglobin 13.1 g/dL (14.0-18.0); Mean Corpuscular HGB CONC 32.8 g/dL (32.0-36.0); Mean Corpuscular Hemoglobin 30.3 pg (27.0-31.0); Mean Corpuscular Volume 92.6 fl (78.0-98.0); Mean Platelet Volume 11.1 fL (7.4-10.4); Platelet Count 206 10x3/uL (130-400); RBC Distribution Width 12.2 % (11.5-14.5); Red Blood Cell (RBC) Count 4.32 mill/uL (4.70-6.10); White Blood Cell (WBC) Count 7.4 10x3/uL (4.8-10.8)
[2022-07-20 06:46] LABS: Anion Gap 12 mmol/L (10-20); BUN (Urea Nitrogen) 31 mg/dL (8.4-25.7); Calc. Creatinine Clearance 51 mL/min (70-130); Calcium 9.1 mg/dL (7.8-10.44); Carbon Dioxide 30 mmol/L (23-31); Chloride 98 mmol/L (98-107); Estimated GFR 70; Glucose 100 mg/dL (83-110); Potassium 3.6 mmol/L (3.5-5.1); Sodium 136 mmol/L (136-145)
[2022-07-20] MEDS: Midodrine HCl 5 MG TAB PO SCH ×3 (09:09→21:18)
[2022-07-20] MEDS: Docusate 100 MG CAP PO SCH (09:09)
[2022-07-20] MEDS: Donepezil HCl 5 MG TAB PO SCH (09:10)
[2022-07-20] MEDS: Ezetimibe 10 MG TAB PO SCH (09:10)
[2022-07-20] MEDS: Apixaban 5 MG TAB PO SCH ×2 (09:10→21:18)
[2022-07-20] MEDS: Famotidine/PF 20 mg/2ml Vial SLOW IVP SCH (09:13)
[2022-07-20] MEDS: Famotidine 20 MG TAB PO SCH (10:18)
[2022-07-20] MEDS: Calcitriol 0.25 MCG CAP PO SCH (21:18)
[2022-07-20] MEDS: Rosuvastatin 20 MG TAB PO SCH (21:18)
[2022-07-21] MEDS: Docusate 100 MG CAP PO SCH (09:31)
[2022-07-21] MEDS: Apixaban 5 MG TAB PO SCH ×2 (09:31→21:12)
[2022-07-21] MEDS: Ezetimibe 10 MG TAB PO SCH (09:32)
[2022-07-21] MEDS: Donepezil HCl 5 MG TAB PO SCH (09:32)
[2022-07-21] MEDS: Famotidine 20 MG TAB PO SCH (09:33)
[2022-07-21] MEDS: Midodrine HCl 5 MG TAB PO SCH ×3 (09:33→21:12)
[2022-07-21] MEDS ORDERED: Digoxin 0.125 MG TAB PO SCH (16:00)
[2022-07-21] MEDS: Rosuvastatin 20 MG TAB PO SCH (21:12)
[2022-07-21] MEDS: Calcitriol 0.25 MCG CAP PO SCH (21:12)
[2022-07-22 05:09] LABS: Hemoglobin 13.1 g/dL (14.0-18.0); Mean Corpuscular HGB CONC 34.2 g/dL (32.0-36.0); Mean Corpuscular Hemoglobin 30.8 pg (27.0-31.0); Mean Corpuscular Volume 89.9 fl (78.0-98.0); Mean Platelet Volume 11.4 fL (7.4-10.4); Platelet Count 192 10x3/uL (130-400); RBC Distribution Width 12.2 % (11.5-14.5); Red Blood Cell (RBC) Count 4.26 mill/uL (4.70-6.10); White Blood Cell (WBC) Count 7.6 10x3/uL (4.8-10.8)
[2022-07-22 05:29] LABS: Digoxin Less than 0.15 ng/mL (0.8-2.0)
[2022-07-22 05:30] LABS: Anion Gap 13 mmol/L (10-20); BUN (Urea Nitrogen) 32 mg/dL (8.4-25.7); Calc. Creatinine Clearance 56 mL/min (70-130); Calcium 9.2 mg/dL (7.8-10.44); Carbon Dioxide 26 mmol/L (23-31); Chloride 99 mmol/L (98-107); Estimated GFR 80; Glucose 101 mg/dL (83-110); Potassium 3.8 mmol/L (3.5-5.1); Sodium 134 mmol/L (136-145)
[2022-07-22] MEDS: Famotidine 20 MG TAB PO SCH (09:19)
[2022-07-22] MEDS: Docusate 100 MG CAP PO SCH (09:19)
[2022-07-22] MEDS: Midodrine HCl 5 MG TAB PO SCH ×3 (09:19→20:51)
[2022-07-22] MEDS: Donepezil HCl 5 MG TAB PO SCH (09:19)
[2022-07-22] MEDS: Ezetimibe 10 MG TAB PO SCH (09:19)
[2022-07-22] MEDS: Apixaban 5 MG TAB PO SCH ×2 (09:19→20:51)
[2022-07-22] MEDS: Digoxin 0.125 MG TAB PO SCH (09:19)
[2022-07-22] MEDS ORDERED: Digoxin 0.5 MG/2 ML AMP SLOW IVP SCH (10:15)
[2022-07-22] MEDS: Calcitriol 0.25 MCG CAP PO SCH (20:51)
[2022-07-22] MEDS: Rosuvastatin 20 MG TAB PO SCH (20:51)
[2022-07-23 05:00] LABS: Digoxin 1.08 ng/mL (0.8-2.0)
[2022-07-23] MEDS: Ezetimibe 10 MG TAB PO SCH (09:41)
[2022-07-23] MEDS: Midodrine HCl 5 MG TAB PO SCH ×3 (09:41→19:54)
[2022-07-23] MEDS: Digoxin 0.125 MG TAB PO SCH (09:42)
[2022-07-23] MEDS: Famotidine 20 MG TAB PO SCH (09:42)
[2022-07-23] MEDS: Docusate 100 MG CAP PO SCH (09:42)
[2022-07-23] MEDS: Apixaban 5 MG TAB PO SCH ×2 (09:42→19:55)
[2022-07-23] MEDS: Donepezil HCl 5 MG TAB PO SCH (09:42)
[2022-07-23] MEDS: Rosuvastatin 20 MG TAB PO SCH (19:53)
[2022-07-23] MEDS: Calcitriol 0.25 MCG CAP PO SCH (19:53)
[2022-07-23] MEDS: traMADol HCl 50 MG TAB PO PRN (19:53)
[2022-07-24] MEDS: Ezetimibe 10 MG TAB PO SCH (08:54)
[2022-07-24] MEDS: Famotidine 20 MG TAB PO SCH (08:54)
[2022-07-24] MEDS: Apixaban 5 MG TAB PO SCH ×2 (08:54→21:44)
[2022-07-24] MEDS: Midodrine HCl 5 MG TAB PO SCH ×3 (08:54→21:44)
[2022-07-24] MEDS: Docusate 100 MG CAP PO SCH (08:54)
[2022-07-24] MEDS: Donepezil HCl 5 MG TAB PO SCH (08:54)
[2022-07-24] MEDS: Digoxin 0.25 MG TAB PO SCH (08:54)
[2022-07-24] MEDS: Rosuvastatin 20 MG TAB PO SCH (21:44)
[2022-07-24] MEDS: Calcitriol 0.25 MCG CAP PO SCH (21:45)
[2022-07-25] MEDS: Midodrine HCl 5 MG TAB PO SCH ×3 (08:25→20:34)
[2022-07-25] MEDS: Ezetimibe 10 MG TAB PO SCH (08:26)
[2022-07-25] MEDS: Digoxin 0.25 MG TAB PO SCH (08:26)
[2022-07-25] MEDS: Donepezil HCl 5 MG TAB PO SCH (08:26)
[2022-07-25] MEDS: Apixaban 5 MG TAB PO SCH ×2 (08:26→20:34)
[2022-07-25] MEDS: Docusate 100 MG CAP PO SCH (08:26)
[2022-07-25] MEDS: Famotidine 20 MG TAB PO SCH (09:31)
[2022-07-25] MEDS ORDERED: Bisacodyl 5 MG TAB PO PRN (10:09)
[2022-07-25] MEDS: Calcitriol 0.25 MCG CAP PO SCH (20:33)
[2022-07-25] MEDS: Rosuvastatin 20 MG TAB PO SCH (20:34)
[2022-07-26] MEDS: Digoxin 0.25 MG TAB PO SCH (11:11)
[2022-07-26] MEDS: Apixaban 5 MG TAB PO SCH ×2 (11:16→20:38)
[2022-07-26] MEDS: Midodrine HCl 5 MG TAB PO SCH ×3 (11:16→20:39)
[2022-07-26] MEDS: Docusate 100 MG CAP PO SCH (11:16)
[2022-07-26] MEDS: Donepezil HCl 5 MG TAB PO SCH (11:17)
[2022-07-26] MEDS: Ezetimibe 10 MG TAB PO SCH (11:17)
[2022-07-26] MEDS: Famotidine 20 MG TAB PO SCH (11:21)
[2022-07-26 11:56] VITALS: BMI 23.7
[2022-07-26] MEDS: Rosuvastatin 20 MG TAB PO SCH (20:38)
[2022-07-26] MEDS: Calcitriol 0.25 MCG CAP PO SCH (20:39)
[2022-07-27] MEDS: Midodrine HCl 5 MG TAB PO SCH ×3 (08:41→19:51)
[2022-07-27] MEDS: Ezetimibe 10 MG TAB PO SCH (08:41)
[2022-07-27] MEDS: Digoxin 0.25 MG TAB PO SCH (08:41)
[2022-07-27] MEDS: Donepezil HCl 5 MG TAB PO SCH (08:42)
[2022-07-27] MEDS: Famotidine 20 MG TAB PO SCH (08:42)
[2022-07-27] MEDS: Docusate 100 MG CAP PO SCH (08:42)
[2022-07-27] MEDS: Apixaban 5 MG TAB PO SCH ×2 (08:42→19:51)
[2022-07-27] MEDS: Calcitriol 0.25 MCG CAP PO SCH (19:51)
[2022-07-27] MEDS: Rosuvastatin 20 MG TAB PO SCH (19:51)
[2022-07-28] MEDS: Midodrine HCl 5 MG TAB PO SCH ×2 (09:05→09:06)
[2022-07-28] MEDS: Apixaban 5 MG TAB PO SCH (09:05)
[2022-07-28] MEDS: Docusate 100 MG CAP PO SCH (09:05)
[2022-07-28] MEDS: Famotidine 20 MG TAB PO SCH (09:05)
[2022-07-28] MEDS: Digoxin 0.25 MG TAB PO SCH (09:05)
[2022-07-28] MEDS: Ezetimibe 10 MG TAB PO SCH (09:05)
[2022-07-28] MEDS: Donepezil HCl 5 MG TAB PO SCH (09:06)
[2022-07-28 12:16] VITALS: BP 122/66; TEMP 97.3
== END 2022-07-28 16:44 | DRG 291 ==
LOC: ERS 20:23 → 2NO 23:36 → OBSVTOIN 07-19 06:02 → CCU 07-19 06:21 → 2NO 07-19 13:24
PROVIDERS: ADMIT Internal Medicine; ATTEND Internal Medicine
PROC: 3E033XZ Introduction of Vasopressor into Peripheral Vein, Percutaneous Approach (ICD-10-PCS; principal; 2022-07-19)
DX: I13.0 Hypertensive heart and chronic kidney disease with heart failure and stage 1 through stage 4 chronic kidney disease, or unspecified chronic kidney disease (principal); I26.99 Other pulmonary embolism without acute cor pulmonale; I50.33 Acute on chronic diastolic (congestive) heart failure; I42.9 Cardiomyopathy, unspecified; J40 Bronchitis, not specified as acute or chronic; M71.21 Synovial cyst of popliteal space [Baker], right knee; F03.90 Unspecified dementia, unspecified severity, without behavioral disturbance, psychotic disturbance, mood disturbance, and anxiety; I25.10 Atherosclerotic heart disease of native coronary artery without angina pectoris; R74.01 Elevation of levels of liver transaminase levels; I95.89 Other hypotension; E87.6 Hypokalemia; N18.30 Chronic kidney disease, stage 3 unspecified; R77.8 Other specified abnormalities of plasma proteins; I48.0 Paroxysmal atrial fibrillation; I08.3 Combined rheumatic disorders of mitral, aortic and tricuspid valves; J44.9 Chronic obstructive pulmonary disease, unspecified; E11.22 Type 2 diabetes mellitus with diabetic chronic kidney disease; E78.00 Pure hypercholesterolemia, unspecified; G47.30 Sleep apnea, unspecified; Z88.2 Allergy status to sulfonamides; Z88.8 Allergy status to other drugs, medicaments and biological substances; Z79.01 Long term (current) use of anticoagulants; Z91.011 Allergy to milk products; Z88.1 Allergy status to other antibiotic agents; Z91.018 Allergy to other foods; Z88.0 Allergy status to penicillin; Z87.442 Personal history of urinary calculi; Z79.899 Other long term (current) drug therapy; Z95.5 Presence of coronary angioplasty implant and graft; Z95.810 Presence of automatic (implantable) cardiac defibrillator; Z90.49 Acquired absence of other specified parts of digestive tract
CPT/HCPCS: 36415; 36416; 71045; 71275; 80048; 80053; 80076; 80162; 83605; 83735; 83880; 84100; 84443; 84484; 85025; 85027; 85379; 93005; 93306; 93970; 94660; 97139; J1160; J3475; J7050; Q9967; S0028

== ENCOUNTER 2022-07-30 20:09 | Inpatient (IN) | payer MEDICARE ==
[2022-07-30 21:47] LABS: #Eosinphils 0.1 thou/uL (0.0-0.7); #Monocytes 0.5 thou/uL (0.11-0.59); #Neutrophils 4.4 thou/uL (1.40-6.50); %Basophils 0.3 % (0.0-1.0); %Eosinophils 1.6 % (0.0-10.0); %Lymphocytes 21.3 % (21.0-51.0); %Monocytes 8.5 % (0.0-10.0); Hemoglobin 14.2 g/dL (14.0-18.0); Mean Corpuscular HGB CONC 32.9 g/dL (32.0-36.0); Mean Corpuscular Hemoglobin 30.7 pg (27.0-31.0); Mean Corpuscular Volume 93.3 fl (78.0-98.0); Mean Platelet Volume 10.7 fL (7.4-10.4); Platelet Count 234 10x3/uL (130-400); RBC Distribution Width 12.6 % (11.5-14.5); Red Blood Cell (RBC) Count 4.62 mill/uL (4.70-6.10); White Blood Cell (WBC) Count 6.4 10x3/uL (4.8-10.8)
[2022-07-30 22:10] LABS: ALT (SGPT) 134 U/L (8-55); AST (SGOT) 142 U/L (5-34); Albumin 3.2 g/dL (3.4-4.8); Alkaline Phosphatase 94 U/L (40-110); Anion Gap 9 mmol/L (10-20); BUN (Urea Nitrogen) 57 mg/dL (8.4-25.7); Bilirubin, Total 0.5 mg/dL (0.2-1.2); Calc. Creatinine Clearance 0 mL/min (70-130); Calcium 8.9 mg/dL (7.8-10.44); Carbon Dioxide 29 mmol/L (23-31); Chloride 103 mmol/L (98-107); Estimated GFR 65; Globulin 3.1 g/dL (2.4-3.5); Glucose 98 mg/dL (83-110); Potassium 4.4 mmol/L (3.5-5.1); Protein, Total 6.3 g/dL (5.8-8.1); Sodium 137 mmol/L (136-145)
[2022-07-31 01:31] LABS: Troponin I 0.017 ng/mL (< 0.028)
[2022-07-31 03:16] LABS: #Eosinphils 0.2 thou/uL (0.0-0.7); #Monocytes 0.6 thou/uL (0.11-0.59); #Neutrophils 4.4 thou/uL (1.40-6.50); %Basophils 0.3 % (0.0-1.0); %Eosinophils 2.3 % (0.0-10.0); %Lymphocytes 25.5 % (21.0-51.0); %Monocytes 8.9 % (0.0-10.0); %Neutrophils 62.7 % (42.0-75.0); Hemoglobin 13.8 g/dL (14.0-18.0); Mean Corpuscular HGB CONC 33.3 g/dL (32.0-36.0); Mean Corpuscular Hemoglobin 30.2 pg (27.0-31.0); Mean Corpuscular Volume 90.8 fl (78.0-98.0); Mean Platelet Volume 10.6 fL (7.4-10.4); Platelet Count 222 10x3/uL (130-400); RBC Distribution Width 12.6 % (11.5-14.5); Red Blood Cell (RBC) Count 4.57 mill/uL (4.70-6.10)
[2022-07-31 04:27] LABS: Anion Gap 10 mmol/L (10-20); BUN (Urea Nitrogen) 55 mg/dL (8.4-25.7); Calc. Creatinine Clearance 0 mL/min (70-130); Calcium 9.1 mg/dL (7.8-10.44); Carbon Dioxide 25 mmol/L (23-31); Chloride 106 mmol/L (98-107); Estimated GFR 76; Glucose 91 mg/dL (83-110); Potassium 4.3 mmol/L (3.5-5.1); Sodium 137 mmol/L (136-145)
[2022-07-31 04:32] LABS: Troponin I 0.016 ng/mL (< 0.028)
[2022-07-31] MEDS ORDERED: Digoxin 0.25 MG TAB ONE (08:46)
[2022-07-31] MEDS: Digoxin 0.25 MG TAB PO SCH (08:52)
[2022-07-31] MEDS: Apixaban 5 MG TAB PO SCH ×2 (08:52→20:59)
[2022-07-31] MEDS: Donepezil HCl 5 MG TAB PO SCH (08:53)
[2022-07-31] MEDS: Midodrine HCl 5 MG TAB PO SCH ×3 (08:53→20:59)
[2022-07-31] MEDS ORDERED: Ezetimibe 10 MG TAB PO SCH (09:00)
[2022-07-31] MEDS ORDERED: Ipratropium/Albuterol 3 ML NEB NEB PRN (09:31)
[2022-07-31] MEDS: Calcitriol 0.25 MCG CAP PO SCH (20:59)
[2022-07-31] MEDS ORDERED: Rosuvastatin 20 MG TAB PO SCH (21:00)
[2022-08-01 05:08] LABS: ALT (SGPT) 91 U/L (8-55); AST (SGOT) 77 U/L (5-34); Albumin 2.9 g/dL (3.4-4.8); Alkaline Phosphatase 84 U/L (40-110); Anion Gap 8 mmol/L (10-20); BUN (Urea Nitrogen) 44 mg/dL (8.4-25.7); Bilirubin, Total 0.6 mg/dL (0.2-1.2); Calc. Creatinine Clearance 55 mL/min (70-130); Calcium 9.1 mg/dL (7.8-10.44); Carbon Dioxide 29 mmol/L (23-31); Chloride 105 mmol/L (98-107); Estimated GFR 84; Globulin 3.2 g/dL (2.4-3.5); Glucose 92 mg/dL (83-110); Potassium 4.2 mmol/L (3.5-5.1); Protein, Total 6.1 g/dL (5.8-8.1); Sodium 138 mmol/L (136-145)
[2022-08-01] MEDS: Apixaban 5 MG TAB PO SCH ×2 (08:12→20:41)
[2022-08-01] MEDS: Donepezil HCl 5 MG TAB PO SCH (08:12)
[2022-08-01] MEDS: Midodrine HCl 5 MG TAB PO SCH ×3 (08:14→20:41)
[2022-08-01] MEDS: Digoxin 0.25 MG TAB PO SCH (08:14)
[2022-08-01] MEDS ORDERED: Dextrose 5 %-0.45 % NaCl 1,000 ML IV SCH (08:15)
[2022-08-01 08:49] VITALS: BMI 22.2
[2022-08-01] MEDS: Calcitriol 0.25 MCG CAP PO SCH (20:41)
[2022-08-02 04:43] LABS: #Eosinphils 0.3 thou/uL (0.0-0.7); #Monocytes 0.6 thou/uL (0.11-0.59); %Basophils 0.3 % (0.0-1.0); %Eosinophils 3.4 % (0.0-10.0); %Lymphocytes 23.7 % (21.0-51.0); %Monocytes 7.1 % (0.0-10.0); %Neutrophils 65.2 % (42.0-75.0); Hemoglobin 13.6 g/dL (14.0-18.0); Mean Corpuscular HGB CONC 32.5 g/dL (32.0-36.0); Mean Corpuscular Hemoglobin 29.8 pg (27.0-31.0); Mean Corpuscular Volume 91.5 fl (78.0-98.0); Mean Platelet Volume 10.5 fL (7.4-10.4); Platelet Count 217 10x3/uL (130-400); RBC Distribution Width 12.6 % (11.5-14.5); Red Blood Cell (RBC) Count 4.57 mill/uL (4.70-6.10); White Blood Cell (WBC) Count 7.7 10x3/uL (4.8-10.8)
[2022-08-02 05:09] LABS: ALT (SGPT) 76 U/L (8-55); AST (SGOT) 57 U/L (5-34); Alkaline Phosphatase 83 U/L (40-110); Anion Gap 10 mmol/L (10-20); BUN (Urea Nitrogen) 40 mg/dL (8.4-25.7); Bilirubin, Total 0.6 mg/dL (0.2-1.2); Calc. Creatinine Clearance 59 mL/min (70-130); Calcium 8.9 mg/dL (7.8-10.44); Carbon Dioxide 25 mmol/L (23-31); Chloride 104 mmol/L (98-107); Estimated GFR 87; Globulin 3.1 g/dL (2.4-3.5); Glucose 95 mg/dL (83-110); Potassium 4.1 mmol/L (3.5-5.1); Protein, Total 6.1 g/dL (5.8-8.1); Sodium 135 mmol/L (136-145)
[2022-08-02] MEDS: Digoxin 0.25 MG TAB PO SCH (09:02)
[2022-08-02] MEDS: Apixaban 5 MG TAB PO SCH (09:02)
[2022-08-02] MEDS: Midodrine HCl 5 MG TAB PO SCH (09:02)
[2022-08-02] MEDS: Donepezil HCl 5 MG TAB PO SCH (09:03)
[2022-08-02 12:44] VITALS: TEMP 97.6
[2022-08-02 13:42] VITALS: BP 94/82
== END 2022-08-02 13:30 | DRG 312 ==
LOC: SUATTDRO 20:09 → ERS 20:09 → ERHOLD 23:45 → OBSVTOIN 07-31 09:28 → 2NO 07-31 18:31
PROVIDERS: ADMIT Family Medicine; ATTEND Family Medicine
DX: I95.2 Hypotension due to drugs (principal); I50.32 Chronic diastolic (congestive) heart failure; I42.9 Cardiomyopathy, unspecified; I11.0 Hypertensive heart disease with heart failure; I48.91 Unspecified atrial fibrillation; J44.9 Chronic obstructive pulmonary disease, unspecified; I25.10 Atherosclerotic heart disease of native coronary artery without angina pectoris; E11.9 Type 2 diabetes mellitus without complications; I73.00 Raynaud's syndrome without gangrene; E78.00 Pure hypercholesterolemia, unspecified; E78.5 Hyperlipidemia, unspecified; I35.0 Nonrheumatic aortic (valve) stenosis; F03.90 Unspecified dementia, unspecified severity, without behavioral disturbance, psychotic disturbance, mood disturbance, and anxiety; L89.152 Pressure ulcer of sacral region, stage 2; R79.89 Other specified abnormal findings of blood chemistry; T50.1X5A Adverse effect of loop [high-ceiling] diuretics, initial encounter; T46.7X5A Adverse effect of peripheral vasodilators, initial encounter; Z88.1 Allergy status to other antibiotic agents; Z91.011 Allergy to milk products; Z91.018 Allergy to other foods; Z86.711 Personal history of pulmonary embolism; Z88.0 Allergy status to penicillin; Z95.5 Presence of coronary angioplasty implant and graft; Z95.810 Presence of automatic (implantable) cardiac defibrillator; Z90.49 Acquired absence of other specified parts of digestive tract; Z88.2 Allergy status to sulfonamides; Z91.09 Other allergy status, other than to drugs and biological substances; Z79.01 Long term (current) use of anticoagulants; Z79.899 Other long term (current) drug therapy
CPT/HCPCS: 36415; 71045; 80048; 80053; 83880; 84134; 84443; 84484; 85025; 93005; 97139; G0378; J7042

== ENCOUNTER 2022-12-09 11:11 | Day surgery (SDC) | payer MEDICARE ==
[2022-12-08 09:51] VITALS: BMI 20.9
[2022-12-09] MEDS ORDERED: Gentamicin 80 MG/2 ML VIAL ONE (15:10)
[2022-12-09] MEDS ORDERED: Lidocaine 1% (PF) 30 ML VIAL ONE (15:10)
[2022-12-09] MEDS ORDERED: fentaNYL 50 mcg/mL 1 mL Vial ONE (15:19)
[2022-12-09] MEDS ORDERED: KETAMINE 100 MG/ML (5ML VIAL) ONE (15:24)
[2022-12-09] MEDS ORDERED: Ciprofloxacin Lactate/D5W 400 mg/200 ml Premix ONE (15:36)
[2022-12-09] MEDS ORDERED: Clindamycin/D5W 600 mg/50 ml Premix Bag ONE (15:40)
== END 2022-12-09 18:15 | disposition home or self-care (01) ==
LOC: SDC 11:11
PROVIDERS: ATTEND Internal Medicine Cardiovascular Disease
PROC: 0JWT0PZ Revision of Cardiac Rhythm Related Device in Trunk Subcutaneous Tissue and Fascia, Open Approach (ICD-10-PCS; principal; 2022-12-09)
DX: T82.191A Other mechanical complication of cardiac pulse generator (battery), initial encounter (principal); I11.0 Hypertensive heart disease with heart failure; I50.22 Chronic systolic (congestive) heart failure; I48.0 Paroxysmal atrial fibrillation; I47.29 Other ventricular tachycardia; I48.19 Other persistent atrial fibrillation; I42.8 Other cardiomyopathies; I49.5 Sick sinus syndrome; I25.10 Atherosclerotic heart disease of native coronary artery without angina pectoris; G47.33 Obstructive sleep apnea (adult) (pediatric); E11.9 Type 2 diabetes mellitus without complications; E78.00 Pure hypercholesterolemia, unspecified; Z79.01 Long term (current) use of anticoagulants; Z79.899 Other long term (current) drug therapy; Z91.041 Radiographic dye allergy status; Z88.1 Allergy status to other antibiotic agents; Z88.0 Allergy status to penicillin; Z91.018 Allergy to other foods; Z90.89 Acquired absence of other organs; Z96.659 Presence of unspecified artificial knee joint; Z98.890 Other specified postprocedural states; Z85.810 Personal history of malignant neoplasm of tongue; Y71.2 Prosthetic and other implants, materials and accessory cardiovascular devices associated with adverse incidents
CPT/HCPCS: 33264; 71045; C1882; J0744; J1580; J2001; J3010; J3490

== ENCOUNTER 2023-01-26 08:05 | Inpatient (IN) | payer MEDICARE ==
[2023-01-26] MEDS ORDERED: Famotidine/PF 20 mg/2ml Vial ONE (08:46)
[2023-01-26] MEDS ORDERED: Cefepime 2 GM VIAL ONE (08:46)
[2023-01-26] MEDS ORDERED: diphenhydrAMINE 50 MG/ML VIAL ONE (08:46)
[2023-01-26] MEDS ORDERED: methylPREDNISolone Sod Succ 40 MG VIAL ONE (08:46)
[2023-01-26] MEDS ORDERED: Sodium Chloride 0.9% 100 ML ONE (08:47)
[2023-01-26] MEDS ORDERED: Vancomycin (BATCH) 1.25 GM in Premix 1 BAG IVPB SCH (09:00)
[2023-01-26 09:10] LABS: #Eosinphils 0.1 thou/uL (0.0-0.7); #Monocytes 0.8 thou/uL (0.11-0.59); #Neutrophils 16.8 thou/uL (1.40-6.50); %Basophils 0.2 % (0.0-1.0); %Eosinophils 0.3 % (0.0-10.0); %Lymphocytes 7.2 % (21.0-51.0); %Monocytes 4.3 % (0.0-10.0); %Neutrophils 87.1 % (42.0-75.0); Hemoglobin 15.4 g/dL (14.0-18.0); Mean Corpuscular HGB CONC 32.1 g/dL (32.0-36.0); Mean Corpuscular Hemoglobin 30.9 pg (27.0-31.0); Mean Corpuscular Volume 96.2 fl (78.0-98.0); Mean Platelet Volume 10.5 fL (7.4-10.4); Platelet Count 372 10x3/uL (130-400); RBC Distribution Width 12.8 % (11.5-14.5); Red Blood Cell (RBC) Count 4.99 mill/uL (4.70-6.10); White Blood Cell (WBC) Count 19.3 10x3/uL (4.8-10.8)
[2023-01-26 09:32] LABS: ALT (SGPT) 39 U/L (8-55); AST (SGOT) 46 U/L (5-34); Albumin 2.8 g/dL (3.4-4.8); Alkaline Phosphatase 110 U/L (40-110); Anion Gap 13 mmol/L (10-20); BUN (Urea Nitrogen) 22 mg/dL (8.4-25.7); Bilirubin, Total 1.1 mg/dL (0.2-1.2); Calc. Creatinine Clearance 0 mL/min (70-130); Calcium 9.2 mg/dL (7.8-10.44); Carbon Dioxide 31 mmol/L (23-31); Chloride 103 mmol/L (98-107); Estimated GFR 90; Glucose 98 mg/dL (83-110); Potassium 4.6 mmol/L (3.5-5.1); Protein, Total 6.8 g/dL (5.8-8.1); Sodium 142 mmol/L (136-145)
[2023-01-26] MEDS ORDERED: Acetaminophen 325 MG TAB PO PRN (11:31)
[2023-01-26] MEDS ORDERED: Ondansetron PF 4 MG/2 ML Vial IVP PRN (11:31)
[2023-01-26 12:15] LABS: Digoxin 1.64 ng/mL (0.8-2.0)
[2023-01-26 13:02] VITALS: BMI 22.2
[2023-01-26] MEDS: Ascorbic Acid 500 mg Chewable Tablet PO SCH (22:22)
[2023-01-26] MEDS: Senokot S 8.6-50 MG TAB PO SCH (22:22)
[2023-01-26] MEDS: busPIRone HCl 5 MG TAB PO SCH (22:22)
[2023-01-26] MEDS: Calcitriol 0.25 MCG CAP PO SCH (22:23)
[2023-01-26] MEDS: Famotidine 20 MG TAB PO SCH (22:23)
[2023-01-26] MEDS: Donepezil HCl 5 MG TAB PO SCH (22:23)
[2023-01-27 07:08] LABS: #Neutrophils 17.4 thou/uL (1.40-6.50); %Basophils 0.1 % (0.0-1.0); %Lymphocytes 7.2 % (21.0-51.0); %Monocytes 5.1 % (0.0-10.0); %Neutrophils 86.7 % (42.0-75.0); Hematocrit 41.2 % (42.0-52.0); Hemoglobin 13.3 g/dL (14.0-18.0); Mean Corpuscular HGB CONC 32.3 g/dL (32.0-36.0); Mean Corpuscular Hemoglobin 30.7 pg (27.0-31.0); Mean Corpuscular Volume 95.2 fl (78.0-98.0); Mean Platelet Volume 10.7 fL (7.4-10.4); Platelet Count 344 10x3/uL (130-400); RBC Distribution Width 12.6 % (11.5-14.5); Red Blood Cell (RBC) Count 4.33 mill/uL (4.70-6.10); White Blood Cell (WBC) Count 20.1 10x3/uL (4.8-10.8)
[2023-01-27 07:33] LABS: Anion Gap 9 mmol/L (10-20); BUN (Urea Nitrogen) 24 mg/dL (8.4-25.7); Calc. Creatinine Clearance 69 mL/min (70-130); Calcium 8.7 mg/dL (7.8-10.44); Carbon Dioxide 30 mmol/L (23-31); Chloride 106 mmol/L (98-107); Estimated GFR 90; Glucose 105 mg/dL (83-110); Potassium 4.1 mmol/L (3.5-5.1); Sodium 141 mmol/L (136-145)
[2023-01-27] MEDS: Magnesium Oxide 400 MG TAB PO SCH (07:36)
[2023-01-27] MEDS: busPIRone HCl 5 MG TAB PO SCH ×2 (07:36→20:34)
[2023-01-27] MEDS: Famotidine 20 MG TAB PO SCH ×2 (07:36→20:34)
[2023-01-27] MEDS: FLUoxetine HCl 10 MG CAP PO SCH (07:36)
[2023-01-27] MEDS: Ascorbic Acid 500 mg Chewable Tablet PO SCH ×2 (07:36→20:35)
[2023-01-27] MEDS: Cholecalciferol 1,000 UNITS (25 MCG) TAB PO SCH (07:36)
[2023-01-27] MEDS: Senokot S 8.6-50 MG TAB PO SCH ×2 (07:36→20:34)
[2023-01-27] MEDS ORDERED: FLU VACC QS2023(65UP)/MF59C/PF 60 MCG/0.5 ML SYRINGE IM ONE (09:00)
[2023-01-27] MEDS ORDERED: PROPOFOL 20 ML ONE (10:36)
[2023-01-27] MEDS ORDERED: Lidocaine 1% PF 5 ML VIAL ONE ×2 (10:37→11:04)
[2023-01-27] MEDS ORDERED: fentaNYL PF 100 MCG/2 ML SYRINGE ONE (10:37)
[2023-01-27] MEDS ORDERED: Rocuronium Bromide 10 MG/ML (10ML VIAL) ONE ×2 (10:37→11:04)
[2023-01-27] MEDS ORDERED: ePHEDrine Sulfate 50 MG/10 ML VIAL ONE (10:43)
[2023-01-27] MEDS ORDERED: Clindamycin/D5W 900 mg/50 ml Premix Bag ONE (10:47)
[2023-01-27] MEDS ORDERED: PROPOFOL 200 MG/20 ML VIAL ONE (11:04)
[2023-01-27] MEDS ORDERED: SUGAMMADEX SODIUM 200 MG/2 ML VIAL ONE (11:19)
[2023-01-27] MEDS ORDERED: metroNIDAZOLE 500 MG TAB PO SCH (16:00)
[2023-01-27] MEDS: Cefepime 1 GM in Sodium Chloride 0.9% 100 ML IVPB SCH (17:51)
[2023-01-27] MEDS ORDERED: Vancomycin (BATCH) 1.5 GM in Premix 1 BAG IVPB SCH (18:00)
[2023-01-27] MEDS: Metoprolol Tartrate 25 MG TAB PO SCH (20:34)
[2023-01-27] MEDS: Calcitriol 0.25 MCG CAP PO SCH (20:34)
[2023-01-27] MEDS: Donepezil HCl 5 MG TAB PO SCH (20:34)
[2023-01-27] MEDS: metroNIDAZOLE 500 MG TAB PO SCH (20:35)
[2023-01-28] MEDS: Cefepime 1 GM in Sodium Chloride 0.9% 100 ML IVPB SCH ×2 (04:35→16:43)
[2023-01-28] MEDS: Vancomycin HCl 750 MG in Sodium Chloride 0.9% 250 ML 250 ML IVPB SCH ×2 (05:48→17:51)
[2023-01-28] MEDS: Ascorbic Acid 500 mg Chewable Tablet PO SCH ×2 (08:45→20:27)
[2023-01-28] MEDS: busPIRone HCl 5 MG TAB PO SCH ×2 (08:45→20:28)
[2023-01-28] MEDS: Famotidine 20 MG TAB PO SCH ×2 (08:46→20:28)
[2023-01-28] MEDS: Metoprolol Tartrate 25 MG TAB PO SCH ×2 (08:46→20:27)
[2023-01-28] MEDS: Cholecalciferol 1,000 UNITS (25 MCG) TAB PO SCH (08:46)
[2023-01-28] MEDS: metroNIDAZOLE 500 MG TAB PO SCH ×3 (08:46→20:27)
[2023-01-28] MEDS: Magnesium Oxide 400 MG TAB PO SCH (08:46)
[2023-01-28] MEDS: Senokot S 8.6-50 MG TAB PO SCH ×2 (08:46→20:27)
[2023-01-28] MEDS: FLUoxetine HCl 10 MG CAP PO SCH (08:46)
[2023-01-28] MEDS ORDERED: Morphine 2 MG/ML VIAL SLOW IVP SCH (10:00)
[2023-01-28] MEDS: Dextrose 5 % And 0.9 % NaCl 1,000 ML IV SCH (13:22)
[2023-01-28] MEDS: Donepezil HCl 5 MG TAB PO SCH (20:27)
[2023-01-28] MEDS: Calcitriol 0.25 MCG CAP PO SCH (20:28)
[2023-01-29] MEDS: Dextrose 5 % And 0.9 % NaCl 1,000 ML IV SCH ×2 (05:02→15:48)
[2023-01-29] MEDS: Cefepime 1 GM in Sodium Chloride 0.9% 100 ML IVPB SCH (05:29)
[2023-01-29 06:14] LABS: Vancomycin, Trough 17.3 ug/mL
[2023-01-29] MEDS: Vancomycin HCl 750 MG in Sodium Chloride 0.9% 250 ML 250 ML IVPB SCH (06:20)
[2023-01-29 06:39] LABS: #Eosinphils 0.1 thou/uL (0.0-0.7); #Monocytes 0.9 thou/uL (0.11-0.59); #Neutrophils 12.5 thou/uL (1.40-6.50); %Basophils 0.1 % (0.0-1.0); %Eosinophils 0.3 % (0.0-10.0); %Lymphocytes 10.3 % (21.0-51.0); %Monocytes 6.2 % (0.0-10.0); %Neutrophils 82.5 % (42.0-75.0); Hematocrit 40.7 % (42.0-52.0); Hemoglobin 13.1 g/dL (14.0-18.0); Mean Corpuscular HGB CONC 32.2 g/dL (32.0-36.0); Mean Corpuscular Volume 96.2 fl (78.0-98.0); Mean Platelet Volume 10.9 fL (7.4-10.4); Platelet Count 317 10x3/uL (130-400); RBC Distribution Width 12.9 % (11.5-14.5); Red Blood Cell (RBC) Count 4.23 mill/uL (4.70-6.10); White Blood Cell (WBC) Count 15.1 10x3/uL (4.8-10.8)
[2023-01-29 06:51] LABS: ALT (SGPT) 21 U/L (8-55); AST (SGOT) 25 U/L (5-34); Albumin 2.3 g/dL (3.4-4.8); Alkaline Phosphatase 76 U/L (40-110); Anion Gap 12 mmol/L (10-20); BUN (Urea Nitrogen) 16 mg/dL (8.4-25.7); Bilirubin, Total 0.6 mg/dL (0.2-1.2); Calc. Creatinine Clearance 76 mL/min (70-130); Calcium 8.4 mg/dL (7.8-10.44); Carbon Dioxide 24 mmol/L (23-31); Chloride 110 mmol/L (98-107); Estimated GFR 92; Globulin 3.4 g/dL (2.4-3.5); Glucose 106 mg/dL (83-110); Potassium 3.9 mmol/L (3.5-5.1); Protein, Total 5.7 g/dL (5.8-8.1); Sodium 142 mmol/L (136-145)
[2023-01-29] MEDS ORDERED: Morphine 4 MG/ML VIAL ONE (09:14)
[2023-01-29] MEDS ORDERED: Morphine 4 MG/ML VIAL SLOW IVP SCH (09:30)
[2023-01-29] MEDS: FLUoxetine HCl 10 MG CAP PO SCH (10:28)
[2023-01-29] MEDS: Senokot S 8.6-50 MG TAB PO SCH ×2 (10:29→22:55)
[2023-01-29] MEDS: Magnesium Oxide 400 MG TAB PO SCH (10:29)
[2023-01-29] MEDS: Metoprolol Tartrate 25 MG TAB PO SCH ×2 (10:29→22:55)
[2023-01-29] MEDS: Famotidine 20 MG TAB PO SCH ×2 (10:29→22:55)
[2023-01-29] MEDS: busPIRone HCl 5 MG TAB PO SCH ×2 (10:29→22:54)
[2023-01-29] MEDS: Cholecalciferol 1,000 UNITS (25 MCG) TAB PO SCH (10:29)
[2023-01-29] MEDS: metroNIDAZOLE 500 MG TAB PO SCH ×3 (10:29→22:55)
[2023-01-29] MEDS: Ascorbic Acid 500 mg Chewable Tablet PO SCH ×2 (10:29→22:55)
[2023-01-29] MEDS: Cefepime 2 GM in Sodium Chloride 0.9% 100 ML IVPB SCH (17:30)
[2023-01-29] MEDS: Donepezil HCl 5 MG TAB PO SCH (22:55)
[2023-01-29] MEDS: Calcitriol 0.25 MCG CAP PO SCH (22:55)
[2023-01-30] MEDS: Cefepime 2 GM in Sodium Chloride 0.9% 100 ML IVPB SCH ×2 (06:22→17:59)
[2023-01-30] MEDS: Dextrose 5 % And 0.9 % NaCl 1,000 ML IV SCH ×2 (06:22→22:47)
[2023-01-30 06:51] LABS: #Monocytes 0.7 thou/uL (0.11-0.59); #Neutrophils 11.7 thou/uL (1.40-6.50); %Basophils 0.1 % (0.0-1.0); %Eosinophils 0.3 % (0.0-10.0); %Lymphocytes 14.5 % (21.0-51.0); %Monocytes 4.8 % (0.0-10.0); %Neutrophils 79.8 % (42.0-75.0); Hemoglobin 14.8 g/dL (14.0-18.0); Mean Corpuscular HGB CONC 32.2 g/dL (32.0-36.0); Mean Corpuscular Hemoglobin 30.8 pg (27.0-31.0); Mean Corpuscular Volume 95.8 fl (78.0-98.0); Mean Platelet Volume 10.9 fL (7.4-10.4); Platelet Count 345 10x3/uL (130-400); RBC Distribution Width 12.9 % (11.5-14.5); White Blood Cell (WBC) Count 14.6 10x3/uL (4.8-10.8)
[2023-01-30 07:19] LABS: ALT (SGPT) 22 U/L (8-55); AST (SGOT) 22 U/L (5-34); Albumin 2.5 g/dL (3.4-4.8); Alkaline Phosphatase 84 U/L (40-110); Anion Gap 11 mmol/L (10-20); BUN (Urea Nitrogen) 16 mg/dL (8.4-25.7); Bilirubin, Total 0.8 mg/dL (0.2-1.2); Calc. Creatinine Clearance 71 mL/min (70-130); Calcium 8.5 mg/dL (7.8-10.44); Carbon Dioxide 29 mmol/L (23-31); Chloride 110 mmol/L (98-107); Estimated GFR 91; Globulin 3.9 g/dL (2.4-3.5); Glucose 113 mg/dL (83-110); Potassium 3.9 mmol/L (3.5-5.1); Protein, Total 6.4 g/dL (5.8-8.1); Sodium 146 mmol/L (136-145)
[2023-01-30] MEDS ORDERED: Morphine 4 MG/ML VIAL ONE (08:38)
[2023-01-30] MEDS: HYDROcodone/Acetaminophen 5/325 mg Tablet PO PRN (10:02)
[2023-01-30] MEDS: busPIRone HCl 5 MG TAB PO SCH ×2 (10:04→22:46)
[2023-01-30] MEDS: Famotidine 20 MG TAB PO SCH ×2 (10:04→22:46)
[2023-01-30] MEDS: Ascorbic Acid 500 mg Chewable Tablet PO SCH ×2 (10:05→22:46)
[2023-01-30] MEDS: metroNIDAZOLE 500 MG TAB PO SCH ×3 (10:05→22:47)
[2023-01-30] MEDS: FLUoxetine HCl 10 MG CAP PO SCH (10:05)
[2023-01-30] MEDS: Senokot S 8.6-50 MG TAB PO SCH ×2 (10:05→22:47)
[2023-01-30] MEDS: Metoprolol Tartrate 25 MG TAB PO SCH ×2 (10:05→22:46)
[2023-01-30] MEDS: Magnesium Oxide 400 MG TAB PO SCH (10:05)
[2023-01-30] MEDS: Cholecalciferol 1,000 UNITS (25 MCG) TAB PO SCH (10:05)
[2023-01-30] MEDS ORDERED: Ipratropium/Albuterol 3 ML NEB NEB PRN (15:56)
[2023-01-30] MEDS: Mirtazapine 15 MG TAB PO SCH (22:46)
[2023-01-30] MEDS: Donepezil HCl 5 MG TAB PO SCH (22:46)
[2023-01-30] MEDS: Calcitriol 0.25 MCG CAP PO SCH (22:47)
[2023-01-31] MEDS: Cefepime 2 GM in Sodium Chloride 0.9% 100 ML IVPB SCH ×2 (06:15→17:19)
[2023-01-31 06:51] LABS: #Eosinphils 0.1 thou/uL (0.0-0.7); #Monocytes 0.8 thou/uL (0.11-0.59); #Neutrophils 10.8 thou/uL (1.40-6.50); %Basophils 0.2 % (0.0-1.0); %Eosinophils 0.7 % (0.0-10.0); %Lymphocytes 11.5 % (21.0-51.0); %Monocytes 5.8 % (0.0-10.0); %Neutrophils 81.3 % (42.0-75.0); Hematocrit 43.1 % (42.0-52.0); Hemoglobin 13.8 g/dL (14.0-18.0); Mean Corpuscular Hemoglobin 30.9 pg (27.0-31.0); Mean Corpuscular Volume 96.6 fl (78.0-98.0); Mean Platelet Volume 10.9 fL (7.4-10.4); Platelet Count 305 10x3/uL (130-400); RBC Distribution Width 13.2 % (11.5-14.5); Red Blood Cell (RBC) Count 4.46 mill/uL (4.70-6.10); White Blood Cell (WBC) Count 13.3 10x3/uL (4.8-10.8)
[2023-01-31 07:13] LABS: Anion Gap 9 mmol/L (10-20); BUN (Urea Nitrogen) 15 mg/dL (8.4-25.7); Calc. Creatinine Clearance 77 mL/min (70-130); Calcium 8.4 mg/dL (7.8-10.44); Carbon Dioxide 26 mmol/L (23-31); Chloride 115 mmol/L (98-107); Estimated GFR 93; Glucose 108 mg/dL (83-110); Potassium 3.9 mmol/L (3.5-5.1); Sodium 146 mmol/L (136-145)
[2023-01-31] MEDS: Senokot S 8.6-50 MG TAB PO SCH ×2 (10:19→20:38)
[2023-01-31] MEDS: metroNIDAZOLE 500 MG TAB PO SCH (10:20)
[2023-01-31] MEDS: Cholecalciferol 1,000 UNITS (25 MCG) TAB PO SCH (10:20)
[2023-01-31] MEDS: Famotidine 20 MG TAB PO SCH ×2 (10:20→20:39)
[2023-01-31] MEDS: Magnesium Oxide 400 MG TAB PO SCH (10:20)
[2023-01-31] MEDS: busPIRone HCl 5 MG TAB PO SCH ×2 (10:20→20:38)
[2023-01-31] MEDS: Ascorbic Acid 500 mg Chewable Tablet PO SCH ×2 (10:21→20:38)
[2023-01-31] MEDS: Metoprolol Tartrate 25 MG TAB PO SCH ×2 (10:21→20:38)
[2023-01-31] MEDS: FLUoxetine HCl 10 MG CAP PO SCH (10:21)
[2023-01-31] MEDS: Digoxin 0.25 MG TAB PO SCH (10:21)
[2023-01-31] MEDS: Vancomycin HCl 750 MG in Sodium Chloride 0.9% 250 ML 250 ML IVPB SCH (13:13)
[2023-01-31] MEDS: Dextrose 5 % And 0.9 % NaCl 1,000 ML IV SCH ×2 (13:13→20:39)
[2023-01-31] MEDS: Mirtazapine 15 MG TAB PO SCH (20:38)
[2023-01-31] MEDS: Calcitriol 0.25 MCG CAP PO SCH (20:39)
[2023-01-31] MEDS: Donepezil HCl 5 MG TAB PO SCH (20:39)
[2023-02-01] MEDS: Vancomycin HCl 750 MG in Sodium Chloride 0.9% 250 ML 250 ML IVPB SCH ×2 (01:29→14:00)
[2023-02-01] MEDS: Cefepime 2 GM in Sodium Chloride 0.9% 100 ML IVPB SCH ×2 (05:42→21:32)
[2023-02-01] MEDS: Dextrose 5 % And 0.9 % NaCl 1,000 ML IV SCH ×2 (05:45→23:04)
[2023-02-01 06:00] LABS: #Basophils 0.2 thou/uL (0.0-0.2); #Eosinphils 0.1 thou/uL (0.0-0.7); #Monocytes 1.1 thou/uL (0.11-0.59); #Neutrophils 13.7 thou/uL (1.40-6.50); %Basophils 0.9 % (0.0-1.0); %Eosinophils 0.6 % (0.0-10.0); %Lymphocytes 13.1 % (21.0-51.0); %Monocytes 6.1 % (0.0-10.0); %Neutrophils 78.7 % (42.0-75.0); Hematocrit 49.5 % (42.0-52.0); Hemoglobin 15.1 g/dL (14.0-18.0); Mean Corpuscular HGB CONC 30.5 g/dL (32.0-36.0); Mean Corpuscular Hemoglobin 30.9 pg (27.0-31.0); Mean Platelet Volume 11.3 fL (7.4-10.4); Platelet Count 271 10x3/uL (130-400); RBC Distribution Width 13.3 % (11.5-14.5); Red Blood Cell (RBC) Count 4.89 mill/uL (4.70-6.10); White Blood Cell (WBC) Count 17.4 10x3/uL (4.8-10.8)
[2023-02-01 06:10] LABS: Mean Corpuscular Volume 101.2 fl (78.0-98.0)
[2023-02-01 06:24] LABS: Anion Gap 14 mmol/L (10-20); BUN (Urea Nitrogen) 15 mg/dL (8.4-25.7); CRP (Inflammatory) 3.65 mg/dL (= or < 0.5); Calc. Creatinine Clearance 73 mL/min (70-130); Calcium 8.7 mg/dL (7.8-10.44); Carbon Dioxide 20 mmol/L (23-31); Chloride 116 mmol/L (98-107); Estimated GFR 92; Glucose 102 mg/dL (83-110); Potassium 4.6 mmol/L (3.5-5.1); Sodium 145 mmol/L (136-145)
[2023-02-01] MEDS: Magnesium Oxide 400 MG TAB PO SCH (09:27)
[2023-02-01] MEDS: Cholecalciferol 1,000 UNITS (25 MCG) TAB PO SCH (09:27)
[2023-02-01] MEDS: Senokot S 8.6-50 MG TAB PO SCH ×2 (09:27→20:49)
[2023-02-01] MEDS: busPIRone HCl 5 MG TAB PO SCH ×2 (09:27→20:50)
[2023-02-01] MEDS: Metoprolol Tartrate 25 MG TAB PO SCH ×2 (09:27→20:50)
[2023-02-01] MEDS: Ascorbic Acid 500 mg Chewable Tablet PO SCH ×2 (09:27→20:50)
[2023-02-01] MEDS: FLUoxetine HCl 10 MG CAP PO SCH (09:28)
[2023-02-01] MEDS: Digoxin 0.25 MG TAB PO SCH (09:28)
[2023-02-01] MEDS: Famotidine 20 MG TAB PO SCH ×2 (09:28→20:50)
[2023-02-01] MEDS ORDERED: Cefepime 2 GM in Sodium Chloride 0.9% 100 ML IVPB SCH (16:45)
[2023-02-01] MEDS: Calcitriol 0.25 MCG CAP PO SCH (20:49)
[2023-02-01] MEDS: Donepezil HCl 5 MG TAB PO SCH (20:49)
[2023-02-01] MEDS: Mirtazapine 15 MG TAB PO SCH (20:50)
[2023-02-02] MEDS: Cefepime 2 GM in Sodium Chloride 0.9% 100 ML IVPB SCH ×3 (05:42→22:00)
[2023-02-02] MEDS: Ascorbic Acid 500 mg Chewable Tablet PO SCH ×2 (09:58→21:46)
[2023-02-02] MEDS: Cholecalciferol 1,000 UNITS (25 MCG) TAB PO SCH (09:58)
[2023-02-02] MEDS: busPIRone HCl 5 MG TAB PO SCH ×2 (09:58→21:46)
[2023-02-02] MEDS: FLUoxetine HCl 10 MG CAP PO SCH (09:59)
[2023-02-02] MEDS: Metoprolol Tartrate 25 MG TAB PO SCH ×2 (09:59→21:45)
[2023-02-02] MEDS: Digoxin 0.25 MG TAB PO SCH (09:59)
[2023-02-02] MEDS: Senokot S 8.6-50 MG TAB PO SCH ×2 (09:59→21:45)
[2023-02-02] MEDS: Magnesium Oxide 400 MG TAB PO SCH (09:59)
[2023-02-02] MEDS: Famotidine 20 MG TAB PO SCH ×2 (09:59→21:46)
[2023-02-02] MEDS: HYDROcodone/Acetaminophen 5/325 mg Tablet PO PRN (10:08)
[2023-02-02] MEDS ORDERED: Morphine 4 MG/ML VIAL ONE (10:28)
[2023-02-02] MEDS ORDERED: Morphine 2 MG/ML VIAL SLOW IVP SCH (10:30)
[2023-02-02] MEDS: Dextrose 5 % And 0.9 % NaCl 1,000 ML IV SCH ×2 (12:31→21:52)
[2023-02-02] MEDS ORDERED: Sodium Bicarbonate 2.5 MEQ/5 ML VIAL ONE (13:11)
[2023-02-02] MEDS ORDERED: Heparin 1,000 UNITS/ML VIAL ONE (13:12)
[2023-02-02] MEDS ORDERED: Lidocaine 1% PF 5 ML VIAL ONE (13:13)
[2023-02-02] MEDS: Calcitriol 0.25 MCG CAP PO SCH (21:46)
[2023-02-02] MEDS: Mirtazapine 15 MG TAB PO SCH (21:46)
[2023-02-02] MEDS: Donepezil HCl 5 MG TAB PO SCH (21:47)
[2023-02-03] MEDS: Cefepime 2 GM in Sodium Chloride 0.9% 100 ML IVPB SCH ×2 (05:35→12:37)
[2023-02-03] MEDS: Senokot S 8.6-50 MG TAB PO SCH (07:57)
[2023-02-03] MEDS: Digoxin 0.25 MG TAB PO SCH (07:57)
[2023-02-03] MEDS: busPIRone HCl 5 MG TAB PO SCH (07:58)
[2023-02-03] MEDS: Famotidine 20 MG TAB PO SCH (07:58)
[2023-02-03] MEDS: Magnesium Oxide 400 MG TAB PO SCH (07:58)
[2023-02-03] MEDS: Ascorbic Acid 500 mg Chewable Tablet PO SCH (07:58)
[2023-02-03] MEDS: Metoprolol Tartrate 25 MG TAB PO SCH (07:58)
[2023-02-03] MEDS: FLUoxetine HCl 10 MG CAP PO SCH (07:58)
[2023-02-03] MEDS: Cholecalciferol 1,000 UNITS (25 MCG) TAB PO SCH (07:59)
[2023-02-03] MEDS: HYDROcodone/Acetaminophen 5/325 mg Tablet PO PRN (10:11)
[2023-02-03 14:59] VITALS: BP 156/91; TEMP 97.7
== END 2023-02-03 15:58 | DRG 853 ==
LOC: ERS 08:05 → SUATTDRO 08:05 → T4-A 11:15
PROVIDERS: ADMIT Internal Medicine; ATTEND Hospitalist
PROC: 3E03329 Introduction of Other Anti-infective into Peripheral Vein, Percutaneous Approach (ICD-10-PCS; 2023-01-26)
PROC: 0JB70ZZ Excision of Back Subcutaneous Tissue and Fascia, Open Approach (ICD-10-PCS; principal; 2023-01-27)
PROC: 0JB70ZZ Excision of Back Subcutaneous Tissue and Fascia, Open Approach (ICD-10-PCS; 2023-01-30)
PROC: 05HY33Z Insertion of Infusion Device into Upper Vein, Percutaneous Approach (ICD-10-PCS; 2023-02-02)
DX: A40.9 Streptococcal sepsis, unspecified (principal); E43 Unspecified severe protein-calorie malnutrition; L89.154 Pressure ulcer of sacral region, stage 4; L89.324 Pressure ulcer of left buttock, stage 4; L89.314 Pressure ulcer of right buttock, stage 4; I13.0 Hypertensive heart and chronic kidney disease with heart failure and stage 1 through stage 4 chronic kidney disease, or unspecified chronic kidney disease; M86.8X8 Other osteomyelitis, other site; I50.32 Chronic diastolic (congestive) heart failure; M48.54XA Collapsed vertebra, not elsewhere classified, thoracic region, initial encounter for fracture; J98.11 Atelectasis; J90 Pleural effusion, not elsewhere classified; Z16.24 Resistance to multiple antibiotics; A41.81 Sepsis due to Enterococcus; J44.9 Chronic obstructive pulmonary disease, unspecified; N18.2 Chronic kidney disease, stage 2 (mild); E11.22 Type 2 diabetes mellitus with diabetic chronic kidney disease; E78.00 Pure hypercholesterolemia, unspecified; I25.10 Atherosclerotic heart disease of native coronary artery without angina pectoris; F03.90 Unspecified dementia, unspecified severity, without behavioral disturbance, psychotic disturbance, mood disturbance, and anxiety; I48.0 Paroxysmal atrial fibrillation; F32.A Depression, unspecified; F41.9 Anxiety disorder, unspecified; Z90.49 Acquired absence of other specified parts of digestive tract; Z98.890 Other specified postprocedural states; Z95.810 Presence of automatic (implantable) cardiac defibrillator; Z95.5 Presence of coronary angioplasty implant and graft; Z86.711 Personal history of pulmonary embolism; Z88.1 Allergy status to other antibiotic agents; Z91.011 Allergy to milk products; Z91.018 Allergy to other foods; Z88.0 Allergy status to penicillin; Z88.2 Allergy status to sulfonamides; Z91.09 Other allergy status, other than to drugs and biological substances; Z79.01 Long term (current) use of anticoagulants; Z79.899 Other long term (current) drug therapy; Z68.22 Body mass index [BMI] 22.0-22.9, adult
CPT/HCPCS: 36415; 36416; 36569; 74177; 80048; 80053; 80162; 80202; 82565; 83605; 85025; 86140; 87040; 87070; 87077; 87186; 87205; 93005; 96365; 96366; 96368; 96375; 97139; C1751; J0692; J1200; J1644; J2270; J2272; J2704; J2920; J3370; J3490; J7042; J7050; S0028

== ENCOUNTER 2023-02-14 08:44 | Inpatient (IN) | payer MEDICARE ==
[2023-02-14] MEDS ORDERED: NOREPINEPHRINE 8 MG/250 ML-D5W 250 ML ONE (09:08)
[2023-02-14] MEDS ORDERED: Propofol 1,000 MG/100 ML VIAL IV ONE (09:08)
[2023-02-14] MEDS ORDERED: Fentanyl CADD 100 ML IV SCH (09:15)
[2023-02-14 09:29] LABS: Analyzer IN Cardio ER; Base Excess (BEa) 7.2 mEq/L (-2.0 to +3.0); CO2 Tension 36.2 mmHg (35.0-45.0); Calcium, Ionized (arterial) 1.17 mmol/L (1.12-1.30); Carboxyhemoglobin (COHb) 0.7 gm% (0.0-3.0); Hematocrit-ABG 41 % (42.0-52.0); O2 Tension (PaO2), arterial 66.1 mmHg (> 60.0); Potassium - ABG Lab 3.33 mmol/L (3.70-5.30); pH, Arterial 7.536 (7.35-7.45)
[2023-02-14 09:40] LABS: Puncture Site RRA
[2023-02-14 09:46] LABS: #Eosinphils 0.1 thou/uL (0.0-0.7); #Monocytes 0.5 thou/uL (0.11-0.59); #Neutrophils 7.4 thou/uL (1.40-6.50); %Basophils 0.2 % (0.0-1.0); %Eosinophils 1.4 % (0.0-10.0); %Lymphocytes 19.9 % (21.0-51.0); %Monocytes 5.1 % (0.0-10.0); %Neutrophils 72.6 % (42.0-75.0); Hematocrit 45.1 % (42.0-52.0); Hemoglobin 14.4 g/dL (14.0-18.0); Mean Corpuscular HGB CONC 31.9 g/dL (32.0-36.0); Mean Corpuscular Hemoglobin 30.1 pg (27.0-31.0); Mean Corpuscular Volume 94.4 fl (78.0-98.0); Mean Platelet Volume 11.1 fL (7.4-10.4); Platelet Count 238 10x3/uL (130-400); Red Blood Cell (RBC) Count 4.78 mill/uL (4.70-6.10); White Blood Cell (WBC) Count 10.2 10x3/uL (4.8-10.8)
[2023-02-14] MEDS ORDERED: metroNIDAZOLE 500 MG (100 mL) BAG ONE (09:46)
[2023-02-14] MEDS ORDERED: Sodium Chloride 0.9% 100 ML ONE (09:47)
[2023-02-14] MEDS ORDERED: Cefepime 2 GM VIAL ONE (09:47)
[2023-02-14] MEDS ORDERED: Vancomycin (BATCH) 1.5 GM in Premix 1 BAG IVPB SCH (10:00)
[2023-02-14 10:02] LABS: ALT (SGPT) 15 U/L (8-55); AST (SGOT) 22 U/L (5-34); Albumin 2.4 g/dL (3.4-4.8); Alkaline Phosphatase 77 U/L (40-110); Anion Gap 13 mmol/L (10-20); BUN (Urea Nitrogen) 17 mg/dL (8.4-25.7); Bilirubin, Total 0.8 mg/dL (0.2-1.2); Calc. Creatinine Clearance 0 mL/min (70-130); Calcium 8.7 mg/dL (7.8-10.44); Carbon Dioxide 31 mmol/L (23-31); Chloride 105 mmol/L (98-107); Estimated GFR 92; Globulin 4.1 g/dL (2.4-3.5); Glucose 100 mg/dL (83-110); Lipase 22 U/L (8-78); Magnesium 1.9 mg/dL (1.6-2.6); Protein, Total 6.5 g/dL (5.8-8.1); Sodium 145 mmol/L (136-145)
[2023-02-14 10:17] LABS: Bacteria/HPF 1+ HPF (None Seen); Bilirubin Negative (Negative); Blood, Urine 3+ (Negative); CAUTI Indications for Culture Urological Procedure; Clarity Clear (Clear); Glucose, Urine (Dipstick) Normal (Negative); Ketone, Urine Negative (Negative); Leukocyte Negative Leu/uL (Negative); Nitrite Negative (Negative); Protein, Urine (Dipstick) 70 mg/dL (Neg-Trace); RBC/HPF 21-50 HPF (0-3); Specific Gravity, Urine 1.019 (1.002-1.036); Squamous Epithelial None Seen HPF (0-3); Urobilinogen Normal mg/dL (Less than 2)
[2023-02-14 10:19] LABS: Urine Culture Reflex Yes Yes
[2023-02-14 10:21] LABS: INR-International Normal Ratio 1.8
[2023-02-14 10:22] LABS: PTT 38.5 sec (22.9-36.1)
[2023-02-14] MEDS ORDERED: Acetaminophen 325 MG TAB PER TUBE PRN (11:43)
[2023-02-14] MEDS ORDERED: Ventilator Sedation Protocol 1 EACH FS SCH (11:43)
[2023-02-14] MEDS ORDERED: Senokot S 8.6-50 MG TAB PER TUBE PRN (11:43)
[2023-02-14] MEDS ORDERED: Ondansetron PF 4 MG/2 ML Vial IVP PRN (11:43)
[2023-02-14] MEDS ORDERED: Bisacodyl 10 MG SUPP PR PRN (11:43)
[2023-02-14] MEDS ORDERED: Bisacodyl 5 MG TAB PO PRN (11:43)
[2023-02-14] MEDS ORDERED: Acetaminophen 650 MG Suppository PR PRN (11:43)
[2023-02-14] MEDS ORDERED: Vasopressin 20 UNITS in Sodium Chloride 0.9% 50 ML IV SCH (11:45)
[2023-02-14] MEDS ORDERED: NOREPINEPHRINE 8 MG/250 ML-D5W 250 ML IVPB SCH (11:45)
[2023-02-14] MEDS ORDERED: Aspirin 325 mg Enteric Coated Tablet PO SCH (11:45)
[2023-02-14] MEDS ORDERED: Ipratropium/Albuterol 3 ML NEB NEB PRN (12:05)
[2023-02-14] MEDS ORDERED: HumaLOG 300 UNITS/3 ML VIAL SC PRN ×2 (12:08)
[2023-02-14] MEDS ORDERED: Glucagon 1 MG/ML KIT IM PRN (12:08)
[2023-02-14] MEDS ORDERED: Dextrose 50% Abboject 50 ML SYRINGE SLOW IVP PRN (12:08)
[2023-02-14] MEDS ORDERED: Dextrose 5% in Water 1,000 ML IV PRN (12:08)
[2023-02-14 12:37] LABS: SARS-CoV-2 NAA Rapid Test Not Detected (NotDetected)
[2023-02-14] MEDS ORDERED: Propofol BOLUS 1,000 MG/100 ML VIAL IV PRN (12:45)
[2023-02-14] MEDS ORDERED: Propofol 1,000 MG/100 ML VIAL IV PRN (12:45)
[2023-02-14] MEDS ORDERED: Morphine 2 MG/ML VIAL SLOW IVP PRN (12:45)
[2023-02-14] MEDS ORDERED: Acetaminophen 325 MG TAB PO PRN (12:45)
[2023-02-14] MEDS ORDERED: Fentanyl BOLUS 250 ML IVPB PRN (12:45)
[2023-02-14] MEDS ORDERED: Lorazepam 2 MG/ML VIAL SLOW IVP PRN (12:45)
[2023-02-14] MEDS ORDERED: Hydrocortisone Sod Succ/PF 100 mg/2 ml Vial IVP SCH (12:45)
[2023-02-14] MEDS ORDERED: DISCONTINUE PREVIOUS NARCOTIC PAIN MEDICATIONS AND BENZODIAZEPINES FS SCH (12:45)
[2023-02-14] MEDS ORDERED: Albumin 25% 25 GM (100 mL) BOT IVPB SCH (13:00)
[2023-02-14] MEDS: Ipratropium/Albuterol 3 ML NEB NEB SCH ×3 (13:04→22:46)
[2023-02-14 13:23] LABS: Lactic Acid 1.7 mmol/L (0.5-2.2)
[2023-02-14 13:25] LABS: Hemoglobin A1c 6.8 % (4.0-6.0)
[2023-02-14 13:32] LABS: Troponin I 0.049 ng/mL (< 0.028)
[2023-02-14] MEDS: Albumin 25% 25 GM (100 mL) BOT IVPB SCH ×3 (14:15→23:10)
[2023-02-14 14:42] VITALS: BMI 23.8
[2023-02-14 16:04] LABS: Troponin I 0.046 ng/mL (< 0.028)
[2023-02-14 16:57] LABS: Legionella Urinary Ag Negative (Negative); Strep pneumo Urine Ag NEGATIVE (NEGATIVE)
[2023-02-14] MEDS: metroNIDAZOLE 500 MG in Premix 1 BAG IVPB SCH (19:54)
[2023-02-14] MEDS: Famotidine/PF 20 mg/2ml Vial SLOW IVP SCH (20:00)
[2023-02-14] MEDS: Enoxaparin 60 MG (0.6 mL) SYRINGE SC SCH (20:00)
[2023-02-14] MEDS ORDERED: Vancomycin 1 GM in Sodium Chloride 0.9% 250 ML 300 ML IVPB SCH (21:00)
[2023-02-14] MEDS: Cefepime 2 GM in Sodium Chloride 0.9% 100 ML IVPB SCH (21:13)
[2023-02-14] MEDS: Hydrocortisone Sod Succ/PF 100 mg/2 ml Vial IVP SCH (23:10)
[2023-02-14] MEDS: Vancomycin HCl 750 MG in Sodium Chloride 0.9% 250 ML 250 ML IVPB SCH (23:15)
[2023-02-15] MEDS: metroNIDAZOLE 500 MG in Premix 1 BAG IVPB SCH ×3 (02:12→21:23)
[2023-02-15] MEDS: Hydrocortisone Sod Succ/PF 100 mg/2 ml Vial IVP SCH ×4 (05:11→23:24)
[2023-02-15] MEDS: Albumin 25% 25 GM (100 mL) BOT IVPB SCH (05:11)
[2023-02-15 05:31] LABS: Hematocrit 36.8 % (42.0-52.0); Hemoglobin 11.9 g/dL (14.0-18.0); Manual Diff?? YES; Mean Corpuscular HGB CONC 32.3 g/dL (32.0-36.0); Mean Corpuscular Hemoglobin 30.5 pg (27.0-31.0); Mean Corpuscular Volume 94.4 fl (78.0-98.0); Mean Platelet Volume 11.3 fL (7.4-10.4); Platelet Count 236 10x3/uL (130-400); RBC Distribution Width 14.1 % (11.5-14.5); White Blood Cell (WBC) Count 14.2 10x3/uL (4.8-10.8)
[2023-02-15 05:51] LABS: INR-International Normal Ratio 1.8; Prothrombin Time 21.8 sec (12.0-14.7)
[2023-02-15 05:52] LABS: PTT 51.2 sec (22.9-36.1)
[2023-02-15 06:10] LABS: Delete Auto Diff?? YES
[2023-02-15 06:37] LABS: ALT (SGPT) 10 U/L (8-55); AST (SGOT) 16 U/L (5-34); Albumin 3.1 g/dL (3.4-4.8); Alkaline Phosphatase 56 U/L (40-110); Anion Gap 15 mmol/L (10-20); BUN (Urea Nitrogen) 21 mg/dL (8.4-25.7); Bilirubin, Direct 0.5 mg/dL (0.1-0.3); Calc. Creatinine Clearance 65 mL/min (70-130); Calcium 8.8 mg/dL (7.8-10.44); Carbon Dioxide 26 mmol/L (23-31); Chloride 107 mmol/L (98-107); Estimated GFR 88; Glucose 163 mg/dL (83-110); Potassium 3.7 mmol/L (3.5-5.1); Protein, Total 6.1 g/dL (5.8-8.1); Sodium 144 mmol/L (136-145)
[2023-02-15] MEDS: Ipratropium/Albuterol 3 ML NEB NEB SCH ×3 (06:42→18:30)
[2023-02-15 07:10] LABS: Actual Bicarbonate (HCO3a) 27.4 mEq/L (22-28); Base Excess (BEa) 4.3 mEq/L (-2.0 to +3.0); CO2 Tension 35.6 mmHg (35.0-45.0); Calcium, Ionized (arterial) 1.17 mmol/L (1.12-1.30); Carboxyhemoglobin (COHb) 0.2 gm% (0.0-3.0); Hematocrit-ABG 36 % (42.0-52.0); Hemoglobin (Hb) 12.1 g/dL (14.0-18.0); O2 Tension (PaO2), arterial 112.1 mmHg (> 60.0); Potassium - ABG Lab 3.37 mmol/L (3.70-5.30); pH, Arterial 7.504 (7.35-7.45)
[2023-02-15 07:15] LABS: Puncture Site RRA
[2023-02-15 08:40] LABS: Band 1 % (5-11); Lymphocytes 6 % (21-51); Monocytes 3 % (0-10); Neutrophil 90 % (42-75)
[2023-02-15 08:41] LABS: Hypochromia SLIGHT = 6-15 cells (100X) (0-5/hpf); Platelet Adequacy Comment Appears Adequate
[2023-02-15] MEDS ORDERED: NOREPINEPHRINE 8 MG/250 ML-D5W 250 ML ONE (08:50)
[2023-02-15] MEDS: Famotidine/PF 20 mg/2ml Vial SLOW IVP SCH ×2 (09:08→21:23)
[2023-02-15] MEDS: Cefepime 2 GM in Sodium Chloride 0.9% 100 ML IVPB SCH (09:08)
[2023-02-15] MEDS: Enoxaparin 60 MG (0.6 mL) SYRINGE SC SCH ×2 (09:08→21:23)
[2023-02-15] MEDS: Aspirin 81 mg Enteric Coated Tablet PO SCH (09:09)
[2023-02-15] MEDS ORDERED: Furosemide 40 MG (4 mL) VIAL SLOW IVP SCH (11:15)
[2023-02-15] MEDS: Vancomycin HCl 750 MG in Sodium Chloride 0.9% 250 ML 250 ML IVPB SCH ×2 (11:34→23:24)
[2023-02-15] MEDS ORDERED: Morphine 10 MG/ML VIAL SLOW IVP PRN (11:47)
[2023-02-15] MEDS: Morphine 4 MG/ML VIAL SLOW IVP PRN ×2 (21:42→23:45)
[2023-02-15] MEDS: Cefepime 1 GM in Sodium Chloride 0.9% 100 ML IVPB SCH (22:39)
[2023-02-15 23:49] LABS: Vancomycin, Trough 16.8 ug/mL
[2023-02-16] MEDS: metroNIDAZOLE 500 MG in Premix 1 BAG IVPB SCH ×3 (02:50→21:23)
[2023-02-16] MEDS: Morphine 4 MG/ML VIAL SLOW IVP PRN ×3 (03:38→21:39)
[2023-02-16 05:10] LABS: #Monocytes 0.4 thou/uL (0.11-0.59); #Neutrophils 12.8 thou/uL (1.40-6.50); %Basophils 0.1 % (0.0-1.0); %Lymphocytes 9.1 % (21.0-51.0); %Monocytes 2.8 % (0.0-10.0); %Neutrophils 87.5 % (42.0-75.0); Hematocrit 37.3 % (42.0-52.0); Hemoglobin 11.4 g/dL (14.0-18.0); Mean Corpuscular HGB CONC 30.6 g/dL (32.0-36.0); Mean Corpuscular Hemoglobin 30.4 pg (27.0-31.0); Mean Platelet Volume 11.6 fL (7.4-10.4); Platelet Count 215 10x3/uL (130-400); RBC Distribution Width 14.5 % (11.5-14.5); Red Blood Cell (RBC) Count 3.75 mill/uL (4.70-6.10); White Blood Cell (WBC) Count 14.6 10x3/uL (4.8-10.8)
[2023-02-16 05:31] LABS: INR-International Normal Ratio 1.7; Prothrombin Time 20.8 sec (12.0-14.7)
[2023-02-16 05:32] LABS: PTT 52.4 sec (22.9-36.1)
[2023-02-16 05:34] LABS: Mean Corpuscular Volume 99.5 fl (78.0-98.0)
[2023-02-16 06:04] LABS: Anion Gap 13 mmol/L (10-20); BUN (Urea Nitrogen) 25 mg/dL (8.4-25.7); Calc. Creatinine Clearance 59 mL/min (70-130); Calcium 8.6 mg/dL (7.8-10.44); Carbon Dioxide 29 mmol/L (23-31); Chloride 108 mmol/L (98-107); Estimated GFR 85; Glucose 122 mg/dL (83-110); Magnesium 1.9 mg/dL (1.6-2.6); Potassium 3.6 mmol/L (3.5-5.1); Sodium 146 mmol/L (136-145)
[2023-02-16] MEDS: Hydrocortisone Sod Succ/PF 100 mg/2 ml Vial IVP SCH ×4 (06:34→23:47)
[2023-02-16] MEDS: Ipratropium/Albuterol 3 ML NEB NEB SCH ×5 (07:40→23:33)
[2023-02-16] MEDS: Aspirin 81 mg Enteric Coated Tablet PO SCH (08:23)
[2023-02-16] MEDS: Cefepime 1 GM in Sodium Chloride 0.9% 100 ML IVPB SCH ×2 (08:23→22:50)
[2023-02-16] MEDS: Famotidine/PF 20 mg/2ml Vial SLOW IVP SCH ×2 (08:30→21:24)
[2023-02-16] MEDS: Enoxaparin 80 MG (0.8 mL) SYRINGE SC SCH ×2 (08:40→21:23)
[2023-02-16] MEDS: Vancomycin HCl 750 MG in Sodium Chloride 0.9% 250 ML 250 ML IVPB SCH ×3 (11:48→23:47)
[2023-02-17] MEDS: metroNIDAZOLE 500 MG in Premix 1 BAG IVPB SCH ×2 (03:19→10:38)
[2023-02-17] MEDS: Morphine 4 MG/ML VIAL SLOW IVP PRN ×6 (04:32→18:22)
[2023-02-17 04:33] VITALS: TEMP 98.2
[2023-02-17 05:52] LABS: #Monocytes 0.3 thou/uL (0.11-0.59); #Neutrophils 12.5 thou/uL (1.40-6.50); %Basophils 0.1 % (0.0-1.0); %Lymphocytes 5.2 % (21.0-51.0); %Monocytes 2.5 % (0.0-10.0); %Neutrophils 91.4 % (42.0-75.0); Hematocrit 36.9 % (42.0-52.0); Hemoglobin 11.4 g/dL (14.0-18.0); Mean Corpuscular HGB CONC 30.9 g/dL (32.0-36.0); Mean Corpuscular Hemoglobin 30.6 pg (27.0-31.0); Mean Corpuscular Volume 98.9 fl (78.0-98.0); Mean Platelet Volume 11.4 fL (7.4-10.4); Platelet Count 198 10x3/uL (130-400); RBC Distribution Width 14.3 % (11.5-14.5); Red Blood Cell (RBC) Count 3.73 mill/uL (4.70-6.10); White Blood Cell (WBC) Count 13.7 10x3/uL (4.8-10.8)
[2023-02-17] MEDS: Hydrocortisone Sod Succ/PF 100 mg/2 ml Vial IVP SCH ×3 (05:54→17:18)
[2023-02-17 06:15] LABS: INR-International Normal Ratio 2.1; Prothrombin Time 24.2 sec (12.0-14.7)
[2023-02-17 06:16] LABS: PTT 56.3 sec (22.9-36.1)
[2023-02-17 06:25] LABS: Anion Gap 14 mmol/L (10-20); BUN (Urea Nitrogen) 38 mg/dL (8.4-25.7); Calc. Creatinine Clearance 38 mL/min (70-130); Calcium 8.4 mg/dL (7.8-10.44); Carbon Dioxide 24 mmol/L (23-31); Chloride 112 mmol/L (98-107); Estimated GFR 48; Glucose 102 mg/dL (83-110); Potassium 3.7 mmol/L (3.5-5.1); Sodium 146 mmol/L (136-145)
[2023-02-17] MEDS: Ipratropium/Albuterol 3 ML NEB NEB SCH ×2 (07:58→11:53)
[2023-02-17 08:05] VITALS: BP 140/78
[2023-02-17] MEDS ORDERED: Lactated Ringer's 1,000 ML IV SCH (08:30)
[2023-02-17] MEDS: Cefepime 1 GM in Sodium Chloride 0.9% 100 ML IVPB SCH (08:41)
[2023-02-17] MEDS: Famotidine/PF 20 mg/2ml Vial SLOW IVP SCH (08:42)
[2023-02-17] MEDS: Enoxaparin 80 MG (0.8 mL) SYRINGE SC SCH (08:42)
[2023-02-17] MEDS ORDERED: Ipratropium/Albuterol 3 ML NEB NEB PRN (09:36)
[2023-02-17] MEDS ORDERED: Albumin 25% 25 GM (100 mL) BOT IVPB SCH ×2 (10:00)
[2023-02-17] MEDS: Aspirin 81 mg Enteric Coated Tablet PO SCH (10:17)
[2023-02-17] MEDS: Vancomycin HCl 750 MG in Sodium Chloride 0.9% 250 ML 250 ML IVPB SCH (12:12)
[2023-02-17 14:08] LABS: Vancomycin, Trough 46.4 ug/mL
[2023-02-17] MEDS ORDERED: Vancomycin HCl 750 MG in Sodium Chloride 0.9% 250 ML 250 ML IVPB SCH (15:15)
[2023-02-17] MEDS ORDERED: Calcitriol 0.25 MCG CAP PO SCH (21:00)
[2023-02-17] MEDS ORDERED: Magnesium Oxide 250 MG TAB PO SCH (21:00)
[2023-02-17 22:08] LABS: Mycoplasma pneumoniae IgG AB 1446 U/mL (0-99); Mycoplasma pneumoniae IgM AB Less than 770 U/mL (0-769)
[2023-02-18] MEDS ORDERED: FLUoxetine HCl 10 MG CAP PO SCH (09:00)
[2023-02-18] MEDS ORDERED: Digoxin 0.25 MG TAB PO SCH (09:00)
== END 2023-02-17 18:31 | disposition hospice, inpatient (51) | DRG 871 ==
LOC: ERS 08:44 → SUATTDRO 08:44 → CCU 11:15 → MSONC 02-15 19:17
PROVIDERS: ADMIT Family Medicine; ATTEND Family Medicine
PROC: 0T9B70Z Drainage of Bladder with Drainage Device, Via Natural or Artificial Opening (ICD-10-PCS; principal; 2023-02-14)
PROC: 02HV33Z Insertion of Infusion Device into Superior Vena Cava, Percutaneous Approach (ICD-10-PCS; 2023-02-14)
PROC: 5A1935Z Respiratory Ventilation, Less than 24 Consecutive Hours (ICD-10-PCS; 2023-02-14)
PROC: 4A133R1 Monitoring of Arterial Saturation, Peripheral, Percutaneous Approach (ICD-10-PCS; 2023-02-14)
PROC: 3E043XZ Introduction of Vasopressor into Central Vein, Percutaneous Approach (ICD-10-PCS; 2023-02-14)
PROC: 3E04329 Introduction of Other Anti-infective into Central Vein, Percutaneous Approach (ICD-10-PCS; 2023-02-14)
PROC: 30233J1 Transfusion of Nonautologous Serum Albumin into Peripheral Vein, Percutaneous Approach (ICD-10-PCS; 2023-02-14)
DX: A41.9 Sepsis, unspecified organism (principal); G93.41 Metabolic encephalopathy; I50.33 Acute on chronic diastolic (congestive) heart failure; J18.9 Pneumonia, unspecified organism; J96.01 Acute respiratory failure with hypoxia; I13.0 Hypertensive heart and chronic kidney disease with heart failure and stage 1 through stage 4 chronic kidney disease, or unspecified chronic kidney disease; E87.0 Hyperosmolality and hypernatremia; N17.9 Acute kidney failure, unspecified; M46.28 Osteomyelitis of vertebra, sacral and sacrococcygeal region; I5A Non-ischemic myocardial injury (non-traumatic); Z51.5 Encounter for palliative care; Z66 Do not resuscitate; Z88.1 Allergy status to other antibiotic agents; Z91.041 Radiographic dye allergy status; Z88.0 Allergy status to penicillin; Z88.8 Allergy status to other drugs, medicaments and biological substances; Z91.011 Allergy to milk products; Z91.018 Allergy to other foods; Z79.899 Other long term (current) drug therapy; Z79.01 Long term (current) use of anticoagulants; R13.12 Dysphagia, oropharyngeal phase; E11.22 Type 2 diabetes mellitus with diabetic chronic kidney disease; I25.10 Atherosclerotic heart disease of native coronary artery without angina pectoris; Z90.49 Acquired absence of other specified parts of digestive tract; Z98.890 Other specified postprocedural states; Z90.89 Acquired absence of other organs; Z95.5 Presence of coronary angioplasty implant and graft; F32.A Depression, unspecified; F41.9 Anxiety disorder, unspecified; E11.69 Type 2 diabetes mellitus with other specified complication; N18.30 Chronic kidney disease, stage 3 unspecified; Z11.52 Encounter for screening for COVID-19; E78.00 Pure hypercholesterolemia, unspecified; I48.0 Paroxysmal atrial fibrillation
CPT/HCPCS: 36415; 36416; 36600; 70450; 71045; 71250; 80048; 80053; 80076; 80202; 81001; 82024; 82088; 82533; 82607; 82805; 83036; 83605; 83690; 83735; 83880; 84145; 84244; 84443; 84484; 85025; 85610; 85730; 86850; 86900; 86901; 87040; 87070; 87081; 87086; 87149; 87205; 87449; 87899; 93005; 94002; 94003; 94640; 94760; 97139; J0692; J1650; J1720; J1940; J2060; J2270; J2704; J3010; J3370; J3490; J7050; J7120; J7620; P9047; S0028

== ENCOUNTER 2023-02-17 18:30 | Inpatient (IN) | payer OTHER ==
[2023-02-17 21:43] VITALS: BP 157/95; TEMP 98
[2023-02-17] MEDS ORDERED: Haloperidol Lactate 5 MG/ML VIAL SLOW IVP PRN (23:05)
[2023-02-17] MEDS ORDERED: Lorazepam 2 MG/ML VIAL SLOW IVP PRN (23:06)
[2023-02-17] MEDS ORDERED: Ondansetron ODT 4 MG TAB PO PRN (23:15)
[2023-02-17] MEDS ORDERED: Senokot S 8.6-50 MG TAB PO PRN (23:15)
[2023-02-17] MEDS ORDERED: Hyoscyamine SL 0.125 MG TAB SL PRN (23:15)
[2023-02-17] MEDS: Morphine 2 MG/ML VIAL SLOW IVP PRN (23:25)
[2023-02-18] MEDS: Morphine 2 MG/ML VIAL SLOW IVP PRN ×2 (02:48→04:26)
== END 2023-02-18 13:02 | disposition expired | DRG 951 ==
LOC: MSONC 18:30
PROVIDERS: ADMIT Internal Medicine Nephrology; ATTEND Internal Medicine Nephrology
DX: Z51.5 Encounter for palliative care (principal); J96.01 Acute respiratory failure with hypoxia; I50.31 Acute diastolic (congestive) heart failure; G93.41 Metabolic encephalopathy; E87.1 Hypo-osmolality and hyponatremia; N17.9 Acute kidney failure, unspecified; S26.90XA Unspecified injury of heart, unspecified with or without hemopericardium, initial encounter; M46.28 Osteomyelitis of vertebra, sacral and sacrococcygeal region; Z66 Do not resuscitate; I25.10 Atherosclerotic heart disease of native coronary artery without angina pectoris; I11.0 Hypertensive heart disease with heart failure; E11.9 Type 2 diabetes mellitus without complications; J44.9 Chronic obstructive pulmonary disease, unspecified; I48.91 Unspecified atrial fibrillation; F03.90 Unspecified dementia, unspecified severity, without behavioral disturbance, psychotic disturbance, mood disturbance, and anxiety; R13.12 Dysphagia, oropharyngeal phase; I07.1 Rheumatic tricuspid insufficiency; I35.0 Nonrheumatic aortic (valve) stenosis; R57.0 Cardiogenic shock; Z95.818 Presence of other cardiac implants and grafts
CPT/HCPCS: J2272